=== PATIENT | male | born 1940 | race American Indian/Alaskan Native ===

== ENCOUNTER 2020-02-03 20:02 | Observation (INO) | payer MEDICARE ==
[2020-02-03 21:22] LABS: Basophils # (Auto) 0.1 K/mm3 (0.0-0.1); Basophils % (Auto) 0.8 % (0.0-1.8); Eosinophils # (Auto) 0.1 K/mm3 (0.0-0.4); Eosinophils % (Auto) 1.7 % (0.0-4.3); Hematocrit 30.4 % (35.5-45.6); Hemoglobin 10.2 gm/dl (11.8-15.2); Lymphocytes # (Auto) 1.7 K/mm3 (1.2-5.4); Lymphocytes % (Auto) 28.2 % (13.4-35.0); Mean Corpuscular HGB Conc 34 % (32-34); Mean Corpuscular Volume 88 fl (84-94); Monocytes # (Auto) 0.6 K/mm3 (0.0-0.8); Monocytes % (Auto) 10.1 % (0.0-7.3); Platelet Count 247 K/mm3 (140-440); Red Blood Count 3.45 M/mm3 (3.65-5.03); Red Cell Distribution Width 13.3 % (13.2-15.2)
[2020-02-03 21:46] LABS: Albumin 4.2 g/dL (3.9-5); Calcium 9.6 mg/dL (8.4-10.2)
--- NOTE | 2020-02-03 23:41 | Emergency Department Report ---
ED General Adult HPI - General Chief complaint: Recheck/Abnormal Lab/Rx Stated complaint: LOW IRON/KIDNEY PAIN PUI?: No Time Seen by Provider: 02/03/20 23:30 Source: patient Mode of arrival: Ambulatory Limitations: No Limitations - History of Present Illness Initial comments: This is a 79-year-old male with history of chronic kidney disease, noninsulin dependent diabetes mellitus, hypertension who presents with abnormal labs. PCP requested that patient go to the emergency department for evaluation. He was told that he had low iron and his kidneys were weak. He is followed by tailor helper Dr. Henderson. This gentleman has been in his normal state of health. He denies any pain or discomfort other than baseline pain due to arthritis. He denies chest pain, shortness of breath, fever, cough. -: Gradual, unknown Severity scale (0 -10): 0 Consistency: constant Improves with: none Worsens with: none Associated Symptoms: denies other symptoms - Related Data Home Medications Medication Instructions Recorded Confirmed Last Taken Fenofibrate [Tricor] 145 mg PO QDAY 03/11/15 03/11/15 03/11/15 Gabapentin [Gralise] 600 mg PO QDAY 03/11/15 03/11/15 03/11/15 amLODIPine [Norvasc] 5 mg PO DAILY 03/11/15 03/11/15 03/11/15 glipiZIDE XL [Glucotrol Xl] 10 mg PO QAM 03/11/15 03/11/15 03/11/15 traMADoL [Ultram] 50 mg PO Q8H PRN 03/11/15 03/11/15 Unknown Allergies Allergy/AdvReac Type Severity Reaction Status Date / Time No Known Allergies Allergy Verified 03/11/15 18:10 ED Review of Systems ROS: Stated complaint: LOW IRON/KIDNEY PAIN Other details as noted in HPI Comment: All other systems reviewed and negative Constitutional: denies: fever, malaise Respiratory: denies: cough, shortness of breath Cardiovascular: denies: chest pain Gastrointestinal: denies: abdominal pain, nausea, vomiting ED Past Medical Hx - Past Medical History Previous Medical History?: Yes Hx Diabetes: Yes Hx Renal Disease: Yes Hx Arthritis: Yes Hx Headaches / Migraines: No Hx HIV: No - Surgical History Past Surgical History?: No - Social History Smoking Status: Former Smoker - Medications Home Medications: Home Medications Medication Instructions Recorded Confirmed Last Taken Type Fenofibrate [Tricor] 145 mg PO QDAY 03/11/15 03/11/15 03/11/15 History Gabapentin [Gralise] 600 mg PO QDAY 03/11/15 03/11/15 03/11/15 History amLODIPine [Norvasc] 5 mg PO DAILY 03/11/15 03/11/15 03/11/15 History glipiZIDE XL [Glucotrol Xl] 10 mg PO QAM 03/11/15 03/11/15 03/11/15 History traMADoL [Ultram] 50 mg PO Q8H PRN 03/11/15 03/11/15 Unknown History ED Physical Exam - General Limitations: No Limitations General appearance: alert, in no apparent distress - Head Head exam: Present: atraumatic, normocephalic - Eye Eye exam: Present: normal appearance - ENT ENT exam: Present: mucous membranes moist - Neck Neck exam: Present: normal inspection, full ROM - Respiratory Respiratory exam: Present: normal lung sounds bilaterally. Absent: respiratory distress, wheezes, rales, rhonchi - Cardiovascular Cardiovascular Exam: Present: regular rate, normal rhythm, normal heart sounds. Absent: systolic murmur, diastolic murmur, rubs, gallop - GI/Abdominal GI/Abdominal exam: Present: soft, normal bowel sounds. Absent: distended, tenderness, guarding, rebound - Extremities Exam Extremities exam: Present: normal inspection - Neurological Exam Neurological exam: Present: alert, oriented X3 - Psychiatric Psychiatric exam: Present: normal affect, normal mood - Skin Skin exam: Present: warm, dry, intact, normal color. Absent: rash ED Course Vital Signs 02/03/20 20:44 Temperature 98.2 F Pulse Rate 64 Respiratory 16 Rate Blood Pressure 172/82 O2 Sat by Pulse 100 Oximetry ED Medical Decision Making - Lab Data Result diagrams: 02/03/20 20:52 02/03/20 23:41 - EKG Data EKG shows normal: sinus rhythm Rate: normal - EKG Data 02/04/20 00:50 EKG obtained 36 EKG interpreted by me Normal sinus rhythm markedly prolonged NH interval 304 ms peaked T waves no ST elevation right bundle branch block nonischemic T wave pattern left axis deviation - Medical Decision Making Mr. Potts presents with metabolic derangement, acute hyperglycemia and acute on chronic renal failure. The discovery was made by his PCP during routine labs. Due to EKG abnormalities, hospitalization is indicated. Hypokalemia addressed with insulin therapy, calcium, sodium bicarbonate. Suspect chronic hyponatremia due to hypervolemia of end-stage renal disease versus abnormal hemostasis. Nephrology consult requested. Patient is admitted to the hospital service. Critical care attestation.: If time is entered above; I have spent that time in minutes in the direct care of this critically ill patient, excluding procedure time. ED Disposition Clinical Impression: Hyperkalemia, Acute on chronic kidney failure, [id number] kidney injury, Chronic hyponatremia, Acute hyperglycemia Disposition: 09 OP ADMIT IP TO THIS HOSP Is pt being admited?: Yes Does the pt Need Aspirin: No Condition: Stable
[2020-02-04] MEDS ORDERED: INSULIN REGULAR, HUMAN 100 UNIT/ML 3ML VIAL IV ONE (00:43)
[2020-02-04] MEDS ORDERED: SODIUM BICARB 8.4% 50 MEQ/50 ML SYRINGE IV ONE ×2 (00:43→01:29)
[2020-02-04] MEDS ORDERED: CALCIUM GLUCONATE 1,000 MG in SODIUM CHLORIDE 0.9% 100 ML IV ONE (00:43)
[2020-02-04] MEDS ORDERED: MORPHINE 2 MG/1 ML INJ IV PRN (01:24)
[2020-02-04] MEDS ORDERED: DEXTROSE 50% IN WATER (25GM) 50 ML SYRINGE IV PRN (01:24)
[2020-02-04] MEDS ORDERED: ACETAMINOPHEN 325 MG TAB PO PRN (01:24)
[2020-02-04] MEDS ORDERED: MAGNESIUM HYDROXIDE (MOM) ORAL LIQD UDC PO PRN (01:24)
[2020-02-04] MEDS ORDERED: ONDANSETRON 4 MG/2 ML INJ IV PRN (01:24)
[2020-02-04] MEDS ORDERED: INSULIN REGULAR, HUMAN 100 UNIT/ML 3ML VIAL ONE (01:26)
[2020-02-04] MEDS ORDERED: INSULIN REGULAR, HUMAN 100 UNITS/1 ML ONE (01:26)
[2020-02-04] MEDS ORDERED: SODIUM BICARB 4.2% 5 MEQ/10 ML SYRINGE ONE (01:27)
--- NOTE | 2020-02-04 01:32 | History and Physical Report ---
History of Present Illness Date of examination: 02/04/20 Date of admission: 02/04/20 00:59 Chief complaint: Abnormal Labs History of present illness: 79-year-old -[place] male with known history of diabetes mellitus, chronic kidney disease and hypertension presents to the emergency room today having been encouraged to report to the ER for abnormal labs. Patient follows up with Dr. Henderson for his chronic kidney disease. He was seen by his new primary care physician earlier and labs were said to be abnormal and therefore encouraged to report to the emergency room for evaluation. Potassium was said to be 6.1, sodium was 123 and glucose was said to be 619. Upon arrival in the emergency room patient had EKG changes significant for peaked T waves. He was placed on sodium bicarb, insulin calcium gluconate. Consult has been placed to the transformation lead for evaluation. Past History Past Medical History: arthritis, diabetes, hypertension, renal failure Past Surgical History: appendectomy Social history: smoking (Former smoker) Family history: no significant family history Medications and Allergies Allergies Allergy/AdvReac Type Severity Reaction Status Date / Time No Known Allergies Allergy Verified 03/11/15 18:10 Home Medications Medication Instructions Recorded Confirmed Last Taken Type Fenofibrate [Tricor] 145 mg PO QDAY 03/11/15 03/11/15 03/11/15 History Gabapentin [Gralise] 600 mg PO QDAY 03/11/15 03/11/15 03/11/15 History amLODIPine [Norvasc] 5 mg PO DAILY 03/11/15 03/11/15 03/11/15 History glipiZIDE XL [Glucotrol Xl] 10 mg PO QAM 03/11/15 03/11/15 03/11/15 History traMADoL [Ultram] 50 mg PO Q8H PRN 03/11/15 03/11/15 Unknown History Review of Systems Constitutional: no fever, no chills Ears, nose, mouth and throat: no nasal congestion, no sore throat Cardiovascular: no chest pain, no palpitations Respiratory: no cough, no shortness of breath Gastrointestinal: no abdominal pain, no nausea, no vomiting, no diarrhea Genitourinary Male: no dysuria, no hematuria, no flank pain Musculoskeletal: no neck pain, no low back pain Integumentary: no rash, no pruritis Neurological: no headaches, no confusion Exam - Constitutional Vitals: Temp Pulse Resp BP Pulse Ox 98.2 F 60 12 173/80 99 02/03/20 20:44 02/04/20 01:00 02/04/20 01:00 02/04/20 01:00 02/04/20 01:00 General appearance: Present: no acute distress, well-nourished - EENT Eyes: Present: PERRL, EOM intact. Absent: scleral icterus ENT: hearing intact, clear oral mucosa, dentition normal - Neck Neck: Present: supple, normal ROM - Respiratory Respiratory effort: normal Respiratory: bilateral: CTA - Cardiovascular Rhythm: regular Heart Sounds: Present: S1 & S2. Absent: gallop, systolic murmur, diastolic murmur, rub - Extremities Extremities: no ischemia, pulses intact, pulses symmetrical, No edema, Full ROM Peripheral Pulses: within normal limits - Abdominal General gastrointestinal: Present: soft, non-tender, non-distended, normal bowel sounds. Absent: mass - Integumentary Integumentary: Present: clear, warm, dry - Musculoskeletal Musculoskeletal: strength equal bilaterally - Psychiatric Psychiatric: appropriate mood/affect, intact judgment & insight, memory intact, cooperative - Neurologic Neurologic: CNII-XII intact, no focal deficits, moves all extremities Results - Labs CBC & Chem 7: 02/03/20 20:52 02/03/20 23:41 Labs: Abnormal lab results 02/03/20 02/03/20 02/03/20 Range/Units 20:52 20:52 23:41 RBC 3.45 L (3.65-5.03) M/mm3 Hgb 10.2 L (11.8-15.2) gm/dl Hct 30.4 L (35.5-45.6) % Davie % (Auto) 10.1 H (0.0-7.3) % Sodium 123 L (137-145) mmol/L Potassium 6.1 H* 5.7 H (3.6-5.0) mmol/L Chloride 89.8 L (98-107) mmol/L BUN 55 H (9-20) mg/dL Creatinine 2.7 H (0.8-1.3) mg/dL Glucose 619 H* (75-100) mg/dL Assessment and Plan - Patient Problems (1) Hyperkalemia Current Visit: Yes Status: Acute Plan to address problem: Possibly secondary to the chronic kidney disease. Will monitor patient closely in telemetry. He has had sodium bicarbonate, insulin and calcium gluconate. (2) Acute hyperglycemia Current Visit: Yes Status: Acute Plan to address problem: We will monitor [facility]. Patient placed on sliding scale insulin. (3) Chronic kidney disease Current Visit: No Status: Acute Plan to address problem: Consult placed to Dr. Henderson for evaluation and recommendation. (4) DVT prophylaxis Current Visit: No Status: Acute Plan to address problem: We will place on subcutaneous heparin. (5) Full code status Current Visit: Yes Status: Acute
[2020-02-04] MEDS: HEPARIN 5,000 UNIT/1 ML VIAL SUB-Q SCH ×3 (05:39→21:44)
[2020-02-04] MEDS ORDERED: INSULIN LISPRO 100 UNIT/ML VIAL 3 mL SUB-Q SCH (07:30)
[2020-02-04] MEDS ORDERED: traMADol 50 MG TAB PO PRN (11:53)
[2020-02-04] MEDS ORDERED: amLODIPine 5 MG TAB PO SCH (12:00)
[2020-02-04] MEDS: INSULIN REGULAR, HUMAN 100 UNIT/ML 3ML VIAL SUB-Q SCH ×3 (12:38→22:00)
[2020-02-04] MEDS: amLODIPine 10 MG TAB PO SCH (12:38)
[2020-02-04] MEDS: INSULIN NPH, HUMAN 100 UNIT/1 ML SUB-Q SCH ×2 (12:38→16:42)
[2020-02-04] MEDS: SODIUM CHLORIDE 0.9% 1000 ML 1,000 ML IV SCH ×2 (13:33→21:44)
--- NOTE | 2020-02-04 14:12 | Consultation ---
History of Present Illness - Reason for Consult Consult date: 02/04/20 hyperkalemia - History of Present Illness The patient is a 79 YO AAM who is well known to our service with history significant for Uncontrolled type 2 DM, HTN, HLD, CKD stage 4 and Hyperkalemia who presented to [facility] ED 02/02 for evaluation of abnormal lab results. Patient was seen by his new primary care physician and labs were said to be abnormal and therefore encouraged to report to the emergency room for evaluation. In the ED his Potassium was 6.1, Sodium 123 and glucose was 619. EKG showed peaked T waves. He received medication to lower potassium level. Currently patient denies any N, V, D, abd pain, rash, fever, cough, dizziness, weakness, dysuria, hematuria or syncope. Nephrology was consulted for evaluation. Past History Past Medical History: arthritis, diabetes, hypertension, hyperlipidemia, renal failure Past Surgical History: appendectomy Social history: smoking (Former smoker) Family history: no significant family history Medications and Allergies Allergies Allergy/AdvReac Type Severity Reaction Status Date / Time No Known Allergies Allergy Verified 03/11/15 18:10 Home Medications Medication Instructions Recorded Confirmed Last Taken Type Fenofibrate [Tricor] 145 mg PO QDAY 03/11/15 03/11/15 03/11/15 History Gabapentin [Gralise] 600 mg PO QDAY 03/11/15 03/11/15 03/11/15 History amLODIPine [Norvasc] 5 mg PO DAILY 03/11/15 03/11/15 03/11/15 History glipiZIDE XL [Glucotrol Xl] 10 mg PO QAM 03/11/15 03/11/15 03/11/15 History traMADoL [Ultram] 50 mg PO Q8H PRN 03/11/15 03/11/15 Unknown History Active Meds: Active Medications Acetaminophen (Tylenol) 650 mg PO Q4H PRN PRN Reason: Pain MILD(1-3)/Fever >100.5/MERCER Amlodipine Besylate (Amlodipine) 10 mg PO DAILY [facility] Last Admin: 02/04/20 12:38 Dose: 10 mg Documented by: Dextrose (D50w (25gm) Syringe) 0 ml IV Q30MIN PRN; Protocol PRN Reason: Hypoglycemia Fenofibrate (Tricor) 145 mg PO QDAY [facility] Heparin Sodium (Porcine) (Heparin) 5,000 unit SUB-Q Q8HR [facility] Last Admin: 02/04/20 13:33 Dose: 5,000 unit Documented by: Sodium Chloride (Nacl 0.9% 1000 Ml) 1,000 mls @ 100 mls/hr IV DIRECT [facility] Last Admin: 02/04/20 13:33 Dose: 100 mls/hr Documented by: Insulin Human NPH (Humulin N) 10 unit SUB-Q BIDDIAB [facility] Last Admin: 02/04/20 12:38 Dose: 10 unit Documented by: Insulin Human Regular (Humulin R) 0 unit SUB-Q ACHS [facility]; Protocol Last Admin: 02/04/20 12:38 Dose: 8 unit Documented by: Magnesium Hydroxide (Milk Of Magnesia) 30 ml PO Q4H PRN PRN Reason: Constipation Morphine Sulfate (Morphine) 2 mg IV Q4H PRN PRN Reason: Pain, Moderate (4-6) Last Admin: 02/04/20 05:37 Dose: 2 mg Documented by: Ondansetron HCl (Zofran) 4 mg IV Q8H PRN PRN Reason: Nausea And Vomiting Sodium Chloride (Sodium Chloride Flush Syringe 10 Ml) 10 ml IV BID [facility] Last Admin: 02/04/20 09:50 Dose: 10 ml Documented by: Sodium Chloride (Sodium Chloride Flush Syringe 10 Ml) 10 ml IV PRN PRN PRN Reason: LINE FLUSH Tramadol HCl (Ultram) 50 mg PO Q8H PRN PRN Reason: PAIN Review of Systems Constitutional: weight loss, anorexia, poor appetite, no weight gain, no fever, no chills, no weakness Cardiovascular: high blood pressure, no chest pain, no orthopnea, no edema, no syncope, no lightheadedness, no shortness of breath, no leg edema Respiratory: no cough, no shortness of breath Gastrointestinal: no abdominal pain, no nausea, no vomiting, no diarrhea, no me richie Genitourinary Male: no dysuria, no hematuria Musculoskeletal: other (R hip pain (chronic)) Integumentary: no rash, no wounds, no jaundice Neurological: no syncope, no change in speech, no change in mentation, no confusion Exam - Vital Signs Vital signs: Vital Signs Temp Pulse Resp BP Pulse Ox 98.2 F 64 16 172/82 100 02/03/20 20:44 02/03/20 20:44 02/03/20 20:44 02/03/20 20:44 02/03/20 20:44 Results - Lab Results 02/03/20 20:52 02/04/20 14:15 Most recent lab results Calcium 9.6 mg/dL (8.4-10.2) 02/03/20 20:52 Assessment and Plan 1. Acute kidney injury: Vasomotor TEX superimposed on CKD stage 4 in the setting of hyperosmolar state. Renal function is improving. Continue IV fluids. Monitor renal function. Avoid nephrotoxic agents. Meds dosage based on GFR. 2. FEN: Hyperkalemia, improving with meds, monitor. Monitor lytes. 3. Uncontrolled DM: Admitted with glucose of 619. Improving. 4. HTN: Monitor BP. 5. Anemia: Monitor and Epogen if needed. Subjective: Patient was seen and examined at the bedside. Examination: General appearance: well-developed, well-nourished, appears stated age, no distr ess, appears emaciated HEENT: ATNC, PERRL, mucous membranes moist, hearing intact, vision intact Neck: supple Respiratory: Clear to Ascultation Cardiology: regular, S1S2, no murmur Gastrointestinal: soft, normoactive bowel sounds, not tender, not distended Skin: no obvious rash Neurologic: no focal deficit, no asterixis, alert and oriented x3 Ext: no edema
[2020-02-04 14:57] LABS: Calcium 9.9 mg/dL (8.4-10.2)
[2020-02-04] MEDS ORDERED: SODIUM POLYSTYRENE 15 GM/60 ML ORAL LIQD PO ONE (15:07)
--- NOTE | 2020-02-04 16:30 | Event Note ---
Date: 02/04/20 Patient seen and examined Repeat BMP today, give 1 dose of Kayexalate Nephrology consulted Hemoglobin A1c greater than 16 Will start on long-acting insulin along with SSI Continue to monitor clinically, repeat BMP tomorrow morning If clinically stable possible discharge tomorrow in the a.m.
[2020-02-05] MEDS: HEPARIN 5,000 UNIT/1 ML VIAL SUB-Q SCH (05:45)
[2020-02-05 06:55] LABS: Basophils % (Auto) 0.2 % (0.0-1.8); Eosinophils # (Auto) 0.1 K/mm3 (0.0-0.4); Eosinophils % (Auto) 1.7 % (0.0-4.3); Hematocrit 28.2 % (35.5-45.6); Hemoglobin 9.6 gm/dl (11.8-15.2); Lymphocytes # (Auto) 0.7 K/mm3 (1.2-5.4); Lymphocytes % (Auto) 8.8 % (13.4-35.0); Mean Corpuscular HGB Conc 34 % (32-34); Mean Corpuscular Volume 86 fl (84-94); Monocytes # (Auto) 0.6 K/mm3 (0.0-0.8); Monocytes % (Auto) 8.3 % (0.0-7.3); Platelet Count 229 K/mm3 (140-440); Red Blood Count 3.27 M/mm3 (3.65-5.03); Red Cell Distribution Width 13.8 % (13.2-15.2)
[2020-02-05 07:08] LABS: INR 1.1 (0.87-1.13)
[2020-02-05 07:09] LABS: Calcium 8.9 mg/dL (8.4-10.2)
--- NOTE | 2020-02-05 09:59 | Progress Note ---
Assessment and Plan 1. Acute kidney injury: Vasomotor TEX superimposed on CKD stage 4 in the setting of hyperosmolar state. Renal function is improving. Continue IV fluids. Monitor renal function. Avoid nephrotoxic agents. Meds dosage based on GFR. 2. FEN: Hyperkalemia, improved with meds, monitor. Monitor lytes. 3. Uncontrolled DM: Admitted with glucose of 619. Improving. 4. HTN: Monitor BP. 5. Anemia: Monitor and Epogen if needed. Compliance encouraged. Subjective: Patient was seen and examined at the bedside. Examination: General appearance: well-developed, well-nourished, appears stated age, no distress, appears emaciated HEENT: ATNC, PERRL, mucous membranes moist, hearing intact, vision intact Neck: supple Respiratory: Clear to Auscultation Cardiology: regular, S1S2, no murmur Gastrointestinal: soft, normoactive bowel sounds, not tender, not distended Skin: no obvious rash Neurologic: no focal deficit, no asterixis, alert and oriented x3 Ext: no edema Subjective Date of service: 02/05/20 Objective - Vital Signs Vital signs: Vital Signs - 12hr 02/04/20 02/05/20 02/05/20 22:39 03:23 04:00 Temperature 98.6 F 99.4 F 99.4 F Pulse Rate 74 82 82 Respiratory 16 16 16 Rate Blood Pressure 133/55 130/64 Blood Pressure 130/64 [Left] O2 Sat by Pulse 99 97 97 Oximetry - Lab 02/05/20 06:33 02/05/20 06:33 Most recent lab results Calcium 8.9 mg/dL (8.4-10.2) 02/05/20 06:33 Medications & Allergies - Medications Allergies/Adverse Reactions: Allergies No Known Allergies Allergy (Verified 03/11/15 18:10) per patient Home Medications: Home Medications Medication Instructions Recorded Confirmed Last Taken Type Fenofibrate [Tricor] 145 mg PO QDAY 03/11/15 03/11/15 03/11/15 History Gabapentin [Gralise] 600 mg PO QDAY 03/11/15 03/11/15 03/11/15 History amLODIPine [Norvasc] 5 mg PO DAILY 03/11/15 03/11/15 03/11/15 History glipiZIDE XL [Glucotrol Xl] 10 mg PO QAM 03/11/15 03/11/15 03/11/15 History traMADoL [Ultram] 50 mg PO Q8H PRN 03/11/15 03/11/15 Unknown History Active Medications: Generic Name Dose Route Start Last Admin Trade Name Freq PRN Reason Stop Dose Admin Acetaminophen 650 mg 02/04/20 01:24 Tylenol PO Q4H PRN Pain MILD(1-3)/Fever >100.5/MERCER Amlodipine Besylate 10 mg 02/04/20 13:00 02/04/20 12:38 Amlodipine PO 10 mg DAILY [facility] Administration Dextrose 0 ml 02/04/20 01:24 D50w (25gm) Syringe IV Q30MIN PRN Hypoglycemia Protocol Fenofibrate 145 mg 02/05/20 10:00 Tricor PO QDAY [facility] Heparin Sodium (Porcine) 5,000 unit 02/04/20 06:00 02/05/20 05:45 Heparin SUB-Q 5,000 unit Q8HR [facility] Administration Sodium Chloride 1,000 mls @ 100 mls/hr 02/04/20 10:30 02/04/20 21:44 Nacl 0.9% 1000 Ml IV 100 mls/hr DIRECT [facility] Administration Insulin Human NPH 14 unit 02/05/20 10:00 Humulin N SUB-Q BIDDIAB [facility] Insulin Human Regular 0 unit 02/04/20 11:30 02/04/20 22:00 Humulin R SUB-Q Not Given ACHS [facility] Protocol Magnesium Hydroxide 30 ml 02/04/20 01:24 Milk Of Magnesia PO Q4H PRN Constipation Morphine Sulfate 2 mg 02/04/20 01:24 02/04/20 05:37 Morphine IV 2 mg Q4H PRN Administration Pain, Moderate (4-6) Ondansetron HCl 4 mg 02/04/20 01:24 Zofran IV Q8H PRN Nausea And Vomiting Sodium Chloride 10 ml 02/04/20 10:00 02/04/20 21:45 Sodium Chloride Flush Syringe 10 Ml IV 10 ml BID [facility] Administration Sodium Chloride 10 ml 02/04/20 01:24 Sodium Chloride Flush Syringe 10 Ml IV PRN PRN LINE FLUSH Tramadol HCl 50 mg 02/04/20 11:53 Ultram PO Q8H PRN PAIN
[2020-02-05] MEDS ORDERED: FENOFIBRATE 145 MG TAB PO SCH (10:00)
[2020-02-05] MEDS ORDERED: INSULIN NPH, HUMAN 100 UNIT/1 ML SUB-Q SCH (10:00)
[2020-02-05] MEDS: amLODIPine 10 MG TAB PO SCH (10:14)
[2020-02-05] MEDS: INSULIN NPH, HUMAN 100 UNIT/1 ML SUB-Q SCH (10:15)
[2020-02-05] MEDS: INSULIN REGULAR, HUMAN 100 UNIT/ML 3ML VIAL SUB-Q SCH (10:16)
[2020-02-05 12:56] VITALS: BP 135/67
--- NOTE | 2020-02-05 14:13 | Discharge Summary ---
Providers - Providers Date of Admission: 02/04/20 00:59 Date of discharge: 02/05/20 Attending physician: REESE ARANGO 02/04/20 00:52 Consult to Physician [CONS] Stat Comment: Consulting Provider: AMADEO RYDER Physician Instructions: Reason For Exam: ESRD, hyperkalemia, hyponatremia 02/04/20 01:25 Consult to Dietitian/Nutrition [CONS] Routine Physician Instructions: Reason For Exam: Reason for Consult: Diet education Primary care physician: LICENSED NURSING ASSISTANT Hospitalization Condition: Stable Hospital course: Discharge diagnosis: 1. Acute kidney injury: Vasomotor TEX superimposed on CKD stage 4 in the setting of hyperosmolar state. 2. Hyperkalemia, improved with meds, 3. Uncontrolled DM: Admitted with glucose of 619. A1c ~16 4. HTN:, Monitor BP. 5. Anemia, likely from CKD Disposition: DC-01 TO HOME OR SELFCARE Time spent for discharge: 34 minutes Core Measure Documentation - Palliative Care Palliative Care/ Comfort Measures: Not Applicable - Core Measures Any of the following diagnoses?: none Exam - Constitutional Vitals: Temp Pulse Resp BP Pulse Ox 98.3 F 67 18 135/67 98 02/05/20 11:33 02/05/20 11:33 02/05/20 11:33 02/05/20 11:33 02/05/20 11:33 Plan Activity: advance as tolerated Weight Bearing Status: Weight Bear as Tolerated Diet: diabetic Follow up with: PRIMARY CARE, [Primary Care Provider] - 7 Days Prescriptions: amLODIPine 10 mg PO DAILY #30 tablet Aspirin EC [Halfprin EC] 81 mg PO QDAY #30 tablet. Insulin Regular, Human [HumuLIN R] 0 unit SUB-Q ACHS #1 vial Insulin NPH, Human [NovoLIN N] 14 unit SUB-Q BIDDIAB #1 vial
== END 2020-02-05 13:46 | disposition home or self-care (01) ==
LOC: ED 20:02 → 4A 02-04 00:59
PROVIDERS: ADMIT Internal Medicine Geriatric Medicine; ATTEND Internal Medicine
DX: E11.65 Type 2 diabetes mellitus with hyperglycemia (principal); N17.9 Acute kidney failure, unspecified; E87.5 Hyperkalemia; I12.9 Hypertensive chronic kidney disease with stage 1 through stage 4 chronic kidney disease, or unspecified chronic kidney disease; N18.4 Chronic kidney disease, stage 4 (severe); R94.31 Abnormal electrocardiogram [ECG] [EKG]; E87.1 Hypo-osmolality and hyponatremia; E78.5 Hyperlipidemia, unspecified; M19.90 Unspecified osteoarthritis, unspecified site; D64.9 Anemia, unspecified; Z90.49 Acquired absence of other specified parts of digestive tract; Z87.891 Personal history of nicotine dependence; Z79.4 Long term (current) use of insulin
CPT/HCPCS: 36415; 80048; 80053; 82962; 83036; 84132; 85025; 85610; 87641; 93005; 96361; 96365; 96372; 96375; 97161; 99284; G0378; J0610; J1644; J2270; J7030; J1815

== ENCOUNTER 2021-06-05 11:59 | Outpatient (CLI) | payer MEDICARE ==
[2021-06-05 12:53] LABS: Albumin 3.2 g/dL (3.9-5); Calcium 9.1 mg/dL (8.4-10.2)
== END 2021-06-05 12:00 | disposition home or self-care (01) ==
LOC: LAB 11:59
PROVIDERS: ATTEND Internal Medicine Nephrology
DX: N18.4 Chronic kidney disease, stage 4 (severe) (principal)
CPT/HCPCS: 36415; 80048; 82040; 84100

== ENCOUNTER 2021-07-08 09:33 | Inpatient (IN) | payer MEDICARE ==
[2021-07-08 10:31] LABS: Hematocrit 24.6 % (35.5-45.6); Lymphocytes # (Auto) 0.5 K/mm3 (1.2-5.4); Lymphocytes % (Auto) 4.9 % (13.4-35.0); Mean Corpuscular HGB Conc 32 % (32-34); Mean Corpuscular Volume 87 fl (84-94); Monocytes # (Auto) 0.8 K/mm3 (0.0-0.8); Monocytes % (Auto) 7.8 % (0.0-7.3); Platelet Count 285 K/mm3 (140-440); Red Blood Count 2.83 M/mm3 (3.65-5.03); Red Cell Distribution Width 16.9 % (13.2-15.2)
--- NOTE | 2021-07-08 10:33 | XRay Report ---
CHEST 1 VIEW 07/08/2021 9:23 AM INDICATION / CLINICAL INFORMATION: SOB. COMPARISON: One view of the chest from 01/12/2012. FINDINGS: SUPPORT DEVICES: None. HEART / MEDIASTINUM: No significant abnormality. LUNGS / PLEURA: Airspace opacities are seen along the mid/lower lungs. No significant pleural effusio n. No pneumothorax. ADDITIONAL FINDINGS: No significant additional findings. IMPRESSION: Suspected bilateral pneumonia. Signer Name: Jason Carney MD Signed: 07/08/2021 10:28 AM Workstation Name: [id number]
[2021-07-08] MEDS ORDERED: AZITHROMYCIN/NS 500 MG/250 ML 500 MG/250 ML BAG IV ONE (10:36)
[2021-07-08] MEDS ORDERED: cefTRIAXone/NS 2 GM/100 ML 2 GM/100 ML BAG IV ONE (10:36)
[2021-07-08 10:51] LABS: Albumin 3.3 g/dL (3.9-5); Calcium 8.3 mg/dL (8.4-10.2)
--- NOTE | 2021-07-08 11:30 | Emergency Department Report ---
ED Shortness of Breath HPI - General Chief Complaint: Dyspnea/Respdistress Stated Complaint: N/V/D,HYPERGLYCEMIA,CHERI Time Seen by Provider: 07/08/21 10:18 Source: EMS Mode of arrival: Stretcher Limitations: No Limitations - History of Present Illness Initial Comments: 81-year-old male with a past medical history of diabetes, chronic renal sufficiency, hypertension, and PAD currently on Xarelto presents to the hospital with complaints of shortness of breath, nausea, vomiting, and diarrhea for the past 2 days. Diarrhea has since resolved. EMS reports a blood glucose of 340 upon their arrival with respiratory distress. Patient treated with magnesium 4 g, Solu-Medrol 125 mg, Lasix 80 mg IV in route to the hospital. Patient is also on Lasix at home 20 mg daily. Patient denies chest pain, fever or current abdominal pain. He is unvaccinated for Covid. 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 Max Initial triage documents remained saturation of 97% however patient arrived with nonrebreather and patient is satting 90 to 94% on 50% Venturi at time of my evaluation - Related Data Home Medications Medication Instructions Recorded Confirmed Last Taken Fenofibrate [Tricor] 145 mg PO QDAY 03/11/15 03/11/15 03/11/15 traMADoL [Ultram 50 MG tab] 50 mg PO Q8H PRN 03/11/15 03/11/15 Unknown Previous Rx's Medication Instructions Recorded Last Taken Type Aspirin EC [Halfprin EC] 81 mg PO QDAY #30 tablet. 02/05/20 Unknown Rx Insulin NPH, Human [NovoLIN N] 14 unit SUB-Q BIDDIAB #1 vial 02/05/20 Unknown Rx Insulin Regular, Human [HumuLIN R] 0 unit SUB-Q ACHS #1 vial 02/05/20 Unknown Rx amLODIPine 10 mg PO DAILY #30 tablet 02/05/20 Unknown Rx Allergies Allergy/AdvReac Type Severity Reaction Status Date / Time No Known Allergies Allergy Verified 07/08/21 09:37 ED Review of Systems ROS: Stated complaint: N/V/D,HYPERGLYCEMIA,CHERI Other details as noted in HPI Comment: All other systems reviewed and negative ED Past Medical Hx - Past Medical History Hx Congestive Heart Failure: No Hx Diabetes: Yes Hx Renal Disease: Yes Hx Arthritis: Yes Hx Headaches / Migraines: No Hx Asthma: No Hx COPD: No Hx HIV: No Additional medical history: PAD - Social History Smoking Status: Never Smoker - Medications Home Medications: Home Medications Medication Instructions Recorded Confirmed Last Taken Type Fenofibrate [Tricor] 145 mg PO QDAY 03/11/15 03/11/15 03/11/15 History traMADoL [Ultram 50 MG tab] 50 mg PO Q8H PRN 03/11/15 03/11/15 Unknown History Aspirin EC [Halfprin EC] 81 mg PO QDAY #30 tablet. 02/05/20 Unknown Rx Insulin NPH, Human [NovoLIN N] 14 unit SUB-Q BIDDIAB #1 vial 02/05/20 Unknown Rx Insulin Regular, Human [HumuLIN R] 0 unit SUB-Q ACHS #1 vial 02/05/20 Unknown Rx amLODIPine 10 mg PO DAILY #30 tablet 02/05/20 Unknown Rx ED Physical Exam - General Limitations: No Limitations - Other Other exam information: General: No acute distress Head: Atraumatic Eyes: normal appearance ENT: Moist mucous membranes Neck: Normal appearance, no midline tenderness Chest: Bilateral crackles, no respiratory distress, mild wheeze noted right lung field CV: Regular rate and rhythm Abdomen: Soft, normal bowel sounds, nontender, nondistended, no rebound or guarding Back: Normal inspection Extremity: Bilateral ankle edema, no leg edema or calf tenderness Neuro: Alert O x 3, no facial asymmetry, speech clear, no gross motor sensory deficit Psych: Appropriate behavior Skin: No rash ED Course Vital Signs 07/08/21 07/08/21 09:34 10:58 Temperature 98.4 F Pulse Rate 98 H Respiratory 18 Rate Blood Pressure 136/88 [Left] O2 Sat by Pulse 97 Oximetry - Reevaluation(s) Reevaluation #1: 07/08/21 11:30 sat 91-94% on 50% venti after 2 hours ED stay patient still has no urine output despite receiving Lasix 80 mg IV in route - Consultations Consultation #1: 07/08/21 11:59 case d/w DR Max nephrology, will consult 13:13 Case d/w DR Emilio Kinney cardiology, requests ECHO, Dr Hall informed. ED Medical Decision Making - Lab Data Result diagrams: 07/08/21 10:11 07/08/21 10:11 Lab Results 07/08/21 07/08/21 Range/Units 10:11 10:11 WBC 10.8 (4.5-11.0) K/mm3 RBC 2.83 L (3.65-5.03) M/mm3 Hgb 8.0 L (11.8-15.2) gm/dl Hct 24.6 L (35.5-45.6) % MCV 87 (84-94) fl MCH 28 (28-32) pg MCHC 32 (32-34) % RDW 16.9 H (13.2-15.2) % Plt Count 285 (140-440) K/mm3 Lymph % (Auto) 4.9 L (13.4-35.0) % [place] % (Auto) 7.8 H (0.0-7.3) % Eos % (Auto) 0.0 (0.0-4.3) % Baso % (Auto) 0.0 (0.0-1.8) % Lymph # (Auto) 0.5 L (1.2-5.4) K/mm3 [place] # (Auto) 0.8 (0.0-0.8) K/mm3 Eos # (Auto) 0.0 (0.0-0.4) K/mm3 Baso # (Auto) 0.0 (0.0-0.1) K/mm3 Seg Neutrophils % 87.3 H (40.0-70.0) % Seg Neutrophils # 9.4 H (1.8-7.7) K/mm3 Sodium 142 (137-145) mmol/L Potassium 4.3 (3.6-5.0) mmol/L Chloride 97.1 L (98-107) mmol/L Carbon Dioxide 16 L (22-30) mmol/L Anion Gap 33 mmol/L BUN 59 H (9-20) mg/dL Creatinine 3.8 H (0.8-1.3) mg/dL Estimated GFR 19 ml/min BUN/Creatinine Ratio 16 % Glucose 290 H (75-100) mg/dL Calcium 8.3 L (8.4-10.2) mg/dL Total Bilirubin 0.90 (0.1-1.2) mg/dL AST 934 H (5-40) units/L ALT 559 H (7-56) units/L Alkaline Phosphatase 66 (35-129) units/L Troponin T 0.176 H* (0.00-0.029) ng/mL Total Protein 6.8 (6.3-8.2) g/dL Albumin 3.3 L (3.9-5) g/dL Albumin/Globulin Ratio 0.9 % Triglycerides 102 (2-149) mg/dL Cholesterol 176 (50-199) mg/dL LDL Cholesterol Direct 109 (50-130) mg/dL HDL Cholesterol 44 (40-59) mg/dL Cholesterol/HDL Ratio 4.00 % Lipase 26 (13-60) units/L - EKG Data -: EKG Interpreted by Me EKG shows normal: sinus rhythm, intervals (QTC prolonged 514), ST-T waves (Anterior T wave inversion) Rate: normal (90) - EKG Data When compared to previous EKG there are: changes noted - Radiology Data Radiology results: report reviewed CHEST 1 VIEW 07/08/2021 9:23 AM INDICATION / CLINICAL INFORMATION: SOB. COMPARISON: One view of the chest from 01/12/2012. FINDINGS: SUPPORT DEVICES: None. HEART / MEDIASTINUM: No significant abnormality. LUNGS / PLEURA: Airspace opacities are seen along the mid/lower lungs. No significant pleural effusion. No pneumothorax. ADDITIONAL FINDINGS: No significant additional findings. IMPRESSION: Suspected bilateral pneumonia. - Medical Decision Making 81-year-old male presents to the hospital with shortness of breath and hypoxia. Audible crackles on examination. Lasix provided prior to arrival without urinary output. Symptoms improved somewhat with bronchodilators, Solu-Medrol, magnesium, and supplemental oxygen in route to the hospital. Chest x-ray read as pneumonia therefore blood cultures obtained and patient treated with Rocephin and azithromycin. Covid test ordered. Differential also includes CHF. . Elevated LFTs noted with acute hepatitis panel and CT abdomen pelvis pending at disposition. Patient also had a new anterior T wave inversions with mild elevated troponin therefore case discussed with cardiology. Echocardiogram recommended. Hospitalist informed and hospitalist to admit Critical Care Time: No Critical care attestation.: If time is entered above; I have spent that time in minutes in the direct care of this critically ill patient, excluding procedure time. ED Disposition Clinical Impression: Acute respiratory failure, Chronic renal insufficiency, Pneumonia, Hypergl ycemia due to diabetes mellitus, Elevated troponin, Anemia Disposition: 09 ADMITTED INPATIENT Is pt being admited?: Yes Condition: Stable Instructions: Diabetes Mellitus Type 2 in Adults (ED), Bacterial Pneumonia (ED) Time of Disposition: 13:23
--- NOTE | 2021-07-08 12:58 | Consultation ---
History of Present Illness - Reason for Consult Consult date: 07/08/21 acute renal failure, chronic renal failure - History of Present Illness The patient is a 81 YO male well known to our service with past medical history of DM-2, Hypertension, PAD on Xarelto, Anemia and CKD 4-5 who presented to the [facility] ED 07/08 with complaints of shortness of breath for the past 2-3 days. He also reports orthopnea, difficulty in sleeping, nausea, vomiting and diarrhea. Diarrhea has since resolved. Pt denies any abd pain, fever, chills, dizziness, syncope, cp, rash, dysuria and hematuria. EMS reports a blood glucose of 340 and respiratory distress upon their arrival. Patient treated with magnesium 4 g, Solu-Medrol 125 mg, Lasix 80 mg IV enroute to the hospital. He is unvaccinated for Covid. Patient is currently on VM O2. CXX showed bilateral airspace opacities. Labs notable for Creat 3.8, BUN 59 and bicarb 16. Nephrology consulted for further evaluation of advanced CKD. Past History Past Medical History: anemia, diabetes, hypertension, renal failure Medications and Allergies Allergies Allergy/AdvReac Type Severity Reaction Status Date / Time No Known Allergies Allergy Verified 07/08/21 09:37 Home Medications Medication Instructions Recorded Confirmed Last Taken Type Fenofibrate [Tricor] 145 mg PO QDAY 03/11/15 03/11/15 03/11/15 History traMADoL [Ultram 50 MG tab] 50 mg PO Q8H PRN 03/11/15 03/11/15 Unknown History Aspirin EC [Halfprin EC] 81 mg PO QDAY #30 tablet. 02/05/20 Unknown Rx Insulin NPH, Human [NovoLIN N] 14 unit SUB-Q BIDDIAB #1 vial 02/05/20 Unknown Rx Insulin Regular, Human [HumuLIN R] 0 unit SUB-Q ACHS #1 vial 02/05/20 Unknown Rx amLODIPine 10 mg PO DAILY #30 tablet 02/05/20 Unknown Rx Review of Systems All systems: negative Exam - Vital Signs Vital signs: Vital Signs Pulse Resp BP Pulse Ox 98 H 18 136/88 97 07/08/21 09:34 07/08/21 09:34 07/08/21 09:34 07/08/21 09:34 Results - Lab Results 07/08/21 10:11 07/08/21 10:11 Most recent lab results Calcium 8.3 mg/dL (8.4-10.2) L 07/08/21 10:11 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 Admitted with volume overload and metabolic acidosis. Patient shaun need hemodialysis during this admission. Monitor. 2. FEN: Anion-gap Metabolic acidosis, 2/2 CKD, monitor. Volume control, IV Lasix. Monitor lytes and volume status. 3. Acute hypoxic resp failure, POA: 2/2 volume overload / pulmonary edema / PNA. On VM O2. Monitor. 4. PNA, POA: Abx to cover CAP. Covid-19 test pending. 5. DM-2: 6. Normocytic Anemia, POA: Chronic. May need Epogen. Monitor. 7. Hypertension: Volume control. Continue home BP meds. Monitor BP. Subjective: Patient was seen and examined at the bedside. Examination: General appearance: well-developed, appears stated age, slight resp distress, VM O2 HEENT: atraumatic, JAE Neck: trachea midline Respiratory: rales heard Heart: S1S2, regular, no murmur Abdomen: soft, bowel sounds heard, NT Integumentary: no obvious rash Neurologic: AO, able to move extremities Ext: trace LE edema
--- NOTE | 2021-07-08 12:59 | Cat Scan Report ---
CT ABDOMEN AND PELVIS WITHOUT CONTRAST HISTORY: Nausea and vomiting, elevated liver enzymes COMPARISON: None. TECHNIQUE: Axial CT images were obtained through the abdomen and pelvis without IV contrast. Sagittal and coronal reformatted images. All CT scans at this location are performed using CT dose reduction for ALARA by means of automated exposure control. FINDINGS: CT ABDOMEN: Lung Bases: Mild cardiomegaly, pulmonary venous congestion, moderate right pleural effusion and small left pleural effusion are identified suggesting mild CHF. Liver: The unenhanced CT appearance of the liver is unremarkable. No mass or significant parenchymal liver disease is appreciated. Biliary: There is dense material in the gallbladder which may represent sludge or noncalcified stones . No evidence for biliary dilatation. Spleen: No significant abnormality. Unenlarged. Pancreas: No significant abnormality. Adrenals: No significant abnormality. Kidneys: Multiple small renal cysts are seen bilaterally. Some of these demonstrate mild hemorrhagic change. No obvious renal mass, nephrolithiasis or hydronephrosis. Lymphatics: No lymphadenopathy. Vasculature: Moderate atherosclerotic disease throughout the abdominal aorta and iliac arteries. Bowel/Peritoneum: No evidence for bowel obstruction or focal inflammation. The appendix is normal. Th ere is small pelvic ascites. No fluid collection or free air. CT PELVIS: : The bladder and prostate gland are unremarkable. Osseous Structures: Moderate lumbar spondylosis. Additional Findings: None IMPRESSION: No acute inflammatory process is identified in the abdomen or pelvis. Unremarkable noncontrast CT linda earance of the liver. Sludge or noncalcified stones are suspected in the gallbladder. No evidence for biliary dilatation. Bilateral renal cysts as described. Small pelvic ascites. Mild CHF is suspected at the lung bases. Signer Name: Humberto Soto Jr, MD Signed: 07/08/2021 12:54 PM Workstation Name: [id number]
[2021-07-08 14:51] LABS: Hepatitis B Surface Antigen Non-Reactive (Negative); Hepatitis C Virus Antibody Non-Reactive (NonReactive)
[2021-07-08] MEDS ORDERED: traMADol 50 MG TAB PO PRN (16:31)
[2021-07-08] MEDS ORDERED: ONDANSETRON 4 MG/2 ML INJ IV PRN (16:33)
[2021-07-08] MEDS ORDERED: ACETAMINOPHEN 325 MG TAB PO PRN (16:33)
[2021-07-08] MEDS ORDERED: MORPHINE 2 MG/1 ML INJ IV PRN (16:40)
--- NOTE | 2021-07-08 16:52 | History and Physical Report ---
History of Present Illness Date of examination: 07/08/21 History of present illness: 81-year-old male with a past medical history of diabetes, chronic renal sufficiency, hypertension, and PAD currently on Xarelto presents to the hospital with complaints of shortness of breath, nausea, vomiting, and diarrhea for the past 2 days. Diarrhea has since resolved. EMS reports a blood glucose of 340 upon their arrival with respiratory distress. Patient treated with magnesium 4 g, Solu-Medrol 125 mg, Lasix 80 mg IV in route to the hospital. Patient is also on Lasix at home 20 mg daily. Patient denies chest pain, fever or current abdominal pain. He is unvaccinated for Covid. Purchasing Internship: Dr. Henderson Initial triage documents remained saturation of 97% however patient arrived with nonrebreather and patient is satting 90 to 94% on 50% Venturi at time of my evaluation - Related Data Home Medications Medication Instructions Recorded Confirmed Last Taken Fenofibrate [Tricor] 145 mg PO QDAY 03/11/15 03/11/15 03/11/15 traMADoL [Ultram 50 MG tab] 50 mg PO Q8H PRN 03/11/15 03/11/15 Unknown Previous Rx's Medication Instructions Recorded Last Taken Type Aspirin EC [Halfprin EC] 81 mg PO QDAY #30 tablet. 02/05/20 Unknown Rx Insulin NPH, Human [NovoLIN N] 14 unit SUB-Q BIDDIAB #1 vial 02/05/20 Unknown Rx Insulin Regular, Human [HumuLIN R] 0 unit SUB-Q ACHS #1 vial 02/05/20 Unknown Rx amLODIPine 10 mg PO DAILY #30 tablet 02/05/20 Unknown Rx Allergies Allergy/AdvReac Type Severity Reaction Status Date / Time No Known Allergies Allergy Verified 07/08/21 09:37 - Past Medical History --Diabetes: Yes --Renal Disease: Yes --Arthritis: Yes --Additional medical history: PAD - Social History Smoking Status: Never Smoker - Medications Home Medications: Home Medications Medication Instructions Recorded Confirmed Last Taken Type Fenofibrate [Tricor] 145 mg PO QDAY 03/11/15 03/11/15 03/11/15 History traMADoL [Ultram 50 MG tab] 50 mg PO Q8H PRN 03/11/15 03/11/15 Unknown History Aspirin EC [Halfprin EC] 81 mg PO QDAY #30 tablet. 02/05/20 Unknown Rx Insulin NPH, Human [NovoLIN N] 14 unit SUB-Q BIDDIAB #1 vial 02/05/20 Unknown Rx Insulin Regular, Human [HumuLIN R] 0 unit SUB-Q ACHS #1 vial 02/05/20 Unknown Rx amLODIPine 10 mg PO DAILY #30 tablet 02/05/20 Unknown Rx Review of Systems ROS: Stated complaint: N/V/D,HYPERGLYCEMIA,CHERI Other details as noted in HPI Comment: All other systems reviewed and negative Medications and Allergies Allergies Allergy/AdvReac Type Severity Reaction Status Date / Time No Known Allergies Allergy Verified 07/08/21 09:37 Home Medications Medication Instructions Recorded Confirmed Last Taken Type Fenofibrate [Tricor] 145 mg PO QDAY 03/11/15 03/11/15 03/11/15 History traMADoL [Ultram 50 MG tab] 50 mg PO Q8H PRN 03/11/15 03/11/15 Unknown History Aspirin EC [Halfprin EC] 81 mg PO QDAY #30 tablet. 02/05/20 Unknown Rx Insulin NPH, Human [NovoLIN N] 14 unit SUB-Q BIDDIAB #1 vial 02/05/20 Unknown Rx Insulin Regular, Human [HumuLIN R] 0 unit SUB-Q ACHS #1 vial 02/05/20 Unknown Rx amLODIPine 10 mg PO DAILY #30 tablet 02/05/20 Unknown Rx Exam - Constitutional Vitals: Temp Pulse Resp BP Pulse Ox 98.4 F 98 H 18 136/88 97 07/08/21 10:58 07/08/21 09:34 07/08/21 09:34 07/08/21 09:34 07/08/21 10:37 HEART Score - HEART Score Troponin: Troponin T 0.182 ng/mL (0.00-0.029) H* 07/08/21 14:14 Results - Labs CBC & Chem 7: 07/09/21 06:24 07/08/21 10:11 Labs: Laboratory Last Values WBC 10.8 K/mm3 (4.5-11.0) 07/08/21 10:11 RBC 2.83 M/mm3 (3.65-5.03) L 07/08/21 10:11 Hgb 8.0 gm/dl (11.8-15.2) L 07/08/21 10:11 Hct 24.6 % (35.5-45.6) L 07/08/21 10:11 MCV 87 fl (84-94) 07/08/21 10:11 MCH 28 pg (28-32) 07/08/21 10:11 MCHC 32 % (32-34) 07/08/21 10:11 RDW 16.9 % (13.2-15.2) H 07/08/21 10:11 Plt Count 285 K/mm3 (140-440) 07/08/21 10:11 Lymph % (Auto) 4.9 % (13.4-35.0) L 07/08/21 10:11 [place] % (Auto) 7.8 % (0.0-7.3) H 07/08/21 10:11 Eos % (Auto) 0.0 % (0.0-4.3) 07/08/21 10:11 Baso % (Auto) 0.0 % (0.0-1.8) 07/08/21 10:11 Lymph # (Auto) 0.5 K/mm3 (1.2-5.4) L 07/08/21 10:11 [place] # (Auto) 0.8 K/mm3 (0.0-0.8) 07/08/21 10:11 Eos # (Auto) 0.0 K/mm3 (0.0-0.4) 07/08/21 10:11 Baso # (Auto) 0.0 K/mm3 (0.0-0.1) 07/08/21 10:11 Seg Neutrophils % 87.3 % (40.0-70.0) H 07/08/21 10:11 Seg Neutrophils # 9.4 K/mm3 (1.8-7.7) H 07/08/21 10:11 Sodium 142 mmol/L (137-145) 07/08/21 10:11 Potassium 4.3 mmol/L (3.6-5.0) 07/08/21 10:11 Chloride 97.1 mmol/L (98-107) L 07/08/21 10:11 Carbon Dioxide 16 mmol/L (22-30) L 07/08/21 10:11 Anion Gap 33 mmol/L 07/08/21 10:11 BUN 59 mg/dL (9-20) H 07/08/21 10:11 Creatinine 3.8 mg/dL (0.8-1.3) H 07/08/21 10:11 Estimated GFR 19 ml/min 07/08/21 10:11 BUN/Creatinine Ratio 16 % 07/08/21 10:11 Glucose 290 mg/dL (75-100) H 07/08/21 10:11 Calcium 8.3 mg/dL (8.4-10.2) L 07/08/21 10:11 Total Bilirubin 0.90 mg/dL (0.1-1.2) 07/08/21 10:11 AST 934 units/L (5-40) H 07/08/21 10:11 ALT 559 units/L (7-56) H 07/08/21 10:11 Alkaline Phosphatase 66 units/L (35-129) 07/08/21 10:11 Troponin T 0.182 ng/mL (0.00-0.029) H* 07/08/21 14:14 Total Protein 6.8 g/dL (6.3-8.2) 07/08/21 10:11 Albumin 3.3 g/dL (3.9-5) L 07/08/21 10:11 Albumin/Globulin Ratio 0.9 % 07/08/21 10:11 Triglycerides 102 mg/dL (2-149) 07/08/21 10:11 Cholesterol 176 mg/dL (50-199) 07/08/21 10:11 LDL Cholesterol Direct 109 mg/dL (50-130) 07/08/21 10:11 HDL Cholesterol 44 mg/dL (40-59) 07/08/21 10:11 Cholesterol/HDL Ratio 4.00 % 07/08/21 10:11 Lipase 26 units/L (13-60) 07/08/21 10:11 Hepatitis A IgM Ab Non-reactive (NonReactive) 07/08/21 13:38 Hep Bs Antigen Non-reactive (Negative) 07/08/21 13:38 Hep B Core IgM Ab Non-reactive (NonReactive) 07/08/21 13:38 Hepatitis C Antibody Non-reactive (NonReactive) 07/08/21 13:38 Microbiology: Microbiology 07/08/21 10:57 Peripheral/Venous Blood Culture - Preliminary Culture in Progress 07/08/21 10:57 Peripheral/Venous Blood Culture - Preliminary Culture in Progress - Imaging and Cardiology Chest x-ray: report reviewed Imaging and Cardiology: Chest x-ray Suspected bilateral pneumonia Abdomen and pelvis CT No acute inflammatory process is identified in the abdomen or pelvis. Unremarkable noncontrast CT appearance of the liver. Sludge or noncalcified stones are suspected in the gallbladder. No evidence for biliary dilatation. Assessment and Plan Advance Directives: Yes (Full code) VTE prophylaxis?: Chemical Plan of care discussed with patient/family: Yes - Patient Problems (1) Acute respiratory failure with hypoxia Current Visit: Yes Status: Acute Plan to address problem: Patient was hypoxic on room air Oxygen supplementation as necessary (2) Volume overload Current Visit: Yes Status: Chronic Plan to address problem: Nephrology consulted Hemodialysis for increased ultrafiltration (3) Bilateral pneumonia Current Visit: Yes Status: Acute Plan to address problem: We will recheck procalcitonin. In the meantime continue IV Zithromax and IV Rocephin at 1 g per 24 hours. (4) End-stage renal disease needing dialysis Current Visit: Yes Status: Chronic Plan to address problem: Nephrology consulted for hemodialysis as per schedule (5) IDDM (insulin dependent diabetes mellitus) Current Visit: Yes Status: Chronic Plan to address problem: Continue home insulin and coverage Check hemoglobin A1c (6) Hypertension Current Visit: Yes Status: Chronic Qualifiers: Hypertension type: primary hypertension Qualified Code(s): I10 - Essential (primary) hypertension Plan to address problem: Continue antihypertensives and adjust medications (7) Hyperlipidemia Current Visit: Yes Status: Chronic Qualifiers: Hyperlipidemia type: unspecified Qualified Code(s): E78.5 - Hyperlipidemia, unspecified Plan to address problem: Continue statins (8) Anemia Current Visit: Yes Status: Chronic Qualifiers: Anemia type: due to chronic kidney disease Plan to address problem: Secondary to end-stage renal disease Epogen as per nephrology (9) DVT prophylaxis Current Visit: Yes Status: Acute Plan to address problem: On heparin and GI prophylaxis (10) Advance care planning Current Visit: Yes Status: Acute Plan to address problem: Disease education conducted, care plan discussed, diagnosis discussed, prognosis discussed. Patient is full code. Patient acknowledges understanding and agreement with care plan. +30 minutes.
[2021-07-08] MEDS ORDERED: AZITHROMYCIN/NS 500 MG/250 ML 500 MG/250 ML BAG IV SCH (17:00)
[2021-07-08] MEDS: FAMOTIDINE 10 MG TAB PO SCH (21:13)
[2021-07-08] MEDS: cefTRIAXone/NS 1 GM/50 ML 1 GM/50 ML BAG IV SCH (21:13)
[2021-07-08] MEDS: ASPIRIN EC 81 MG TAB PO SCH (21:14)
[2021-07-08] MEDS: FENOFIBRATE 145 MG TAB PO SCH (21:14)
[2021-07-08] MEDS: HEPARIN 5,000 UNIT/1 ML VIAL SUB-Q SCH (21:15)
[2021-07-08] MEDS ORDERED: FUROSEMIDE 40 MG/4 ML INJ IV ONE (22:15)
[2021-07-08] MEDS: INSULIN NPH, HUMAN 100 UNIT/1 ML SUB-Q SCH (22:43)
[2021-07-08] MEDS: INSULIN LISPRO 100 UNIT/ML SUB-Q SCH (22:48)
[2021-07-08] MEDS: amLODIPine 10 MG TAB PO SCH (22:56)
[2021-07-09 06:33] LABS: Basophils % (Auto) 0.1 % (0.0-1.8); Hematocrit 21.5 % (35.5-45.6); Hemoglobin 7.1 gm/dl (11.8-15.2); Lymphocytes # (Auto) 0.9 K/mm3 (1.2-5.4); Lymphocytes % (Auto) 9.8 % (13.4-35.0); Mean Corpuscular HGB Conc 33 % (32-34); Mean Corpuscular Volume 85 fl (84-94); Monocytes # (Auto) 0.7 K/mm3 (0.0-0.8); Monocytes % (Auto) 7.9 % (0.0-7.3); Platelet Count 259 K/mm3 (140-440); Red Blood Count 2.54 M/mm3 (3.65-5.03); Red Cell Distribution Width 16.7 % (13.2-15.2)
[2021-07-09 06:48] LABS: Albumin 3.3 g/dL (3.9-5); Calcium 7.7 mg/dL (8.4-10.2)
[2021-07-09] MEDS: INSULIN NPH, HUMAN 100 UNIT/1 ML SUB-Q SCH ×2 (09:15→17:21)
[2021-07-09] MEDS: INSULIN LISPRO 100 UNIT/ML SUB-Q SCH ×4 (09:15→22:33)
[2021-07-09] MEDS: amLODIPine 10 MG TAB PO SCH (09:16)
[2021-07-09] MEDS: FAMOTIDINE 10 MG TAB PO SCH ×2 (09:16→22:33)
[2021-07-09] MEDS: FENOFIBRATE 145 MG TAB PO SCH (09:16)
[2021-07-09] MEDS: HEPARIN 5,000 UNIT/1 ML VIAL SUB-Q SCH ×2 (09:16→22:32)
[2021-07-09] MEDS: ASPIRIN EC 81 MG TAB PO SCH (09:16)
--- NOTE | 2021-07-09 09:40 | Progress Note ---
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 Admitted with volume overload and metabolic acidosis. Patient shaun need hemodialysis during this admission. Monitor. 2. FEN: Anion-gap Metabolic acidosis, 2/2 CKD, monitor. Volume control, IV Lasix. Monitor lytes and volume status. 3. Acute hypoxic resp failure, POA: 2/2 volume overload / pulmonary edema / PNA. On VM O2. Monitor. 4. PNA, POA: Abx to cover CAP. Covid-19 test negative. 5. Suspected CHF: Echo pending. 6. DM-2: 7. Normocytic Anemia, POA: Chronic. May need Epogen. Monitor. 8. Hypertension: Volume control. Continue home BP meds. Monitor BP. Subjective: Patient was seen and examined at the bedside. Examination: General appearance: well-developed, appears stated age, slight resp distress, VM O2 HEENT: atraumatic, JAE Neck: trachea midline Respiratory: rales heard Heart: S1S2, regular, no murmur Abdomen: soft, bowel sounds heard, NT Integumentary: no obvious rash Neurologic: AO, able to move extremities Ext: trace LE edema Subjective Date of service: 07/09/21 Objective - Vital Signs Vital signs: Vital Signs - 12hr 07/08/21 07/09/21 07/09/21 21:56 05:34 07:29 Temperature 98.7 F Pulse Rate 83 Respiratory 17 18 Rate Blood Pressure 125/78 O2 Sat by Pulse 96 96 94 Oximetry - Lab 07/09/21 06:24 07/09/21 06:24 Most recent lab results Calcium 7.7 mg/dL (8.4-10.2) L 07/09/21 06:24 Medications & Allergies - Medications Allergies/Adverse Reactions: Allergies No Known Allergies Allergy (Verified 07/08/21 09:37) per patient Home Medications: Home Medications Medication Instructions Recorded Confirmed Last Taken Type Fenofibrate [Tricor] 145 mg PO QDAY 03/11/15 07/09/21 03/11/15 History traMADoL [Ultram 50 MG tab] 50 mg PO Q8H PRN 03/11/15 07/09/21 Unknown History Aspirin EC [Halfprin EC] 81 mg PO QDAY #30 tablet. 02/05/20 07/09/21 Unknown Rx Insulin NPH, Human [NovoLIN N] 14 unit SUB-Q BIDDIAB #1 vial 02/05/20 07/09/21 Unknown Rx Insulin Regular, Human [HumuLIN R] 0 unit SUB-Q ACHS #1 vial 02/05/20 07/09/21 Unknown Rx amLODIPine 10 mg PO DAILY #30 tablet 02/05/20 07/09/21 Unknown Rx Active Medications: Generic Name Dose Route Start Last Admin Trade Name Freq PRN Reason Stop Dose Admin Acetaminophen 650 mg 07/08/21 16:33 Acetaminophen 325 Mg Tab PO Q4H PRN Pain MILD(1-3)/Fever >100.5/MERCER Amlodipine Besylate 10 mg 07/08/21 17:00 07/09/21 09:16 Amlodipine 10 Mg Tab PO 10 mg DAILY ALEXIA Administration Aspirin 81 mg 07/08/21 17:00 07/09/21 09:16 Aspirin Ec 81 Mg Tab PO 81 mg QDAY ALEXIA Administration Azithromycin 500 mg 07/09/21 18:00 Azithromycin 250 Mg Tab PO 07/12/21 18:01 QPM ALEXIA Famotidine 10 mg 07/08/21 22:00 07/09/21 09:16 Famotidine 10 Mg Tab PO 10 mg BID ALEXIA Administration Fenofibrate 145 mg 07/08/21 17:00 07/09/21 09:16 Fenofibrate 145 Mg Tab PO 145 mg QDAY ALEXIA Administration Heparin Sodium (Porcine) 5,000 unit 07/08/21 22:00 07/09/21 09:16 Heparin 5,000 Unit/1 Ml Vial SUB-Q 5,000 unit Q12HR ALEXIA Administration Ceftriaxone Sodium 1 gm in 50 mls @ 100 mls/hr 07/08/21 18:00 07/08/21 21:13 Rocephin/Ns 1 Gm/50 Ml IV 07/12/21 18:29 100 mls/hr Q24H ALEXIA Administration Protocol Insulin Human Lispro 0 unit 07/08/21 22:00 07/09/21 09:15 Insulin Lispro 100 Unit/Ml SUB-Q Not Given ACHS [facility] Protocol Insulin Human NPH 14 unit 07/08/21 17:00 07/09/21 09:15 Insulin Nph, Human 100 Unit/1 Ml SUB-Q Not Given BIDDIAB ALEXIA Morphine Sulfate 2 mg 07/08/21 16:40 Morphine 2 Mg/1 Ml Inj IV Q4H PRN Pain, Moderate (4-6) Ondansetron HCl 4 mg 07/08/21 16:33 Ondansetron 4 Mg/2 Ml Inj IV Q3H PRN Nausea And Vomiting Oxycodone/Acetaminophen 1 tab 07/08/21 16:40 Oxycodone /Acetaminophen 5-325mg Tab PO Q6H PRN Pain, Moderate (4-6) Sodium Chloride 10 ml 07/08/21 22:00 07/09/21 09:17 Sodium Chloride 0.9% 10 Ml Flush Syringe IV 10 ml BID ALEXIA Administration Sodium Chloride 10 ml 07/08/21 16:33 Sodium Chloride 0.9% 10 Ml Flush Syringe IV PRN PRN LINE FLUSH Tramadol HCl 50 mg 07/08/21 16:31 Tramadol 50 Mg Tab PO Q8H PRN PAIN
[2021-07-09] MEDS: FUROSEMIDE 40 MG TAB PO SCH ×2 (10:35→17:12)
--- NOTE | 2021-07-09 10:42 | Progress Note ---
Subjective Date of service: 07/09/21 Interval history: CONSULT DICTATED Objective Vital Signs Temp Pulse Resp BP BP Pulse Ox 07/09/21 10:09 95 07/09/21 07:29 94 07/09/21 05:34 98.7 F 83 18 125/78 96 07/08/21 21:56 17 96 07/08/21 20:13 98.0 F 125 H 18 118/80 86 07/08/21 17:41 90 155/85 96 07/08/21 17:00 98 H 137/87 96 07/08/21 16:00 88 134/87 95 07/08/21 15:00 89 140/84 96 07/08/21 14:00 90 154/88 97 07/08/21 13:00 92 H 146/83 96 07/08/21 12:00 95 H 22 134/92 96 07/08/21 10:58 98.4 F - Labs and Meds Cardiac Enzymes 07/08/21 07/09/21 Range/Units 10:11 06:24 AST 934 H 1028 H (5-40) units/L Lipids 07/08/21 Range/Units 10:11 Triglycerides 102 (2-149) mg/dL Cholesterol 176 (50-199) mg/dL HDL Cholesterol 44 (40-59) mg/dL Cholesterol/HDL Ratio 4.00 % CBC 07/09/21 Range/Units 06:24 WBC 9.0 (4.5-11.0) K/mm3 RBC 2.54 L (3.65-5.03) M/mm3 Hgb 7.1 L (11.8-15.2) gm/dl Hct 21.5 L (35.5-45.6) % Plt Count 259 (140-440) K/mm3 Lymph # (Auto) 0.9 L (1.2-5.4) K/mm3 [place] # (Auto) 0.7 (0.0-0.8) K/mm3 Eos # (Auto) 0.0 (0.0-0.4) K/mm3 Baso # (Auto) 0.0 (0.0-0.1) K/mm3 Comprehensive Metabolic Panel 07/08/21 07/09/21 Range/Units 10:11 06:24 Sodium 142 141 (137-145) mmol/L Potassium 4.3 4.0 (3.6-5.0) mmol/L Chloride 97.1 L 98.2 (98-107) mmol/L Carbon Dioxide 16 L 26 D (22-30) mmol/L BUN 59 H 71 H (9-20) mg/dL Creatinine 3.8 H 4.1 H (0.8-1.3) mg/dL Glucose 290 H 98 (75-100) mg/dL Calcium 8.3 L 7.7 L (8.4-10.2) mg/dL AST 934 H 1028 H (5-40) units/L ALT 559 H 782 H (7-56) units/L Alkaline Phosphatase 66 63 (35-129) units/L Total Protein 6.8 6.8 (6.3-8.2) g/dL Albumin 3.3 L 3.3 L (3.9-5) g/dL
--- NOTE | 2021-07-09 13:19 | Consultation ---
DATE OF CONSULTATION: 07/09/2021 HISTORY OF PRESENT ILLNESS: The patient is a 81-year-old male with a history of diabetes, chronic kidney disease, hypertension, and peripheral vascular disease, who presented with shortness of breath, nausea, vomiting, and diarrhea for 2 days' duration. He did not describe any fever or sputum production. There has been minimal lower extremity edema. Blood sugar was 340. He has a notable respiratory distress on presentation. It is unclear how compliant he has been compliant with his medications. He is known to Nephrology. He is scheduled for hemodialysis. PAST MEDICAL HISTORY ALLERGIES: None. MEDICATIONS: See the nurse's list. SMOKING: He is a prior smoker. ALCOHOL: No heavy use described. OPERATIONS: None listed so far. REVIEW OF SYSTEMS: There is no description of coronary artery disease or chest pain. There is no description of arrhythmias or congestive heart failure. The patient is on a regular basis. FAMILY HISTORY: None listed so far. PHYSICAL EXAMINATION: GENERAL: Slender, normally developed, no acute distress. Alert, oriented, cooperative, mental status normal. EYES, NOSE AND THROAT: Unremarkable. NECK: Reveals mild JVD. There are no bruits or masses. LUNGS: Diminished breath sounds. No labored respirations. HEART: Regular rhythm. Soft S4. Grade 1 systolic murmur. ABDOMEN: Soft, nontender, no masses. EXTREMITIES: No cyanosis, clubbing, edema. Peripheral pulses are markedly diminished. NEUROLOGIC: Deferred. SKIN: Discoloration. IMPRESSION AND PLAN: 1. Symptoms and x-ray findings suggestive of congestive heart failure with small effusions. BNP is positive. Pneumonia is a differential diagnosis. The patient will be treated for congestive heart failure and echocardiography will be performed. 2. Chronic kidney disease with anemia. 3. Minimal elevation of troponin: Commonly occurs with renal failure and congestive heart failure. There is a prior history of smoking and he has multiple risk factors. Given the development of congestive heart failure, I would recommend coronary angiography once the congestive heart failure has cleared. 4. Diabetes. 5. Hypertension. 6. Peripheral arterial disease. Plan echocardiography. Congestive heart failure therapy. Discussed risk factor modification, recommend coronary angiography in a few days. TID: [id number] RECEIPT: [id number] [facility]
--- NOTE | 2021-07-09 13:45 | Progress Note ---
Assessment and Plan Assessment and plan: History of present illness: 81-year-old male with a past medical history of diabetes, chronic renal sufficiency, hypertension, and PAD currently on Xarelto presents to the hospital with complaints of shortness of breath, nausea, vomiting, and diarrhea for the past 2 days. Diarrhea has since resolved. EMS reports a blood glucose of 340 upon their arrival with respiratory distress. Patient treated with magnesium 4 g, Solu-Medrol 125 mg, Lasix 80 mg IV in route to the hospital. Patient is also on Lasix at home 20 mg daily. Patient denies chest pain, fever or current ab dominal pain. He is unvaccinated for Covid. [employer]: Dr. Henderson Initial triage documents remained saturation of 97% however patient arrived with nonrebreather and patient is satting 90 to 94% on 50% Venturi at time of my evaluation Hospital Course: 07/09: Would benefit from volume removal. D/w nephrology who states that patient has declined hemodialysis for some time. Initiated on lasix IV therapy. Will potentially need to revisit hemodialysis with patient tomorrow. Cardiology consulted. awaiting recommendations. Patient is unvaccinated for coronavirus, pcr test ordered. Continue abx/steroids at this time. Assessment and Plan: (1) Acute respiratory failure with hypoxia Current Visit: Yes Status: Acute Plan to address problem: Patient was hypoxic on room air Oxygen supplementation as necessary coronavirus pcr pending. (2) Volume overload Current Visit: Yes Status: Chronic Plan to address problem: Nephrology consulted Hemodialysis for increased ultrafiltration (3) Bilateral pneumonia Current Visit: Yes Status: Acute Plan to address problem: We will recheck procalcitonin. In the meantime continue IV Zithromax and IV Rocephin at 1 g per 24 hours. (4) End-stage renal disease needing dialysis Current Visit: Yes Status: Chronic Plan to address problem: Nephrology consulted for hemodialysis as per schedule (5) IDDM (insulin dependent diabetes mellitus) Current Visit: Yes Status: Chronic Plan to address problem: Continue home insulin and coverage Check hemoglobin A1c (6) Hypertension Current Visit: Yes Status: Chronic Qualifiers: Hypertension type: primary hypertension Qualified Code(s): I10 - Essential (primary) hypertension Plan to address problem: Continue antihypertensives and adjust medications (7) Hyperlipidemia Current Visit: Yes Status: Chronic Qualifiers: Hyperlipidemia type: unspecified Qualified Code(s): E78.5 - Hyperlipidemia, unspecified Plan to address problem: Continue statins (8) Anemia Current Visit: Yes Status: Chronic Qualifiers: Anemia type: due to chronic kidney disease Plan to address problem: Secondary to end-stage renal disease Epogen as per nephrology (9) DVT prophylaxis Current Visit: Yes Status: Acute Plan to address problem: On heparin and GI prophylaxis (10) Advance care planning Current Visit: Yes Status: Acute Plan to address problem: Disease education conducted, care plan discussed, diagnosis discussed, prognosis discussed. Patient is full code. Patient acknowledges understanding and agreement with care plan. +30 minutes. History Interval history: Patient in no distress this morning. he states that he continues to have shortness of breath. His symptoms have improved since yesterday. He denies any fevers or chills. He denied receiving the coronavirus vaccine. Hospitalist Physical - Physical exam Narrative exam: Physical Exam: VITAL SIGNS: Reviewed. GENERAL: The patient appears normally developed, Vital signs as documented. Thin elderly male. Venturi mask in place. HEAD: No signs of head trauma. EYES: Pupils are equal. Extraocular motions intact. EARS: Hearing grossly intact. MOUTH: Oropharynx is normal. NECK: No adenopathy, no JVD. CHEST: Rales in bilateral lung milligan. CARDIAC: Regular rate and rhythm. S1 and S2, without murmurs, gallops, or rubs. VASCULAR: No Edema. Peripheral pulses normal and equal in all extremities. ABDOMEN: Soft, non tender and non distended. No rebound or guarding, and no masses palpated. Bowel Sounds normal. MUSCULOSKELETAL: Good range of motion of all major joints. Extremities without clubbing, cyanosis or edema. NEUROLOGIC EXAM: Alert and oriented x 4. no focal sensory or strength deficits. PSYCHIATRIC: Mood normal. SKIN: detail exam as documented in skin assessment - Constitutional Vitals: Temp Pulse Resp BP Pulse Ox 98.2 F 85 22 127/81 99 07/09/21 11:51 07/09/21 11:51 07/09/21 11:51 07/09/21 11:51 07/09/21 11:51 HEART Score - HEART Score Troponin: Troponin T 0.182 ng/mL (0.00-0.029) H* 07/08/21 14:14 Results - Labs CBC & Chem 7: 07/09/21 06:24 07/09/21 06:24 Labs: Laboratory Last Values WBC 9.0 K/mm3 (4.5-11.0) 07/09/21 06:24 RBC 2.54 M/mm3 (3.65-5.03) L 07/09/21 06:24 Hgb 7.1 gm/dl (11.8-15.2) L 07/09/21 06:24 Hct 21.5 % (35.5-45.6) L 07/09/21 06:24 MCV 85 fl (84-94) 07/09/21 06:24 MCH 28 pg (28-32) 07/09/21 06:24 MCHC 33 % (32-34) 07/09/21 06:24 RDW 16.7 % (13.2-15.2) H 07/09/21 06:24 Plt Count 259 K/mm3 (140-440) 07/09/21 06:24 Lymph % (Auto) 9.8 % (13.4-35.0) L 07/09/21 06:24 [place] % (Auto) 7.9 % (0.0-7.3) H 07/09/21 06:24 Eos % (Auto) 0.0 % (0.0-4.3) 07/09/21 06:24 Baso % (Auto) 0.1 % (0.0-1.8) 07/09/21 06:24 Lymph # (Auto) 0.9 K/mm3 (1.2-5.4) L 07/09/21 06:24 [place] # (Auto) 0.7 K/mm3 (0.0-0.8) 07/09/21 06:24 Eos # (Auto) 0.0 K/mm3 (0.0-0.4) 07/09/21 06:24 Baso # (Auto) 0.0 K/mm3 (0.0-0.1) 07/09/21 06:24 Seg Neutrophils % 82.2 % (40.0-70.0) H 07/09/21 06:24 Seg Neutrophils # 7.4 K/mm3 (1.8-7.7) 07/09/21 06:24 Sodium 141 mmol/L (137-145) 07/09/21 06:24 Potassium 4.0 mmol/L (3.6-5.0) 07/09/21 06:24 Chloride 98.2 mmol/L (98-107) 07/09/21 06:24 Carbon Dioxide 26 mmol/L (22-30) D 07/09/21 06:24 Anion Gap 21 mmol/L 07/09/21 06:24 BUN 71 mg/dL (9-20) H 07/09/21 06:24 Creatinine 4.1 mg/dL (0.8-1.3) H 07/09/21 06:24 Estimated GFR 17 ml/min 07/09/21 06:24 BUN/Creatinine Ratio 17 % 07/09/21 06:24 Glucose 98 mg/dL (75-100) 07/09/21 06:24 POC Glucose 167 mg/dL (70-105) H 07/09/21 11:50 Hemoglobin A1c 6.5 % (4-6) H 07/09/21 06:24 Calcium 7.7 mg/dL (8.4-10.2) L 07/09/21 06:24 Total Bilirubin 0.40 mg/dL (0.1-1.2) 07/09/21 06:24 AST 1028 units/L (5-40) H 07/09/21 06:24 ALT 782 units/L (7-56) H 07/09/21 06:24 Alkaline Phosphatase 63 units/L (35-129) 07/09/21 06:24 Troponin T 0.182 ng/mL (0.00-0.029) H* 07/08/21 14:14 NT-Pro-B Natriuret Pep 88255 pg/mL (0-900) H 07/08/21 10:11 Total Protein 6.8 g/dL (6.3-8.2) 07/09/21 06:24 Albumin 3.3 g/dL (3.9-5) L 07/09/21 06:24 Albumin/Globulin Ratio 0.9 % 07/09/21 06:24 Triglycerides 102 mg/dL (2-149) 07/08/21 10:11 Cholesterol 176 mg/dL (50-199) 07/08/21 10:11 LDL Cholesterol Direct 109 mg/dL (50-130) 07/08/21 10:11 HDL Cholesterol 44 mg/dL (40-59) 07/08/21 10:11 Cholesterol/HDL Ratio 4.00 % 07/08/21 10:11 Lipase 26 units/L (13-60) 07/08/21 10:11 Coronavirus (PCR) Negative (Negative) 07/09/21 08:10 Hepatitis A IgM Ab Non-reactive (NonReactive) 07/08/21 13:38 Hep Bs Antigen Non-reactive (Negative) 07/08/21 13:38 Hep B Core IgM Ab Non-reactive (NonReactive) 07/08/21 13:38 Hepatitis C Antibody Non-reactive (NonReactive) 07/08/21 13:38 Microbiology: Microbiology 07/08/21 10:57 Peripheral/Venous Blood Culture - Preliminary NO GROWTH AFTER 24 HOURS 07/08/21 10:57 Peripheral/Venous Blood Culture - Preliminary NO GROWTH AFTER 24 HOURS Suazo/IV: Voiding Method Urinal Active Medications - Current Medications Current Medications: Generic Name Dose Route Start Last Admin Trade Name Freq PRN Reason Stop Dose Admin Acetaminophen 650 mg 07/08/21 16:33 Acetaminophen 325 Mg Tab PO Q4H PRN Pain MILD(1-3)/Fever >100.5/MERCER Amlodipine Besylate 10 mg 07/08/21 17:00 07/09/21 09:16 Amlodipine 10 Mg Tab PO 10 mg DAILY ALEXIA Administration Aspirin 81 mg 07/08/21 17:00 07/09/21 09:16 Aspirin Ec 81 Mg Tab PO 81 mg QDAY ALEXIA Administration Azithromycin 500 mg 07/09/21 18:00 Azithromycin 250 Mg Tab PO 07/12/21 18:01 QPM ALEXIA Famotidine 10 mg 07/08/21 22:00 07/09/21 09:16 Famotidine 10 Mg Tab PO 10 mg BID ALEXIA Administration Fenofibrate 145 mg 07/08/21 17:00 07/09/21 09:16 Fenofibrate 145 Mg Tab PO 145 mg QDAY ALEXIA Administration Furosemide 80 mg 07/09/21 10:10 07/09/21 10:35 Furosemide 40 Mg Tab PO 80 mg 0600,1800 ALEXIA Administration Heparin Sodium (Porcine) 5,000 unit 07/08/21 22:00 07/09/21 09:16 Heparin 5,000 Unit/1 Ml Vial SUB-Q 5,000 unit Q12HR ALEXIA Administration Ceftriaxone Sodium 1 gm in 50 mls @ 100 mls/hr 07/08/21 18:00 07/08/21 21:13 Rocephin/Ns 1 Gm/50 Ml IV 07/12/21 18:29 100 mls/hr Q24H ALEXIA Administration Protocol Insulin Human Lispro 0 unit 07/08/21 22:00 07/09/21 12:30 Insulin Lispro 100 Unit/Ml SUB-Q 3 unit ACHS ALEXIA Administration Protocol Insulin Human NPH 14 unit 07/08/21 17:00 07/09/21 09:15 Insulin Nph, Human 100 Unit/1 Ml SUB-Q Not Given BIDDIAB ALEXIA Isosorbide Mononitrate 30 mg 07/09/21 12:00 07/09/21 12:30 Isosorbide Mononitrate Er 30 Mg Tab PO 30 mg QDAY ALEXIA Administration Morphine Sulfate 2 mg 07/08/21 16:40 Morphine 2 Mg/1 Ml Inj IV Q4H PRN Pain, Moderate (4-6) Ondansetron HCl 4 mg 07/08/21 16:33 Ondansetron 4 Mg/2 Ml Inj IV Q3H PRN Nausea And Vomiting Oxycodone/Acetaminophen 1 tab 07/08/21 16:40 Oxycodone /Acetaminophen 5-325mg Tab PO Q6H PRN Pain, Moderate (4-6) Sodium Chloride 10 ml 07/08/21 22:00 07/09/21 09:17 Sodium Chloride 0.9% 10 Ml Flush Syringe IV 10 ml BID ALEXIA Administration Sodium Chloride 10 ml 07/08/21 16:33 Sodium Chloride 0.9% 10 Ml Flush Syringe IV PRN PRN LINE FLUSH Tramadol HCl 50 mg 07/08/21 16:31 Tramadol 50 Mg Tab PO Q8H PRN PAIN
[2021-07-09] MEDS: AZITHROMYCIN 250 MG TAB PO SCH (17:13)
[2021-07-09] MEDS: cefTRIAXone/NS 1 GM/50 ML 1 GM/50 ML BAG IV SCH (17:13)
[2021-07-09] MEDS ORDERED: AZITHROMYCIN/NS 500 MG/250 ML 500 MG/250 ML BAG IV SCH (18:00)
[2021-07-09 23:56] LABS: Bilirubin,Urine NEG (Negative); Blood,Urine SM (Negative); Color,Urine Straw (Yellow); Mucus,Urine FEW /HPF; RBC,Urine < 1.0 /HPF (0.0-6.0); Urobilinogen,Urine < 2.0 mg/dL (<2.0); WBC,Urine < 1.0 /HPF (0.0-6.0)
[2021-07-10] MEDS: FUROSEMIDE 40 MG TAB PO SCH (05:00)
--- NOTE | 2021-07-10 08:03 | Progress Note ---
Assessment and Plan Assessment and plan: History of present illness: 81-year-old male with a past medical history of diabetes, chronic renal sufficiency, hypertension, and PAD currently on Xarelto presents to the hospital with complaints of shortness of breath, nausea, vomiting, and diarrhea for the past 2 days. Diarrhea has since resolved. EMS reports a blood glucose of 340 upon their arrival with respiratory distress. Patient treated with magnesium 4 g, Solu-Medrol 125 mg, Lasix 80 mg IV in route to the hospital. Patient is also on Lasix at home 20 mg daily. Patient denies chest pain, fever or current ab dominal pain. He is unvaccinated for Covid. 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 D/w nephrology who states that patient has declined hemodialysis for some time. Initiated on lasix IV therapy. Will potentially need to revisit hemodialysis with patient tomorrow. Cardiology consulted. awaiting recommendations. Patient is unvaccinated for coronavirus, pcr test ordered. Continue abx/steroids at this time. Assessment and Plan: (1) Acute respiratory failure with hypoxia Current Visit: Yes Status: Acute Plan to address problem: Patient was hypoxic on room air Oxygen supplementation as necessary coronavirus pcr pending. (2) Volume overload Current Visit: Yes Status: Chronic Plan to address problem: Nephrology consulted Hemodialysis for increased ultrafiltration (3) Bilateral pneumonia Current Visit: Yes Status: Acute Plan to address problem: We will recheck procalcitonin. In the meantime continue IV Zithromax and IV Rocephin at 1 g per 24 hours. (4) End-stage renal disease needing dialysis Current Visit: Yes Status: Chronic Plan to address problem: Nephrology consulted for hemodialysis as per schedule (5) IDDM (insulin dependent diabetes mellitus) Current Visit: Yes Status: Chronic Plan to address problem: Continue home insulin and coverage Check hemoglobin A1c (6) Hypertension Current Visit: Yes Status: Chronic Qualifiers: Hypertension type: primary hypertension Qualified Code(s): I10 - Essential (primary) hypertension Plan to address problem: Continue antihypertensives and adjust medications (7) Hyperlipidemia Current Visit: Yes Status: Chronic Qualifiers: Hyperlipidemia type: unspecified Qualified Code(s): E78.5 - Hyperlipidemia, unspecified Plan to address problem: Continue statins (8) Anemia Current Visit: Yes Status: Chronic Qualifiers: Anemia type: due to chronic kidney disease Plan to address problem: Secondary to end-stage renal disease Epogen as per nephrology (9) DVT prophylaxis Current Visit: Yes Status: Acute Plan to address problem: On heparin and GI prophylaxis (10) Advance care planning Current Visit: Yes Status: Acute Plan to address problem: Disease education conducted, care plan discussed, diagnosis discussed, prognosis discussed. Patient is full code. Patient acknowledges understanding and agreement with care plan. +30 minutes. Hospitalist Physical - Physical exam Narrative exam: Physical Exam: VITAL SIGNS: Reviewed. GENERAL: The patient appears normally developed, Vital signs as documented. Thin elderly male. Venturi mask in place. HEAD: No signs of head trauma. EYES: Pupils are equal. Extraocular motions intact. EARS: Hearing grossly intact. MOUTH: Oropharynx is normal. NECK: No adenopathy, no JVD. CHEST: Rales in bilateral lung milligan. CARDIAC: Regular rate and rhythm. S1 and S2, without murmurs, gallops, or rubs. VASCULAR: No Edema. Peripheral pulses normal and equal in all extremities. ABDOMEN: Soft, non tender and non distended. No rebound or guarding, and no masses palpated. Bowel Sounds normal. MUSCULOSKELETAL: Good range of motion of all major joints. Extremities without clubbing, cyanosis or edema. NEUROLOGIC EXAM: Alert and oriented x 4. no focal sensory or strength deficits. PSYCHIATRIC: Mood normal. SKIN: detail exam as documented in skin assessment - Constitutional Vitals: Temp Pulse Resp BP Pulse Ox 99.0 F 92 H 18 140/82 94 07/10/21 04:42 07/10/21 04:42 07/10/21 04:42 07/10/21 04:42 07/10/21 07:34 HEART Score - HEART Score Troponin: Troponin T 0.182 ng/mL (0.00-0.029) H* 07/08/21 14:14 Results - Labs CBC & Chem 7: 07/09/21 06:24 07/10/21 06:50 Labs: Laboratory Last Values WBC 9.0 K/mm3 (4.5-11.0) 07/09/21 06:24 RBC 2.54 M/mm3 (3.65-5.03) L 07/09/21 06:24 Hgb 7.1 gm/dl (11.8-15.2) L 07/09/21 06:24 Hct 21.5 % (35.5-45.6) L 07/09/21 06:24 MCV 85 fl (84-94) 07/09/21 06:24 MCH 28 pg (28-32) 07/09/21 06:24 MCHC 33 % (32-34) 07/09/21 06:24 RDW 16.7 % (13.2-15.2) H 07/09/21 06:24 Plt Count 259 K/mm3 (140-440) 07/09/21 06:24 Lymph % (Auto) 9.8 % (13.4-35.0) L 07/09/21 06:24 [place] % (Auto) 7.9 % (0.0-7.3) H 07/09/21 06:24 Eos % (Auto) 0.0 % (0.0-4.3) 07/09/21 06:24 Baso % (Auto) 0.1 % (0.0-1.8) 07/09/21 06:24 Lymph # (Auto) 0.9 K/mm3 (1.2-5.4) L 07/09/21 06:24 [place] # (Auto) 0.7 K/mm3 (0.0-0.8) 07/09/21 06:24 Eos # (Auto) 0.0 K/mm3 (0.0-0.4) 07/09/21 06:24 Baso # (Auto) 0.0 K/mm3 (0.0-0.1) 07/09/21 06:24 Seg Neutrophils % 82.2 % (40.0-70.0) H 07/09/21 06:24 Seg Neutrophils # 7.4 K/mm3 (1.8-7.7) 07/09/21 06:24 Sodium 142 mmol/L (137-145) 07/10/21 06:50 Potassium 3.7 mmol/L (3.6-5.0) 07/10/21 06:50 Chloride 101.4 mmol/L (98-107) 07/10/21 06:50 Carbon Dioxide 26 mmol/L (22-30) 07/10/21 06:50 Anion Gap 18 mmol/L 07/10/21 06:50 BUN 79 mg/dL (9-20) H 07/10/21 06:50 Creatinine 4.0 mg/dL (0.8-1.3) H 07/10/21 06:50 Estimated GFR 18 ml/min 07/10/21 06:50 BUN/Creatinine Ratio 20 % 07/10/21 06:50 Glucose 187 mg/dL (75-100) H 07/10/21 06:50 POC Glucose 192 mg/dL (70-105) H 07/09/21 21:26 Hemoglobin A1c 6.5 % (4-6) H 07/09/21 06:24 Calcium 8.0 mg/dL (8.4-10.2) L 07/10/21 06:50 Total Bilirubin 0.40 mg/dL (0.1-1.2) 07/09/21 06:24 AST 1028 units/L (5-40) H 07/09/21 06:24 ALT 782 units/L (7-56) H 07/09/21 06:24 Alkaline Phosphatase 63 units/L (35-129) 07/09/21 06:24 Troponin T 0.182 ng/mL (0.00-0.029) H* 07/08/21 14:14 NT-Pro-B Natriuret Pep 81761 pg/mL (0-900) H 07/08/21 10:11 Total Protein 6.8 g/dL (6.3-8.2) 07/09/21 06:24 Albumin 3.3 g/dL (3.9-5) L 07/09/21 06:24 Albumin/Globulin Ratio 0.9 % 07/09/21 06:24 Triglycerides 102 mg/dL (2-149) 07/08/21 10:11 Cholesterol 176 mg/dL (50-199) 07/08/21 10:11 LDL Cholesterol Direct 109 mg/dL (50-130) 07/08/21 10:11 HDL Cholesterol 44 mg/dL (40-59) 07/08/21 10:11 Cholesterol/HDL Ratio 4.00 % 07/08/21 10:11 Lipase 26 units/L (13-60) 07/08/21 10:11 Procalcitonin 27.64 ng/mL (<0.15) 07/09/21 07:35 Urine Color Straw (Yellow) 07/08/21 23:22 Urine Turbidity Clear (Clear) 07/08/21 23: Urine pH 7.0 (5.0-7.0) 07/08/21 23:22 Ur Specific [place] 1.009 (1.003-1.030) 07/08/21 23:22 Urine Protein 100 mg/dl mg/dL (Negative) 07/08/21 23:22 Urine Glucose (UA) Neg mg/dL (Negative) 07/08/21 23: Urine Ketones Neg mg/dL (Negative) 07/08/21 23: Urine Blood Sm (Negative) 07/08/21 23: Urine Nitrite Neg (Negative) 07/08/21 23: Urine Bilirubin Neg (Negative) 07/08/21 23: Urine Urobilinogen < 2.0 mg/dL (<2.0) 07/08/21 23:22 Ur Leukocyte Esterase Neg (Negative) 07/08/21 23:22 Urine WBC (Auto) < 1.0 /HPF (0.0-6.0) 07/08/21 23:22 Urine RBC (Auto) < 1.0 /HPF (0.0-6.0) 07/08/21 23:22 Urine Mucus Few /HPF 07/08/21 23:22 Coronavirus (PCR) Negative (Negative) 07/09/21 08:10 Hepatitis A IgM Ab Non-reactive (NonReactive) 07/08/21 13:38 Hep Bs Antigen Non-reactive (Negative) 07/08/21 13:38 Hep B Core IgM Ab Non-reactive (NonReactive) 07/08/21 13:38 Hepatitis C Antibody Non-reactive (NonReactive) 07/08/21 13:38 Microbiology: Microbiology 07/08/21 10:57 Peripheral/Venous Blood Culture - Preliminary NO GROWTH AFTER 24 HOURS 07/08/21 10:57 Peripheral/Venous Blood Culture - Preliminary NO GROWTH AFTER 24 HOURS Suazo/IV: Voiding Method Urinal Active Medications - Current Medications Current Medications: Generic Name Dose Route Start Last Admin Trade Name Freq PRN Reason Stop Dose Admin Acetaminophen 650 mg 07/08/21 16:33 07/10/21 05:00 Acetaminophen 325 Mg Tab PO 650 mg Q4H PRN Administration Pain MILD(1-3)/Fever >100.5/MERCER Amlodipine Besylate 10 mg 07/08/21 17:00 07/09/21 09:16 Amlodipine 10 Mg Tab PO 10 mg DAILY ALEXIA Administration Aspirin 81 mg 07/08/21 17:00 07/09/21 09:16 Aspirin Ec 81 Mg Tab PO 81 mg QDAY ALEXIA Administration Azithromycin 500 mg 07/09/21 18:00 07/09/21 17:13 Azithromycin 250 Mg Tab PO 07/12/21 18:01 500 mg QPM ALEXIA Administration Famotidine 10 mg 07/08/21 22:00 07/09/21 22:33 Famotidine 10 Mg Tab PO 10 mg BID ALEXIA Administration Fenofibrate 145 mg 07/08/21 17:00 07/09/21 09:16 Fenofibrate 145 Mg Tab PO 145 mg QDAY ALEXIA Administration Furosemide 80 mg 07/09/21 10:10 07/10/21 05:00 Furosemide 40 Mg Tab PO 80 mg 0600,1800 ALEXIA Administration Heparin Sodium (Porcine) 5,000 unit 07/08/21 22:00 07/09/21 22:32 Heparin 5,000 Unit/1 Ml Vial SUB-Q 5,000 unit Q12HR ALEXIA Administration Ceftriaxone Sodium 1 gm in 50 mls @ 100 mls/hr 07/08/21 18:00 07/09/21 17:13 Rocephin/Ns 1 Gm/50 Ml IV 07/12/21 18:29 100 mls/hr Q24H ALEXIA Administration Protocol Insulin Human Lispro 0 unit 07/08/21 22:00 07/09/21 22:33 Insulin Lispro 100 Unit/Ml SUB-Q 3 unit ACHS ALEXIA Administration Protocol Insulin Human NPH 14 unit 07/08/21 17:00 07/09/21 17:21 Insulin Nph, Human 100 Unit/1 Ml SUB-Q Not Given BIDDIAB ALEXIA Isosorbide Mononitrate 30 mg 07/09/21 12:00 07/09/21 12:30 Isosorbide Mononitrate Er 30 Mg Tab PO 30 mg QDAY ALEXIA Administration Morphine Sulfate 2 mg 07/08/21 16:40 Morphine 2 Mg/1 Ml Inj IV Q4H PRN Pain, Moderate (4-6) Ondansetron HCl 4 mg 07/08/21 16:33 Ondansetron 4 Mg/2 Ml Inj IV Q3H PRN Nausea And Vomiting Oxycodone/Acetaminophen 1 tab 07/08/21 16:40 Oxycodone /Acetaminophen 5-325mg Tab PO Q6H PRN Pain, Moderate (4-6) Sodium Chloride 10 ml 07/08/21 22:00 07/09/21 22:33 Sodium Chloride 0.9% 10 Ml Flush Syringe IV 10 ml BID ALEXIA Administration Sodium Chloride 10 ml 07/08/21 16:33 Sodium Chloride 0.9% 10 Ml Flush Syringe IV PRN PRN LINE FLUSH Tramadol HCl 50 mg 07/08/21 16:31 Tramadol 50 Mg Tab PO Q8H PRN PAIN
[2021-07-10] MEDS: INSULIN LISPRO 100 UNIT/ML SUB-Q SCH ×4 (08:35→22:24)
--- NOTE | 2021-07-10 09:11 | Electrocardiograph Report ---
[facility] Test Date: 2021-07-08 Test Time: 12:35:22 Pat Name: SIXTO CHILDS Department: Room: A354 2 Gender: M Intake Manager: NURSE : 1940 Requested By: SAYRA LAWRENCE Order Number: [id number] Reading MD: Delroy Duarte Measurements Intervals [place] Rate: 90 P: 51 [place]: 225 QRS: -39 QRSD: 100 T: 98 QT: 421 QTc: 514 Interpretive Statements Sinus rhythm Atrial premature complexes lafb Left axis deviation Nonspecific T abnrm, anterolateral leads No previous ECG available for comparison Electronically Signed On 07-10-2021 9:11:08 EST by Delroy Duarte
--- NOTE | 2021-07-10 09:16 | Electrocardiograph Report ---
[facility] Test Date: 2021-07-09 Test Time: 07:53:34 Pat Name: SIXTO CHILDS Department: Room: A354 2 Gender: M Wind Energy Engineer: KAREEM : 1940 Requested By: SAYRA LAWRENCE Order Number: [id number] Reading MD: Delroy Duarte Measurements Intervals [place] Rate: 80 P: 55 [place]: 203 QRS: -21 QRSD: 96 T: 72 QT: 464 QTc: 535 Interpretive Statements Sinus rhythm Abnormal T, consider ischemia, anterior leads Compared to ECG 07/08/2021 12:35:22 T-wave abnormality now present Possible ischemia now present Atrial premature complex(es) no longer present First degree AV block no longer present Left-axis deviation no longer present Electronically Signed On 07-10-2021 9:16:36 EST by Delroy Duarte
--- NOTE | 2021-07-10 10:02 | XRay Report ---
CHEST 1 VIEW INDICATION: interstitial edema. COMPARISON: 07/08/2021 FINDINGS: Support devices: None. Heart: Stable mild cardiomegaly Lungs/Pleura: Bilateral interstitial infiltrates or edema appear slightly improved since the previous exam, particularly in the right mid to lower lung. No significant pleural effusion or pneumothorax i s detected. Additional findings: None. IMPRESSION: Mild improvement as described. No new acute process. Signer Name: Humberto Soto Jr, MD Signed: 07/10/2021 9:58 AM Workstation Name: [id number]
[2021-07-10] MEDS: FAMOTIDINE 10 MG TAB PO SCH ×2 (10:05→22:23)
--- NOTE | 2021-07-10 10:14 | Progress Note ---
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 Admitted with volume overload and metabolic acidosis. Patient need hemodialysis for volume control but he has been refusing so far. Monitor. 2. FEN: Anion-gap Metabolic acidosis, 2/2 CKD, monitor. Volume control, IV Lasix. Monitor lytes and volume status. 3. Acute hypoxic resp failure, POA: 2/2 volume overload / pulmonary edema / PNA. On VM O2. Monitor. 4. PNA, POA: Abx to cover CAP. Covid-19 test negative. 5. Suspected CHF: Echo 25-30%. 6. DM-2: 7. Normocytic Anemia, POA: Chronic. Epogen. Monitor. 8. Hypertension: Volume control. Continue home BP meds. Monitor BP. Subjective: Patient was seen and examined at the bedside. Examination: General appearance: well-developed, appears stated age, slight resp distress, VM O2 HEENT: atraumatic, JAE Neck: trachea midline Respiratory: rales heard Heart: S1S2, regular, no murmur Abdomen: soft, bowel sounds heard, NT Integumentary: no obvious rash Neurologic: AO, able to move extremities Ext: no edema Subjective Date of service: 07/10/21 Objective - Vital Signs Vital signs: Vital Signs - 12hr 07/10/21 07/10/21 07/10/21 02:40 04:42 07:34 Temperature 99.0 F Pulse Rate 92 H Respiratory 18 Rate Blood Pressure 140/82 O2 Sat by Pulse 95 93 94 Oximetry - Lab 07/10/21 10:27 07/10/21 06:50 Most recent lab results Calcium 8.0 mg/dL (8.4-10.2) L 07/10/21 06:50 Medications & Allergies - Medications Allergies/Adverse Reactions: Allergies No Known Allergies Allergy (Verified 07/08/21 09:37) per patient Home Medications: Home Medications Medication Instructions Recorded Confirmed Last Taken Type Fenofibrate [Tricor] 145 mg PO QDAY 03/11/15 07/09/21 03/11/15 History traMADoL [Ultram 50 MG tab] 50 mg PO Q8H PRN 03/11/15 07/09/21 Unknown History Aspirin EC [Halfprin EC] 81 mg PO QDAY #30 tablet. 02/05/20 07/09/21 Unknown Rx Insulin NPH, Human [NovoLIN N] 14 unit SUB-Q BIDDIAB #1 vial 02/05/20 07/09/21 Unknown Rx Insulin Regular, Human [HumuLIN R] 0 unit SUB-Q ACHS #1 vial 02/05/20 07/09/21 Unknown Rx amLODIPine 10 mg PO DAILY #30 tablet 02/05/20 07/09/21 Unknown Rx Active Medications: Generic Name Dose Route Start Last Admin Trade Name Freq PRN Reason Stop Dose Admin Acetaminophen 650 mg 07/08/21 16:33 07/10/21 05:00 Acetaminophen 325 Mg Tab PO 650 mg Q4H PRN Administration Pain MILD(1-3)/Fever >100.5/MERCER Amlodipine Besylate 10 mg 07/08/21 17:00 07/09/21 09:16 Amlodipine 10 Mg Tab PO 10 mg DAILY ALEXIA Administration Aspirin 81 mg 07/08/21 17:00 07/09/21 09:16 Aspirin Ec 81 Mg Tab PO 81 mg QDAY ALEXIA Administration Azithromycin 500 mg 07/09/21 18:00 07/09/21 17:13 Azithromycin 250 Mg Tab PO 07/12/21 18:01 500 mg QPM ALEXIA Administration Famotidine 10 mg 07/08/21 22:00 07/09/21 22:33 Famotidine 10 Mg Tab PO 10 mg BID ALEXIA Administration Fenofibrate 145 mg 07/08/21 17:00 07/09/21 09:16 Fenofibrate 145 Mg Tab PO 145 mg QDAY ALEXIA Administration Furosemide 80 mg 07/09/21 10:10 07/10/21 05:00 Furosemide 40 Mg Tab PO 80 mg 0600,1800 ALEXIA Administration Heparin Sodium (Porcine) 5,000 unit 07/08/21 22:00 07/09/21 22:32 Heparin 5,000 Unit/1 Ml Vial SUB-Q 5,000 unit Q12HR ALEXIA Administration Ceftriaxone Sodium 1 gm in 50 mls @ 100 mls/hr 07/08/21 18:00 07/09/21 17:13 Rocephin/Ns 1 Gm/50 Ml IV 07/12/21 18:29 100 mls/hr Q24H ALEXIA Administration Protocol Insulin Human Lispro 0 unit 07/08/21 22:00 07/09/21 22:33 Insulin Lispro 100 Unit/Ml SUB-Q 3 unit ACHS ALEXIA Administration Protocol Insulin Human NPH 14 unit 07/08/21 17:00 07/09/21 17:21 Insulin Nph, Human 100 Unit/1 Ml SUB-Q Not Given BIDDIAB [facility] Isosorbide Mononitrate 30 mg 07/09/21 12:00 07/09/21 12:30 Isosorbide Mononitrate Er 30 Mg Tab PO 30 mg QDAY [facility] Administration Morphine Sulfate 2 mg 07/08/21 16:40 Morphine 2 Mg/1 Ml Inj IV Q4H PRN Pain, Moderate (4-6) Ondansetron HCl 4 mg 07/08/21 16:33 Ondansetron 4 Mg/2 Ml Inj IV Q3H PRN Nausea And Vomiting Oxycodone/Acetaminophen 1 tab 07/08/21 16:40 Oxycodone /Acetaminophen 5-325mg Tab PO Q6H PRN Pain, Moderate (4-6) Sodium Chloride 10 ml 07/08/21 22:00 07/09/21 22:33 Sodium Chloride 0.9% 10 Ml Flush Syringe IV 10 ml BID ALEXIA Administration Sodium Chloride 10 ml 07/08/21 16:33 Sodium Chloride 0.9% 10 Ml Flush Syringe IV PRN PRN LINE FLUSH Tramadol HCl 50 mg 07/08/21 16:31 Tramadol 50 Mg Tab PO Q8H PRN PAIN
[2021-07-10] MEDS: INSULIN NPH, HUMAN 100 UNIT/1 ML SUB-Q SCH ×2 (10:58→18:12)
[2021-07-10] MEDS: FENOFIBRATE 145 MG TAB PO SCH (11:05)
[2021-07-10] MEDS: amLODIPine 10 MG TAB PO SCH (11:06)
[2021-07-10] MEDS: ASPIRIN EC 81 MG TAB PO SCH (11:06)
[2021-07-10] MEDS: HEPARIN 5,000 UNIT/1 ML VIAL SUB-Q SCH ×2 (11:25→22:23)
[2021-07-10 11:29] LABS: Basophils # (Auto) 0.1 K/mm3 (0.0-0.1); Basophils % (Auto) 0.6 % (0.0-1.8); Eosinophils % (Auto) 0.1 % (0.0-4.3); Hematocrit 22.1 % (35.5-45.6); Hemoglobin 7.1 gm/dl (11.8-15.2); Lymphocytes # (Auto) 0.7 K/mm3 (1.2-5.4); Lymphocytes % (Auto) 7.6 % (13.4-35.0); Mean Corpuscular HGB Conc 32 % (32-34); Mean Corpuscular Volume 87 fl (84-94); Monocytes # (Auto) 0.4 K/mm3 (0.0-0.8); Platelet Count 202 K/mm3 (140-440); Red Blood Count 2.54 M/mm3 (3.65-5.03); Red Cell Distribution Width 16.2 % (13.2-15.2)
--- NOTE | 2021-07-10 12:09 | Progress Note ---
Assessment and Plan Assessment and plan: History of present illness: 81-year-old male with a past medical history of diabetes, chronic renal sufficiency, hypertension, and PAD currently on Xarelto presents to the hospital with complaints of shortness of breath, nausea, vomiting, and diarrhea for the past 2 days. Diarrhea has since resolved. EMS reports a blood glucose of 340 upon their arrival with respiratory distress. Patient treated with magnesium 4 g, Solu-Medrol 125 mg, Lasix 80 mg IV in route to the hospital. Patient is also on Lasix at home 20 mg daily. Patient denies chest pain, fever or current ab dominal pain. He is unvaccinated for Covid. Log Driver: Dr. Henderson Initial triage documents remained saturation of 97% however patient arrived with nonrebreather and patient is satting 90 to 94% on 50% Venturi at time of my evaluation Hospital Course: 07/09: Would benefit from volume removal. D/w nephrology who states that patient has declined hemodialysis for some time. Initiated on lasix IV therapy. Will potentially need to revisit hemodialysis with patient tomorrow. Cardiology consulted. awaiting recommendations. Patient is unvaccinated for coronavirus, pcr test ordered. Continue abx/steroids at this time. 07/10: Placed on hfnc 35/95 ovn. Still significant pulm edema on cxr. Will order bumex 4 mg iv x 2. Patient still hesitant but more open today about HD .... will revisit over weekend. Assessment and Plan: (1) Acute respiratory failure with hypoxia Current Visit: Yes Status: Acute Plan to address problem: Patient was hypoxic on room air Oxygen supplementation as necessary coronavirus pcr negative CXR: interstitial edema d/c steroids, abx. Bumex 4 mg IV bid (2) Volume overload Current Visit: Yes Status: Chronic Plan to address problem: Nephrology consulted Hemodialysis for increased ultrafiltration #HFrEF - elevated bnp on admission 69K - ECHO demonstrates reduced EF of 25. - diuresis as above with bumex (3) Bilateral pneumonia Current Visit: Yes Status: Acute Plan to address problem: We will recheck procalcitonin. In the meantime continue IV Zithromax and IV Rocephin at 1 g per 24 hours. (4) End-stage renal disease needing dialysis Current Visit: Yes Status: Chronic Plan to address problem: Nephrology consulted for hemodialysis as per schedule (5) IDDM (insulin dependent diabetes mellitus) Current Visit: Yes Status: Chronic Plan to address problem: Continue home insulin and coverage Check hemoglobin A1c (6) Hypertension Current Visit: Yes Status: Chronic Qualifiers: Hypertension type: primary hypertension Qualified Code(s): I10 - Essential (primary) hypertension Plan to address problem: Continue antihypertensives and adjust medications (7) Hyperlipidemia Current Visit: Yes Status: Chronic Qualifiers: Hyperlipidemia type: unspecified Qualified Code(s): E78.5 - Hyperlipidemia, unspecified Plan to address problem: Continue statins (8) Anemia Current Visit: Yes Status: Chronic Qualifiers: Anemia type: due to chronic kidney disease Plan to address problem: Secondary to end-stage renal disease Hgb 7.1 Epogen as per nephrology (9) DVT prophylaxis Current Visit: Yes Status: Acute Plan to address problem: On heparin and GI prophylaxis (10) Advance care planning Current Visit: Yes Status: Acute Plan to address problem: Disease education conducted, care plan discussed, diagnosis discussed, prognosis discussed. Patient is full code. Patient acknowledges understanding and agreement with care plan. +30 minutes. The high probability of a clinically significant, sudden or life threatening deterioration of the [multi] system(s) required my full and direct attention, intervention and personal management. The aggregate critical care time was [60] minutes. This time is in addition to time spent performing reported procedures but includes the following: [x] Data Review and interpretation [x] Patient assessment and monitoring of vital signs [x] Documentation [x] Medication orders and management History Interval history: Overnight patient became more hypoxic requiring escalation to HFNC 35/95. not in distress this AM and he state he is more comfortable on encounter. I recommended to the patient that he would definitely benefit from HD. He stated h e still wasn't sure but as more open. Hospitalist Physical - Physical exam Narrative exam: Physical Exam: VITAL SIGNS: Reviewed. GENERAL: The patient appears normally developed, Vital signs as documented. Thin elderly male. HFNC 35/95 HEAD: No signs of head trauma. EYES: Pupils are equal. Extraocular motions intact. EARS: Hearing grossly intact. MOUTH: Oropharynx is normal. NECK: No adenopathy, no JVD. CHEST: Rales in bilateral lung milligan. CARDIAC: Regular rate and rhythm. S1 and S2, without murmurs, gallops, or rubs. VASCULAR: No Edema. Peripheral pulses normal and equal in all extremities. ABDOMEN: Soft, non tender and non distended. No rebound or guarding, and no masses palpated. Bowel Sounds normal. MUSCULOSKELETAL: Good range of motion of all major joints. Extremities without clubbing, cyanosis or edema. NEUROLOGIC EXAM: Alert and oriented x 4. no focal sensory or strength deficits. PSYCHIATRIC: Mood normal. SKIN: detail exam as documented in skin assessment - Constitutional Vitals: Temp Pulse Resp BP Pulse Ox 99.0 F 92 H 18 140/82 94 07/10/21 04:42 07/10/21 04:42 07/10/21 04:42 07/10/21 04:42 07/10/21 07:34 HEART Score - HEART Score Troponin: Troponin T 0.182 ng/mL (0.00-0.029) H* 07/08/21 14:14 Results - Labs CBC & Chem 7: 07/10/21 10:27 07/10/21 06:50 Labs: Laboratory Last Values WBC 8.6 K/mm3 (4.5-11.0) 07/10/21 10:27 RBC 2.54 M/mm3 (3.65-5.03) L 07/10/21 10:27 Hgb 7.1 gm/dl (11.8-15.2) L 07/10/21 10:27 Hct 22.1 % (35.5-45.6) L 07/10/21 10:27 MCV 87 fl (84-94) 07/10/21 10:27 MCH 28 pg (28-32) 07/10/21 10:27 MCHC 32 % (32-34) 07/10/21 10:27 RDW 16.2 % (13.2-15.2) H 07/10/21 10:27 Plt Count 202 K/mm3 (140-440) 07/10/21 10:27 Lymph % (Auto) 7.6 % (13.4-35.0) L 07/10/21 10:27 Story % (Auto) 5.0 % (0.0-7.3) 07/10/21 10:27 Eos % (Auto) 0.1 % (0.0-4.3) 07/10/21 10:27 Baso % (Auto) 0.6 % (0.0-1.8) 07/10/21 10:27 Lymph # (Auto) 0.7 K/mm3 (1.2-5.4) L 07/10/21 10:27 Story # (Auto) 0.4 K/mm3 (0.0-0.8) 07/10/21 10:27 Eos # (Auto) 0.0 K/mm3 (0.0-0.4) 07/10/21 10:27 Baso # (Auto) 0.1 K/mm3 (0.0-0.1) 07/10/21 10:27 Seg Neutrophils % 86.7 % (40.0-70.0) H 07/10/21 10:27 Seg Neutrophils # 7.5 K/mm3 (1.8-7.7) 07/10/21 10:27 Sodium 142 mmol/L (137-145) 07/10/21 06:50 Potassium 3.7 mmol/L (3.6-5.0) 07/10/21 06:50 Chloride 101.4 mmol/L (98-107) 07/10/21 06:50 Carbon Dioxide 26 mmol/L (22-30) 07/10/21 06:50 Anion Gap 18 mmol/L 07/10/21 06:50 BUN 79 mg/dL (9-20) H 07/10/21 06:50 Creatinine 4.0 mg/dL (0.8-1.3) H 07/10/21 06:50 Estimated GFR 18 ml/min 07/10/21 06:50 BUN/Creatinine Ratio 20 % 07/10/21 06:50 Glucose 187 mg/dL (75-100) H 07/10/21 06:50 POC Glucose 260 mg/dL (70-105) H 07/10/21 11:18 Hemoglobin A1c 6.5 % (4-6) H 07/09/21 06:24 Calcium 8.0 mg/dL (8.4-10.2) L 07/10/21 06:50 Total Bilirubin 0.40 mg/dL (0.1-1.2) 07/09/21 06:24 AST 1028 units/L (5-40) H 07/09/21 06:24 ALT 782 units/L (7-56) H 07/09/21 06:24 Alkaline Phosphatase 63 units/L (35-129) 07/09/21 06:24 Troponin T 0.182 ng/mL (0.00-0.029) H* 07/08/21 14:14 NT-Pro-B Natriuret Pep 66959 pg/mL (0-900) H 07/08/21 10:11 Total Protein 6.8 g/dL (6.3-8.2) 07/09/21 06:24 Albumin 3.3 g/dL (3.9-5) L 07/09/21 06:24 Albumin/Globulin Ratio 0.9 % 07/09/21 06:24 Triglycerides 102 mg/dL (2-149) 07/08/21 10:11 Cholesterol 176 mg/dL (50-199) 07/08/21 10:11 LDL Cholesterol Direct 109 mg/dL (50-130) 07/08/21 10:11 HDL Cholesterol 44 mg/dL (40-59) 07/08/21 10:11 Cholesterol/HDL Ratio 4.00 % 07/08/21 10:11 Lipase 26 units/L (13-60) 07/08/21 10:11 Procalcitonin 27.64 ng/mL (<0.15) 07/09/21 07:35 Urine Color Straw (Yellow) 07/08/21 23:22 Urine Turbidity Clear (Clear) 07/08/21 23:22 Urine pH 7.0 (5.0-7.0) 07/08/21 23:22 Ur Specific Bieber 1.009 (1.003-1.030) 07/08/21 23:22 Urine Protein 100 mg/dl mg/dL (Negative) 07/08/21 23:22 Urine Glucose (UA) Neg mg/dL (Negative) 07/08/21 23:22 Urine Ketones Neg mg/dL (Negative) 07/08/21 23:22 Urine Blood Sm (Negative) 07/08/21 23:22 Urine Nitrite Neg (Negative) 07/08/21 23:22 Urine Bilirubin Neg (Negative) 07/08/21 23:22 Urine Urobilinogen < 2.0 mg/dL (<2.0) 07/08/21 23:22 Ur Leukocyte Esterase Neg (Negative) 07/08/21 23:22 Urine WBC (Auto) < 1.0 /HPF (0.0-6.0) 07/08/21 23:22 Urine RBC (Auto) < 1.0 /HPF (0.0-6.0) 07/08/21 23:22 Urine Mucus Few /HPF 07/08/21 23:22 Coronavirus (PCR) Negative (Negative) 07/09/21 08:10 Hepatitis A IgM Ab Non-reactive (NonReactive) 07/08/21 13:38 Hep Bs Antigen Non-reactive (Negative) 07/08/21 13:38 Hep B Core IgM Ab Non-reactive (NonReactive) 07/08/21 13:38 Hepatitis C Antibody Non-reactive (NonReactive) 07/08/21 13:38 Microbiology: Microbiology 07/08/21 10:57 Peripheral/Venous Blood Culture - Preliminary NO GROWTH AFTER 48 HOURS 07/08/21 10:57 Peripheral/Venous Blood Culture - Preliminary NO GROWTH AFTER 48 HOURS Suazo/IV: Voiding Method Urinal Active Medications - Current Medications Current Medications: Generic Name Dose Route Start Last Admin Trade Name Freq PRN Reason Stop Dose Admin Acetaminophen 650 mg 07/08/21 16:33 07/10/21 05:00 Acetaminophen 325 Mg Tab PO 650 mg Q4H PRN Administration Pain MILD(1-3)/Fever >100.5/MERCER Amlodipine Besylate 10 mg 07/08/21 17:00 07/09/21 09:16 Amlodipine 10 Mg Tab PO 10 mg DAILY ALEXIA Administration Aspirin 81 mg 07/08/21 17:00 07/09/21 09:16 Aspirin Ec 81 Mg Tab PO 81 mg QDAY ALEXIA Administration Azithromycin 500 mg 07/09/21 18:00 07/09/21 17:13 Azithromycin 250 Mg Tab PO 07/12/21 18:01 500 mg QPM ALEXIA Administration Famotidine 10 mg 07/08/21 22:00 07/09/21 22:33 Famotidine 10 Mg Tab PO 10 mg BID ALEXIA Administration Fenofibrate 145 mg 07/08/21 17:00 07/09/21 09:16 Fenofibrate 145 Mg Tab PO 145 mg QDAY ALEXIA Administration Furosemide 80 mg 07/09/21 10:10 07/10/21 05:00 Furosemide 40 Mg Tab PO 80 mg 0600,1800 ALEXIA Administration Heparin Sodium (Porcine) 5,000 unit 07/08/21 22:00 07/09/21 22:32 Heparin 5,000 Unit/1 Ml Vial SUB-Q 5,000 unit Q12HR ALEXIA Administration Ceftriaxone Sodium 1 gm in 50 mls @ 100 mls/hr 07/08/21 18:00 07/09/21 17:13 Rocephin/Ns 1 Gm/50 Ml IV 07/12/21 18:29 100 mls/hr Q24H ALEXIA Administration Protocol Insulin Human Lispro 0 unit 07/08/21 22:00 07/09/21 22:33 Insulin Lispro 100 Unit/Ml SUB-Q 3 unit ACHS ALEXIA Administration Protocol Insulin Human NPH 14 unit 07/08/21 17:00 07/09/21 17:21 Insulin Nph, Human 100 Unit/1 Ml SUB-Q Not Given BIDDIAB ALEXIA Isosorbide Mononitrate 30 mg 07/09/21 12:00 07/09/21 12:30 Isosorbide Mononitrate Er 30 Mg Tab PO 30 mg QDAY ALEXIA Administration Morphine Sulfate 2 mg 07/08/21 16:40 Morphine 2 Mg/1 Ml Inj IV Q4H PRN Pain, Moderate (4-6) Ondansetron HCl 4 mg 07/08/21 16:33 Ondansetron 4 Mg/2 Ml Inj IV Q3H PRN Nausea And Vomiting Oxycodone/Acetaminophen 1 tab 07/08/21 16:40 Oxycodone /Acetaminophen 5-325mg Tab PO Q6H PRN Pain, Moderate (4-6) Sodium Chloride 10 ml 07/08/21 22:00 07/09/21 22:33 Sodium Chloride 0.9% 10 Ml Flush Syringe IV 10 ml BID ALEXIA Administration Sodium Chloride 10 ml 07/08/21 16:33 Sodium Chloride 0.9% 10 Ml Flush Syringe IV PRN PRN LINE FLUSH Tramadol HCl 50 mg 07/08/21 16:31 Tramadol 50 Mg Tab PO Q8H PRN PAIN
[2021-07-10] MEDS ORDERED: BUMETANIDE 1 MG/4 ML INJ IV SCH ×2 (12:18→12:26)
--- NOTE | 2021-07-10 12:23 | Consultation ---
History of Present Illness Consult date: 07/10/21 Requesting physician: BARBIE HAMILTON Reason for consult: hypoxemia History of present illness: 81 y/o male with acute respiratory failure, CHF and Renal Failure Past History Past Medical History: anemia, diabetes, heart failure, hypertension, renal failure Medications and Allergies Allergies Allergy/AdvReac Type Severity Reaction Status Date / Time No Known Allergies Allergy Verified 07/08/21 09:37 Home Medications Medication Instructions Recorded Confirmed Last Taken Type Fenofibrate [Tricor] 145 mg PO QDAY 03/11/15 07/09/21 03/11/15 History traMADoL [Ultram 50 MG tab] 50 mg PO Q8H PRN 03/11/15 07/09/21 Unknown History Aspirin EC [Halfprin EC] 81 mg PO QDAY #30 tablet. 02/05/20 07/09/21 Unknown Rx Insulin NPH, Human [NovoLIN N] 14 unit SUB-Q BIDDIAB #1 vial 02/05/20 07/09/21 Unknown Rx Insulin Regular, Human [HumuLIN R] 0 unit SUB-Q ACHS #1 vial 02/05/20 07/09/21 Unknown Rx amLODIPine 10 mg PO DAILY #30 tablet 02/05/20 07/09/21 Unknown Rx Active Meds: Active Medications Acetaminophen (Acetaminophen 325 Mg Tab) 650 mg PO Q4H PRN PRN Reason: Pain MILD(1-3)/Fever >100.5/MERCER Last Admin: 07/10/21 05:00 Dose: 650 mg Amlodipine Besylate (Amlodipine 10 Mg Tab) 10 mg PO DAILY [facility] Last Admin: 07/09/21 09:16 Dose: 10 mg Aspirin (Aspirin Ec 81 Mg Tab) 81 mg PO QDAY [facility] Last Admin: 07/09/21 09:16 Dose: 81 mg Azithromycin (Azithromycin 250 Mg Tab) 500 mg PO QPM [facility] Stop: 07/12/21 18:01 Last Admin: 07/09/21 17:13 Dose: 500 mg Famotidine (Famotidine 10 Mg Tab) 10 mg PO BID [facility] Last Admin: 07/09/21 22:33 Dose: 10 mg Fenofibrate (Fenofibrate 145 Mg Tab) 145 mg PO QDAY [facility] Last Admin: 07/09/21 09:16 Dose: 145 mg Furosemide (Furosemide 40 Mg Tab) 80 mg PO 0600,1800 [facility] Last Admin: 07/10/21 05:00 Dose: 80 mg Heparin Sodium (Porcine) (Heparin 5,000 Unit/1 Ml Vial) 5,000 unit SUB-Q Q12HR [facility] Last Admin: 07/09/21 22:32 Dose: 5,000 unit Ceftriaxone Sodium (Rocephin/Ns 1 Gm/50 Ml) 1 gm in 50 mls @ 100 mls/hr IV Q24H [facility]; Protocol Stop: 07/12/21 18:29 Last Admin: 07/09/21 17:13 Dose: 100 mls/hr Insulin Human Lispro (Insulin Lispro 100 Unit/Ml) 0 unit SUB-Q ACHS [facility]; Protocol Last Admin: 07/09/21 22:33 Dose: 3 unit Insulin Human NPH (Insulin Nph, Human 100 Unit/1 Ml) 14 unit SUB-Q BIDDIAB [facility] Last Admin: 07/09/21 17:21 Dose: Not Given Isosorbide Mononitrate (Isosorbide Mononitrate Er 30 Mg Tab) 30 mg PO QDAY [facility] Last Admin: 07/09/21 12:30 Dose: 30 mg Morphine Sulfate (Morphine 2 Mg/1 Ml Inj) 2 mg IV Q4H PRN PRN Reason: Pain, Moderate (4-6) Ondansetron HCl (Ondansetron 4 Mg/2 Ml Inj) 4 mg IV Q3H PRN PRN Reason: Nausea And Vomiting Oxycodone/Acetaminophen (Oxycodone /Acetaminophen 5-325mg Tab) 1 tab PO Q6H PRN PRN Reason: Pain, Moderate (4-6) Sodium Chloride (Sodium Chloride 0.9% 10 Ml Flush Syringe) 10 ml IV BID [facility] Last Admin: 07/09/21 22:33 Dose: 10 ml Sodium Chloride (Sodium Chloride 0.9% 10 Ml Flush Syringe) 10 ml IV PRN PRN PRN Reason: LINE FLUSH Tramadol HCl (Tramadol 50 Mg Tab) 50 mg PO Q8H PRN PRN Reason: PAIN Review of Systems All systems: negative Physical Examination Vital signs: Vital Signs Pulse Resp BP Pulse Ox 98 H 18 136/88 97 07/08/21 09:34 07/08/21 09:34 07/08/21 09:34 07/08/21 09:34 General appearance: appears uncomfortable Eyes: non-icteric ENT: oropharynx moist Results - Laboratory Findings CBC and BMP: 07/10/21 10:27 07/10/21 06:50 Abnormal lab findings: Abnormal Labs 07/08/21 07/08/21 07/08/21 10:11 10:11 10:11 RBC 2.83 L Hgb 8.0 L Hct 24.6 L RDW 16.9 H Lymph % (Auto) 4.9 L [place] % (Auto) 7.8 H Lymph # (Auto) 0.5 L Seg Neutrophils % 87.3 H Seg Neutrophils # 9.4 H Chloride 97.1 L Carbon Dioxide 16 L BUN 59 H Creatinine 3.8 H Glucose 290 H POC Glucose Hemoglobin A1c Calcium 8.3 L AST 934 H ALT 559 H Troponin T 0.176 H* NT-Pro-B Natriuret Pep 30566 H Albumin 3.3 L 07/08/21 07/08/21 07/08/21 13:38 14:14 22:21 RBC Hgb Hct RDW Lymph % (Auto) [place] % (Auto) Lymph # (Auto) Seg Neutrophils % Seg Neutrophils # Chloride Carbon Dioxide BUN Creatinine Glucose POC Glucose 309 H Hemoglobin A1c Calcium AST ALT Troponin T 0.211 H* 0.182 H* NT-Pro-B Natriuret Pep Albumin 07/09/21 07/09/21 07/09/21 06:24 06:24 06:24 RBC 2.54 L Hgb 7.1 L Hct 21.5 L RDW 16.7 H Lymph % (Auto) 9.8 L [place] % (Auto) 7.9 H Lymph # (Auto) 0.9 L Seg Neutrophils % 82.2 H Seg Neutrophils # Chloride Carbon Dioxide BUN 71 H Creatinine 4.1 H Glucose POC Glucose Hemoglobin A1c 6.5 H Calcium 7.7 L AST 1028 H ALT 782 H Troponin T NT-Pro-B Natriuret Pep Albumin 3.3 L 07/09/21 07/09/21 07/09/21 11:50 17:20 21:26 RBC Hgb Hct RDW Lymph % (Auto) [place] % (Auto) Lymph # (Auto) Seg Neutrophils % Seg Neutrophils # Chloride Carbon Dioxide BUN Creatinine Glucose POC Glucose 167 H 122 H 192 H Hemoglobin A1c Calcium AST ALT Troponin T NT-Pro-B Natriuret Pep Albumin 07/10/21 07/10/21 07/10/21 06:50 08:08 10:27 RBC 2.54 L Hgb 7.1 L Hct 22.1 L RDW 16.2 H Lymph % (Auto) 7.6 L [place] % (Auto) Lymph # (Auto) 0.7 L Seg Neutrophils % 86.7 H Seg Neutrophils # Chloride Carbon Dioxide BUN 79 H Creatinine 4.0 H Glucose 187 H POC Glucose 168 H Hemoglobin A1c Calcium 8.0 L AST ALT Troponin T NT-Pro-B Natriuret Pep Albumin 07/10/21 11:18 RBC Hgb Hct RDW Lymph % (Auto) [place] % (Auto) Lymph # (Auto) Seg Neutrophils % Seg Neutrophils # Chloride Carbon Dioxide BUN Creatinine Glucose POC Glucose 260 H Hemoglobin A1c Calcium AST ALT Troponin T NT-Pro-B Natriuret Pep Albumin - Diagnostic Findings Chest x-ray: image reviewed (Cardiomegaly, Pulmonary edema) Assessment and Plan 81 male with acute respiratory failure, most likely secondary to volume overload. 1. Renal following but would ask if IV diuresis would be better especially given CHF 2. continue supplemental oxygen. Would recommend bipap at night given CHF, may have central apnea 3. Follow up renal recs 4. Fluid restriction WIll continue to follow.
[2021-07-10] MEDS: oxyCODONE /ACETAMINOPHEN 5-325MG TAB PO PRN (13:07)
[2021-07-10] MEDS: BUMETANIDE 1 MG/4 ML INJ IV SCH ×2 (17:15→19:12)
--- NOTE | 2021-07-10 18:12 | Progress Note ---
Assessment and Plan - Patient Problems (1) Cardiomyopathy Current Visit: Yes Status: Acute (2) CHF (congestive heart failure) Current Visit: Yes Status: Acute Subjective Date of service: 07/10/21 Interval history: CHILLS,,BREATHING BETTER Objective Vital Signs Temp Pulse Resp BP Pulse Ox 07/10/21 17:20 99.1 F 94 H 24 149/77 89 07/10/21 14:22 94 07/10/21 11:19 98.5 F 83 24 135/72 92 07/10/21 07:34 94 07/10/21 07:00 18 97 07/10/21 04:42 99.0 F 92 H 18 140/82 93 07/10/21 02:40 95 07/09/21 21:26 98.2 F 83 18 137/82 99 07/09/21 21:01 96 07/09/21 19:00 18 98 - Physical Examination Neck: Positive: JVD/HJR Cardiac: Positive: Regular Rhythm Lungs: Positive: Rales Abdomen: Positive: Unremarkable Extremities: Present: edema (TRACE) - Labs and Meds CBC 07/10/21 Range/Units 10:27 WBC 8.6 (4.5-11.0) K/mm3 RBC 2.54 L (3.65-5.03) M/mm3 Hgb 7.1 L (11.8-15.2) gm/dl Hct 22.1 L (35.5-45.6) % Plt Count 202 (140-440) K/mm3 Lymph # (Auto) 0.7 L (1.2-5.4) K/mm3 [place] # (Auto) 0.4 (0.0-0.8) K/mm3 Eos # (Auto) 0.0 (0.0-0.4) K/mm3 Baso # (Auto) 0.1 (0.0-0.1) K/mm3 Comprehensive Metabolic Panel 07/10/21 Range/Units 06:50 Sodium 142 (137-145) mmol/L Potassium 3.7 (3.6-5.0) mmol/L Chloride 101.4 (98-107) mmol/L Carbon Dioxide 26 (22-30) mmol/L BUN 79 H (9-20) mg/dL Creatinine 4.0 H (0.8-1.3) mg/dL Glucose 187 H (75-100) mg/dL Calcium 8.0 L (8.4-10.2) mg/dL
[2021-07-10] MEDS: AZITHROMYCIN 250 MG TAB PO SCH (19:12)
[2021-07-10] MEDS: cefTRIAXone/NS 1 GM/50 ML 1 GM/50 ML BAG IV SCH (19:13)
[2021-07-11] MEDS: oxyCODONE /ACETAMINOPHEN 5-325MG TAB PO PRN ×2 (03:41→18:27)
--- NOTE | 2021-07-11 07:44 | Progress Note ---
Assessment and Plan Assessment and plan: History of present illness: 81-year-old male with a past medical history of diabetes, chronic renal sufficiency, hypertension, and PAD currently on Xarelto presents to the hospital with complaints of shortness of breath, nausea, vomiting, and diarrhea for the past 2 days. Diarrhea has since resolved. EMS reports a blood glucose of 340 upon their arrival with respiratory distress. Patient treated with magnesium 4 g, Solu-Medrol 125 mg, Lasix 80 mg IV in route to the hospital. Patient is also on Lasix at home 20 mg daily. Patient denies chest pain, fever or current ab dominal pain. He is unvaccinated for Covid. Register Of Deeds: Dr. Henderson Initial triage documents remained saturation of 97% however patient arrived with nonrebreather and patient is satting 90 to 94% on 50% Venturi at time of my evaluation Hospital Course: 07/09: Would benefit from volume removal. D/w nephrology who states that patient has declined hemodialysis for some time. Initiated on lasix IV therapy. Will potentially need to revisit hemodialysis with patient tomorrow. Cardiology consulted. awaiting recommendations. Patient is unvaccinated for coronavirus, pcr test ordered. Continue abx/steroids at this time. 07/10: Placed on hfnc 35/95 ovn. Still significant pulm edema on cxr. Will order bumex 4 mg iv x 2. Patient still hesitant but more open today about HD .... will revisit over weekend. 07/11: Refused bipap overnight. ct chest ordered today. Bumex 4 mg IV for this AM given as patient did not get PM dose. Will order additional dose in PM. Re- assess pulmonary status tomorrow. Will follow pulmonary and nephro recommendations. Assessment and Plan: #Acute respiratory failure with hypoxia Current Visit: Yes Status: Acute Plan to address problem: Patient was hypoxic on room air Oxygen supplementation as necessary coronavirus pcr negative CXR: interstitial edema d/c steroids, abx. Bumex 4 mg IV bid #Volume overload Current Visit: Yes Status: Chronic Plan to address problem: Nephrology consulted Hemodialysis for increased ultrafiltration #HFrEF - elevated bnp on admission 69K - ECHO demonstrates reduced EF of 25. - diuresis as above with bumex # Bilateral pneumonia Current Visit: Yes Status: Acute Plan to address problem: We will recheck procalcitonin. In the meantime continue IV Zithromax and IV Rocephin at 1 g per 24 hours. #End-stage renal disease needing dialysis Current Visit: Yes Status: Chronic Plan to address problem: Nephrology consulted for hemodialysis as per schedule # IDDM (insulin dependent diabetes mellitus) Current Visit: Yes Status: Chronic Plan to address problem: Continue home insulin and coverage Check hemoglobin A1c #Hypertension Current Visit: Yes Status: Chronic Qualifiers: Hypertension type: primary hypertension Qualified Code(s): I10 - Essential (primary) hypertension Plan to address problem: Continue antihypertensives and adjust medications #Hyperlipidemia Current Visit: Yes Status: Chronic Qualifiers: Hyperlipidemia type: unspecified Qualified Code(s): E78.5 - Hyperlipidemia, unspecified Plan to address problem: Continue statins #Anemia Current Visit: Yes Status: Chronic Qualifiers: Anemia type: due to chronic kidney disease Plan to address problem: Secondary to end-stage renal disease Hgb 7.1 Epogen as per nephrology #DVT prophylaxis Current Visit: Yes Status: Acute Plan to address problem: On heparin and GI prophylaxis #Advance care planning Current Visit: Yes Status: Acute Plan to address problem: Disease education conducted, care plan discussed, diagnosis discussed, prognosis discussed. Patient is full code. Patient acknowledges understanding and agreement with care plan. +30 minutes. The high probability of a clinically significant, sudden or life threatening deterioration of the [multi] system(s) required my full and direct attention, intervention and personal management. The aggregate critical care time was [60] minutes. This time is in addition to time spent performing reported procedures but includes the following: [x] Data Review and interpretation [x] Patient assessment and monitoring of vital signs [x] Documentation [x] Medication orders and management History Interval history: Refused bipap overnight. only receieved one dose of bumex. no complaints otherwise. states that he does not feel better or worse this morning. Additional counseling admin re: bipap, dialysis, overall disease pr ocess. Hospitalist Physical - Physical exam Narrative exam: Physical Exam: VITAL SIGNS: Reviewed. GENERAL: The patient appears normally developed, Vital signs as documented. Thin elderly male. HFNC 35/100 HEAD: No signs of head trauma. EYES: Pupils are equal. Extraocular motions intact. EARS: Hearing grossly intact. MOUTH: Oropharynx is normal. NECK: No adenopathy, no JVD. CHEST: Rales in bilateral lung milligan. CARDIAC: Regular rate and rhythm. S1 and S2, without murmurs, gallops, or rubs. VASCULAR: No Edema. Peripheral pulses normal and equal in all extremities. ABDOMEN: Soft, non tender and non distended. No rebound or guarding, and no masses palpated. Bowel Sounds normal. MUSCULOSKELETAL: Good range of motion of all major joints. Extremities without clubbing, cyanosis or edema. NEUROLOGIC EXAM: Alert and oriented x 4. no focal sensory or strength deficits. PSYCHIATRIC: Mood normal. SKIN: detail exam as documented in skin assessment - Constitutional Vitals: Temp Pulse Resp BP Pulse Ox 97.8 F 74 18 104/50 94 07/11/21 04:29 07/11/21 04:29 07/11/21 04:29 07/11/21 04:29 07/11/21 04:33 HEART Score - HEART Score Troponin: Troponin T 0.182 ng/mL (0.00-0.029) H* 07/08/21 14:14 Results - Labs CBC & Chem 7: 07/10/21 10:27 07/10/21 06:50 Labs: Laboratory Last Values WBC 8.6 K/mm3 (4.5-11.0) 07/10/21 10:27 RBC 2.54 M/mm3 (3.65-5.03) L 07/10/21 10:27 Hgb 7.1 gm/dl (11.8-15.2) L 07/10/21 10:27 Hct 22.1 % (35.5-45.6) L 07/10/21 10:27 MCV 87 fl (84-94) 07/10/21 10:27 MCH 28 pg (28-32) 07/10/21 10:27 MCHC 32 % (32-34) 07/10/21 10:27 RDW 16.2 % (13.2-15.2) H 07/10/21 10:27 Plt Count 202 K/mm3 (140-440) 07/10/21 10:27 Lymph % (Auto) 7.6 % (13.4-35.0) L 07/10/21 10:27 [place] % (Auto) 5.0 % (0.0-7.3) 07/10/21 10:27 Eos % (Auto) 0.1 % (0.0-4.3) 07/10/21 10:27 Baso % (Auto) 0.6 % (0.0-1.8) 07/10/21 10:27 Lymph # (Auto) 0.7 K/mm3 (1.2-5.4) L 07/10/21 10:27 [place] # (Auto) 0.4 K/mm3 (0.0-0.8) 07/10/21 10:27 Eos # (Auto) 0.0 K/mm3 (0.0-0.4) 07/10/21 10:27 Baso # (Auto) 0.1 K/mm3 (0.0-0.1) 07/10/21 10: Seg Neutrophils % 86.7 % (40.0-70.0) H 07/10/21 10:27 Seg Neutrophils # 7.5 K/mm3 (1.8-7.7) 07/10/21 10:27 Sodium 142 mmol/L (137-145) 07/10/21 06:50 Potassium 3.7 mmol/L (3.6-5.0) 07/10/21 06:50 Chloride 101.4 mmol/L (98-107) 07/10/21 06:50 Carbon Dioxide 26 mmol/L (22-30) 07/10/21 06:50 Anion Gap 18 mmol/L 07/10/21 06:50 BUN 79 mg/dL (9-20) H 07/10/21 06:50 Creatinine 4.0 mg/dL (0.8-1.3) H 07/10/21 06:50 Estimated GFR 18 ml/min 07/10/21 06:50 BUN/Creatinine Ratio 20 % 07/10/21 06:50 Glucose 187 mg/dL (75-100) H 07/10/21 06:50 POC Glucose 51 mg/dL (70-105) L 07/11/21 07:35 Hemoglobin A1c 6.5 % (4-6) H 07/09/21 06:24 Calcium 8.0 mg/dL (8.4-10.2) L 07/10/21 06:50 Total Bilirubin 0.40 mg/dL (0.1-1.2) 07/09/21 06:24 AST 1028 units/L (5-40) H 07/09/21 06:24 ALT 782 units/L (7-56) H 07/09/21 06:24 Alkaline Phosphatase 63 units/L (35-129) 07/09/21 06:24 Troponin T 0.182 ng/mL (0.00-0.029) H* 07/08/21 14:14 NT-Pro-B Natriuret Pep 46403 pg/mL (0-900) H 07/08/21 10:11 Total Protein 6.8 g/dL (6.3-8.2) 07/09/21 06:24 Albumin 3.3 g/dL (3.9-5) L 07/09/21 06:24 Albumin/Globulin Ratio 0.9 % 07/09/21 06:24 Triglycerides 102 mg/dL (2-149) 07/08/21 10:11 Cholesterol 176 mg/dL (50-199) 07/08/21 10:11 LDL Cholesterol Direct 109 mg/dL (50-130) 07/08/21 10:11 HDL Cholesterol 44 mg/dL (40-59) 07/08/21 10:11 Cholesterol/HDL Ratio 4.00 % 07/08/21 10:11 Lipase 26 units/L (13-60) 07/08/21 10:11 Procalcitonin 27.64 ng/mL (<0.15) 07/09/21 07:35 Urine Color Straw (Yellow) 07/08/21 23:22 Urine Turbidity Clear (Clear) 07/08/21 23:22 Urine pH 7.0 (5.0-7.0) 07/08/21 23:22 Ur Specific [place] 1.009 (1.003-1.030) 07/08/21 23:22 Urine Protein 100 mg/dl mg/dL (Negative) 07/08/21 23:22 Urine Glucose (UA) Neg mg/dL (Negative) 07/08/21 23:22 Urine Ketones Neg mg/dL (Negative) 07/08/21 23:22 Urine Blood Sm (Negative) 07/08/21 23:22 Urine Nitrite Neg (Negative) 07/08/21 23:22 Urine Bilirubin Neg (Negative) 07/08/21 23:22 Urine Urobilinogen < 2.0 mg/dL (<2.0) 07/08/21 23:22 Ur Leukocyte Esterase Neg (Negative) 07/08/21 23:22 Urine WBC (Auto) < 1.0 /HPF (0.0-6.0) 07/08/21 23:22 Urine RBC (Auto) < 1.0 /HPF (0.0-6.0) 07/08/21 23:22 Urine Mucus Few /HPF 07/08/21 23:22 Coronavirus (PCR) Negative (Negative) 07/09/21 08:10 Hepatitis A IgM Ab Non-reactive (NonReactive) 07/08/21 13:38 Hep Bs Antigen Non-reactive (Negative) 07/08/21 13:38 Hep B Core IgM Ab Non-reactive (NonReactive) 07/08/21 13:38 Hepatitis C Antibody Non-reactive (NonReactive) 07/08/21 13:38 Microbiology: Microbiology 07/08/21 10:57 Peripheral/Venous Blood Culture - Preliminary NO GROWTH AFTER 48 HOURS 07/08/21 10:57 Peripheral/Venous Blood Culture - Preliminary NO GROWTH AFTER 48 HOURS Suazo/IV: Voiding Method Urinal Active Medications - Current Medications Current Medications: Generic Name Dose Route Start Last Admin Trade Name Freq PRN Reason Stop Dose Admin Acetaminophen 650 mg 07/08/21 16:33 07/10/21 05:00 Acetaminophen 325 Mg Tab PO 650 mg Q4H PRN Administration Pain MILD(1-3)/Fever >100.5/MERCER Amlodipine Besylate 10 mg 07/08/21 17:00 07/10/21 11:06 Amlodipine 10 Mg Tab PO 10 mg DAILY ALEXIA Administration Aspirin 81 mg 07/08/21 17:00 07/10/21 11:06 Aspirin Ec 81 Mg Tab PO 81 mg QDAY ALEXIA Administration Azithromycin 500 mg 07/09/21 18:00 07/10/21 19:12 Azithromycin 250 Mg Tab PO 07/12/21 18:01 500 mg QPM ALEXIA Administration Epoetin Mika-epbx 20,000 unit 07/11/21 10:00 Epoetin Mika-Epbx 20,000 Unit/1 Ml Vial SUB-Q 07/11/21 10:01 ONCE ONE Famotidine 10 mg 07/08/21 22:00 07/10/21 22:23 Famotidine 10 Mg Tab PO 10 mg BID ALEXIA Administration Fenofibrate 145 mg 07/08/21 17:00 07/10/21 11:05 Fenofibrate 145 Mg Tab PO 145 mg QDAY ALEXIA Administration Heparin Sodium (Porcine) 5,000 unit 07/08/21 22:00 07/10/21 22:23 Heparin 5,000 Unit/1 Ml Vial SUB-Q 5,000 unit Q12HR ALEXIA Administration Ceftriaxone Sodium 1 gm in 50 mls @ 100 mls/hr 07/08/21 18:00 07/10/21 19:13 Rocephin/Ns 1 Gm/50 Ml IV 07/12/21 18:29 100 mls/hr Q24H ALEXIA Administration Protocol Insulin Human Lispro 0 unit 07/08/21 22:00 07/10/21 22:24 Insulin Lispro 100 Unit/Ml SUB-Q 3 unit ACHS ALEXIA Administration Protocol Insulin Human NPH 14 unit 07/08/21 17:00 07/10/21 18:12 Insulin Nph, Human 100 Unit/1 Ml SUB-Q 14 unit BIDDIAB ALEXIA Administration Isosorbide Mononitrate 30 mg 07/09/21 12:00 07/10/21 11:06 Isosorbide Mononitrate Er 30 Mg Tab PO 30 mg QDAY ALEXIA Administration Morphine Sulfate 2 mg 07/08/21 16:40 Morphine 2 Mg/1 Ml Inj IV Q4H PRN Pain, Moderate (4-6) Ondansetron HCl 4 mg 07/08/21 16:33 Ondansetron 4 Mg/2 Ml Inj IV Q3H PRN Nausea And Vomiting Oxycodone/Acetaminophen 1 tab 07/08/21 16:40 07/11/21 03:41 Oxycodone /Acetaminophen 5-325mg Tab PO 1 tab Q6H PRN Administration Pain, Moderate (4-6) Sodium Chloride 10 ml 07/08/21 22:00 07/10/21 22:23 Sodium Chloride 0.9% 10 Ml Flush Syringe IV 10 ml BID ALEXIA Administration Sodium Chloride 10 ml 07/08/21 16:33 Sodium Chloride 0.9% 10 Ml Flush Syringe IV PRN PRN LINE FLUSH Tramadol HCl 50 mg 07/08/21 16:31 Tramadol 50 Mg Tab PO Q8H PRN PAIN
[2021-07-11] MEDS: INSULIN LISPRO 100 UNIT/ML SUB-Q SCH ×4 (08:58→22:04)
[2021-07-11] MEDS: INSULIN NPH, HUMAN 100 UNIT/1 ML SUB-Q SCH ×2 (08:58→17:14)
[2021-07-11] MEDS ORDERED: BUMETANIDE 1 MG/4 ML INJ IV ONE ×2 (09:15→15:26)
[2021-07-11] MEDS ORDERED: EPOETIN ALFA-EPBX 20,000 UNIT/1 ML VIAL SUB-Q ONE (10:00)
[2021-07-11 10:58] LABS: Calcium 8.2 mg/dL (8.4-10.2)
[2021-07-11] MEDS: HEPARIN 5,000 UNIT/1 ML VIAL SUB-Q SCH ×2 (11:28→21:57)
[2021-07-11] MEDS: FAMOTIDINE 10 MG TAB PO SCH ×2 (11:28→21:55)
[2021-07-11] MEDS: ASPIRIN EC 81 MG TAB PO SCH (11:28)
[2021-07-11] MEDS: FENOFIBRATE 145 MG TAB PO SCH (11:28)
[2021-07-11] MEDS: amLODIPine 10 MG TAB PO SCH (11:29)
--- NOTE | 2021-07-11 13:07 | Progress Note ---
Assessment and Plan 81 male with acute respiratory failure, most likely secondary to volume overload. 07/11/21: Continue IV diuresis. Need to obtain net negative state daily. Wean fio2 for sats > 90% 1. Renal following but would ask if IV diuresis would be better especially given CHF 2. continue supplemental oxygen. Would recommend bipap at night given CHF, may have central apnea 3. Follow up renal recs 4. Fluid restriction WIll continue to follow. Subjective Date of service: 07/11/21 Interval history: No acute events. Still on HFNC. Sat is 90 Objective Vital Signs - 12hr 07/11/21 07/11/21 07/11/21 04:29 04:33 08:12 Temperature 97.8 F Pulse Rate 74 Respiratory 18 Rate Blood Pressure 104/50 O2 Sat by Pulse 89 94 98 Oximetry 07/11/21 07/11/21 09:25 11:06 Temperature 99.7 F H Pulse Rate 82 Respiratory 20 Rate Blood Pressure 145/77 O2 Sat by Pulse 90 93 Oximetry Constitutional: appears uncomfortable Eyes: non-icteric ENT: oropharynx moist CBC and BMP: 07/10/21 10:27 07/11/21 09:51 Abnormal lab findings: Abnormal Labs 07/08/21 07/08/21 07/08/21 10:11 10:11 10:11 RBC 2.83 L Hgb 8.0 L Hct 24.6 L RDW 16.9 H Lymph % (Auto) 4.9 L [place] % (Auto) 7.8 H Lymph # (Auto) 0.5 L Seg Neutrophils % 87.3 H Seg Neutrophils # 9.4 H Potassium Chloride 97.1 L Carbon Dioxide 16 L BUN 59 H Creatinine 3.8 H Glucose 290 H POC Glucose Hemoglobin A1c Calcium 8.3 L AST 934 H ALT 559 H Troponin T 0.176 H* NT-Pro-B Natriuret Pep 69856 H Albumin 3.3 L 07/08/21 07/08/21 07/08/21 13:38 14:14 22:21 RBC Hgb Hct RDW Lymph % (Auto) [place] % (Auto) Lymph # (Auto) Seg Neutrophils % Seg Neutrophils # Potassium Chloride Carbon Dioxide BUN Creatinine Glucose POC Glucose 309 H Hemoglobin A1c Calcium AST ALT Troponin T 0.211 H* 0.182 H* NT-Pro-B Natriuret Pep Albumin 07/09/21 07/09/21 07/09/21 06:24 06:24 06:24 RBC 2.54 L Hgb 7.1 L Hct 21.5 L RDW 16.7 H Lymph % (Auto) 9.8 L [place] % (Auto) 7.9 H Lymph # (Auto) 0.9 L Seg Neutrophils % 82.2 H Seg Neutrophils # Potassium Chloride Carbon Dioxide BUN 71 H Creatinine 4.1 H Glucose POC Glucose Hemoglobin A1c 6.5 H Calcium 7.7 L AST 1028 H ALT 782 H Troponin T NT-Pro-B Natriuret Pep Albumin 3.3 L 07/09/21 07/09/21 07/09/21 11:50 17:20 21:26 RBC Hgb Hct RDW Lymph % (Auto) [place] % (Auto) Lymph # (Auto) Seg Neutrophils % Seg Neutrophils # Potassium Chloride Carbon Dioxide BUN Creatinine Glucose POC Glucose 167 H 122 H 192 H Hemoglobin A1c Calcium AST ALT Troponin T NT-Pro-B Natriuret Pep Albumin 07/10/21 07/10/21 07/10/21 06:50 08:08 10:27 RBC 2.54 L Hgb 7.1 L Hct 22.1 L RDW 16.2 H Lymph % (Auto) 7.6 L [place] % (Auto) Lymph # (Auto) 0.7 L Seg Neutrophils % 86.7 H Seg Neutrophils # Potassium Chloride Carbon Dioxide BUN 79 H Creatinine 4.0 H Glucose 187 H POC Glucose 168 H Hemoglobin A1c Calcium 8.0 L AST ALT Troponin T NT-Pro-B Natriuret Pep Albumin 07/10/21 07/10/21 07/10/21 11:18 17:17 22:04 RBC Hgb Hct RDW Lymph % (Auto) [place] % (Auto) Lymph # (Auto) Seg Neutrophils % Seg Neutrophils # Potassium Chloride Carbon Dioxide BUN Creatinine Glucose POC Glucose 260 H 141 H 192 H Hemoglobin A1c Calcium AST ALT Troponin T NT-Pro-B Natriuret Pep Albumin 07/11/21 07/11/21 07/11/21 07:35 09:51 11:05 RBC Hgb Hct RDW Lymph % (Auto) [place] % (Auto) Lymph # (Auto) Seg Neutrophils % Seg Neutrophils # Potassium 3.1 L Chloride 96.8 L Carbon Dioxide BUN 73 H Creatinine 4.1 H Glucose 154 H POC Glucose 51 L 160 H Hemoglobin A1c Calcium 8.2 L AST ALT Troponin T NT-Pro-B Natriuret Pep Albumin
--- NOTE | 2021-07-11 13:20 | Cat Scan Report ---
CT chest without contrast INDICATION : respiratory failure. TECHNIQUE: Axial imaging performed through the chest without the use of intravenous contrast. All C T scans at this location are performed using CT dose reduction for ALARA by means of automated exposu re control. COMPARISON: Chest x-ray from yesterday and CT abdomen/pelvis from 07/08/2021 FINDINGS: There is advanced emphysema with moderate patchy multifocal airspace disease and interstit ial thickening throughout the lungs. There are also moderate-sized right and small left pleural effus ions. Heart is slightly enlarged. There are several enlarged mediastinal lymph nodes and also bilateral hil ar lymph nodes. Limited imaging of the upper abdomen shows nothing acute. There are degenerative changes throughout the spine with nothing acute. IMPRESSION: Advanced emphysema with moderate patchy multifocal airspace disease worrisome for an infe ctious/inflammatory process. Superimposed edema could also have this appearance. Bilateral pleural ef fusions noted as well as several enlarged likely reactive mediastinal/hilar lymph nodes. Signer Name: Brad Alves MD Signed: 07/11/2021 1:16 PM Workstation Name: [id number]
--- NOTE | 2021-07-11 14:59 | Progress Note ---
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 Admitted with volume overload and metabolic acidosis. Patient need hemodialysis for volume control but he has been refusing so far. Monitor. 2. FEN: Anion-gap Metabolic acidosis, 2/2 CKD, monitor. Volume control, IV Bumex. Monitor lytes and volume status. 3. Acute hypoxic resp failure, POA: 2/2 volume overload / pulmonary edema / PNA. On VM O2. Monitor. 4. PNA, POA: Abx to cover CAP. Covid-19 test negative. 5. Suspected CHF: Echo 25-30%. 6. DM-2: 7. Normocytic Anemia, POA: Chronic. Epogen. Monitor. 8. Hypertension: Volume control. Continue home BP meds. Monitor BP. Subjective: Patient was seen and examined at the bedside. Examination: General appearance: well-developed, appears stated age, no distress, VM O2 HEENT: atraumatic, JAE Neck: trachea midline Respiratory: rales heard Heart: S1S2, regular, no murmur Abdomen: soft, bowel sounds heard, NT Integumentary: no obvious rash Neurologic: AO, able to move extremities Ext: no edema Subjective Date of service: 07/11/21 Objective - Vital Signs Vital signs: Vital Signs - 12hr 07/11/21 07/11/21 07/11/21 04:29 04:33 08:12 Temperature 97.8 F Pulse Rate 74 Respiratory 18 Rate Blood Pressure 104/50 O2 Sat by Pulse 89 94 98 Oximetry 07/11/21 07/11/21 09:25 11:06 Temperature 99.7 F H Pulse Rate 82 Respiratory 20 Rate Blood Pressure 145/77 O2 Sat by Pulse 90 93 Oximetry - Lab 07/10/21 10:27 07/11/21 09:51 Most recent lab results Calcium 8.2 mg/dL (8.4-10.2) L 07/11/21 09:51 Medications & Allergies - Medications Allergies/Adverse Reactions: Allergies No Known Allergies Allergy (Verified 07/08/21 09:37) per patient Home Medications: Home Medications Medication Instructions Recorded Confirmed Last Taken Type Fenofibrate [Tricor] 145 mg PO QDAY 03/11/15 07/09/21 03/11/15 History traMADoL [Ultram 50 MG tab] 50 mg PO Q8H PRN 03/11/15 07/09/21 Unknown History Aspirin EC [Halfprin EC] 81 mg PO QDAY #30 tablet. 02/05/20 07/09/21 Unknown Rx Insulin NPH, Human [NovoLIN N] 14 unit SUB-Q BIDDIAB #1 vial 02/05/20 07/09/21 Unknown Rx Insulin Regular, Human [HumuLIN R] 0 unit SUB-Q ACHS #1 vial 02/05/20 07/09/21 Unknown Rx amLODIPine 10 mg PO DAILY #30 tablet 02/05/20 07/09/21 Unknown Rx Active Medications: Generic Name Dose Route Start Last Admin Trade Name Freq PRN Reason Stop Dose Admin Acetaminophen 650 mg 07/08/21 16:33 07/10/21 05:00 Acetaminophen 325 Mg Tab PO 650 mg Q4H PRN Administration Pain MILD(1-3)/Fever >100.5/MERCER Amlodipine Besylate 10 mg 07/08/21 17:00 07/11/21 11:29 Amlodipine 10 Mg Tab PO 10 mg DAILY ALEXIA Administration Aspirin 81 mg 07/08/21 17:00 07/11/21 11:28 Aspirin Ec 81 Mg Tab PO 81 mg QDAY ALEXIA Administration Azithromycin 500 mg 07/09/21 18:00 07/10/21 19:12 Azithromycin 250 Mg Tab PO 07/12/21 18:01 500 mg QPM ALEXIA Administration Bumetanide 4 mg 07/11/21 15:26 Bumetanide 1 Mg/4 Ml Inj IV 07/11/21 15:27 ONCE ONE Famotidine 10 mg 07/08/21 22:00 07/11/21 11:28 Famotidine 10 Mg Tab PO 10 mg BID ALEXIA Administration Fenofibrate 145 mg 07/08/21 17:00 07/11/21 11:28 Fenofibrate 145 Mg Tab PO 145 mg QDAY ALEXIA Administration Heparin Sodium (Porcine) 5,000 unit 07/08/21 22:00 07/11/21 11:28 Heparin 5,000 Unit/1 Ml Vial SUB-Q 5,000 unit Q12HR ALEXIA Administration Ceftriaxone Sodium 1 gm in 50 mls @ 100 mls/hr 07/08/21 18:00 07/10/21 19:13 Rocephin/Ns 1 Gm/50 Ml IV 07/12/21 18:29 100 mls/hr Q24H ALEXIA Administration Protocol Insulin Human Lispro 0 unit 07/08/21 22:00 07/11/21 11:29 Insulin Lispro 100 Unit/Ml SUB-Q Not Given ACHS [facility] Protocol Insulin Human NPH 14 unit 07/08/21 17:00 07/11/21 08:58 Insulin Nph, Human 100 Unit/1 Ml SUB-Q Not Given BIDDIAB [facility] Isosorbide Mononitrate 30 mg 07/09/21 12:00 07/11/21 11:28 Isosorbide Mononitrate Er 30 Mg Tab PO 30 mg QDAY [facility] Administration Morphine Sulfate 2 mg 07/08/21 16:40 Morphine 2 Mg/1 Ml Inj IV Q4H PRN Pain, Moderate (4-6) Ondansetron HCl 4 mg 07/08/21 16:33 Ondansetron 4 Mg/2 Ml Inj IV Q3H PRN Nausea And Vomiting Oxycodone/Acetaminophen 1 tab 07/08/21 16:40 07/11/21 03:41 Oxycodone /Acetaminophen 5-325mg Tab PO 1 tab Q6H PRN Administration Pain, Moderate (4-6) Sodium Chloride 10 ml 07/08/21 22:00 07/11/21 11:30 Sodium Chloride 0.9% 10 Ml Flush Syringe IV 10 ml BID ALEXIA Administration Sodium Chloride 10 ml 07/08/21 16:33 Sodium Chloride 0.9% 10 Ml Flush Syringe IV PRN PRN LINE FLUSH Tramadol HCl 50 mg 07/08/21 16:31 Tramadol 50 Mg Tab PO Q8H PRN PAIN
[2021-07-11] MEDS: POTASSIUM CHLORIDE ER 20 MEQ TAB PO SCH ×2 (15:49→20:55)
[2021-07-11] MEDS: AZITHROMYCIN 250 MG TAB PO SCH (17:15)
[2021-07-11] MEDS: cefTRIAXone/NS 1 GM/50 ML 1 GM/50 ML BAG IV SCH (17:15)
--- NOTE | 2021-07-11 19:30 | Progress Note ---
Assessment and Plan - Patient Problems (1) Cardiomyopathy Current Visit: Yes Status: Acute (2) CHF (congestive heart failure) Current Visit: Yes Status: Acute Subjective Date of service: 07/11/21 Interval history: BREATHING BETTER Objective Vital Signs Temp Pulse Resp BP Pulse Ox 07/11/21 16:05 99.2 F 91 H 20 155/81 89 07/11/21 14:30 92 07/11/21 11:06 99.7 F H 82 20 145/77 93 07/11/21 09:25 90 07/11/21 08:12 98 07/11/21 04:33 94 07/11/21 04:29 97.8 F 74 18 104/50 89 07/10/21 23:26 80 23 95 07/10/21 22:03 98.5 F 87 18 126/69 89 07/10/21 20:20 96 - Physical Examination General: No Apparent Distress Neck: Positive: JVD/HJR Lungs: Positive: Decreased Breath Sounds, Rales Abdomen: Positive: Unremarkable Extremities: Present: edema (TRACE), Other (dim. pulses) - Labs and Meds Comprehensive Metabolic Panel 07/11/21 Range/Units 09:51 Sodium 139 (137-145) mmol/L Potassium 3.1 L (3.6-5.0) mmol/L Chloride 96.8 L (98-107) mmol/L Carbon Dioxide 25 (22-30) mmol/L BUN 73 H (9-20) mg/dL Creatinine 4.1 H (0.8-1.3) mg/dL Glucose 154 H (75-100) mg/dL Calcium 8.2 L (8.4-10.2) mg/dL
[2021-07-11] MEDS: carvediloL 3.125 MG TAB PO SCH (21:54)
[2021-07-11] MEDS ORDERED: hydrALAZINE 25 MG TAB PO SCH (22:00)
[2021-07-12] MEDS: hydrALAZINE 10 MG TAB PO SCH ×3 (05:13→21:42)
[2021-07-12] MEDS: INSULIN LISPRO 100 UNIT/ML SUB-Q SCH ×4 (07:30→21:45)
[2021-07-12] MEDS: INSULIN NPH, HUMAN 100 UNIT/1 ML SUB-Q SCH (08:00)
[2021-07-12] MEDS: FENOFIBRATE 145 MG TAB PO SCH (09:25)
[2021-07-12] MEDS: FAMOTIDINE 10 MG TAB PO SCH ×2 (09:25→21:42)
[2021-07-12] MEDS: ASPIRIN EC 81 MG TAB PO SCH (09:25)
[2021-07-12] MEDS: carvediloL 3.125 MG TAB PO SCH ×2 (09:26→21:51)
[2021-07-12] MEDS: HEPARIN 5,000 UNIT/1 ML VIAL SUB-Q SCH ×2 (09:27→21:47)
--- NOTE | 2021-07-12 09:28 | Progress Note ---
Assessment and Plan Assessment and plan: History of present illness: 81-year-old male with a past medical history of diabetes, chronic renal sufficiency, hypertension, and PAD currently on Xarelto presents to the hospital with complaints of shortness of breath, nausea, vomiting, and diarrhea for the past 2 days. Diarrhea has since resolved. EMS reports a blood glucose of 340 upon their arrival with respiratory distress. Patient treated with magnesium 4 g, Solu-Medrol 125 mg, Lasix 80 mg IV in route to the hospital. Patient is also on Lasix at home 20 mg daily. Patient denies chest pain, fever or current ab dominal pain. He is unvaccinated for Covid. [employer]: Dr. Henderson Initial triage documents remained saturation of 97% however patient arrived with nonrebreather and patient is satting 90 to 94% on 50% Venturi at time of my evaluation Hospital Course: 07/09: Would benefit from volume removal. D/w nephrology who states that patient has declined hemodialysis for some time. Initiated on lasix IV therapy. Will potentially need to revisit hemodialysis with patient tomorrow. Cardiology consulted. awaiting recommendations. Patient is unvaccinated for coronavirus, pcr test ordered. Continue abx/steroids at this time. 07/10: Placed on hfnc 35/95 ovn. Still significant pulm edema on cxr. Will order bumex 4 mg iv x 2. Patient still hesitant but more open today about HD .... will revisit over weekend. 07/11: Refused bipap overnight. ct chest ordered today. Bumex 4 mg IV for this AM given as patient did not get PM dose. Will order additional dose in PM. Re- assess pulmonary status tomorrow. Will follow pulmonary and nephro recommendations. 07/12: Ordered additional two doses of bumex 4 mg IV. D/w pulmonary this AM, CT consistent with emphysema and chronic lung disease with likely superimposed edema. Not stable for biopsy. Pulmonary doubts infectious etiology...has initiated solumedrol 60mg IV q6h and will consider pulse dose steroids next week. Assessment and Plan: #Acute respiratory failure with hypoxia Current Visit: Yes Status: Acute Plan to address problem: -Patient was hypoxic on room air - multifactorial, CHF in the setting of oliguria/CKD 5 and advanced COPD/emphysema -HFNC at this time -coronavirus pcr negative -CXR: interstitial edema - CT findings as below. -d/c abx - solumedrol 60 mg IV q6hr. -Bumex 4 mg IV bid - pulmonology following. #Advanced COPD/Emphysema - CT consistent with emphysema and chronic lung disease with likely superimposed edema - significnat smoking history - Differential includes DIP, RBILD or NSIP. - per pulmonary not stable for biopsy - will be initiated on steroids as outline above with consideration of pulse dose steroids. - pulmonology following #Volume overload Current Visit: Yes Status: Chronic Plan to address problem: - Nephrology consulted - Bumex 4 mg IV x 2 doses, reassess daily - BL pleural effusions noted, rt > left - may consider thoracentesis during the week. #HFrEF - elevated bnp on admission 69K - ECHO demonstrates reduced EF of 25. - diuresis as above with bumex - possible cardiac cath by cardiology during the week. will follow along with plan # Bilateral pneumonia Current Visit: Yes Status: Acute Plan to address problem: - We will recheck procalcitonin. - In the meantime continue IV Zithromax and IV Rocephin at 1 g per 24 hours. - discontinue abx. #CKD5/ESRD Current Visit: Yes Status: Chronic Plan to address problem: - Nephrology consulted for hemodialysis as per schedule # Type 2 diabetes with hyperglycemia Current Visit: Yes Status: Chronic Plan to address problem: - Check hemoglobin A1c - basal bolus insulin regimen - correctional insulin - accuchecks ac/hs. #Hypertension Current Visit: Yes Status: Chronic Qualifiers: Hypertension type: primary hypertension Qualified Code(s): I10 - Essential (primary) hypertension Plan to address problem: - Continue antihypertensives and adjust medications #Hypokalemia - kcl 40 mEQ daily while patient is being diuresed - monitor on daily renal profile. #Hyperlipidemia -Continue statins #Anemia Current Visit: Yes Status: Chronic Qualifiers: Anemia type: due to chronic kidney disease Plan to address problem: - Secondary to end-stage renal disease - Hgb 7.1 - Epogen as per nephrology #DVT prophylaxis Current Visit: Yes Status: Acute Plan to address problem: - On heparin and GI prophylaxis #Advance care planning Current Visit: Yes Status: Acute Plan to address problem: - Disease education conducted, care plan discussed, diagnosis discussed, prognosis discussed. Patient is full code. Patient acknowledges understanding and agreement with care plan. +30 minutes. The high probability of a clinically significant, sudden or life threatening deterioration of the [multi] system(s) required my full and direct attention, intervention and personal management. The aggregate critical care time was [60] minutes. This time is in addition to time spent performing reported procedures but includes the following: [x] Data Review and interpretation [x] Patient assessment and monitoring of vital signs [x] Documentation [x] Medication orders and management History Interval history: Resting comfortbly on bedside. HFNC 35/95 on my encounter. States that shortness of breath hasn't improved. Hospitalist Physical - Physical exam Narrative exam: Physical Exam: VITAL SIGNS: Reviewed. GENERAL: The patient appears normally developed, Vital signs as documented. Thin elderly male. HFNC 35/95 HEAD: No signs of head trauma. EYES: Pupils are equal. Extraocular motions intact. EARS: Hearing grossly intact. MOUTH: Oropharynx is normal. NECK: No adenopathy, no JVD. CHEST: Rales in bilateral lung milligan. CARDIAC: Regular rate and rhythm. S1 and S2, without murmurs, gallops, or rubs. VASCULAR: No Edema. Peripheral pulses normal and equal in all extremities. ABDOMEN: Soft, non tender and non distended. No rebound or guarding, and no masses palpated. Bowel Sounds normal. MUSCULOSKELETAL: Good range of motion of all major joints. Extremities without clubbing, cyanosis or edema. NEUROLOGIC EXAM: Alert and oriented x 4. no focal sensory or strength deficits. PSYCHIATRIC: Mood normal. SKIN: detail exam as documented in skin assessment - Constitutional Vitals: Temp Pulse Resp BP Pulse Ox 98.7 F 76 16 132/71 91 07/12/21 04:22 07/12/21 05:13 07/12/21 04:22 07/12/21 05:13 07/12/21 04:22 HEART Score - HEART Score Troponin: Troponin T 0.182 ng/mL (0.00-0.029) H* 07/08/21 14:14 Results - Labs CBC & Chem 7: 07/10/21 10:27 07/11/21 09:51 Labs: Laboratory Last Values WBC 8.6 K/mm3 (4.5-11.0) 07/10/21 10:27 RBC 2.54 M/mm3 (3.65-5.03) L 07/10/21 10:27 Hgb 7.1 gm/dl (11.8-15.2) L 07/10/21 10:27 Hct 22.1 % (35.5-45.6) L 07/10/21 10:27 MCV 87 fl (84-94) 07/10/21 10: MCH 28 pg (28-32) 07/10/21 10: MCHC 32 % (32-34) 07/10/21 10:27 RDW 16.2 % (13.2-15.2) H 07/10/21 10:27 Plt Count 202 K/mm3 (140-440) 07/10/21 10:27 Lymph % (Auto) 7.6 % (13.4-35.0) L 07/10/21 10: [place] % (Auto) 5.0 % (0.0-7.3) 07/10/21 10: Eos % (Auto) 0.1 % (0.0-4.3) 07/10/21 10: Baso % (Auto) 0.6 % (0.0-1.8) 07/10/21 10: Lymph # (Auto) 0.7 K/mm3 (1.2-5.4) L 07/10/21 10:27 [place] # (Auto) 0.4 K/mm3 (0.0-0.8) 07/10/21 10: Eos # (Auto) 0.0 K/mm3 (0.0-0.4) 07/10/21 10: Baso # (Auto) 0.1 K/mm3 (0.0-0.1) 07/10/21 10:27 Seg Neutrophils % 86.7 % (40.0-70.0) H 07/10/21 10:27 Seg Neutrophils # 7.5 K/mm3 (1.8-7.7) 07/10/21 10:27 Sodium 139 mmol/L (137-145) 07/11/21 09:51 Potassium 3.1 mmol/L (3.6-5.0) L 07/11/21 09:51 Chloride 96.8 mmol/L (98-107) L 07/11/21 09:51 Carbon Dioxide 25 mmol/L (22-30) 07/11/21 09:51 Anion Gap 20 mmol/L 07/11/21 09:51 BUN 73 mg/dL (9-20) H 07/11/21 09:51 Creatinine 4.1 mg/dL (0.8-1.3) H 07/11/21 09:51 Estimated GFR 17 ml/min 07/11/21 09:51 BUN/Creatinine Ratio 18 % 07/11/21 09:51 Glucose 154 mg/dL (75-100) H 07/11/21 09:51 POC Glucose 82 mg/dL (70-105) 07/12/21 07:27 Hemoglobin A1c 6.5 % (4-6) H 07/09/21 06:24 Calcium 8.2 mg/dL (8.4-10.2) L 07/11/21 09:51 Total Bilirubin 0.40 mg/dL (0.1-1.2) 07/09/21 06:24 AST 1028 units/L (5-40) H 07/09/21 06:24 ALT 782 units/L (7-56) H 07/09/21 06:24 Alkaline Phosphatase 63 units/L (35-129) 07/09/21 06:24 Troponin T 0.182 ng/mL (0.00-0.029) H* 07/08/21 14:14 NT-Pro-B Natriuret Pep 23327 pg/mL (0-900) H 07/08/21 10:11 Total Protein 6.8 g/dL (6.3-8.2) 07/09/21 06:24 Albumin 3.3 g/dL (3.9-5) L 07/09/21 06:24 Albumin/Globulin Ratio 0.9 % 07/09/21 06:24 Triglycerides 102 mg/dL (2-149) 07/08/21 10:11 Cholesterol 176 mg/dL (50-199) 07/08/21 10:11 LDL Cholesterol Direct 109 mg/dL (50-130) 07/08/21 10:11 HDL Cholesterol 44 mg/dL (40-59) 07/08/21 10:11 Cholesterol/HDL Ratio 4.00 % 07/08/21 10:11 Lipase 26 units/L (13-60) 07/08/21 10:11 Procalcitonin 27.64 ng/mL (<0.15) 07/09/21 07:35 Urine Color Straw (Yellow) 07/08/21 23:22 Urine Turbidity Clear (Clear) 07/08/21 23:22 Urine pH 7.0 (5.0-7.0) 07/08/21 23:22 Ur Specific [place] 1.009 (1.003-1.030) 07/08/21 23:22 Urine Protein 100 mg/dl mg/dL (Negative) 07/08/21 23:22 Urine Glucose (UA) Neg mg/dL (Negative) 07/08/21 23:22 Urine Ketones Neg mg/dL (Negative) 07/08/21 23:22 Urine Blood Sm (Negative) 07/08/21 23:22 Urine Nitrite Neg (Negative) 07/08/21 23: Urine Bilirubin Neg (Negative) 07/08/21 23: Urine Urobilinogen < 2.0 mg/dL (<2.0) 07/08/21 23:22 Ur Leukocyte Esterase Neg (Negative) 07/08/21 23:22 Urine WBC (Auto) < 1.0 /HPF (0.0-6.0) 07/08/21 23:22 Urine RBC (Auto) < 1.0 /HPF (0.0-6.0) 07/08/21 23:22 Urine Mucus Few /HPF 07/08/21 23:22 Coronavirus (PCR) Negative (Negative) 07/09/21 08:10 Hepatitis A IgM Ab Non-reactive (NonReactive) 07/08/21 13:38 Hep Bs Antigen Non-reactive (Negative) 07/08/21 13:38 Hep B Core IgM Ab Non-reactive (NonReactive) 07/08/21 13:38 Hepatitis C Antibody Non-reactive (NonReactive) 07/08/21 13:38 Microbiology: Microbiology 07/08/21 10:57 Peripheral/Venous Blood Culture - Preliminary NO GROWTH AFTER 72 HOURS 07/08/21 10:57 Peripheral/Venous Blood Culture - Preliminary NO GROWTH AFTER 72 HOURS Suazo/IV: Voiding Method Urinal Active Medications - Current Medications Current Medications: Generic Name Dose Route Start Last Admin Trade Name Freq PRN Reason Stop Dose Admin Acetaminophen 650 mg 07/08/21 16:33 07/10/21 05:00 Acetaminophen 325 Mg Tab PO 650 mg Q4H PRN Administration Pain MILD(1-3)/Fever >100.5/MERCER Aspirin 81 mg 07/08/21 17:00 07/12/21 09:25 Aspirin Ec 81 Mg Tab PO 81 mg QDAY ALEXIA Administration Azithromycin 500 mg 07/09/21 18:00 07/11/21 17:15 Azithromycin 250 Mg Tab PO 07/12/21 18:01 500 mg QPM ALEXIA Administration Carvedilol 3.125 mg 07/11/21 22:00 07/12/21 09:26 Carvedilol 3.125 Mg Tab PO 3.125 mg BID ALEXIA Administration Famotidine 10 mg 07/08/21 22:00 07/12/21 09:25 Famotidine 10 Mg Tab PO 10 mg BID ALXEIA Administration Fenofibrate 145 mg 07/08/21 17:00 07/12/21 09:25 Fenofibrate 145 Mg Tab PO 145 mg QDAY ALEXIA Administration Heparin Sodium (Porcine) 5,000 unit 07/08/21 22:00 07/11/21 21:57 Heparin 5,000 Unit/1 Ml Vial SUB-Q 5,000 unit Q12HR ALEXIA Administration Hydralazine HCl 10 mg 07/12/21 06:00 07/12/21 05:13 Hydralazine 10 Mg Tab PO 10 mg Q8HR ALEXIA Administration Ceftriaxone Sodium 1 gm in 50 mls @ 100 mls/hr 07/08/21 18:00 07/11/21 17:15 Rocephin/Ns 1 Gm/50 Ml IV 07/12/21 18:29 100 mls/hr Q24H ALEXIA Administration Protocol Insulin Human Lispro 0 unit 07/08/21 22:00 07/11/21 22:04 Insulin Lispro 100 Unit/Ml SUB-Q 3 unit ACHS ALEXIA Administration Protocol Insulin Human NPH 14 unit 07/08/21 17:00 07/11/21 17:14 Insulin Nph, Human 100 Unit/1 Ml SUB-Q 14 unit BIDDIAB ALEXIA Administration Isosorbide Mononitrate 30 mg 07/09/21 12:00 07/12/21 09:25 Isosorbide Mononitrate Er 30 Mg Tab PO 30 mg QDAY ALEXIA Administration Morphine Sulfate 2 mg 07/08/21 16:40 Morphine 2 Mg/1 Ml Inj IV Q4H PRN Pain, Moderate (4-6) Ondansetron HCl 4 mg 07/08/21 16:33 Ondansetron 4 Mg/2 Ml Inj IV Q3H PRN Nausea And Vomiting Oxycodone/Acetaminophen 1 tab 07/08/21 16:40 07/11/21 18:27 Oxycodone /Acetaminophen 5-325mg Tab PO 1 tab Q6H PRN Administration Pain, Moderate (4-6) Potassium Chloride 40 meq 07/12/21 10:00 Potassium Chloride Er 20 Meq Tab PO QDAY ALEXIA Sodium Chloride 10 ml 07/08/21 22:00 07/12/21 09:26 Sodium Chloride 0.9% 10 Ml Flush Syringe IV 10 ml BID ALEXIA Administration Sodium Chloride 10 ml 07/08/21 16:33 Sodium Chloride 0.9% 10 Ml Flush Syringe IV PRN PRN LINE FLUSH Tramadol HCl 50 mg 07/08/21 16:31 Tramadol 50 Mg Tab PO Q8H PRN PAIN
[2021-07-12] MEDS: POTASSIUM CHLORIDE ER 20 MEQ TAB PO SCH (09:37)
--- NOTE | 2021-07-12 10:58 | Progress Note ---
Assessment and Plan 81 male with acute respiratory failure, most likely secondary to volume overload. 07/12/21: Continue IV diuresis. CT consistent with emphysema and chronic lung disease with likely superimposed edema. Doubt this is new or active infection. Could be DIP, RBILD or NSIP. Not stable enough for biopsy at this time. Will start solumedrol 60q6 and attempt to get patient to dry weight if able. May consider pulse dose steroids if not able to tolerate diuresis after a certain point. Guarded Prognosis. 07/11/21: Continue IV diuresis. Need to obtain net negative state daily. Wean fio2 for sats > 90% 1. Renal following but would ask if IV diuresis would be better especially given CHF 2. continue supplemental oxygen. Would recommend bipap at night given CHF, may have central apnea 3. Follow up renal recs 4. Fluid restriction WIll continue to follow. Subjective Date of service: 07/12/21 Interval history: Still on HFNC. Reviewed CT with IMS. Objective Vital Signs - 12hr 07/12/21 07/12/21 07/12/21 04:22 05:13 08:50 Temperature 98.7 F Pulse Rate 76 76 Respiratory 16 Rate Blood Pressure 132/71 132/71 O2 Sat by Pulse 91 97 Oximetry Constitutional: appears uncomfortable Eyes: non-icteric ENT: oropharynx moist CBC and BMP: 07/10/21 10:27 07/11/21 09:51 Abnormal lab findings: Abnormal Labs 07/08/21 07/08/21 07/08/21 10:11 10:11 10:11 RBC 2.83 L Hgb 8.0 L Hct 24.6 L RDW 16.9 H Lymph % (Auto) 4.9 L [place] % (Auto) 7.8 H Lymph # (Auto) 0.5 L Seg Neutrophils % 87.3 H Seg Neutrophils # 9.4 H Potassium Chloride 97.1 L Carbon Dioxide 16 L BUN 59 H Creatinine 3.8 H Glucose 290 H POC Glucose Hemoglobin A1c Calcium 8.3 L AST 934 H ALT 559 H Troponin T 0.176 H* NT-Pro-B Natriuret Pep 44778 H Albumin 3.3 L 07/08/21 07/08/21 07/08/21 13:38 14:14 22:21 RBC Hgb Hct RDW Lymph % (Auto) [place] % (Auto) Lymph # (Auto) Seg Neutrophils % Seg Neutrophils # Potassium Chloride Carbon Dioxide BUN Creatinine Glucose POC Glucose 309 H Hemoglobin A1c Calcium AST ALT Troponin T 0.211 H* 0.182 H* NT-Pro-B Natriuret Pep Albumin 07/09/21 07/09/21 07/09/21 06:24 06:24 06:24 RBC 2.54 L Hgb 7.1 L Hct 21.5 L RDW 16.7 H Lymph % (Auto) 9.8 L [place] % (Auto) 7.9 H Lymph # (Auto) 0.9 L Seg Neutrophils % 82.2 H Seg Neutrophils # Potassium Chloride Carbon Dioxide BUN 71 H Creatinine 4.1 H Glucose POC Glucose Hemoglobin A1c 6.5 H Calcium 7.7 L AST 1028 H ALT 782 H Troponin T NT-Pro-B Natriuret Pep Albumin 3.3 L 07/09/21 07/09/21 07/09/21 11:50 17:20 21:26 RBC Hgb Hct RDW Lymph % (Auto) [place] % (Auto) Lymph # (Auto) Seg Neutrophils % Seg Neutrophils # Potassium Chloride Carbon Dioxide BUN Creatinine Glucose POC Glucose 167 H 122 H 192 H Hemoglobin A1c Calcium AST ALT Troponin T NT-Pro-B Natriuret Pep Albumin 07/10/21 07/10/21 07/10/21 06:50 08:08 10:27 RBC 2.54 L Hgb 7.1 L Hct 22.1 L RDW 16.2 H Lymph % (Auto) 7.6 L [place] % (Auto) Lymph # (Auto) 0.7 L Seg Neutrophils % 86.7 H Seg Neutrophils # Potassium Chloride Carbon Dioxide BUN 79 H Creatinine 4.0 H Glucose 187 H POC Glucose 168 H Hemoglobin A1c Calcium 8.0 L AST ALT Troponin T NT-Pro-B Natriuret Pep Albumin 07/10/21 07/10/21 07/10/21 11:18 17:17 22:04 RBC Hgb Hct RDW Lymph % (Auto) [place] % (Auto) Lymph # (Auto) Seg Neutrophils % Seg Neutrophils # Potassium Chloride Carbon Dioxide BUN Creatinine Glucose POC Glucose 260 H 141 H 192 H Hemoglobin A1c Calcium AST ALT Troponin T NT-Pro-B Natriuret Pep Albumin 07/11/21 07/11/21 07/11/21 07:35 09:51 11:05 RBC Hgb Hct RDW Lymph % (Auto) [place] % (Auto) Lymph # (Auto) Seg Neutrophils % Seg Neutrophils # Potassium 3.1 L Chloride 96.8 L Carbon Dioxide BUN 73 H Creatinine 4.1 H Glucose 154 H POC Glucose 51 L 160 H Hemoglobin A1c Calcium 8.2 L AST ALT Troponin T NT-Pro-B Natriuret Pep Albumin 07/11/21 07/11/21 16:03 21:21 RBC Hgb Hct RDW Lymph % (Auto) [place] % (Auto) Lymph # (Auto) Seg Neutrophils % Seg Neutrophils # Potassium Chloride Carbon Dioxide BUN Creatinine Glucose POC Glucose 286 H 186 H Hemoglobin A1c Calcium AST ALT Troponin T NT-Pro-B Natriuret Pep Albumin
[2021-07-12] MEDS: BUMETANIDE 1 MG/4 ML INJ IV SCH ×2 (12:00→18:26)
[2021-07-12] MEDS: methylPREDNISolone Sod Succinate 125 MG/2 ML INJ IV SCH ×2 (12:17→17:09)
--- NOTE | 2021-07-12 14:06 | Progress Note ---
Assessment and Plan - Patient Problems (1) Cardiomyopathy Current Visit: Yes Status: Acute (2) CHF (congestive heart failure) Current Visit: Yes Status: Acute Subjective Date of service: 07/12/21 Interval history: BREATHING BETTER,,,,diffuse aches Objective Vital Signs Temp Pulse Resp BP BP Pulse Ox 07/12/21 13:36 98.6 F 77 22 127/76 99 07/12/21 10:00 97 07/12/21 08:50 97 07/12/21 05:13 76 132/71 07/12/21 04:22 98.7 F 76 16 132/71 91 07/11/21 21:53 90 144/73 07/11/21 20:48 98.8 F 90 18 144/73 92 07/11/21 20:00 94 07/11/21 16:05 99.2 F 91 H 20 155/81 89 07/11/21 14:30 92 - Physical Examination General: No Apparent Distress Neck: Positive: JVD/HJR Cardiac: Positive: Regular Rate Lungs: Positive: Decreased Breath Sounds Neuro: Positive: Grossly Intact Abdomen: Positive: Unremarkable Extremities: Present: edema (TRACE), Other (dim. pulses)
--- NOTE | 2021-07-12 15:46 | Progress Note ---
Assessment and Plan 1. CKD 5: Known h/o advanced CKD now stage 5. Admitted with volume overload and metabolic acidosis. Patient need hemodialysis for volume control but he has been refusing so far. Monitor. 2. FEN: Anion-gap Metabolic acidosis, 2/2 CKD, monitor. Volume control, IV Bumex. Monitor lytes and volume status. 3. Acute hypoxic resp failure, POA: 2/2 volume overload / pulmonary edema / PNA. On HFNC O2. Monitor. 4. PNA, POA: Abx to cover CAP. Covid-19 test negative. 5. Suspected CHF: Echo 25-30%. 6. DM-2: 7. Normocytic Anemia, POA: Chronic. Epogen. Monitor. 8. Hypertension: Volume control. Continue home BP meds. Monitor BP. Subjective: Patient was seen and examined at the bedside. Examination: General appearance: well-developed, appears stated age, no distress, on HFNC O2 HEENT: atraumatic, JAE Neck: trachea midline Respiratory: rales heard Heart: S1S2, regular, no murmur Abdomen: soft, bowel sounds heard, NT Integumentary: no obvious rash Neurologic: AO, able to move extremities Ext: trace LE edema Subjective Date of service: 07/12/21 Objective - Vital Signs Vital signs: Vital Signs - 12hr 07/12/21 07/12/21 07/12/21 04:22 05:13 08:50 Temperature 98.7 F Pulse Rate 76 76 Respiratory 16 Rate Blood Pressure 132/71 132/71 Blood Pressure [Left] O2 Sat by Pulse 91 97 Oximetry 07/12/21 07/12/21 10:00 13:36 Temperature 98.6 F Pulse Rate 77 Respiratory 22 Rate Blood Pressure Blood Pressure 127/76 [Left] O2 Sat by Pulse 97 99 Oximetry - Lab 07/10/21 10:27 07/11/21 09:51 Most recent lab results Calcium 8.2 mg/dL (8.4-10.2) L 07/11/21 09:51 Medications & Allergies - Medications Allergies/Adverse Reactions: Allergies No Known Allergies Allergy (Verified 07/08/21 09:37) per patient Home Medications: Home Medications Medication Instructions Recorded Confirmed Last Taken Type Fenofibrate [Tricor] 145 mg PO QDAY 03/11/15 07/09/21 03/11/15 History traMADoL [Ultram 50 MG tab] 50 mg PO Q8H PRN 03/11/15 07/09/21 Unknown History Aspirin EC [Halfprin EC] 81 mg PO QDAY #30 tablet. 02/05/20 07/09/21 Unknown Rx Insulin NPH, Human [NovoLIN N] 14 unit SUB-Q BIDDIAB #1 vial 02/05/20 07/09/21 Unknown Rx Insulin Regular, Human [HumuLIN R] 0 unit SUB-Q ACHS #1 vial 02/05/20 07/09/21 Unknown Rx amLODIPine 10 mg PO DAILY #30 tablet 02/05/20 07/09/21 Unknown Rx Active Medications: Generic Name Dose Route Start Last Admin Trade Name Freq PRN Reason Stop Dose Admin Acetaminophen 650 mg 07/08/21 16:33 07/10/21 05:00 Acetaminophen 325 Mg Tab PO 650 mg Q4H PRN Administration Pain MILD(1-3)/Fever >100.5/MERCER Aspirin 81 mg 07/08/21 17:00 07/12/21 09:25 Aspirin Ec 81 Mg Tab PO 81 mg QDAY ALEXIA Administration Azithromycin 500 mg 07/09/21 18:00 07/11/21 17:15 Azithromycin 250 Mg Tab PO 07/12/21 18:01 500 mg QPM ALEXIA Administration Bumetanide 4 mg 07/12/21 11:49 07/12/21 12:00 Bumetanide 1 Mg/4 Ml Inj IV 07/12/21 18:01 4 mg BID@0600,1800 ALEXIA Administration Carvedilol 3.125 mg 07/11/21 22:00 07/12/21 09:26 Carvedilol 3.125 Mg Tab PO 3.125 mg BID ALEXIA Administration Famotidine 10 mg 07/08/21 22:00 07/12/21 09:25 Famotidine 10 Mg Tab PO 10 mg BID ALEXIA Administration Fenofibrate 145 mg 07/08/21 17:00 07/12/21 09:25 Fenofibrate 145 Mg Tab PO 145 mg QDAY ALEXIA Administration Heparin Sodium (Porcine) 5,000 unit 07/08/21 22:00 07/12/21 09:27 Heparin 5,000 Unit/1 Ml Vial SUB-Q 5,000 unit Q12HR ALEXIA Administration Hydralazine HCl 10 mg 07/12/21 06:00 07/12/21 13:40 Hydralazine 10 Mg Tab PO 10 mg Q8HR [facility] Administration Ceftriaxone Sodium 1 gm in 50 mls @ 100 mls/hr 07/08/21 18:00 07/11/21 17:15 Rocephin/Ns 1 Gm/50 Ml IV 07/12/21 18:29 100 mls/hr Q24H [facility] Administration Protocol Insulin Glargine 20 units 07/12/21 22:00 Insulin Glargine 100 Units/Ml SUB-Q QHS [facility] Insulin Human Lispro 0 unit 07/08/21 22:00 07/12/21 12:18 Insulin Lispro 100 Unit/Ml SUB-Q [address] [facility] Administration Protocol Insulin Human Regular 5 units 07/12/21 16:30 Insulin Regular, Human 100 Units/1 Ml SUB-Q [facility] Isosorbide Mononitrate 30 mg 07/09/21 12:00 07/12/21 09:25 Isosorbide Mononitrate Er 30 Mg Tab PO 30 mg QDAY [facility] Administration Methylprednisolone Sodium Succinate 60 mg 07/12/21 12:00 07/12/21 12:17 Methylprednisolone Sod Succinate 125 Mg/2 Ml Inj IV 60 mg Q6HR [facility] Administration Morphine Sulfate 2 mg 07/08/21 16:40 Morphine 2 Mg/1 Ml Inj IV Q4H PRN Pain, Moderate (4-6) Ondansetron HCl 4 mg 07/08/21 16:33 Ondansetron 4 Mg/2 Ml Inj IV Q3H PRN Nausea And Vomiting Oxycodone/Acetaminophen 1 tab 07/08/21 16:40 07/11/21 18:27 Oxycodone /Acetaminophen 5-325mg Tab PO 1 tab Q6H PRN Administration Pain, Moderate (4-6) Potassium Chloride 40 meq 07/12/21 10:00 07/12/21 09:37 Potassium Chloride Er 20 Meq Tab PO 40 meq QDAY [facility] Administration Sodium Chloride 10 ml 07/08/21 22:00 07/12/21 09:26 Sodium Chloride 0.9% 10 Ml Flush Syringe IV 10 ml BID ALEXIA Administration Sodium Chloride 10 ml 07/08/21 16:33 Sodium Chloride 0.9% 10 Ml Flush Syringe IV PRN PRN LINE FLUSH Tramadol HCl 50 mg 07/08/21 16:31 Tramadol 50 Mg Tab PO Q8H PRN PAIN
[2021-07-12] MEDS: INSULIN REGULAR, HUMAN 100 UNITS/1 ML SUB-Q SCH ×2 (16:30→21:44)
[2021-07-12] MEDS: cefTRIAXone/NS 1 GM/50 ML 1 GM/50 ML BAG IV SCH (17:08)
[2021-07-12] MEDS: AZITHROMYCIN 250 MG TAB PO SCH (17:09)
[2021-07-12] MEDS ORDERED: INSULIN GLARGINE 100 UNITS/ML SUB-Q SCH (22:00)
[2021-07-13] MEDS: methylPREDNISolone Sod Succinate 125 MG/2 ML INJ IV SCH ×4 (00:43→17:17)
[2021-07-13] MEDS: metOLazone 2.5 MG TAB PO SCH (02:20)
[2021-07-13] MEDS: hydrALAZINE 25 MG TAB PO SCH ×3 (02:30→21:59)
[2021-07-13] MEDS: hydrALAZINE 10 MG TAB PO SCH ×3 (05:18→21:57)
[2021-07-13 07:06] LABS: Hemoglobin 7.3 gm/dl (11.8-15.2)
[2021-07-13 07:24] LABS: Calcium 9.1 mg/dL (8.4-10.2)
--- NOTE | 2021-07-13 09:00 | Progress Note ---
Assessment and Plan Assessment and plan: History of present illness: 81-year-old male with a past medical history of diabetes, chronic renal sufficiency, hypertension, and PAD currently on Xarelto presents to the hospital with complaints of shortness of breath, nausea, vomiting, and diarrhea for the past 2 days. Diarrhea has since resolved. EMS reports a blood glucose of 340 upon their arrival with respiratory distress. Patient treated with magnesium 4 g, Solu-Medrol 125 mg, Lasix 80 mg IV in route to the hospital. Patient is also on Lasix at home 20 mg daily. Patient denies chest pain, fever or current ab dominal pain. He is unvaccinated for Covid. 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 D/w nephrology who states that patient has declined hemodialysis for some time. Initiated on lasix IV therapy. Will potentially need to revisit hemodialysis with patient tomorrow. Cardiology consulted. awaiting recommendations. Patient is unvaccinated for coronavirus, pcr test ordered. Continue abx/steroids at this time. 07/10: Placed on hfnc 35/95 ovn. Still significant pulm edema on cxr. Will order bumex 4 mg iv x 2. Patient still hesitant but more open today about HD .... will revisit over weekend. 07/11: Refused bipap overnight. ct chest ordered today. Bumex 4 mg IV for this AM given as patient did not get PM dose. Will order additional dose in PM. Re- assess pulmonary status tomorrow. Will follow pulmonary and nephro recommendations. 07/12: Ordered additional two doses of bumex 4 mg IV. D/w pulmonary this AM, CT consistent with emphysema and chronic lung disease with likely superimposed edema. Not stable for biopsy. Pulmonary doubts infectious etiology...has initiated solumedrol 60mg IV q6h and will consider pulse dose steroids next week. 07/13: Slight improvement in respiratory status. HFNC 25/70. Continue diuresis with Bumex scheduled for 4 mg IV daily. NET -400 cc yesterday. Continue steroids. CXR ordered for AM. Will follow subspecialist recs. Lantus increased for better glycemic control in the setting of steroid tx. Assessment and Plan: #Acute respiratory failure with hypoxia Current Visit: Yes Status: Acute Plan to address problem: -Patient was hypoxic on room air - multifactorial, CHF in the setting of oliguria/CKD 5 and advanced COPD/emphysema -HFNC at this time -coronavirus pcr negative -CXR: interstitial edema - CT findings as below. -d/c abx - solumedrol 60 mg IV q6hr. -Bumex 4 mg IV bid - pulmonology following. #Advanced COPD/Emphysema - CT consistent with emphysema and chronic lung disease with likely superimposed edema - significnat smoking history - Differential includes DIP, RBILD or NSIP. - per pulmonary not stable for biopsy - will be initiated on steroids as outline above with consideration of pulse dose steroids. - pulmonology following #Volume overload Current Visit: Yes Status: Chronic Plan to address problem: - Nephrology consulted - Bumex 4 mg IV x 2 doses, reassess daily - BL pleural effusions noted, rt > left - may consider thoracentesis during the week. #HFrEF - elevated bnp on admission 69K - ECHO demonstrates reduced EF of 25. - diuresis as above with bumex - possible cardiac cath by cardiology during the week. will follow along with plan # Bilateral pneumonia Current Visit: Yes Status: Acute Plan to address problem: - We will recheck procalcitonin. - In the meantime continue IV Zithromax and IV Rocephin at 1 g per 24 hours. - discontinue abx. #CKD5/ESRD Current Visit: Yes Status: Chronic Plan to address problem: - Nephrology consulted for hemodialysis as per schedule # Type 2 diabetes with hyperglycemia Current Visit: Yes Status: Chronic Plan to address problem: - Check hemoglobin A1c - basal bolus insulin regimen - correctional insulin - accuchecks ac/hs. #Hypertension Current Visit: Yes Status: Chronic Qualifiers: Hypertension type: primary hypertension Qualified Code(s): I10 - Essential (primary) hypertension Plan to address problem: - Continue antihypertensives and adjust medications #Type 2 diabetes with hyperglycemia Basal bolus regimen with correctional scale insulin Accu-Cheks AC at bedtime Increase Lantus given current steroid treatment for COPD #Hypokalemia - kcl 40 mEQ daily while patient is being diuresed - monitor on daily renal profile. #Hyperlipidemia -Continue statins #Anemia Current Visit: Yes Status: Chronic Qualifiers: Anemia type: due to chronic kidney disease Plan to address problem: - Secondary to end-stage renal disease - Hgb 7.1 - Epogen as per nephrology #DVT prophylaxis Current Visit: Yes Status: Acute Plan to address problem: - On heparin and GI prophylaxis #Advance care planning Current Visit: Yes Status: Acute Plan to address problem: - Disease education conducted, care plan discussed, diagnosis discussed, prognosis discussed. Patient is full code. Patient acknowledges understanding and agreement with care plan. +30 minutes. The high probability of a clinically significant, sudden or life threatening deterioration of the [multi] system(s) required my full and direct attention, intervention and personal management. The aggregate critical care time was [60] minutes. This time is in addition to time spent performing reported procedures but includes the following: [x] Data Review and interpretation [x] Patient assessment and monitoring of vital signs [x] Documentation [x] Medication orders and management History Interval history: Remains on high flow. Currently . Resting comfortably on encounter. Hospitalist Physical - Physical exam Narrative exam: Physical Exam: VITAL SIGNS: Reviewed. GENERAL: The patient appears normally developed, Vital signs as documented. Thin elderly male. NC 25 HEAD: No signs of head trauma. EYES: Pupils are equal. Extraocular motions intact. EARS: Hearing grossly intact. MOUTH: Oropharynx is normal. NECK: No adenopathy, no JVD. CHEST: Rales in bilateral lung milligan. CARDIAC: Regular rate and rhythm. S1 and S2, without murmurs, gallops, or rubs. VASCULAR: No Edema. Peripheral pulses normal and equal in all extremities. ABDOMEN: Soft, non tender and non distended. No rebound or guarding, and no masses palpated. Bowel Sounds normal. MUSCULOSKELETAL: Good range of motion of all major joints. Extremities without clubbing, cyanosis or edema. NEUROLOGIC EXAM: Alert and oriented x 4. no focal sensory or strength deficits. PSYCHIATRIC: Mood normal. SKIN: detail exam as documented in skin assessment - Constitutional Vitals: Temp Pulse Resp BP Pulse Ox 98.8 F 69 16 146/72 93 07/13/21 04:22 07/13/21 05:18 07/13/21 04:22 07/13/21 05:18 07/13/21 04:22 HEART Score - HEART Score Troponin: Troponin T 0.182 ng/mL (0.00-0.029) H* 07/08/21 14:14 Results - Labs CBC & Chem 7: 07/13/21 06:11 07/13/21 06:11 Labs: Laboratory Last Values WBC 8.6 K/mm3 (4.5-11.0) 07/10/21 10:27 RBC 2.54 M/mm3 (3.65-5.03) L 07/10/21 10:27 Hgb 7.3 gm/dl (11.8-15.2) L 07/13/21 06:11 Hct 22.0 % (35.5-45.6) L 07/13/21 06:11 MCV 87 fl (84-94) 07/10/21 10: MCH 28 pg (28-32) 07/10/21 10: MCHC 32 % (32-34) 07/10/21 10:27 RDW 16.2 % (13.2-15.2) H 07/10/21 10:27 Plt Count 202 K/mm3 (140-440) 07/10/21 10:27 Lymph % (Auto) 7.6 % (13.4-35.0) L 07/10/21 10:27 Donley % (Auto) 5.0 % (0.0-7.3) 07/10/21 10: Eos % (Auto) 0.1 % (0.0-4.3) 07/10/21 10: Baso % (Auto) 0.6 % (0.0-1.8) 07/10/21 10:27 Lymph # (Auto) 0.7 K/mm3 (1.2-5.4) L 07/10/21 10:27 Donley # (Auto) 0.4 K/mm3 (0.0-0.8) 07/10/21 10: Eos # (Auto) 0.0 K/mm3 (0.0-0.4) 07/10/21 10: Baso # (Auto) 0.1 K/mm3 (0.0-0.1) 07/10/21 10:27 Seg Neutrophils % 86.7 % (40.0-70.0) H 07/10/21 10:27 Seg Neutrophils # 7.5 K/mm3 (1.8-7.7) 07/10/21 10:27 Sodium 133 mmol/L (137-145) L 07/13/21 06:11 Potassium 4.7 mmol/L (3.6-5.0) D 07/13/21 06:11 Chloride 93.8 mmol/L (98-107) L 07/13/21 06:11 Carbon Dioxide 24 mmol/L (22-30) 07/13/21 06:11 Anion Gap 20 mmol/L 07/13/21 06:11 BUN 76 mg/dL (9-20) H 07/13/21 06:11 Creatinine 3.9 mg/dL (0.8-1.3) H 07/13/21 06:11 Estimated GFR 18 ml/min 07/13/21 06:11 BUN/Creatinine Ratio 19 % 07/13/21 06:11 Glucose 282 mg/dL (75-100) H 07/13/21 06:11 POC Glucose 246 mg/dL (70-105) H 07/13/21 07:31 Hemoglobin A1c 6.5 % (4-6) H 07/09/21 06:24 Calcium 9.1 mg/dL (8.4-10.2) 07/13/21 06:11 Total Bilirubin 0.40 mg/dL (0.1-1.2) 07/09/21 06:24 AST 1028 units/L (5-40) H 07/09/21 06:24 ALT 782 units/L (7-56) H 07/09/21 06:24 Alkaline Phosphatase 63 units/L (35-129) 07/09/21 06:24 Troponin T 0.182 ng/mL (0.00-0.029) H* 07/08/21 14:14 NT-Pro-B Natriuret Pep 76536 pg/mL (0-900) H 07/08/21 10:11 Total Protein 6.8 g/dL (6.3-8.2) 07/09/21 06:24 Albumin 3.3 g/dL (3.9-5) L 07/09/21 06:24 Albumin/Globulin Ratio 0.9 % 07/09/21 06:24 Triglycerides 102 mg/dL (2-149) 07/08/21 10:11 Cholesterol 176 mg/dL (50-199) 07/08/21 10:11 LDL Cholesterol Direct 109 mg/dL (50-130) 07/08/21 10:11 HDL Cholesterol 44 mg/dL (40-59) 07/08/21 10:11 Cholesterol/HDL Ratio 4.00 % 07/08/21 10:11 Lipase 26 units/L (13-60) 07/08/21 10:11 Procalcitonin 27.64 ng/mL (<0.15) 07/09/21 07:35 Urine Color Straw (Yellow) 07/08/21 23:22 Urine Turbidity Clear (Clear) 07/08/21 23:22 Urine pH 7.0 (5.0-7.0) 07/08/21 23:22 Ur Specific Lasara 1.009 (1.003-1.030) 07/08/21 23:22 Urine Protein 100 mg/dl mg/dL (Negative) 07/08/21 23:22 Urine Glucose (UA) Neg mg/dL (Negative) 07/08/21 23:22 Urine Ketones Neg mg/dL (Negative) 07/08/21 23:22 Urine Blood Sm (Negative) 07/08/21 23:22 Urine Nitrite Neg (Negative) 07/08/21 23:22 Urine Bilirubin Neg (Negative) 07/08/21 23:22 Urine Urobilinogen < 2.0 mg/dL (<2.0) 07/08/21 23:22 Ur Leukocyte Esterase Neg (Negative) 07/08/21 23:22 Urine WBC (Auto) < 1.0 /HPF (0.0-6.0) 07/08/21 23:22 Urine RBC (Auto) < 1.0 /HPF (0.0-6.0) 07/08/21 23:22 Urine Mucus Few /HPF 07/08/21 23:22 Coronavirus (PCR) Negative (Negative) 07/09/21 08:10 Hepatitis A IgM Ab Non-reactive (NonReactive) 07/08/21 13:38 Hep Bs Antigen Non-reactive (Negative) 07/08/21 13:38 Hep B Core IgM Ab Non-reactive (NonReactive) 07/08/21 13:38 Hepatitis C Antibody Non-reactive (NonReactive) 07/08/21 13:38 Microbiology: Microbiology 07/08/21 10:57 Peripheral/Venous Blood Culture - Preliminary NO GROWTH AFTER 4 DAYS 07/08/21 10:57 Peripheral/Venous Blood Culture - Preliminary NO GROWTH AFTER 4 DAYS Suazo/IV: Voiding Method Urinal Active Medications - Current Medications Current Medications: Generic Name Dose Route Start Last Admin Trade Name Freq PRN Reason Stop Dose Admin Acetaminophen 650 mg 07/08/21 16:33 07/10/21 05:00 Acetaminophen 325 Mg Tab PO 650 mg Q4H PRN Administration Pain MILD(1-3)/Fever >100.5/MERCER Aspirin 81 mg 07/08/21 17:00 07/12/21 09:25 Aspirin Ec 81 Mg Tab PO 81 mg QDAY [facility] Administration Bumetanide 4 mg 07/13/21 10:00 Bumetanide 1 Mg/4 Ml Inj IV DAILY [facility] Carvedilol 3.125 mg 07/11/21 22:00 07/12/21 21:51 Carvedilol 3.125 Mg Tab PO 3.125 mg BID [facility]LEX[facility] Administration Famotidine 10 mg 07/08/21 22:00 07/12/21 21:42 Famotidine 10 Mg Tab PO 10 mg BID ALEXIA Administration Fenofibrate 145 mg 07/08/21 17:00 07/12/21 09:25 Fenofibrate 145 Mg Tab PO 145 mg QDAY [facility] Administration Heparin Sodium (Porcine) 5,000 unit 07/08/21 22:00 07/12/21 21:47 Heparin 5,000 Unit/1 Ml Vial SUB-Q 5,000 unit Q12HR [facility]LEX[facility] Administration Hydralazine HCl 10 mg 07/12/21 06:00 07/13/21 05:18 Hydralazine 10 Mg Tab PO 10 mg Q8HR [facility] Administration Insulin Glargine 20 units 07/12/21 22:00 07/12/21 22:08 Insulin Glargine 100 Units/Ml SUB-Q 20 units QHS [facility] Administration Insulin Human Lispro 0 unit 07/08/21 22:00 07/12/21 21:45 Insulin Lispro 100 Unit/Ml SUB-Q Not Given [facility] Protocol Insulin Human Regular 10 units 07/13/21 07:57 Insulin Regular, Human 100 Units/1 Ml SUB-Q [facility] Isosorbide Mononitrate 30 mg 07/09/21 12:00 07/12/21 09:25 Isosorbide Mononitrate Er 30 Mg Tab PO 30 mg QDAY [facility] Administration Methylprednisolone Sodium Succinate 60 mg 07/12/21 12:00 07/13/21 05:20 Methylprednisolone Sod Succinate 125 Mg/2 Ml Inj IV 60 mg Q6HR [facility] Administration Morphine Sulfate 2 mg 07/08/21 16:40 Morphine 2 Mg/1 Ml Inj IV Q4H PRN Pain, Moderate (4-6) Ondansetron HCl 4 mg 07/08/21 16:33 Ondansetron 4 Mg/2 Ml Inj IV Q3H PRN Nausea And Vomiting Oxycodone/Acetaminophen 1 tab 07/08/21 16:40 07/11/21 18:27 Oxycodone /Acetaminophen 5-325mg Tab PO 1 tab Q6H PRN Administration Pain, Moderate (4-6) Potassium Chloride 40 meq 07/12/21 10:00 07/12/21 09:37 Potassium Chloride Er 20 Meq Tab PO 40 meq QDAY [facility] Administration Sodium Chloride 10 ml 07/08/21 22:00 07/12/21 21:47 Sodium Chloride 0.9% 10 Ml Flush Syringe IV 10 ml BID [facility]LEXIA Administration Sodium Chloride 10 ml 07/08/21 16:33 Sodium Chloride 0.9% 10 Ml Flush Syringe IV PRN PRN LINE FLUSH Tramadol HCl 50 mg 07/08/21 16:31 Tramadol 50 Mg Tab PO Q8H PRN PAIN
[2021-07-13] MEDS: BUMETANIDE 1 MG/4 ML INJ IV SCH (09:27)
[2021-07-13] MEDS: POTASSIUM CHLORIDE ER 20 MEQ TAB PO SCH (09:28)
[2021-07-13] MEDS: carvediloL 3.125 MG TAB PO SCH ×2 (09:28→21:58)
[2021-07-13] MEDS: HEPARIN 5,000 UNIT/1 ML VIAL SUB-Q SCH ×2 (09:28→21:58)
[2021-07-13] MEDS: FENOFIBRATE 145 MG TAB PO SCH (09:29)
[2021-07-13] MEDS: ASPIRIN EC 81 MG TAB PO SCH (09:29)
[2021-07-13] MEDS: INSULIN LISPRO 100 UNIT/ML SUB-Q SCH ×4 (09:30→21:57)
[2021-07-13] MEDS: FAMOTIDINE 10 MG TAB PO SCH ×2 (09:37→21:58)
--- NOTE | 2021-07-13 10:08 | Progress Note ---
Assessment and Plan 1. CKD 5: Known h/o advanced CKD now stage 5. Admitted with volume overload and metabolic acidosis. Patient need hemodialysis for volume control but he has been refusing so far. Monitor. 2. FEN: Anion-gap Metabolic acidosis, 2/2 CKD, monitor. Volume control, IV Bumex and Metolazone. Monitor lytes and volume status. 3. Acute hypoxic resp failure, POA: 2/2 volume overload / pulmonary edema / PNA. On HFNC O2. Monitor. 4. PNA, POA: S/p Abx. Covid-19 test negative. 5. Suspected CHF: Echo 25-30%. 6. DM-2: 7. Normocytic Anemia, POA: Chronic. Epogen. Monitor. 8. Hypertension: Volume control. Continue home BP meds. Monitor BP. Subjective: Patient was seen and examined at the bedside. Examination: General appearance: well-developed, appears stated age, no distress, on HFNC O2 HEENT: atraumatic, JAE Neck: trachea midline Respiratory: rales heard Heart: S1S2, regular, no murmur Abdomen: soft, bowel sounds heard, NT Integumentary: no obvious rash Neurologic: AO, able to move extremities Ext: no edema Subjective Date of service: 07/13/21 Objective - Vital Signs Vital signs: Vital Signs - 12hr 07/13/21 07/13/21 07/13/21 02:30 04:22 05:18 Temperature 98.8 F Pulse Rate 69 69 Respiratory 16 Rate Blood Pressure 146/72 146/72 O2 Sat by Pulse 98 93 Oximetry 07/13/21 09:28 Temperature Pulse Rate 70 Respiratory Rate Blood Pressure O2 Sat by Pulse Oximetry - Lab 07/13/21 06:11 07/13/21 06:11 Most recent lab results Calcium 9.1 mg/dL (8.4-10.2) 07/13/21 06:11 Medications & Allergies - Medications Allergies/Adverse Reactions: Allergies No Known Allergies Allergy (Verified 07/08/21 09:37) per patient Home Medications: Home Medications Medication Instructions Recorded Confirmed Last Taken Type Fenofibrate [Tricor] 145 mg PO QDAY 03/11/15 07/09/21 03/11/15 History traMADoL [Ultram 50 MG tab] 50 mg PO Q8H PRN 03/11/15 07/09/21 Unknown History Aspirin EC [Halfprin EC] 81 mg PO QDAY #30 tablet. 02/05/20 07/09/21 Unknown Rx Insulin NPH, Human [NovoLIN N] 14 unit SUB-Q BIDDIAB #1 vial 02/05/20 07/09/21 Unknown Rx Insulin Regular, Human [HumuLIN R] 0 unit SUB-Q ACHS #1 vial 02/05/20 07/09/21 Unknown Rx amLODIPine 10 mg PO DAILY #30 tablet 02/05/20 07/09/21 Unknown Rx Active Medications: Generic Name Dose Route Start Last Admin Trade Name Freq PRN Reason Stop Dose Admin Acetaminophen 650 mg 07/08/21 16:33 07/10/21 05:00 Acetaminophen 325 Mg Tab PO 650 mg Q4H PRN Administration Pain MILD(1-3)/Fever >100.5/MERCER Aspirin 81 mg 07/08/21 17:00 07/13/21 09:29 Aspirin Ec 81 Mg Tab PO 81 mg QDAY [facility] Administration Bumetanide 4 mg 07/13/21 10:00 07/13/21 09:27 Bumetanide 1 Mg/4 Ml Inj IV 4 mg DAILY [facility] Administration Carvedilol 3.125 mg 07/11/21 22:00 07/13/21 09:28 Carvedilol 3.125 Mg Tab PO 3.125 mg BID [facility]LEX[facility] Administration Famotidine 10 mg 07/08/21 22:00 07/13/21 09:37 Famotidine 10 Mg Tab PO 10 mg BID [facility] Administration Fenofibrate 145 mg 07/08/21 17:00 07/13/21 09:29 Fenofibrate 145 Mg Tab PO 145 mg QDAY [facility] Administration Heparin Sodium (Porcine) 5,000 unit 07/08/21 22:00 07/13/21 09:28 Heparin 5,000 Unit/1 Ml Vial SUB-Q 5,000 unit Q12HR [facility] Administration Hydralazine HCl 10 mg 07/12/21 06:00 07/13/21 05:18 Hydralazine 10 Mg Tab PO 10 mg Q8HR [facility] Administration Insulin Glargine 35 units 07/13/21 18:00 Insulin Glargine 100 Units/Ml SUB-Q QPM [facility] Insulin Human Lispro 0 unit 07/08/21 22:00 07/13/21 09:30 Insulin Lispro 100 Unit/Ml SUB-Q 4 unit [facility] Administration Protocol Insulin Human Regular 10 units 07/13/21 07:57 Insulin Regular, Human 100 Units/1 Ml SUB-Q [facility] Isosorbide Mononitrate 30 mg 07/09/21 12:00 07/13/21 09:29 Isosorbide Mononitrate Er 30 Mg Tab PO 30 mg QDAY [facility] Administration Methylprednisolone Sodium Succinate 60 mg 07/12/21 12:00 07/13/21 05:20 Methylprednisolone Sod Succinate 125 Mg/2 Ml Inj IV 60 mg Q6HR [facility] Administration Morphine Sulfate 2 mg 07/08/21 16:40 Morphine 2 Mg/1 Ml Inj IV Q4H PRN Pain, Moderate (4-6) Ondansetron HCl 4 mg 07/08/21 16:33 Ondansetron 4 Mg/2 Ml Inj IV Q3H PRN Nausea And Vomiting Oxycodone/Acetaminophen 1 tab 07/08/21 16:40 07/11/21 18:27 Oxycodone /Acetaminophen 5-325mg Tab PO 1 tab Q6H PRN Administration Pain, Moderate (4-6) Potassium Chloride 40 meq 07/12/21 10:00 07/13/21 09:28 Potassium Chloride Er 20 Meq Tab PO 40 meq QDAY [facility] Administration Sodium Chloride 10 ml 07/08/21 22:00 07/13/21 09:29 Sodium Chloride 0.9% 10 Ml Flush Syringe IV 10 ml BID [facility] Administration Sodium Chloride 10 ml 07/08/21 16:33 Sodium Chloride 0.9% 10 Ml Flush Syringe IV PRN PRN LINE FLUSH Tramadol HCl 50 mg 07/08/21 16:31 Tramadol 50 Mg Tab PO Q8H PRN PAIN
--- NOTE | 2021-07-13 12:44 | Progress Note ---
Assessment and Plan - Patient Problems (1) Cardiomyopathy Current Visit: Yes Status: Acute (2) CHF (congestive heart failure) Current Visit: Yes Status: Acute Subjective Date of service: 07/13/21 Interval history: BREATHING BETTER,,,,diffuse aches Objective Vital Signs Temp Pulse Resp BP BP Pulse Ox 07/13/21 10:49 100 07/13/21 09:28 70 07/13/21 05:18 69 146/72 07/13/21 04:22 98.8 F 69 16 146/72 93 07/13/21 02:30 98 07/12/21 22:00 98 07/12/21 21:51 80 130/57 07/12/21 21:42 80 130/57 07/12/21 21:26 98.3 F 80 16 130/57 98 07/12/21 20:38 100 07/12/21 16:15 8 L 07/12/21 13:36 98.6 F 77 22 127/76 99 - Physical Examination General: No Apparent Distress Neck: Positive: JVD/HJR Cardiac: Positive: Regular Rhythm Lungs: Positive: Decreased Breath Sounds Neuro: Positive: Grossly Intact Abdomen: Positive: Unremarkable Extremities: Present: edema (TRACE), Other (dim. pulses) - Labs and Meds CBC 07/13/21 Range/Units 06:11 Hgb 7.3 L (11.8-15.2) gm/dl Hct 22.0 L (35.5-45.6) % Comprehensive Metabolic Panel 07/13/21 Range/Units 06:11 Sodium 133 L (137-145) mmol/L Potassium 4.7 D (3.6-5.0) mmol/L Chloride 93.8 L (98-107) mmol/L Carbon Dioxide 24 (22-30) mmol/L BUN 76 H (9-20) mg/dL Creatinine 3.9 H (0.8-1.3) mg/dL Glucose 282 H (75-100) mg/dL Calcium 9.1 (8.4-10.2) mg/dL
[2021-07-13] MEDS: INSULIN REGULAR, HUMAN 100 UNITS/1 ML SUB-Q SCH ×3 (12:50→21:56)
--- NOTE | 2021-07-13 14:19 | Progress Note ---
Assessment and Plan 81 male with acute respiratory failure, most likely secondary to volume overload. 07/13/21: Big improvement over the last 24 hours. Diuresis and steroids appear to be helping. Will continue IV steroids for at least another 24 hours and then consider switching to orals. Based on CT suspect patient will need oxygen at discharge. 07/12/21: Continue IV diuresis. CT consistent with emphysema and chronic lung disease with likely superimposed edema. Doubt this is new or active infection. Could be DIP, RBILD or NSIP. Not stable enough for biopsy at this time. Will start solumedrol 60q6 and attempt to get patient to dry weight if able. May consider pulse dose steroids if not able to tolerate diuresis after a certain point. Guarded Prognosis. 07/11/21: Continue IV diuresis. Need to obtain net negative state daily. Wean fio2 for sats > 90% 1. Renal following but would ask if IV diuresis would be better especially given CHF 2. continue supplemental oxygen. Would recommend bipap at night given CHF, may have central apnea 3. Follow up renal recs 4. Fluid restriction WIll continue to follow. Subjective Date of service: 07/13/21 Interval history: Down to 7 liter salter now with good sats. Tolerating steroids. Objective Vital Signs - 12hr 07/13/21 07/13/21 07/13/21 02:30 04:22 05:18 Temperature 98.8 F Pulse Rate 69 69 Respiratory 16 Rate Blood Pressure 146/72 146/72 O2 Sat by Pulse 98 93 Oximetry 07/13/21 07/13/21 07/13/21 09:28 10:49 13:50 Temperature Pulse Rate 70 Respiratory Rate Blood Pressure O2 Sat by Pulse 100 94 Oximetry Constitutional: appears uncomfortable Eyes: non-icteric ENT: oropharynx moist CBC and BMP: 07/13/21 06:11 07/13/21 06:11 Abnormal lab findings: Abnormal Labs 07/08/21 07/08/21 07/08/21 10:11 10:11 10:11 RBC 2.83 L Hgb 8.0 L Hct 24.6 L RDW 16.9 H Lymph % (Auto) 4.9 L [place] % (Auto) 7.8 H Lymph # (Auto) 0.5 L Seg Neutrophils % 87.3 H Seg Neutrophils # 9.4 H Sodium Potassium Chloride 97.1 L Carbon Dioxide 16 L BUN 59 H Creatinine 3.8 H Glucose 290 H POC Glucose Hemoglobin A1c Calcium 8.3 L AST 934 H ALT 559 H Troponin T 0.176 H* NT-Pro-B Natriuret Pep 10574 H Albumin 3.3 L 07/08/21 07/08/21 07/08/21 13:38 14:14 22:21 RBC Hgb Hct RDW Lymph % (Auto) [place] % (Auto) Lymph # (Auto) Seg Neutrophils % Seg Neutrophils # Sodium Potassium Chloride Carbon Dioxide BUN Creatinine Glucose POC Glucose 309 H Hemoglobin A1c Calcium AST ALT Troponin T 0.211 H* 0.182 H* NT-Pro-B Natriuret Pep Albumin 07/09/21 07/09/21 07/09/21 06:24 06:24 06:24 RBC 2.54 L Hgb 7.1 L Hct 21.5 L RDW 16.7 H Lymph % (Auto) 9.8 L [place] % (Auto) 7.9 H Lymph # (Auto) 0.9 L Seg Neutrophils % 82.2 H Seg Neutrophils # Sodium Potassium Chloride Carbon Dioxide BUN 71 H Creatinine 4.1 H Glucose POC Glucose Hemoglobin A1c 6.5 H Calcium 7.7 L AST 1028 H ALT 782 H Troponin T NT-Pro-B Natriuret Pep Albumin 3.3 L 07/09/21 07/09/21 07/09/21 11:50 17:20 21:26 RBC Hgb Hct RDW Lymph % (Auto) [place] % (Auto) Lymph # (Auto) Seg Neutrophils % Seg Neutrophils # Sodium Potassium Chloride Carbon Dioxide BUN Creatinine Glucose POC Glucose 167 H 122 H 192 H Hemoglobin A1c Calcium AST ALT Troponin T NT-Pro-B Natriuret Pep Albumin 07/10/21 07/10/21 07/10/21 06:50 08:08 10:27 RBC 2.54 L Hgb 7.1 L Hct 22.1 L RDW 16.2 H Lymph % (Auto) 7.6 L [place] % (Auto) Lymph # (Auto) 0.7 L Seg Neutrophils % 86.7 H Seg Neutrophils # Sodium Potassium Chloride Carbon Dioxide BUN 79 H Creatinine 4.0 H Glucose 187 H POC Glucose 168 H Hemoglobin A1c Calcium 8.0 L AST ALT Troponin T NT-Pro-B Natriuret Pep Albumin 07/10/21 07/10/21 07/10/21 11:18 17:17 22:04 RBC Hgb Hct RDW Lymph % (Auto) [place] % (Auto) Lymph # (Auto) Seg Neutrophils % Seg Neutrophils # Sodium Potassium Chloride Carbon Dioxide BUN Creatinine Glucose POC Glucose 260 H 141 H 192 H Hemoglobin A1c Calcium AST ALT Troponin T NT-Pro-B Natriuret Pep Albumin 07/11/21 07/11/21 07/11/21 07:35 09:51 11:05 RBC Hgb Hct RDW Lymph % (Auto) [place] % (Auto) Lymph # (Auto) Seg Neutrophils % Seg Neutrophils # Sodium Potassium 3.1 L Chloride 96.8 L Carbon Dioxide BUN 73 H Creatinine 4.1 H Glucose 154 H POC Glucose 51 L 160 H Hemoglobin A1c Calcium 8.2 L AST ALT Troponin T NT-Pro-B Natriuret Pep Albumin 07/11/21 07/11/21 07/12/21 16:03 21:21 11:27 RBC Hgb Hct RDW Lymph % (Auto) [place] % (Auto) Lymph # (Auto) Seg Neutrophils % Seg Neutrophils # Sodium Potassium Chloride Carbon Dioxide BUN Creatinine Glucose POC Glucose 286 H 186 H 268 H Hemoglobin A1c Calcium AST ALT Troponin T NT-Pro-B Natriuret Pep Albumin 07/12/21 07/12/21 07/13/21 16:09 21:25 06:11 RBC Hgb Hct RDW Lymph % (Auto) [place] % (Auto) Lymph # (Auto) Seg Neutrophils % Seg Neutrophils # Sodium 133 L Potassium Chloride 93.8 L Carbon Dioxide BUN 76 H Creatinine 3.9 H Glucose 282 H POC Glucose 205 H 285 H Hemoglobin A1c Calcium AST ALT Troponin T NT-Pro-B Natriuret Pep Albumin 07/13/21 07/13/21 07/13/21 06:11 07:31 12:27 RBC Hgb 7.3 L Hct 22.0 L RDW Lymph % (Auto) [place] % (Auto) Lymph # (Auto) Seg Neutrophils % Seg Neutrophils # Sodium Potassium Chloride Carbon Dioxide BUN Creatinine Glucose POC Glucose 246 H 381 H Hemoglobin A1c Calcium AST ALT Troponin T NT-Pro-B Natriuret Pep Albumin
[2021-07-13] MEDS ORDERED: INSULIN GLARGINE 100 UNITS/ML SUB-Q SCH (18:00)
[2021-07-14] MEDS: methylPREDNISolone Sod Succinate 125 MG/2 ML INJ IV SCH ×5 (00:16→23:01)
[2021-07-14] MEDS: hydrALAZINE 25 MG TAB PO SCH ×3 (06:33→21:53)
[2021-07-14] MEDS: hydrALAZINE 10 MG TAB PO SCH (06:33)
[2021-07-14 06:34] LABS: Calcium 8.7 mg/dL (8.4-10.2)
--- NOTE | 2021-07-14 07:38 | Progress Note ---
Assessment and Plan Assessment and plan: Hospital Course: 07/09: Would benefit from volume removal. D/w nephrology who states that patient has declined hemodialysis for some time. Initiated on lasix IV therapy. Will potentially need to revisit hemodialysis with patient tomorrow. Cardiology consulted. awaiting recommendations. Patient is unvaccinated for coronavirus, pcr test ordered. Continue abx/steroids at this time. 07/10: Placed on hfnc 35/95 ovn. Still significant pulm edema on cxr. Will order bumex 4 mg iv x 2. Patient still hesitant but more open today about HD .... will revisit over weekend. 07/11: Refused bipap overnight. ct chest ordered today. Bumex 4 mg IV for this AM given as patient did not get PM dose. Will order additional dose in PM. Re- assess pulmonary status tomorrow. Will follow pulmonary and nephro recommendations. 07/12: Ordered additional two doses of bumex 4 mg IV. D/w pulmonary this AM, CT consistent with emphysema and chronic lung disease with likely superimposed edema. Not stable for biopsy. Pulmonary doubts infectious etiology...has initiated solumedrol 60mg IV q6h and will consider pulse dose steroids next week. 07/13: Slight improvement in respiratory status. HFNC 25/70. Continue diuresis with Bumex scheduled for 4 mg IV daily. NET -400 cc yesterday. Continue steroi ds. CXR ordered for AM. Will follow subspecialist recs. Lantus increased for better glycemic control in the setting of steroid tx. 07/14: Oxygen weaned down to 3 L/min. We will continue with current care. Patient still does not want to initiate hemodialysis at this time. Assessment and Plan: #Acute respiratory failure with hypoxia -multifactorial, CHF in the setting of oliguria/CKD 5 and advanced COPD/emphysema -Wean to 3 L nasal cannula, will continue wean as tolerated -coronavirus pcr negative -CXR: interstitial edema -CT findings as below. -Continue solumedrol 60 mg IV q6hr. -Bumex 4 mg IV bid -Pulmonology following, assistance appreciated. #Advanced COPD/Emphysema -CT consistent with emphysema and chronic lung disease with likely superimposed edema -significnat smoking history -Differential includes DIP, RBILD or NSIP. -per pulmonary not stable for biopsy -Continue steroids as above #Volume overload - Nephrology consulted - Bumex 4 mg IV x 2 doses, reassess daily - BL pleural effusions noted, rt > left - may consider thoracentesis if respiratory status worsens #Heart failure with reduced ejection fraction -elevated bnp on admission 69K -TTE demonstrates reduced EF of 25. -diuresis as above with bumex -strict ins and outs; fluid restrict to less than 1.5L daily -Patient will need cardiac cath at future date when more stable -Cardiology following, assistance appreciated #Bilateral pneumonia -ruled out, abx discontinued -opacities likely secondary to pulmonary edema/volume overload #history of chronic kidney disease stage V #ESRD -patient declining dialysis at this time -will renally dose medications and avoid nephrotoxic agents -Nephrology following, assistance appreciated #Type 2 diabetes with hyperglycemia -Hyperglycemia likely secondary to steroid administration -Check hemoglobin A1c -basal bolus insulin regimen -correctional insulin -accuchecks ac/hs. #Hypertension -continue antihypertensives and adjust medications #Hypokalemia -We will continue to monitor #Hyperlipidemia -Continue statin #Anemia - Secondary to end-stage renal disease - Hgb 7.1 - Epogen as per nephrology #Advance care planning -Disease education conducted, care plan discussed, diagnosis discussed, prognosis discussed. Patient is full code. Patient acknowledges understanding and agreement with care plan. +30 minutes. History Interval history: No acute events overnight. Patient has no complaints at this time. Discussed current treatment plan. Still wishes to not initiate hemodialysis. Hospitalist Physical - Physical exam Narrative exam: GENERAL: Thin elderly male. In no acute distress. HEENT: Nasal cannula in place @3lpm CHEST/LUNGS: Coarse breath sound bilaterally HEART/CARDIOVASCULAR: RRR. No murmur, rubs or gallops appreciated. ABDOMEN: +BS. NT/ND. SKIN: No rashes noted. NEURO: No focal motor deficit. Follows all commands. MUSCULOSKELETAL: No joint effusion EXTREMITIES: No cyanosis, clubbing or edema. PSYCH: Cooperative. - Constitutional Vitals: Temp Pulse Resp BP Pulse Ox 98.0 F 68 18 140/63 97 07/14/21 06:44 07/14/21 06:44 07/14/21 06:44 07/14/21 06:44 07/14/21 06:44 HEART Score - HEART Score Troponin: Troponin T 0.182 ng/mL (0.00-0.029) H* 07/08/21 14:14 Results - Labs CBC & Chem 7: 07/13/21 06:11 07/14/21 04:59 Labs: Laboratory Last Values WBC 8.6 K/mm3 (4.5-11.0) 07/10/21 10:27 RBC 2.54 M/mm3 (3.65-5.03) L 07/10/21 10:27 Hgb 7.3 gm/dl (11.8-15.2) L 07/13/21 06:11 Hct 22.0 % (35.5-45.6) L 07/13/21 06:11 MCV 87 fl (84-94) 07/10/21 10:27 MCH 28 pg (28-32) 07/10/21 10: MCHC 32 % (32-34) 07/10/21 10:27 RDW 16.2 % (13.2-15.2) H 07/10/21 10:27 Plt Count 202 K/mm3 (140-440) 07/10/21 10:27 Lymph % (Auto) 7.6 % (13.4-35.0) L 07/10/21 10:27 [place] % (Auto) 5.0 % (0.0-7.3) 07/10/21 10:27 Eos % (Auto) 0.1 % (0.0-4.3) 07/10/21 10: Baso % (Auto) 0.6 % (0.0-1.8) 07/10/21 10:27 Lymph # (Auto) 0.7 K/mm3 (1.2-5.4) L 07/10/21 10:27 [place] # (Auto) 0.4 K/mm3 (0.0-0.8) 07/10/21 10:27 Eos # (Auto) 0.0 K/mm3 (0.0-0.4) 07/10/21 10: Baso # (Auto) 0.1 K/mm3 (0.0-0.1) 07/10/21 10:27 Seg Neutrophils % 86.7 % (40.0-70.0) H 07/10/21 10:27 Seg Neutrophils # 7.5 K/mm3 (1.8-7.7) 07/10/21 10:27 Sodium 132 mmol/L (137-145) L 07/14/21 04:59 Potassium 5.0 mmol/L (3.6-5.0) 07/14/21 04:59 Chloride 94.8 mmol/L (98-107) L 07/14/21 04:59 Carbon Dioxide 22 mmol/L (22-30) 07/14/21 04:59 Anion Gap 20 mmol/L 07/14/21 04:59 BUN 87 mg/dL (9-20) H 07/14/21 04:59 Creatinine 3.8 mg/dL (0.8-1.3) H 07/14/21 04:59 Estimated GFR 19 ml/min 07/14/21 04:59 BUN/Creatinine Ratio 23 % 07/14/21 04:59 Glucose 153 mg/dL (75-100) H 07/14/21 04:59 POC Glucose 200 mg/dL (70-105) H 07/14/21 07:17 Hemoglobin A1c 6.5 % (4-6) H 07/09/21 06:24 Calcium 8.7 mg/dL (8.4-10.2) 07/14/21 04:59 Total Bilirubin 0.40 mg/dL (0.1-1.2) 07/09/21 06:24 AST 1028 units/L (5-40) H 07/09/21 06:24 ALT 782 units/L (7-56) H 07/09/21 06:24 Alkaline Phosphatase 63 units/L (35-129) 07/09/21 06:24 Troponin T 0.182 ng/mL (0.00-0.029) H* 07/08/21 14:14 NT-Pro-B Natriuret Pep 60774 pg/mL (0-900) H 07/08/21 10:11 Total Protein 6.8 g/dL (6.3-8.2) 07/09/21 06:24 Albumin 3.3 g/dL (3.9-5) L 07/09/21 06:24 Albumin/Globulin Ratio 0.9 % 07/09/21 06:24 Triglycerides 102 mg/dL (2-149) 07/08/21 10:11 Cholesterol 176 mg/dL (50-199) 07/08/21 10:11 LDL Cholesterol Direct 109 mg/dL (50-130) 07/08/21 10:11 HDL Cholesterol 44 mg/dL (40-59) 07/08/21 10:11 Cholesterol/HDL Ratio 4.00 % 07/08/21 10:11 Lipase 26 units/L (13-60) 07/08/21 10:11 Procalcitonin 27.64 ng/mL (<0.15) 07/09/21 07:35 Urine Color Straw (Yellow) 07/08/21 23:22 Urine Turbidity Clear (Clear) 07/08/21 23:22 Urine pH 7.0 (5.0-7.0) 07/08/21 23:22 Ur Specific [place] 1.009 (1.003-1.030) 07/08/21 23:22 Urine Protein 100 mg/dl mg/dL (Negative) 07/08/21 23:22 Urine Glucose (UA) Neg mg/dL (Negative) 07/08/21 23:22 Urine Ketones Neg mg/dL (Negative) 07/08/21 23:22 Urine Blood Sm (Negative) 07/08/21 23:22 Urine Nitrite Neg (Negative) 07/08/21 23:22 Urine Bilirubin Neg (Negative) 07/08/21 23:22 Urine Urobilinogen < 2.0 mg/dL (<2.0) 07/08/21 23:22 Ur Leukocyte Esterase Neg (Negative) 07/08/21 23:22 Urine WBC (Auto) < 1.0 /HPF (0.0-6.0) 07/08/21 23:22 Urine RBC (Auto) < 1.0 /HPF (0.0-6.0) 07/08/21 23:22 Urine Mucus Few /HPF 07/08/21 23:22 Coronavirus (PCR) Negative (Negative) 07/09/21 08:10 Hepatitis A IgM Ab Non-reactive (NonReactive) 07/08/21 13:38 Hep Bs Antigen Non-reactive (Negative) 07/08/21 13:38 Hep B Core IgM Ab Non-reactive (NonReactive) 07/08/21 13:38 Hepatitis C Antibody Non-reactive (NonReactive) 07/08/21 13:38 Microbiology: Microbiology 07/08/21 10:57 Peripheral/Venous Blood Culture - Final NO GROWTH AFTER 5 DAYS 07/08/21 10:57 Peripheral/Venous Blood Culture - Final NO GROWTH AFTER 5 DAYS Suazo/IV: Voiding Method Incontinent Active Medications - Current Medications Current Medications: Generic Name Dose Route Start Last Admin Trade Name Tony PRN Reason Stop Dose Admin Acetaminophen 650 mg 07/08/21 16:33 07/10/21 05:00 Acetaminophen 325 Mg Tab PO 650 mg Q4H PRN Administration Pain MILD(1-3)/Fever >100.5/MERCER Aspirin 81 mg 07/08/21 17:00 07/13/21 09:29 Aspirin Ec 81 Mg Tab PO 81 mg QDAY ALEXIA Administration Bumetanide 4 mg 07/13/21 10:00 07/13/21 09:27 Bumetanide 1 Mg/4 Ml Inj IV 4 mg DAILY ALEXIA Administration Carvedilol 3.125 mg 07/11/21 22:00 07/13/21 21:58 Carvedilol 3.125 Mg Tab PO 3.125 mg BID ALEXIA Administration Famotidine 10 mg 07/08/21 22:00 07/13/21 21:58 Famotidine 10 Mg Tab PO 10 mg BID ALEXIA Administration Fenofibrate 145 mg 07/08/21 17:00 07/13/21 09:29 Fenofibrate 145 Mg Tab PO 145 mg QDAY ALEXIA Administration Heparin Sodium (Porcine) 5,000 unit 07/08/21 22:00 07/13/21 21:58 Heparin 5,000 Unit/1 Ml Vial SUB-Q 5,000 unit Q12HR ALEXIA Administration Hydralazine HCl 10 mg 07/12/21 06:00 07/14/21 06:33 Hydralazine 10 Mg Tab PO 10 mg Q8HR ALEXIA Administration Hydralazine HCl 25 mg 07/13/21 14:00 07/14/21 06:33 Hydralazine 25 Mg Tab PO 25 mg Q8HR ALEXIA Administration Insulin Glargine 35 units 07/13/21 18:00 07/13/21 17:25 Insulin Glargine 100 Units/Ml SUB-Q 35 units QPM ALEXIA Administration Insulin Human Lispro 0 unit 07/08/21 22:00 07/13/21 21:57 Insulin Lispro 100 Unit/Ml SUB-Q Not Given [facility] Protocol Insulin Human Regular 10 units 07/13/21 07:57 07/13/21 21:56 Insulin Regular, Human 100 Units/1 Ml SUB-Q 10 units ACHS ALEXIA Administration Isosorbide Mononitrate 30 mg 07/09/21 12:00 07/13/21 09:29 Isosorbide Mononitrate Er 30 Mg Tab PO 30 mg QDAY ALEXIA Administration Methylprednisolone Sodium Succinate 60 mg 07/12/21 12:00 07/14/21 06:34 Methylprednisolone Sod Succinate 125 Mg/2 Ml Inj IV 60 mg Q6HR ALEXIA Administration Metolazone 2.5 mg 07/13/21 11:00 07/13/21 02:20 Metolazone 2.5 Mg Tab PO 2.5 mg QDAY ALEXIA Administration Morphine Sulfate 2 mg 07/08/21 16:40 Morphine 2 Mg/1 Ml Inj IV Q4H PRN Pain, Moderate (4-6) Ondansetron HCl 4 mg 07/08/21 16:33 Ondansetron 4 Mg/2 Ml Inj IV Q3H PRN Nausea And Vomiting Oxycodone/Acetaminophen 1 tab 07/08/21 16:40 07/11/21 18:27 Oxycodone /Acetaminophen 5-325mg Tab PO 1 tab Q6H PRN Administration Pain, Moderate (4-6) Potassium Chloride 40 meq 07/12/21 10:00 07/13/21 09:28 Potassium Chloride Er 20 Meq Tab PO 40 meq QDAY ALEXIA Administration Sodium Chloride 10 ml 07/08/21 22:00 07/13/21 21:59 Sodium Chloride 0.9% 10 Ml Flush Syringe IV 10 ml BID ALEXIA Administration Sodium Chloride 10 ml 07/08/21 16:33 Sodium Chloride 0.9% 10 Ml Flush Syringe IV PRN PRN LINE FLUSH Tramadol HCl 50 mg 07/08/21 16:31 Tramadol 50 Mg Tab PO Q8H PRN PAIN
--- NOTE | 2021-07-14 08:40 | Progress Note ---
Assessment and Plan 1. CKD 5: Known h/o advanced CKD now stage 5. Admitted with volume overload and metabolic acidosis. Patient need hemodialysis for volume control but he has been refusing so far. Monitor. 2. FEN: Anion-gap Metabolic acidosis, 2/2 CKD, monitor. Volume control, IV Bumex and Metolazone. Monitor lytes and volume status. 3. Acute hypoxic resp failure, POA: 2/2 volume overload / pulmonary edema / PNA. On [place] O2. Monitor. 4. PNA, POA: S/p Abx. Covid-19 test negative. 5. Suspected CHF: Echo 25-30%. 6. DM-2: 7. Normocytic Anemia, POA: Chronic. Epogen. Monitor. 8. Hypertension: Volume control. Continue home BP meds. Monitor BP. Subjective: Patient was seen and examined at the bedside. Examination: General appearance: well-developed, appears stated age, no distress, on [place] O2 HEENT: atraumatic, JAE Neck: trachea midline Respiratory: rales heard Heart: S1S2, regular, no murmur Abdomen: soft, bowel sounds heard, NT Integumentary: no obvious rash Neurologic: AO, able to move extremities Ext: no edema Subjective Date of service: 07/14/21 Objective - Vital Signs Vital signs: Vital Signs - 12hr 07/13/21 07/13/21 07/13/21 20:44 21:41 21:57 Temperature 98.2 F Pulse Rate 72 72 Respiratory 18 Rate Blood Pressure 142/65 142/65 Blood Pressure [Left] O2 Sat by Pulse 96 96 Oximetry 07/13/21 07/13/21 07/14/21 21:58 22:00 03:03 Temperature Pulse Rate 72 Respiratory Rate Blood Pressure 142/65 Blood Pressure [Left] O2 Sat by Pulse 96 100 Oximetry 07/14/21 07/14/21 06:33 06:44 Temperature 98.0 F Pulse Rate 68 68 Respiratory 18 Rate Blood Pressure 140/68 Blood Pressure 140/63 [Left] O2 Sat by Pulse 97 Oximetry - Lab 07/13/21 06:11 07/15/21 06:35 Most recent lab results Calcium 8.7 mg/dL (8.4-10.2) 07/14/21 04:59 Medications & Allergies - Medications Allergies/Adverse Reactions: Allergies No Known Allergies Allergy (Verified 07/08/21 09:37) per patient Home Medications: Home Medications Medication Instructions Recorded Confirmed Last Taken Type Fenofibrate [Tricor] 145 mg PO QDAY 03/11/15 07/09/21 03/11/15 History traMADoL [Ultram 50 MG tab] 50 mg PO Q8H PRN 03/11/15 07/09/21 Unknown History Aspirin EC [Halfprin EC] 81 mg PO QDAY #30 tablet. 02/05/20 07/09/21 Unknown Rx Insulin NPH, Human [NovoLIN N] 14 unit SUB-Q BIDDIAB #1 vial 02/05/20 07/09/21 Unknown Rx Insulin Regular, Human [HumuLIN R] 0 unit SUB-Q ACHS #1 vial 02/05/20 07/09/21 Unknown Rx amLODIPine 10 mg PO DAILY #30 tablet 02/05/20 07/09/21 Unknown Rx Active Medications: Generic Name Dose Route Start Last Admin Trade Name Freq PRN Reason Stop Dose Admin Acetaminophen 650 mg 07/08/21 16:33 07/10/21 05:00 Acetaminophen 325 Mg Tab PO 650 mg Q4H PRN Administration Pain MILD(1-3)/Fever >100.5/MERCER Aspirin 81 mg 07/08/21 17:00 07/13/21 09:29 Aspirin Ec 81 Mg Tab PO 81 mg QDAY ALEXIA Administration Bumetanide 4 mg 07/13/21 10:00 07/13/21 09:27 Bumetanide 1 Mg/4 Ml Inj IV 4 mg DAILY ALEXIA Administration Carvedilol 3.125 mg 07/11/21 22:00 07/13/21 21:58 Carvedilol 3.125 Mg Tab PO 3.125 mg BID ALEXIA Administration Famotidine 10 mg 07/08/21 22:00 07/13/21 21:58 Famotidine 10 Mg Tab PO 10 mg BID ALEXIA Administration Fenofibrate 145 mg 07/08/21 17:00 07/13/21 09:29 Fenofibrate 145 Mg Tab PO 145 mg QDAY ALEXIA Administration Heparin Sodium (Porcine) 5,000 unit 07/08/21 22:00 07/13/21 21:58 Heparin 5,000 Unit/1 Ml Vial SUB-Q 5,000 unit Q12HR ALEXIA Administration Hydralazine HCl 10 mg 07/12/21 06:00 07/14/21 06:33 Hydralazine 10 Mg Tab PO 10 mg Q8HR ALEXIA Administration Hydralazine HCl 25 mg 07/13/21 14:00 07/14/21 06:33 Hydralazine 25 Mg Tab PO 25 mg Q8HR ALEXIA Administration Insulin Glargine 35 units 07/13/21 18:00 07/13/21 17:25 Insulin Glargine 100 Units/Ml SUB-Q 35 units QPM ALEXIA Administration Insulin Human Lispro 0 unit 07/08/21 22:00 07/13/21 21:57 Insulin Lispro 100 Unit/Ml SUB-Q Not Given [facility] Protocol Insulin Human Regular 10 units 07/13/21 07:57 07/13/21 21:56 Insulin Regular, Human 100 Units/1 Ml SUB-Q 10 units [facility] Administration Isosorbide Mononitrate 30 mg 07/09/21 12:00 07/13/21 09:29 Isosorbide Mononitrate Er 30 Mg Tab PO 30 mg QDAY [facility] Administration Methylprednisolone Sodium Succinate 60 mg 07/12/21 12:00 07/14/21 06:34 Methylprednisolone Sod Succinate 125 Mg/2 Ml Inj IV 60 mg Q6HR [facility] Administration Metolazone 2.5 mg 07/13/21 11:00 07/13/21 02:20 Metolazone 2.5 Mg Tab PO 2.5 mg QDAY [facility] Administration Morphine Sulfate 2 mg 07/08/21 16:40 Morphine 2 Mg/1 Ml Inj IV Q4H PRN Pain, Moderate (4-6) Ondansetron HCl 4 mg 07/08/21 16:33 Ondansetron 4 Mg/2 Ml Inj IV Q3H PRN Nausea And Vomiting Oxycodone/Acetaminophen 1 tab 07/08/21 16:40 07/11/21 18:27 Oxycodone /Acetaminophen 5-325mg Tab PO 1 tab Q6H PRN Administration Pain, Moderate (4-6) Potassium Chloride 40 meq 07/12/21 10:00 07/13/21 09:28 Potassium Chloride Er 20 Meq Tab PO 40 meq QDAY ALEXIA Administration Sodium Chloride 10 ml 07/08/21 22:00 07/13/21 21:59 Sodium Chloride 0.9% 10 Ml Flush Syringe IV 10 ml BID ALEXIA Administration Sodium Chloride 10 ml 07/08/21 16:33 Sodium Chloride 0.9% 10 Ml Flush Syringe IV PRN PRN LINE FLUSH Tramadol HCl 50 mg 07/08/21 16:31 Tramadol 50 Mg Tab PO Q8H PRN PAIN
[2021-07-14] MEDS: INSULIN LISPRO 100 UNIT/ML SUB-Q SCH ×4 (08:54→21:48)
[2021-07-14] MEDS: INSULIN REGULAR, HUMAN 100 UNITS/1 ML SUB-Q SCH ×4 (08:55→21:52)
--- NOTE | 2021-07-14 09:29 | Progress Note ---
Assessment and Plan 81 male with acute respiratory failure, most likely secondary to volume overload. 07/14/21: Continue to wean FiO2 for sats >88%. Ok with switching to PO steroids today. Suggest Prednisone 60 daily for 5 days, then 40 daily for 5 then 20 daily for 5 then stop. Patient can follow up in our office in 10-14 days post discharge. Continue net negative daily state. Will continue to follow. 07/13/21: Big improvement over the last 24 hours. Diuresis and steroids appear to be helping. Will continue IV steroids for at least another 24 hours and then consider switching to orals. Based on CT suspect patient will need oxygen at discharge. 07/12/21: Continue IV diuresis. CT consistent with emphysema and chronic lung disease with likely superimposed edema. Doubt this is new or active infection. Could be DIP, RBILD or NSIP. Not stable enough for biopsy at this time. Will start solumedrol 60q6 and attempt to get patient to dry weight if able. May consider pulse dose steroids if not able to tolerate diuresis after a certain po int. Guarded Prognosis. 07/11/21: Continue IV diuresis. Need to obtain net negative state daily. Wean fio2 for sats > 90% 1. Renal following but would ask if IV diuresis would be better especially given CHF 2. continue supplemental oxygen. Would recommend bipap at night given CHF, may have central apnea 3. Follow up renal recs 4. Fluid restriction WIll continue to follow. Subjective Date of service: 07/14/21 Interval history: On 7 liters last sat documented at 100 so plenty of room to wean. Objective Vital Signs - 12hr 07/13/21 07/13/21 07/13/21 21:41 21:57 21:58 Temperature 98.2 F Pulse Rate 72 72 72 Respiratory 18 Rate Blood Pressure 142/65 142/65 142/65 Blood Pressure [Left] O2 Sat by Pulse 96 Oximetry 07/13/21 07/14/21 07/14/21 22:00 03:03 06:33 Temperature Pulse Rate 68 Respiratory Rate Blood Pressure 140/68 Blood Pressure [Left] O2 Sat by Pulse 96 100 Oximetry 07/14/21 06:44 Temperature 98.0 F Pulse Rate 68 Respiratory 18 Rate Blood Pressure Blood Pressure 140/63 [Left] O2 Sat by Pulse 97 Oximetry Constitutional: appears uncomfortable Eyes: non-icteric ENT: oropharynx moist CBC and BMP: 07/13/21 06:11 07/14/21 04:59 Abnormal lab findings: Abnormal Labs 07/08/21 07/08/21 07/08/21 10:11 10:11 10:11 RBC 2.83 L Hgb 8.0 L Hct 24.6 L RDW 16.9 H Lymph % (Auto) 4.[address] [facility] % (Auto) 7.8 H Lymph # (Auto) 0.5 L Seg Neutrophils % 87.3 H Seg Neutrophils # 9.4 H Sodium Potassium Chloride 97.1 L Carbon Dioxide 16 L BUN 59 H Creatinine 3.8 H Glucose 290 H POC Glucose Hemoglobin A1c Calcium 8.3 L AST 934 H ALT 559 H Troponin T 0.176 H* NT-Pro-B Natriuret Pep 67146 H Albumin 3.3 L 07/08/21 07/08/21 07/08/21 13:38 14:14 22:21 RBC Hgb Hct RDW Lymph % (Auto) [facility] % (Auto) Lymph # (Auto) Seg Neutrophils % Seg Neutrophils # Sodium Potassium Chloride Carbon Dioxide BUN Creatinine Glucose POC Glucose 309 H Hemoglobin A1c Calcium AST ALT Troponin T 0.211 H* 0.182 H* NT-Pro-B Natriuret Pep Albumin 07/09/21 07/09/21 07/09/21 06:24 06:24 06:24 RBC 2.54 L Hgb 7.1 L Hct 21.5 L RDW 16.7 H Lymph % (Auto) 9.[address] [facility] % (Auto) 7.9 H Lymph # (Auto) 0.9 L Seg Neutrophils % 82.2 H Seg Neutrophils # Sodium Potassium Chloride Carbon Dioxide BUN 71 H Creatinine 4.1 H Glucose POC Glucose Hemoglobin A1c 6.5 H Calcium 7.7 L AST 1028 H ALT 782 H Troponin T NT-Pro-B Natriuret Pep Albumin 3.3 L 07/09/21 07/09/21 07/09/21 11:50 17:20 21:26 RBC Hgb Hct RDW Lymph % (Auto) [facility] % (Auto) Lymph # (Auto) Seg Neutrophils % Seg Neutrophils # Sodium Potassium Chloride Carbon Dioxide BUN Creatinine Glucose POC Glucose 167 H 122 H 192 H Hemoglobin A1c Calcium AST ALT Troponin T NT-Pro-B Natriuret Pep Albumin 07/10/21 07/10/2107/10/22 06:50 08:08 10:27 RBC 2.54 L Hgb 7.1 L Hct 22.1 L RDW 16.2 H Lymph % (Auto) 7.[address] [facility] % (Auto) Lymph # (Auto) 0.7 L Seg Neutrophils % 86.7 H Seg Neutrophils # Sodium Potassium Chloride Carbon Dioxide BUN 79 H Creatinine 4.0 H Glucose 187 H POC Glucose 168 H Hemoglobin A1c Calcium 8.0 L AST ALT Troponin T NT-Pro-B Natriuret Pep Albumin 07/10/21 07/10/21 07/10/21 11:18 17:17 22:04 RBC Hgb Hct RDW Lymph % (Auto) [facility] % (Auto) Lymph # (Auto) Seg Neutrophils % Seg Neutrophils # Sodium Potassium Chloride Carbon Dioxide BUN Creatinine Glucose POC Glucose 260 H 141 H 192 H Hemoglobin A1c Calcium AST ALT Troponin T NT-Pro-B Natriuret Pep Albumin 07/11/21 07/11/21 07/11/21 07:35 09:51 11:05 RBC Hgb Hct RDW Lymph % (Auto) [facility] % (Auto) Lymph # (Auto) Seg Neutrophils % Seg Neutrophils # Sodium Potassium 3.1 L Chloride 96.8 L Carbon Dioxide BUN 73 H Creatinine 4.1 H Glucose 154 H POC Glucose 51 L 160 H Hemoglobin A1c Calcium 8.2 L AST ALT Troponin T NT-Pro-B Natriuret Pep Albumin 07/11/21 07/11/21 07/12/21 16:03 21:21 11:27 RBC Hgb Hct RDW Lymph % (Auto) [facility] % (Auto) Lymph # (Auto) Seg Neutrophils % Seg Neutrophils # Sodium Potassium Chloride Carbon Dioxide BUN Creatinine Glucose POC Glucose 286 H 186 H 268 H Hemoglobin A1c Calcium AST ALT Troponin T NT-Pro-B Natriuret Pep Albumin 07/12/21 07/12/21 07/13/21 16:09 21:25 06:11 RBC Hgb Hct RDW Lymph % (Auto) [facility] % (Auto) Lymph # (Auto) Seg Neutrophils % Seg Neutrophils # Sodium 133 L Potassium Chloride 93.8 L Carbon Dioxide BUN 76 H Creatinine 3.9 H Glucose 282 H POC Glucose 205 H 285 H Hemoglobin A1c Calcium AST ALT Troponin T NT-Pro-B Natriuret Pep Albumin 07/13/21 07/13/21 07/13/21 06:11 07:31 12:27 RBC Hgb 7.3 L Hct 22.0 L RDW Lymph % (Auto) [facility] % (Auto) Lymph # (Auto) Seg Neutrophils % Seg Neutrophils # Sodium Potassium Chloride Carbon Dioxide BUN Creatinine Glucose POC Glucose 246 H 381 H Hemoglobin A1c Calcium AST ALT Troponin T NT-Pro-B Natriuret Pep Albumin 07/13/21 07/13/21 07/14/21 16:36 21:49 04:59 RBC Hgb Hct RDW Lymph % (Auto) [facility] % (Auto) Lymph # (Auto) Seg Neutrophils % Seg Neutrophils # Sodium 132 L Potassium Chloride 94.8 L Carbon Dioxide BUN 87 H Creatinine 3.8 H Glucose 153 H POC Glucose 226 H 183 H Hemoglobin A1c Calcium AST ALT Troponin T NT-Pro-B Natriuret Pep Albumin 07/14/21 07:17 RBC Hgb Hct RDW Lymph % (Auto) [facility] % (Auto) Lymph # (Auto) Seg Neutrophils % Seg Neutrophils # Sodium Potassium Chloride Carbon Dioxide BUN Creatinine Glucose POC Glucose 200 H Hemoglobin A1c Calcium AST ALT Troponin T NT-Pro-B Natriuret Pep Albumin
[2021-07-14] MEDS: BUMETANIDE 1 MG/4 ML INJ IV SCH (10:44)
[2021-07-14] MEDS: carvediloL 3.125 MG TAB PO SCH ×2 (10:44→21:54)
[2021-07-14] MEDS: ASPIRIN EC 81 MG TAB PO SCH (10:45)
[2021-07-14] MEDS: HEPARIN 5,000 UNIT/1 ML VIAL SUB-Q SCH ×2 (10:45→21:54)
[2021-07-14] MEDS: POTASSIUM CHLORIDE ER 20 MEQ TAB PO SCH (10:46)
[2021-07-14] MEDS: FAMOTIDINE 10 MG TAB PO SCH ×2 (10:46→21:54)
[2021-07-14] MEDS: FENOFIBRATE 145 MG TAB PO SCH (10:48)
[2021-07-14] MEDS: metOLazone 2.5 MG TAB PO SCH (10:48)
--- NOTE | 2021-07-14 12:50 | Progress Note ---
Assessment and Plan - Patient Problems (1) Cardiomyopathy Current Visit: Yes Status: Acute (2) CHF (congestive heart failure) Current Visit: Yes Status: Acute Subjective Date of service: 07/14/21 Interval history: BREATHING BETTER,,,,diffuse aches Objective Vital Signs Temp Pulse Resp BP BP Pulse Ox 07/14/21 10:46 69 07/14/21 10:44 69 07/14/21 06:44 98.0 F 68 18 140/63 97 07/14/21 06:33 68 140/68 07/14/21 03:03 100 07/13/21 22:00 96 07/13/21 21:58 72 142/65 07/13/21 21:57 72 142/65 07/13/21 21:41 98.2 F 72 18 142/65 96 07/13/21 20:44 96 07/13/21 16:40 97.5 F L 72 16 141/66 100 07/13/21 13:50 94 - Physical Examination General: No Apparent Distress Neck: Positive: JVD/HJR Cardiac: Positive: Regular Rhythm Lungs: Positive: Decreased Breath Sounds Neuro: Positive: Grossly Intact Abdomen: Positive: Unremarkable Extremities: Present: edema (TRACE), Other (dim. pulses) - Labs and Meds Comprehensive Metabolic Panel 07/14/21 Range/Units 04:59 Sodium 132 L (137-145) mmol/L Potassium 5.0 (3.6-5.0) mmol/L Chloride 94.8 L (98-107) mmol/L Carbon Dioxide 22 (22-30) mmol/L BUN 87 H (9-20) mg/dL Creatinine 3.8 H (0.8-1.3) mg/dL Glucose 153 H (75-100) mg/dL Calcium 8.7 (8.4-10.2) mg/dL
[2021-07-14] MEDS: INSULIN GLARGINE 100 UNITS/ML SUB-Q SCH (21:47)
[2021-07-15] MEDS: hydrALAZINE 25 MG TAB PO SCH ×3 (06:14→21:48)
[2021-07-15] MEDS: methylPREDNISolone Sod Succinate 125 MG/2 ML INJ IV SCH ×3 (06:15→18:40)
--- NOTE | 2021-07-15 07:36 | Progress Note ---
Assessment and Plan Assessment and plan: Hospital Course: 07/09: Would benefit from volume removal. D/w nephrology who states that patient has declined hemodialysis for some time. Initiated on lasix IV therapy. Will potentially need to revisit hemodialysis with patient tomorrow. Cardiology consulted. awaiting recommendations. Patient is unvaccinated for coronavirus, pcr test ordered. Continue abx/steroids at this time. 07/10: Placed on hfnc 35/95 ovn. Still significant pulm edema on cxr. Will order bumex 4 mg iv x 2. Patient still hesitant but more open today about HD .... will revisit over weekend. 07/11: Refused bipap overnight. ct chest ordered today. Bumex 4 mg IV for this AM given as patient did not get PM dose. Will order additional dose in PM. Re- assess pulmonary status tomorrow. Will follow pulmonary and nephro recommendations. 07/12: Ordered additional two doses of bumex 4 mg IV. D/w pulmonary this AM, CT consistent with emphysema and chronic lung disease with likely superimposed edema. Not stable for biopsy. Pulmonary doubts infectious etiology...has initiated solumedrol 60mg IV q6h and will consider pulse dose steroids next week. 07/13: Slight improvement in respiratory status. HFNC 25/70. Continue diuresis with Bumex scheduled for 4 mg IV daily. NET -400 cc yesterday. Continue steroi ds. CXR ordered for AM. Will follow subspecialist recs. Lantus increased for better glycemic control in the setting of steroid tx. 07/14: Oxygen weaned down to 3 L/min. We will continue with current care. Patient still does not want to initiate hemodialysis at this time. 07/15: Patient stable. Discussed option of hemodialysis. Patient is more receptive and will make a decision once Nephrology rounds. Assessment and Plan: #Acute respiratory failure with hypoxia -multifactorial, CHF in the setting of oliguria/CKD 5 and advanced COPD/emphysema -current O2 requirement: 3 L nasal cannula, will continue wean as tolerated -coronavirus pcr negative -CXR: interstitial edema -CT findings as below. -Continue solumedrol 60 mg IV q6hr. -Bumex 4 mg IV bid -Pulmonology following, assistance appreciated. #Advanced COPD/Emphysema -CT consistent with emphysema and chronic lung disease with likely superimposed edema -significant smoking history -Differential includes DIP, RBILD or NSIP. -per pulmonary not stable for biopsy -Continue steroids as above #Volume overload - Nephrology consulted - reassess daily - BL pleural effusions noted, rt > left - may consider thoracentesis if respiratory status worsens #Heart failure with reduced ejection fraction -elevated bnp on admission 69K -TTE demonstrates reduced EF of 25. -diuresis as above with bumex -strict ins and outs; fluid restrict to less than 1.5L daily -Patient will need cardiac cath at future date when more stable -Cardiology following, assistance appreciated #Bilateral pneumonia -ruled out, abx discontinued -opacities likely secondary to pulmonary edema/volume overload #history of chronic kidney disease stage V #ESRD -patient contemplating starting hemodialysis -will renally dose medications and avoid nephrotoxic agents -Nephrology following, assistance appreciated #Type 2 diabetes with hyperglycemia -Hyperglycemia likely secondary to steroid administration -continue basal bolus insulin regimen -correctional insulin -accuchecks ac/hs. #Hypertension -continue antihypertensives and adjust medications #Hypokalemia -We will continue to monitor #Hyperlipidemia -Continue statin #Anemia - Secondary to end-stage renal disease - Hgb 7.1 - Epogen as per nephrology #Advance care planning -Disease education conducted, care plan discussed, diagnosis discussed, prognosis discussed. Patient is full code. Patient acknowledges understanding and agreement with care plan. Discussed options if patient refuses dialysis. +30 minutes. History Interval history: No acute events overnight. Patient has no complaints at this time. Discussed current treatment plan. Patient seems to be more receptive to initiating dialysis Hospitalist Physical - Physical exam Narrative exam: GENERAL: Thin elderly male. In no acute distress. HEENT: Nasal cannula in place @3lpm CHEST/LUNGS: Coarse breath sound bilaterally HEART/CARDIOVASCULAR: RRR. No murmur, rubs or gallops appreciated. ABDOMEN: +BS. NT/ND. SKIN: No rashes noted. NEURO: No focal motor deficit. Follows all commands. MUSCULOSKELETAL: No joint effusion EXTREMITIES: No cyanosis, clubbing or edema. PSYCH: Cooperative. - Constitutional Vitals: Temp Pulse Resp BP Pulse Ox 97.6 F 66 18 138/65 95 07/15/21 03:54 07/15/21 06:14 07/15/21 03:54 07/15/21 06:14 07/15/21 03:54 HEART Score - HEART Score Troponin: Troponin T 0.182 ng/mL (0.00-0.029) H* 07/08/21 14:14 Results - Labs CBC & Chem 7: 07/13/21 06:11 07/15/21 06:35 Labs: Laboratory Last Values WBC 8.6 K/mm3 (4.5-11.0) 07/10/21 10:27 RBC 2.54 M/mm3 (3.65-5.03) L 07/10/21 10:27 Hgb 7.3 gm/dl (11.8-15.2) L 07/13/21 06:11 Hct 22.0 % (35.5-45.6) L 07/13/21 06:11 MCV 87 fl (84-94) 07/10/21 10:27 MCH 28 pg (28-32) 07/10/21 10:27 MCHC 32 % (32-34) 07/10/21 10:27 RDW 16.2 % (13.2-15.2) H 07/10/21 10:27 Plt Count 202 K/mm3 (140-440) 07/10/21 10:27 Lymph % (Auto) 7.6 % (13.4-35.0) L 07/10/21 10:27 [facility] % (Auto) 5.0 % (0.0-7.3) 07/10/21 10:27 Eos % (Auto) 0.1 % (0.0-4.3) 07/10/21 10:27 Baso % (Auto) 0.6 % (0.0-1.8) 07/10/21 10:27 Lymph # (Auto) 0.7 K/mm3 (1.2-5.4) L 07/10/21 10:27 [place] # (Auto) 0.4 K/mm3 (0.0-0.8) 07/10/21 10:27 Eos # (Auto) 0.0 K/mm3 (0.0-0.4) 07/10/21 10:27 Baso # (Auto) 0.1 K/mm3 (0.0-0.1) 07/10/21 10:27 Seg Neutrophils % 86.7 % (40.0-70.0) H 07/10/21 10:27 Seg Neutrophils # 7.5 K/mm3 (1.8-7.7) 07/10/21 10:27 Sodium 132 mmol/L (137-145) L 07/14/21 04:59 Potassium 5.0 mmol/L (3.6-5.0) 07/14/21 04:59 Chloride 94.8 mmol/L (98-107) L 07/14/21 04:59 Carbon Dioxide 22 mmol/L (22-30) 07/14/21 04:59 Anion Gap 20 mmol/L 07/14/21 04:59 BUN 87 mg/dL (9-20) H 07/14/21 04:59 Creatinine 3.8 mg/dL (0.8-1.3) H 07/14/21 04:59 Estimated GFR 19 ml/min 07/14/21 04:59 BUN/Creatinine Ratio 23 % 07/14/21 04:59 Glucose 153 mg/dL (75-100) H 07/14/21 04:59 POC Glucose 336 mg/dL (70-105) H 07/14/21 21:06 Hemoglobin A1c 6.5 % (4-6) H 07/09/21 06:24 Calcium 8.7 mg/dL (8.4-10.2) 07/14/21 04:59 Total Bilirubin 0.40 mg/dL (0.1-1.2) 07/09/21 06:24 AST 1028 units/L (5-40) H 07/09/21 06:24 ALT 782 units/L (7-56) H 07/09/21 06:24 Alkaline Phosphatase 63 units/L (35-129) 07/09/21 06:24 Troponin T 0.182 ng/mL (0.00-0.029) H* 07/08/21 14:14 NT-Pro-B Natriuret Pep 31564 pg/mL (0-900) H 07/08/21 10:11 Total Protein 6.8 g/dL (6.3-8.2) 07/09/21 06:24 Albumin 3.3 g/dL (3.9-5) L 07/09/21 06:24 Albumin/Globulin Ratio 0.9 % 07/09/21 06:24 Triglycerides 102 mg/dL (2-149) 07/08/21 10:11 Cholesterol 176 mg/dL (50-199) 07/08/21 10:11 LDL Cholesterol Direct 109 mg/dL (50-130) 07/08/21 10:11 HDL Cholesterol 44 mg/dL (40-59) 07/08/21 10:11 Cholesterol/HDL Ratio 4.00 % 07/08/21 10:11 Lipase 26 units/L (13-60) 07/08/21 10:11 Procalcitonin 27.64 ng/mL (<0.15) 07/09/21 07:35 Urine Color Straw (Yellow) 07/08/21 23:22 Urine Turbidity Clear (Clear) 07/08/21 23:22 Urine pH 7.0 (5.0-7.0) 07/08/21 23:22 Ur Specific [place] 1.009 (1.003-1.030) 07/08/21 23:22 Urine Protein 100 mg/dl mg/dL (Negative) 07/08/21 23:22 Urine Glucose (UA) Neg mg/dL (Negative) 07/08/21 23:22 Urine Ketones Neg mg/dL (Negative) 07/08/21 23:22 Urine Blood Sm (Negative) 07/08/21 23:22 Urine Nitrite Neg (Negative) 07/08/21 23:22 Urine Bilirubin Neg (Negative) 07/08/21 23:22 Urine Urobilinogen < 2.0 mg/dL (<2.0) 07/08/21 23:22 Ur Leukocyte Esterase Neg (Negative) 07/08/21 23:22 Urine WBC (Auto) < 1.0 /HPF (0.0-6.0) 07/08/21 23:22 Urine RBC (Auto) < 1.0 /HPF (0.0-6.0) 07/08/21 23:22 Urine Mucus Few /HPF 07/08/21 23:22 Coronavirus (PCR) Negative (Negative) 07/09/21 08:10 Hepatitis A IgM Ab Non-reactive (NonReactive) 07/08/21 13:38 Hep Bs Antigen Non-reactive (Negative) 07/08/21 13:38 Hep B Core IgM Ab Non-reactive (NonReactive) 07/08/21 13:38 Hepatitis C Antibody Non-reactive (NonReactive) 07/08/21 13:38 Suazo/IV: Voiding Method Toilet Active Medications - Current Medications Current Medications: Generic Name Dose Route Start Last Admin Trade Name Freq PRN Reason Stop Dose Admin Acetaminophen 650 mg 07/08/21 16:33 07/10/21 05:00 Acetaminophen 325 Mg Tab PO 650 mg Q4H PRN Administration Pain MILD(1-3)/Fever >100.5/MERCER Aspirin 81 mg 07/08/21 17:00 07/14/21 10:45 Aspirin Ec 81 Mg Tab PO 81 mg [facility] Administration Bumetanide 4 mg 07/13/21 10:00 07/14/21 10:44 Bumetanide 1 Mg/4 Ml Inj IV 4 mg DAILY ALEX[facility] Administration Carvedilol 3.125 mg 07/11/21 22:00 07/14/21 21:54 Carvedilol 3.125 Mg Tab PO 3.125 mg BID ALEXIA Administration Famotidine 10 mg 07/08/21 22:00 07/14/21 21:54 Famotidine 10 Mg Tab PO 10 mg BID ALEXIA Administration Fenofibrate 145 mg 07/08/21 17:00 07/14/21 10:48 Fenofibrate 145 Mg Tab PO 145 mg [facility] Administration Heparin Sodium (Porcine) 5,000 unit 07/08/21 22:00 07/14/21 21:54 Heparin 5,000 Unit/1 Ml Vial SUB-Q 5,000 unit Q12HR ALEX[facility] Administration Hydralazine HCl 25 mg 07/13/21 14:00 07/15/21 06:14 Hydralazine 25 Mg Tab PO 25 mg Q8HR [facility] Administration Insulin Glargine 40 units 07/14/21 22:00 07/14/21 21:47 Insulin Glargine 100 Units/Ml SUB-Q 40 units QHS [facility] Administration Insulin Human Lispro 0 unit 07/08/21 22:00 07/14/21 21:48 Insulin Lispro 100 Unit/Ml SUB-Q 8 unit [facility] Administration Protocol Insulin Human Regular 12 units 07/14/21 16:30 07/14/21 21:52 Insulin Regular, Human 100 Units/1 Ml SUB-Q 12 units [facility] Administration Isosorbide Mononitrate 30 mg 07/09/21 12:00 07/14/21 10:46 Isosorbide Mononitrate Er 30 Mg Tab PO 30 mg [facility] Administration Methylprednisolone Sodium Succinate 60 mg 07/12/21 12:00 07/15/21 06:15 Methylprednisolone Sod Succinate 125 Mg/2 Ml Inj IV 60 mg Q6HR [facility] Administration Metolazone 2.5 mg 07/13/21 11:00 07/14/21 10:48 Metolazone 2.5 Mg Tab PO 2.5 mg QDAY [facility] Administration Morphine Sulfate 2 mg 07/08/21 16:40 Morphine 2 Mg/1 Ml Inj IV Q4H PRN Pain, Moderate (4-6) Ondansetron HCl 4 mg 07/08/21 16:33 Ondansetron 4 Mg/2 Ml Inj IV Q3H PRN Nausea And Vomiting Oxycodone/Acetaminophen 1 tab 07/08/21 16:40 07/11/21 18:27 Oxycodone /Acetaminophen 5-325mg Tab PO 1 tab Q6H PRN Administration Pain, Moderate (4-6) Potassium Chloride 40 meq 07/12/21 10:00 07/14/21 10:46 Potassium Chloride Er 20 Meq Tab PO 40 meq QDAY [facility] Administration Sodium Chloride 10 ml 07/08/21 22:00 07/14/21 21:55 Sodium Chloride 0.9% 10 Ml Flush Syringe IV 10 ml BID [facility]LEX[facility] Administration Sodium Chloride 10 ml 07/08/21 16:33 Sodium Chloride 0.9% 10 Ml Flush Syringe IV PRN PRN LINE FLUSH Tramadol HCl 50 mg 07/08/21 16:31 Tramadol 50 Mg Tab PO Q8H PRN PAIN
[2021-07-15 07:41] LABS: Calcium 8.3 mg/dL (8.4-10.2)
[2021-07-15] MEDS: INSULIN LISPRO 100 UNIT/ML SUB-Q SCH ×3 (09:57→18:39)
[2021-07-15] MEDS: carvediloL 3.125 MG TAB PO SCH ×2 (09:59→21:47)
[2021-07-15] MEDS: INSULIN REGULAR, HUMAN 100 UNITS/1 ML SUB-Q SCH ×4 (09:59→22:06)
[2021-07-15] MEDS: FAMOTIDINE 10 MG TAB PO SCH ×2 (09:59→21:46)
[2021-07-15] MEDS: HEPARIN 5,000 UNIT/1 ML VIAL SUB-Q SCH ×2 (09:59→21:48)
[2021-07-15] MEDS: FENOFIBRATE 145 MG TAB PO SCH (09:59)
[2021-07-15] MEDS: ASPIRIN EC 81 MG TAB PO SCH (09:59)
[2021-07-15] MEDS: POTASSIUM CHLORIDE ER 20 MEQ TAB PO SCH (09:59)
[2021-07-15] MEDS: metOLazone 2.5 MG TAB PO SCH (10:03)
--- NOTE | 2021-07-15 11:20 | Progress Note ---
Assessment and Plan 1. ESRD / CKD 5: Known h/o advanced CKD now stage 5. Admitted with volume overload and metabolic acidosis. Patient agreed to proceed with hemodialysis Vascular consulted for hemodialysis catheter placement. Hemodialysis today. 2. FEN: Anion-gap Metabolic acidosis, 2/2 CKD, monitor. Volume overload, UF with HD, IV Bumex and Metolazone. Monitor lytes and volume status. 3. Acute hypoxic resp failure, POA: 2/2 volume overload / pulmonary edema / PNA. On NC O2. Monitor. 4. PNA, POA: S/p Abx. Covid-19 test negative. 5. Suspected CHF: Echo 25-30%. 6. DM-2: 7. Normocytic Anemia, POA: Chronic. Epogen with HD. Monitor. 8. Hypertension: Volume control. Continue home BP meds. Monitor BP. Subjective: Patient was seen and examined at the bedside. Examination: General appearance: well-developed, appears stated age, no distress, on NC O2 HEENT: atraumatic, JAE Neck: trachea midline Respiratory: rales heard Heart: S1S2, regular, no murmur Abdomen: soft, bowel sounds heard, NT Integumentary: no obvious rash Neurologic: AO, able to move extremities Ext: no edema Subjective Date of service: 07/15/21 Objective - Vital Signs Vital signs: Vital Signs - 12hr 07/15/21 07/15/21 07/15/21 02:30 03:54 06:14 Temperature 97.6 F Pulse Rate 66 66 Respiratory 18 Rate Blood Pressure 138/65 138/65 O2 Sat by Pulse 95 95 Oximetry 07/15/21 08:00 Temperature Pulse Rate Respiratory Rate Blood Pressure O2 Sat by Pulse 100 Oximetry - Lab 07/13/21 06:11 07/15/21 06:35 Most recent lab results Calcium 8.3 mg/dL (8.4-10.2) L 07/15/21 06:35 Medications & Allergies - Medications Allergies/Adverse Reactions: Allergies No Known Allergies Allergy (Verified 07/08/21 09:37) per patient Home Medications: Home Medications Medication Instructions Recorded Confirmed Last Taken Type Fenofibrate [Tricor] 145 mg PO QDAY 03/11/15 07/09/21 03/11/15 History traMADoL [Ultram 50 MG tab] 50 mg PO Q8H PRN 03/11/15 07/09/21 Unknown History Aspirin EC [Halfprin EC] 81 mg PO QDAY #30 tablet. 02/05/20 07/09/21 Unknown Rx Insulin NPH, Human [NovoLIN N] 14 unit SUB-Q BIDDIAB #1 vial 02/05/20 07/09/21 Unknown Rx Insulin Regular, Human [HumuLIN R] 0 unit SUB-Q ACHS #1 vial 02/05/20 07/09/21 Unknown Rx amLODIPine 10 mg PO DAILY #30 tablet 02/05/20 07/09/21 Unknown Rx Active Medications: Generic Name Dose Route Start Last Admin Trade Name Freq PRN Reason Stop Dose Admin Acetaminophen 650 mg 07/08/21 16:33 07/10/21 05:00 Acetaminophen 325 Mg Tab PO 650 mg Q4H PRN Administration Pain MILD(1-3)/Fever >100.5/MERCER Aspirin 81 mg 07/08/21 17:00 07/15/21 09:59 Aspirin Ec 81 Mg Tab PO 81 mg QDAY [facility] Administration Bumetanide 4 mg 07/15/21 10:15 Bumetanide 2.5 Mg/10 Ml Vial IV DAILY ALEXIA Carvedilol 3.125 mg 07/11/21 22:00 07/15/21 09:59 Carvedilol 3.125 Mg Tab PO 3.125 mg BID [facility]LEX[facility] Administration Famotidine 10 mg 07/08/21 22:00 07/15/21 09:59 Famotidine 10 Mg Tab PO 10 mg BID ALEX[facility] Administration Fenofibrate 145 mg 07/08/21 17:00 07/15/21 09:59 Fenofibrate 145 Mg Tab PO 145 mg QDAY [facility] Administration Heparin Sodium (Porcine) 5,000 unit 07/08/21 22:00 07/15/21 09:59 Heparin 5,000 Unit/1 Ml Vial SUB-Q 5,000 unit Q12HR [facility] Administration Hydralazine HCl 25 mg 07/13/21 14:00 07/15/21 06:14 Hydralazine 25 Mg Tab PO 25 mg Q8HR [facility] Administration Insulin Glargine 40 units 07/14/21 22:00 07/14/21 21:47 Insulin Glargine 100 Units/Ml SUB-Q 40 units QHS [facility] Administration Insulin Human Lispro 0 unit 07/08/21 22:00 07/15/21 09:57 Insulin Lispro 100 Unit/Ml SUB-Q Not Given [facility] Protocol Insulin Human Regular 12 units 07/14/21 16:30 07/15/21 09:59 Insulin Regular, Human 100 Units/1 Ml SUB-Q 12 units ACHS [facility] Administration Isosorbide Mononitrate 30 mg 07/09/21 12:00 07/15/21 09:59 Isosorbide Mononitrate Er 30 Mg Tab PO 30 mg QDAY [facility] Administration Methylprednisolone Sodium Succinate 60 mg 07/12/21 12:00 07/15/21 06:15 Methylprednisolone Sod Succinate 125 Mg/2 Ml Inj IV 60 mg Q6HR [facility] Administration Metolazone 2.5 mg 07/13/21 11:00 07/15/21 10:03 Metolazone 2.5 Mg Tab PO 2.5 mg QDAY [facility] Administration Morphine Sulfate 2 mg 07/08/21 16:40 Morphine 2 Mg/1 Ml Inj IV Q4H PRN Pain, Moderate (4-6) Ondansetron HCl 4 mg 07/08/21 16:33 Ondansetron 4 Mg/2 Ml Inj IV Q3H PRN Nausea And Vomiting Oxycodone/Acetaminophen 1 tab 07/08/21 16:40 07/11/21 18:27 Oxycodone /Acetaminophen 5-325mg Tab PO 1 tab Q6H PRN Administration Pain, Moderate (4-6) Potassium Chloride 40 meq 07/12/21 10:00 07/15/21 09:59 Potassium Chloride Er 20 Meq Tab PO 40 meq QDAY [facility] Administration Sodium Chloride 10 ml 07/08/21 22:00 07/15/21 10:00 Sodium Chloride 0.9% 10 Ml Flush Syringe IV 10 ml BID ALEXIA Administration Sodium Chloride 10 ml 07/08/21 16:33 Sodium Chloride 0.9% 10 Ml Flush Syringe IV PRN PRN LINE FLUSH Tramadol HCl 50 mg 07/08/21 16:31 Tramadol 50 Mg Tab PO Q8H PRN PAIN
[2021-07-15] MEDS: BUMETANIDE 2.5 MG/10 ML VIAL IV SCH (11:46)
[2021-07-15] MEDS: BUMETANIDE 1 MG/4 ML INJ IV SCH (11:47)
--- NOTE | 2021-07-15 12:02 | Progress Note ---
Assessment and Plan 81 male with acute respiratory failure, most likely secondary to volume overload. 07/15/21: No new recs for today, please see below. 07/14/21: Continue to wean FiO2 for sats >88%. Ok with switching to PO steroids today. Suggest Prednisone 60 daily for 5 days, then 40 daily for 5 then 20 daily for 5 then stop. Patient can follow up in our office in 10-14 days post discharge. Continue net negative daily state. Will continue to follow. 07/13/21: Big improvement over the last 24 hours. Diuresis and steroids appear to be helping. Will continue IV steroids for at least another 24 hours and then consider switching to orals. Based on CT suspect patient will need oxygen at discharge. 07/12/21: Continue IV diuresis. CT consistent with emphysema and chronic lung disease with likely superimposed edema. Doubt this is new or active infection. Could be DIP, RBILD or NSIP. Not stable enough for biopsy at this time. Will start solumedrol 60q6 and attempt to get patient to dry weight if able. May consider pulse dose steroids if not able to tolerate diuresis after a certain point. Guarded Prognosis. 07/11/21: Continue IV diuresis. Need to obtain net negative state daily. Wean fio2 for sats > 90% 1. Renal following but would ask if IV diuresis would be better especially given CHF 2. continue supplemental oxygen. Would recommend bipap at night given CHF, may have central apnea 3. Follow up renal recs 4. Fluid restriction WIll continue to follow. Subjective Date of service: 07/15/21 Interval history: patient now weaned down to 2 liters. Objective Vital Signs - 12hr 07/15/21 07/15/21 07/15/21 02:30 03:54 06:14 Temperature 97.6 F Pulse Rate 66 66 Respiratory 18 Rate Blood Pressure 138/65 138/65 O2 Sat by Pulse 95 95 Oximetry 07/15/21 08:00 Temperature Pulse Rate Respiratory Rate Blood Pressure O2 Sat by Pulse 100 Oximetry Constitutional: appears uncomfortable Eyes: non-icteric ENT: oropharynx moist CBC and BMP: 07/13/21 06:11 07/15/21 06:35 Abnormal lab findings: Abnormal Labs 07/08/21 07/08/21 07/08/21 10:11 10:11 10:11 RBC 2.83 L Hgb 8.0 L Hct 24.6 L RDW 16.9 H Lymph % (Auto) 4.9 L [place] % (Auto) 7.8 H Lymph # (Auto) 0.5 L Seg Neutrophils % 87.3 H Seg Neutrophils # 9.4 H Sodium Potassium Chloride 97.1 L Carbon Dioxide 16 L BUN 59 H Creatinine 3.8 H Glucose 290 H POC Glucose Hemoglobin A1c Calcium 8.3 L AST 934 H ALT 559 H Troponin T 0.176 H* NT-Pro-B Natriuret Pep 14729 H Albumin 3.3 L 07/08/21 07/08/21 07/08/21 13:38 14:14 22:21 RBC Hgb Hct RDW Lymph % (Auto) [place] % (Auto) Lymph # (Auto) Seg Neutrophils % Seg Neutrophils # Sodium Potassium Chloride Carbon Dioxide BUN Creatinine Glucose POC Glucose 309 H Hemoglobin A1c Calcium AST ALT Troponin T 0.211 H* 0.182 H* NT-Pro-B Natriuret Pep Albumin 07/09/21 07/09/21 07/09/21 06:24 06:24 06:24 RBC 2.54 L Hgb 7.1 L Hct 21.5 L RDW 16.7 H Lymph % (Auto) 9.8 L [place] % (Auto) 7.9 H Lymph # (Auto) 0.9 L Seg Neutrophils % 82.2 H Seg Neutrophils # Sodium Potassium Chloride Carbon Dioxide BUN 71 H Creatinine 4.1 H Glucose POC Glucose Hemoglobin A1c 6.5 H Calcium 7.7 L AST 1028 H ALT 782 H Troponin T NT-Pro-B Natriuret Pep Albumin 3.3 L 07/09/21 07/09/21 07/09/21 11:50 17:20 21:26 RBC Hgb Hct RDW Lymph % (Auto) [place] % (Auto) Lymph # (Auto) Seg Neutrophils % Seg Neutrophils # Sodium Potassium Chloride Carbon Dioxide BUN Creatinine Glucose POC Glucose 167 H 122 H 192 H Hemoglobin A1c Calcium AST ALT Troponin T NT-Pro-B Natriuret Pep Albumin 07/10/21 07/10/21 07/10/21 06:50 08:08 10:27 RBC 2.54 L Hgb 7.1 L Hct 22.1 L RDW 16.2 H Lymph % (Auto) 7.6 L [place] % (Auto) Lymph # (Auto) 0.7 L Seg Neutrophils % 86.7 H Seg Neutrophils # Sodium Potassium Chloride Carbon Dioxide BUN 79 H Creatinine 4.0 H Glucose 187 H POC Glucose 168 H Hemoglobin A1c Calcium 8.0 L AST ALT Troponin T NT-Pro-B Natriuret Pep Albumin 07/10/21 07/10/21 07/10/21 11:18 17:17 22:04 RBC Hgb Hct RDW Lymph % (Auto) [place] % (Auto) Lymph # (Auto) Seg Neutrophils % Seg Neutrophils # Sodium Potassium Chloride Carbon Dioxide BUN Creatinine Glucose POC Glucose 260 H 141 H 192 H Hemoglobin A1c Calcium AST ALT Troponin T NT-Pro-B Natriuret Pep Albumin 07/11/21 07/11/21 07/11/21 07:35 09:51 11:05 RBC Hgb Hct RDW Lymph % (Auto) [place] % (Auto) Lymph # (Auto) Seg Neutrophils % Seg Neutrophils # Sodium Potassium 3.1 L Chloride 96.8 L Carbon Dioxide BUN 73 H Creatinine 4.1 H Glucose 154 H POC Glucose 51 L 160 H Hemoglobin A1c Calcium 8.2 L AST ALT Troponin T NT-Pro-B Natriuret Pep Albumin 07/11/21 07/11/21 07/12/21 16:03 21:21 11:27 RBC Hgb Hct RDW Lymph % (Auto) [place] % (Auto) Lymph # (Auto) Seg Neutrophils % Seg Neutrophils # Sodium Potassium Chloride Carbon Dioxide BUN Creatinine Glucose POC Glucose 286 H 186 H 268 H Hemoglobin A1c Calcium AST ALT Troponin T NT-Pro-B Natriuret Pep Albumin 07/12/21 07/12/21 07/13/21 16:09 21:25 06:11 RBC Hgb Hct RDW Lymph % (Auto) [place] % (Auto) Lymph # (Auto) Seg Neutrophils % Seg Neutrophils # Sodium 133 L Potassium Chloride 93.8 L Carbon Dioxide BUN 76 H Creatinine 3.9 H Glucose 282 H POC Glucose 205 H 285 H Hemoglobin A1c Calcium AST ALT Troponin T NT-Pro-B Natriuret Pep Albumin 07/13/21 07/13/21 07/13/21 06:11 07:31 12:27 RBC Hgb 7.3 L Hct 22.0 L RDW Lymph % (Auto) [place] % (Auto) Lymph # (Auto) Seg Neutrophils % Seg Neutrophils # Sodium Potassium Chloride Carbon Dioxide BUN Creatinine Glucose POC Glucose 246 H 381 H Hemoglobin A1c Calcium AST ALT Troponin T NT-Pro-B Natriuret Pep Albumin 07/13/21 07/13/21 07/14/21 16:36 21:49 04:59 RBC Hgb Hct RDW Lymph % (Auto) [place] % (Auto) Lymph # (Auto) Seg Neutrophils % Seg Neutrophils # Sodium 132 L Potassium Chloride 94.8 L Carbon Dioxide BUN 87 H Creatinine 3.8 H Glucose 153 H POC Glucose 226 H 183 H Hemoglobin A1c Calcium AST ALT Troponin T NT-Pro-B Natriuret Pep Albumin 07/14/21 07/14/21 07/14/21 07:17 11:47 16:03 RBC Hgb Hct RDW Lymph % (Auto) [place] % (Auto) Lymph # (Auto) Seg Neutrophils % Seg Neutrophils # Sodium Potassium Chloride Carbon Dioxide BUN Creatinine Glucose POC Glucose 200 H 343 H 292 H Hemoglobin A1c Calcium AST ALT Troponin T NT-Pro-B Natriuret Pep Albumin 07/14/21 07/14/21 07/15/21 16:45 21:06 06:35 RBC Hgb Hct RDW Lymph % (Auto) [place] % (Auto) Lymph # (Auto) Seg Neutrophils % Seg Neutrophils # Sodium 136 L Potassium Chloride Carbon Dioxide BUN 97 H Creatinine 3.7 H Glucose 126 H POC Glucose 213 H 336 H Hemoglobin A1c Calcium 8.3 L AST ALT Troponin T NT-Pro-B Natriuret Pep Albumin 07/15/21 07/15/21 07:15 11:31 RBC Hgb Hct RDW Lymph % (Auto) [place] % (Auto) Lymph # (Auto) Seg Neutrophils % Seg Neutrophils # Sodium Potassium Chloride Carbon Dioxide BUN Creatinine Glucose POC Glucose 123 H 283 H Hemoglobin A1c Calcium AST ALT Troponin T NT-Pro-B Natriuret Pep Albumin
[2021-07-15] MEDS ORDERED: EPOETIN ALFA-EPBX 10,000 UNIT/1 ML VIAL SUB-Q PRN (12:11)
[2021-07-15] MEDS ORDERED: HEPARIN 10,000 UNITS/10 ML VIAL IV PRN (12:11)
[2021-07-15] MEDS ORDERED: SODIUM CHLORIDE 0.9% 100 ML IV PRN (12:11)
--- NOTE | 2021-07-15 12:11 | Event Note ---
Date: 07/15/21 Hemodialysis consent obtained from patient.
[2021-07-15] MEDS ORDERED: HEPARIN/NS 5000 UNIT/500ML 500 ML IR ONE (14:13)
[2021-07-15] MEDS ORDERED: LIDOCAINE (2%) 20 MG/1 ML VIAL 20 ML MDV INFILTRATI ONE (14:14)
[2021-07-15] MEDS ORDERED: ceFAZolin/Water 2 GM/20 ML 2 GM/20 ML SYRINGE IV ONE (14:15)
[2021-07-15] MEDS ORDERED: SODIUM CHLORIDE 0.9% 250ML 250 ML ONE (14:16)
--- NOTE | 2021-07-15 14:39 | Consultation ---
History of Present Illness - Reason for Consult Consult date: 07/15/21 Permacath Insertion Requesting physician: AMADEO RYDER - History of Present Illness The patient is a 81-year-old male with history of diabetes mellitus, congestive heart failure, and stage V chronic renal sufficiency who presented with nausea, vomiting, and diarrhea. He has complaints of difficulty sleeping secondary to orthopnea today recently started and has worsened over the last several days. Since his admission to the hospital there has been an attempt to manage him with medical management however this has failed and it is felt that he requires dialysis. He was initially refusing hemodialysis however he is finally consented to dialysis. He has no additional complaints at this time. Past History Past Medical History: anemia, diabetes, heart failure, hypertension, renal failure Medications and Allergies Allergies Allergy/AdvReac Type Severity Reaction Status Date / Time No Known Allergies Allergy Verified 07/08/21 09:37 Home Medications Medication Instructions Recorded Confirmed Last Taken Type Fenofibrate [Tricor] 145 mg PO QDAY 03/11/15 07/09/21 03/11/15 History traMADoL [Ultram 50 MG tab] 50 mg PO Q8H PRN 03/11/15 07/09/21 Unknown History Aspirin EC [Halfprin EC] 81 mg PO QDAY #30 tablet. 02/05/20 07/09/21 Unknown Rx Insulin NPH, Human [NovoLIN N] 14 unit SUB-Q BIDDIAB #1 vial 02/05/20 07/09/21 Unknown Rx Insulin Regular, Human [HumuLIN R] 0 unit SUB-Q ACHS #1 vial 02/05/20 07/09/21 Unknown Rx amLODIPine 10 mg PO DAILY #30 tablet 02/05/20 07/09/21 Unknown Rx Active Meds: Active Medications Acetaminophen (Acetaminophen 325 Mg Tab) 650 mg PO Q4H PRN PRN Reason: Pain MILD(1-3)/Fever >100.5/MERCER Last Admin: 07/10/21 05:00 Dose: 650 mg Aspirin (Aspirin Ec 81 Mg Tab) 81 mg PO QDAY [facility] Last Admin: 07/15/21 09:59 Dose: 81 mg Bumetanide (Bumetanide 2.5 Mg/10 Ml Vial) 4 mg IV DAILY [facility] Last Admin: 07/15/21 11:46 Dose: 4 mg Carvedilol (Carvedilol 3.125 Mg Tab) 3.125 mg PO BID [facility] Last Admin: 07/15/21 09:59 Dose: 3.125 mg Epoetin Mika-epbx (Epoetin Mika-Epbx 10,000 Unit/1 Ml Vial) 10,000 unit SUB-Q AMILCAR PRN PRN Reason: hemodialysis Famotidine (Famotidine 10 Mg Tab) 10 mg PO BID [facility] Last Admin: 07/15/21 09:59 Dose: 10 mg Fenofibrate (Fenofibrate 145 Mg Tab) 145 mg PO QDAY [facility] Last Admin: 07/15/21 09:59 Dose: 145 mg Heparin Sodium (Porcine) (Heparin 5,000 Unit/1 Ml Vial) 5,000 unit SUB-Q Q12HR [facility] Last Admin: 07/15/21 09:59 Dose: 5,000 unit Heparin Sodium (Porcine) (Heparin 10,000 Units/10 Ml Vial) 3,000 unit IV AMILCAR PRN PRN Reason: hemodialysis Hydralazine HCl (Hydralazine 25 Mg Tab) 25 mg PO Q8HR [facility] Last Admin: 07/15/21 06:14 Dose: 25 mg Sodium Chloride (Nacl 0.9%) 100 mls @ 999 mls/hr IV AMILCAR PRN PRN Reason: Hypotension Insulin Glargine (Insulin Glargine 100 Units/Ml) [facility] Admin: 07/14/21 21:47 Dose: 40 units Insulin Human Lispro (Insulin Lispro 100 Unit/Ml) 0 unit SUB-Q [facility]; Protocol Last Admin: 07/15/21 12:21 Dose: 6 unit Insulin Human Regular (Insulin Regular, Human 100 Units/1 Ml) 12 units SUB-Q [facility] Last Admin: 07/15/21 12:20 Dose: Not Given Isosorbide Mononitrate (Isosorbide Mononitrate Er 30 Mg Tab) 30 mg PO QDAY [facility] Last Admin: 07/15/21 09:59 Dose: 30 mg Methylprednisolone Sodium Succinate (Methylprednisolone Sod Succinate 125 Mg/2 Ml Inj) 60 mg IV Q6HR [facility] Last Admin: 07/15/21 12:45 Dose: 60 mg Metolazone (Metolazone 2.5 Mg Tab) 2.5 mg PO QDAY [facility] Last Admin: 07/15/21 10:03 Dose: 2.5 mg Morphine Sulfate (Morphine 2 Mg/1 Ml Inj) 2 mg IV Q4H PRN PRN Reason: Pain, Moderate (4-6) Ondansetron HCl (Ondansetron 4 Mg/2 Ml Inj) 4 mg IV Q3H PRN PRN Reason: Nausea And Vomiting Oxycodone/Acetaminophen (Oxycodone /Acetaminophen 5-325mg Tab) 1 tab PO Q6H PRN PRN Reason: Pain, Moderate (4-6) Last Admin: 07/11/21 18:27 Dose: 1 tab Potassium Chloride (Potassium Chloride Er 20 Meq Tab) 40 meq PO QDAY [facility] Last Admin: 07/15/21 09:59 Dose: 40 meq Sodium Chloride (Sodium Chloride 0.9% 10 Ml Flush Syringe) 10 ml IV BID [facility] Last Admin: 07/15/21 10:00 Dose: 10 ml Sodium Chloride (Sodium Chloride 0.9% 10 Ml Flush Syringe) 10 ml IV PRN PRN PRN Reason: LINE FLUSH Tramadol HCl (Tramadol 50 Mg Tab) 50 mg PO Q8H PRN PRN Reason: PAIN Review of Systems All systems: negative Exam - Constitutional Vitals: Temp Pulse Resp BP Pulse Ox 97.6 F 66 18 138/65 100 07/15/21 03:54 07/15/21 06:14 07/15/21 03:54 07/15/21 06:14 07/15/21 08:00 General appearance: Present: no acute distress - Respiratory Respiratory effort: other (Slightly labored) - Cardiovascular Rhythm: regular - Extremities Extremities: no ischemia, normal temperature Extremity abnormal: edema Peripheral Pulses: within normal limits - Abdominal General gastrointestinal: Present: soft, non-tender - Rectal Rectal Exam: deferred Results - Labs CBC & Chem 7: 07/13/21 06:11 07/15/21 06:35 Labs: Abnormal lab results 07/14/21 07/14/21 07/14/21 Range/Units 16:03 16:45 21:06 Sodium (137-145) mmol/L BUN (9-20) mg/dL Creatinine (0.8-1.3) mg/dL Glucose (75-100) mg/dL POC Glucose 292 H 213 H 336 H (70-105) mg/dL Calcium (8.4-10.2) mg/dL 07/15/21 07/15/2122 Range/Units 06:35 07:15 11:31 Sodium 136 L (137-145) mmol/L BUN 97 H (9-20) mg/dL Creatinine 3.7 H (0.8-1.3) mg/dL Glucose 126 H (75-100) mg/dL POC Glucose 123 H 283 H (70-105) mg/dL Calcium 8.3 L (8.4-10.2) mg/dL Assessment and Plan The patient is a 81-year-old male with a history of chronic renal sufficiency who has not progressed to the need for hemodialysis. He will require a permacath for hemodialysis. He has been given the risk, benefits, and alternative procedures and consented to the procedure.
[2021-07-15] MEDS: MIDAZOLAM 2 MG/2 ML INJ ONE ×2 (14:51→14:57)
[2021-07-15] MEDS: fentaNYL 100 MCG/2 ML INJ ONE ×2 (14:51→14:57)
[2021-07-15] MEDS: HEPARIN 10,000 UNITS/10 ML VIAL ONE ×2 (14:52→14:59)
--- NOTE | 2021-07-15 15:08 | Operative Report ---
Operative Report Operative Report: Date of procedure: 07/15/2021 Pre-operative diagnosis: Acute on Chronic Renal Failure Post-operative diagnosis: Same Procedure(s): 1. Ultrasound-Guided Access Right Internal Vein 2. Placement of 23 cm GlidePath Permacath 3. Radiologic Supervision with Interpretation 4. Monitored Moderate Sedation (Total Anesthesia Time: 15 Minutes) Surgeon: Gerard Ag MD Cover Cutter Machine: None Anesthesia: Local/Monitored Moderate Sedation Total Anesthesia Time: 15 Minutes EBL: Minimal Counts: Correct Complications: None Condition: Stable Findings: Successful placement of right IJ permacath with the distal tip in the right atrium and no evidence of pneumothorax at the completion of the case. Specimen: None Indication: The patient is a 81-year-old male with a history of chronic renal insufficiency who presented with orthopnea and exacerbation of his CHF. Medical management was attempted to manage his worsening renal failure and CHF however this was unsuccessful and he is now in need of a permacath for dialysis. He has been given the risk, benefits, and alternative procedures and consented to the procedure. Description of Procedure: The patient was brought to the laboratory geneticist and laid in supine position and the right neck and chest were prepped and draped in normal sterile fashion. Ultrasound was used to identify the right internal jugular vein and the overlying skin and soft tissue was anesthetized with lidocaine. An 11 blade was used to make a small stab incision and a 21-gauge micropuncture needle was used with ultrasound guidance to enter the right internal jugular vein. A 0.018 micropuncture wire was advanced into the inferior vena cava under fluoroscopy and after removing the needle the micropuncture sheath was advanced into the internal jugular vein by Seldinger technique. The wire and inner cannula were removed and a 0.035 J-wire was advanced into the inferior vena cava under direct fluoroscopic visualization. The tract was serially dilated up to a 16 [place] peel-away safety sheath. An exit site on the chest was then chosen and the presumed tunnel was anesthetized with lidocaine. A small stab incision was made on the chest and then the permacath was connected to the tunneler and pulled antegrade through the tunnel. The J-wire and inner cannula were remove from the SafeSheath and the catheter was inserted into the safe sheath. The safe sheath was then peeled away while advancing the catheter. The catheter was positioned under fluoroscopy with the distal tip in the right atrium. Once in adequate position, both ports were aspirated, flushed, and primed with the appropriate amount of heparin. The neck incision was then closed with 4-0 Monocryl in interrupted subcuticular fashion and dressed with Dermabond. The permacath was secured in place with a 2-0 Ethilon in interrupted fashion and dressed with a sterile dressing. Final fluoroscopy demonstrated the catheter was in adequate position with the distal tip in the right atrium and no evidence of pneumothorax. The patient tolerated the procedure well. All sponge, needle, and instrument counts were correct. The patient was taken to recovery in stable condition.
--- NOTE | 2021-07-15 20:24 | Progress Note ---
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 # Elevation of Troponin - in setting of PNA, ADHF, ERSD - will need ischemia work-up via [facility] prior to discharge. Above plans was communicated with primary team by phone this am. Subjective Date of service: 07/15/21 Principal diagnosis: ACUTE DECOMPENSATED HEART FAILURE Interval history: No acute cardiac events; Patient is agreeable for HD. Objective Vital Signs Temp Pulse Resp BP Pulse Ox Pulse Ox 07/15/21 19:17 94 07/15/21 18:15 98.0 F 75 18 156/93 99 07/15/21 18:00 66 150/80 07/15/21 17:45 65 156/82 07/15/21 17:30 65 156/82 07/15/21 17:15 66 142/85 07/15/21 17:00 65 140/78 07/15/21 16:45 65 141/79 07/15/21 16:30 59 L 136/73 07/15/21 16:15 60 119/74 07/15/21 16:00 64 134/74 07/15/21 15:45 64 116/73 07/15/21 15:30 98.2 F 66 18 146/77 98 07/15/21 10:00 96 07/15/21 08:00 100 07/15/21 06:14 66 138/65 07/15/21 03:54 97.6 F 66 18 138/65 95 07/15/21 02:30 95 07/14/21 22:00 100 07/14/21 21:53 73 145/65 07/14/21 20:54 97.9 F 73 18 145/65 100 - Physical Examination General: No Apparent Distress Neck: Positive: JVD/HJR Neuro: Positive: Grossly Intact Abdomen: Positive: Unremarkable Extremities: Present: edema (TRACE), Other (dim. pulses) - Labs and Meds Comprehensive Metabolic Panel 07/15/21 Range/Units 06:35 Sodium 136 L (137-145) mmol/L Potassium 4.3 (3.6-5.0) mmol/L Chloride 98.1 (98-107) mmol/L Carbon Dioxide 23 (22-30) mmol/L BUN 97 H (9-20) mg/dL Creatinine 3.7 H (0.8-1.3) mg/dL Glucose 126 H (75-100) mg/dL Calcium 8.3 L (8.4-10.2) mg/dL - Imaging and Cardiology EKG: report reviewed Echo: report reviewed
[2021-07-15] MEDS: INSULIN GLARGINE 100 UNITS/ML SUB-Q SCH (22:07)
[2021-07-16] MEDS: methylPREDNISolone Sod Succinate 125 MG/2 ML INJ IV SCH ×4 (00:50→17:16)
[2021-07-16] MEDS: INSULIN LISPRO 100 UNIT/ML SUB-Q SCH ×5 (01:19→22:25)
[2021-07-16] MEDS: hydrALAZINE 25 MG TAB PO SCH ×3 (05:53→22:25)
[2021-07-16 06:15] LABS: Hematocrit 23.9 % (35.5-45.6); Hemoglobin 7.9 gm/dl (11.8-15.2)
[2021-07-16 07:03] LABS: Calcium 7.7 mg/dL (8.4-10.2)
--- NOTE | 2021-07-16 07:38 | Progress Note ---
Assessment and Plan - Patient Problems (1) Acute respiratory failure with hypoxia Current Visit: Yes Status: Acute (2) CHF (congestive heart failure) Current Visit: Yes Status: Acute (3) Cardiomyopathy Current Visit: Yes Status: Acute (4) Chronic renal insufficiency Current Visit: Yes Status: Acute (5) IDDM (insulin dependent diabetes mellitus) Current Visit: Yes Status: Chronic Subjective Principal diagnosis: ACUTE DECOMPENSATED HEART FAILURE Interval history: feels tired today wants to go home. overall feels better Objective Vital Signs - 12hr 07/15/21 07/15/21 07/15/21 21:09 21:47 21:48 Temperature 98.7 F Pulse Rate 65 65 65 Respiratory 18 Rate Blood Pressure 127/58 127/60 O2 Sat by Pulse 99 Oximetry 07/15/21 07/16/21 07/16/21 22:00 04:36 05:53 Temperature 97.6 F Pulse Rate 65 65 Respiratory 18 Rate Blood Pressure 146/68 146/68 O2 Sat by Pulse 97 96 Oximetry Constitutional: no acute distress, other (sitting up on side of bed in NAD on o2) Eyes: non-icteric ENT: oropharynx moist Neck: supple Ascultation: Bilateral: diminished breath sounds Cardiovascular: regular rate and rhythm Gastrointestinal: normoactive bowel sounds, soft, non-tender, non-distended Extremities: edema (le) CBC and BMP: 07/16/21 05:15 07/16/21 05:15 Abnormal lab findings: Abnormal Labs 07/08/21 07/08/21 07/08/21 10:11 10:11 10:11 RBC 2.83 L Hgb 8.0 L Hct 24.6 L RDW 16.9 H Lymph % (Auto) 4.9 L [place] % (Auto) 7.8 H Lymph # (Auto) 0.5 L Seg Neutrophils % 87.3 H Seg Neutrophils # 9.4 H Sodium Potassium Chloride 97.1 L Carbon Dioxide 16 L BUN 59 H Creatinine 3.8 H Glucose 290 H POC Glucose Hemoglobin A1c Calcium 8.3 L AST 934 H ALT 559 H Troponin T 0.176 H* NT-Pro-B Natriuret Pep 06451 H Albumin 3.3 L 07/08/21 07/08/21 07/08/21 13:38 14:14 22:21 RBC Hgb Hct RDW Lymph % (Auto) [place] % (Auto) Lymph # (Auto) Seg Neutrophils % Seg Neutrophils # Sodium Potassium Chloride Carbon Dioxide BUN Creatinine Glucose POC Glucose 309 H Hemoglobin A1c Calcium AST ALT Troponin T 0.211 H* 0.182 H* NT-Pro-B Natriuret Pep Albumin 07/09/21 07/09/21 07/09/21 06:24 06:24 06:24 RBC 2.54 L Hgb 7.1 L Hct 21.5 L RDW 16.7 H Lymph % (Auto) 9.8 L [place] % (Auto) 7.9 H Lymph # (Auto) 0.9 L Seg Neutrophils % 82.2 H Seg Neutrophils # Sodium Potassium Chloride Carbon Dioxide BUN 71 H Creatinine 4.1 H Glucose POC Glucose Hemoglobin A1c 6.5 H Calcium 7.7 L AST 1028 H ALT 782 H Troponin T NT-Pro-B Natriuret Pep Albumin 3.3 L 07/09/21 07/09/21 07/09/21 11:50 17:20 21:26 RBC Hgb Hct RDW Lymph % (Auto) [place] % (Auto) Lymph # (Auto) Seg Neutrophils % Seg Neutrophils # Sodium Potassium Chloride Carbon Dioxide BUN Creatinine Glucose POC Glucose 167 H 122 H 192 H Hemoglobin A1c Calcium AST ALT Troponin T NT-Pro-B Natriuret Pep Albumin 07/10/21 07/10/21 07/10/21 06:50 08:08 10:27 RBC 2.54 L Hgb 7.1 L Hct 22.1 L RDW 16.2 H Lymph % (Auto) 7.6 L [place] % (Auto) Lymph # (Auto) 0.7 L Seg Neutrophils % 86.7 H Seg Neutrophils # Sodium Potassium Chloride Carbon Dioxide BUN 79 H Creatinine 4.0 H Glucose 187 H POC Glucose 168 H Hemoglobin A1c Calcium 8.0 L AST ALT Troponin T NT-Pro-B Natriuret Pep Albumin 07/10/21 07/10/21 07/10/21 11:18 17:17 22:04 RBC Hgb Hct RDW Lymph % (Auto) [place] % (Auto) Lymph # (Auto) Seg Neutrophils % Seg Neutrophils # Sodium Potassium Chloride Carbon Dioxide BUN Creatinine Glucose POC Glucose 260 H 141 H 192 H Hemoglobin A1c Calcium AST ALT Troponin T NT-Pro-B Natriuret Pep Albumin 07/11/21 07/11/21 07/11/21 07:35 09:51 11:05 RBC Hgb Hct RDW Lymph % (Auto) [place] % (Auto) Lymph # (Auto) Seg Neutrophils % Seg Neutrophils # Sodium Potassium 3.1 L Chloride 96.8 L Carbon Dioxide BUN 73 H Creatinine 4.1 H Glucose 154 H POC Glucose 51 L 160 H Hemoglobin A1c Calcium 8.2 L AST ALT Troponin T NT-Pro-B Natriuret Pep Albumin 07/11/21 07/11/21 07/12/21 16:03 21:21 11:27 RBC Hgb Hct RDW Lymph % (Auto) [place] % (Auto) Lymph # (Auto) Seg Neutrophils % Seg Neutrophils # Sodium Potassium Chloride Carbon Dioxide BUN Creatinine Glucose POC Glucose 286 H 186 H 268 H Hemoglobin A1c Calcium AST ALT Troponin T NT-Pro-B Natriuret Pep Albumin 07/12/21 07/12/21 07/13/21 16:09 21:25 06:11 RBC Hgb Hct RDW Lymph % (Auto) [place] % (Auto) Lymph # (Auto) Seg Neutrophils % Seg Neutrophils # Sodium 133 L Potassium Chloride 93.8 L Carbon Dioxide BUN 76 H Creatinine 3.9 H Glucose 282 H POC Glucose 205 H 285 H Hemoglobin A1c Calcium AST ALT Troponin T NT-Pro-B Natriuret Pep Albumin 07/13/21 07/13/21 07/13/21 06:11 07:31 12:27 RBC Hgb 7.3 L Hct 22.0 L RDW Lymph % (Auto) [place] % (Auto) Lymph # (Auto) Seg Neutrophils % Seg Neutrophils # Sodium Potassium Chloride Carbon Dioxide BUN Creatinine Glucose POC Glucose 246 H 381 H Hemoglobin A1c Calcium AST ALT Troponin T NT-Pro-B Natriuret Pep Albumin 07/13/21 07/13/21 07/14/21 16:36 21:49 04:59 RBC Hgb Hct RDW Lymph % (Auto) [place] % (Auto) Lymph # (Auto) Seg Neutrophils % Seg Neutrophils # Sodium 132 L Potassium Chloride 94.8 L Carbon Dioxide BUN 87 H Creatinine 3.8 H Glucose 153 H POC Glucose 226 H 183 H Hemoglobin A1c Calcium AST ALT Troponin T NT-Pro-B Natriuret Pep Albumin 07/14/21 07/14/21 07/14/21 07:17 11:47 16:03 RBC Hgb Hct RDW Lymph % (Auto) [place] % (Auto) Lymph # (Auto) Seg Neutrophils % Seg Neutrophils # Sodium Potassium Chloride Carbon Dioxide BUN Creatinine Glucose POC Glucose 200 H 343 H 292 H Hemoglobin A1c Calcium AST ALT Troponin T NT-Pro-B Natriuret Pep Albumin 07/14/21 07/14/21 07/15/21 16:45 21:06 06:35 RBC Hgb Hct RDW Lymph % (Auto) [place] % (Auto) Lymph # (Auto) Seg Neutrophils % Seg Neutrophils # Sodium 136 L Potassium Chloride Carbon Dioxide BUN 97 H Creatinine 3.7 H Glucose 126 H POC Glucose 213 H 336 H Hemoglobin A1c Calcium 8.3 L AST ALT Troponin T NT-Pro-B Natriuret Pep Albumin 07/15/21 07/15/21 07/15/21 07:15 11:31 18:17 RBC Hgb Hct RDW Lymph % (Auto) [place] % (Auto) Lymph # (Auto) Seg Neutrophils % Seg Neutrophils # Sodium Potassium Chloride Carbon Dioxide BUN Creatinine Glucose POC Glucose 123 H 283 H 136 H Hemoglobin A1c Calcium AST ALT Troponin T NT-Pro-B Natriuret Pep Albumin 07/15/21 07/16/21 07/16/21 21:12 05:15 05:15 RBC Hgb 7.9 L Hct 23.9 L RDW Lymph % (Auto) [place] % (Auto) Lymph # (Auto) Seg Neutrophils % Seg Neutrophils # Sodium Potassium Chloride 97.8 L Carbon Dioxide BUN 63 H Creatinine 2.7 H Glucose 196 H POC Glucose 224 H Hemoglobin A1c Calcium 7.7 L AST ALT Troponin T NT-Pro-B Natriuret Pep Albumin
--- NOTE | 2021-07-16 07:50 | Progress Note ---
Assessment and Plan Assessment and plan: Hospital Course: 07/09: Would benefit from volume removal. D/w nephrology who states that patient has declined hemodialysis for some time. Initiated on lasix IV therapy. Will potentially need to revisit hemodialysis with patient tomorrow. Cardiology consulted. awaiting recommendations. Patient is unvaccinated for coronavirus, pcr test ordered. Continue abx/steroids at this time. 07/10: Placed on hfnc 35/95 ovn. Still significant pulm edema on cxr. Will order bumex 4 mg iv x 2. Patient still hesitant but more open today about HD .... will revisit over weekend. 07/11: Refused bipap overnight. ct chest ordered today. Bumex 4 mg IV for this AM given as patient did not get PM dose. Will order additional dose in PM. Re- assess pulmonary status tomorrow. Will follow pulmonary and nephro recommendations. 07/12: Ordered additional two doses of bumex 4 mg IV. D/w pulmonary this AM, CT consistent with emphysema and chronic lung disease with likely superimposed edema. Not stable for biopsy. Pulmonary doubts infectious etiology...has initiated solumedrol 60mg IV q6h and will consider pulse dose steroids next week. 07/13: Slight improvement in respiratory status. HFNC 25/70. Continue diuresis with Bumex scheduled for 4 mg IV daily. NET -400 cc yesterday. Continue steroi ds. CXR ordered for AM. Will follow subspecialist recs. Lantus increased for better glycemic control in the setting of steroid tx. 07/14: Oxygen weaned down to 3 L/min. We will continue with current care. Patient still does not want to initiate hemodialysis at this time. 07/15: Patient stable. Discussed option of hemodialysis. Patient is more receptive and will make a decision once Nephrology rounds. 07/16: Patient s/p HD yesterday. We will continue per nephrology recommendations. Assessment and Plan: #Acute respiratory failure with hypoxia -multifactorial, CHF in the setting of oliguria/CKD 5 and advanced COPD/emphysema -current O2 requirement: 2 L nasal cannula, will continue wean as tolerated -coronavirus pcr negative -CXR: interstitial edema -CT findings as below. -Continue solumedrol 60 mg IV q6hr. -Bumex 4 mg IV bid -Pulmonology following, assistance appreciated. #Advanced COPD/Emphysema -CT consistent with emphysema and chronic lung disease with likely superimposed edema -significant smoking history -Differential includes DIP, RBILD or NSIP. -per pulmonary not stable for biopsy -Continue steroids as above #Volume overload - Nephrology consulted - reassess daily - BL pleural effusions noted, rt > left - may consider thoracentesis if respiratory status worsens #Acute decompensated heart failure with reduced ejection fraction -elevated bnp on admission 69K -TTE demonstrates reduced EF of 25. -diuresis as above with bumex -strict ins and outs; fluid restrict to less than 1.5L daily -Patient will need cardiac cath at future date when more stable -Cardiology following, assistance appreciated #Bilateral pneumonia -ruled out, abx discontinued -opacities likely secondary to pulmonary edema/volume overload #history of chronic kidney disease stage V #ESRD -Right IJ TDC placed 07/15/21 -HD initiated with 1 L removed yesterday; will continue pending nephrology recommendations -will renally dose medications and avoid nephrotoxic agents -Case management made aware for outpatient HD chair -Nephrology following, assistance appreciated #Type 2 diabetes with hyperglycemia -Hyperglycemia likely secondary to steroid administration -continue basal bolus insulin regimen -correctional insulin -accuchecks ac/hs. #Hypertension -continue antihypertensives and adjust medications #Hypokalemia -We will continue to monitor #Hyperlipidemia -Continue statin #Anemia - Secondary to end-stage renal disease - Hgb 7.9 - Epogen as per nephrology History Interval history: No acute events overnight. Tolerated hemodialysis yesterday. Endorses fatigue. No other complaints at this time. Hospitalist Physical - Physical exam Narrative exam: GENERAL: Thin elderly male. In no acute distress. HEENT: Nasal cannula in place @2lpm CHEST/LUNGS: Coarse breath sound bilaterally HEART/CARDIOVASCULAR: RRR. No murmur, rubs or gallops appreciated. ABDOMEN: +BS. NT/ND. SKIN: No rashes noted. NEURO: No focal motor deficit. Follows all commands. MUSCULOSKELETAL: No joint effusion EXTREMITIES: No cyanosis, clubbing or edema. PSYCH: Cooperative. - Constitutional Vitals: Temp Pulse Resp BP Pulse Ox 97.6 F 65 18 146/68 96 07/16/21 04:36 07/16/21 05:53 07/16/21 04:36 07/16/21 05:53 07/16/21 04:36 General appearance: Present: no acute distress HEART Score - HEART Score Troponin: Troponin T 0.182 ng/mL (0.00-0.029) H* 07/08/21 14:14 Results - Labs CBC & Chem 7: 07/16/21 05:15 07/16/21 05:15 Labs: Laboratory Last Values WBC 8.6 K/mm3 (4.5-11.0) 07/10/21 10:27 RBC 2.54 M/mm3 (3.65-5.03) L 07/10/21 10:27 Hgb 7.9 gm/dl (11.8-15.2) L 07/16/21 05:15 Hct 23.9 % (35.5-45.6) L 07/16/21 05:15 MCV 87 fl (84-94) 07/10/21 10:27 MCH 28 pg (28-32) 07/10/21 10:27 MCHC 32 % (32-34) 07/10/21 10:27 RDW 16.2 % (13.2-15.2) H 07/10/21 10:27 Plt Count 202 K/mm3 (140-440) 07/10/21 10:27 Lymph % (Auto) 7.6 % (13.4-35.0) L 07/10/21 10:27 [place] % (Auto) 5.0 % (0.0-7.3) 07/10/21 10:27 Eos % (Auto) 0.1 % (0.0-4.3) 07/10/21 10:27 Baso % (Auto) 0.6 % (0.0-1.8) 07/10/21 10:27 Lymph # (Auto) 0.7 K/mm3 (1.2-5.4) L 07/10/21 10:27 [place] # (Auto) 0.4 K/mm3 (0.0-0.8) 07/10/21 10:27 Eos # (Auto) 0.0 K/mm3 (0.0-0.4) 07/10/21 10:27 Baso # (Auto) 0.1 K/mm3 (0.0-0.1) 07/10/21 10:27 Seg Neutrophils % 86.7 % (40.0-70.0) H 07/10/21 10:27 Seg Neutrophils # 7.5 K/mm3 (1.8-7.7) 07/10/21 10:27 Sodium 137 mmol/L (137-145) 07/16/21 05:15 Potassium 4.2 mmol/L (3.6-5.0) 07/16/21 05:15 Chloride 97.8 mmol/L (98-107) L 07/16/21 05:15 Carbon Dioxide 26 mmol/L (22-30) 07/16/21 05:15 Anion Gap 17 mmol/L 07/16/21 05:15 BUN 63 mg/dL (9-20) H 07/16/21 05:15 Creatinine 2.7 mg/dL (0.8-1.3) H 07/16/21 05:15 Estimated GFR 28 ml/min 07/16/21 05:15 BUN/Creatinine Ratio 23 % 07/16/21 05:15 Glucose 196 mg/dL (75-100) H 07/16/21 05:15 POC Glucose 198 mg/dL (70-105) H 07/16/21 07:40 Hemoglobin A1c 6.5 % (4-6) H 07/09/21 06:24 Calcium 7.7 mg/dL (8.4-10.2) L 07/16/21 05:15 Total Bilirubin 0.40 mg/dL (0.1-1.2) 07/09/21 06:24 AST 1028 units/L (5-40) H 07/09/21 06:24 ALT 782 units/L (7-56) H 07/09/21 06:24 Alkaline Phosphatase 63 units/L (35-129) 07/09/21 06:24 Troponin T 0.182 ng/mL (0.00-0.029) H* 07/08/21 14:14 NT-Pro-B Natriuret Pep 58089 pg/mL (0-900) H 07/08/21 10:11 Total Protein 6.8 g/dL (6.3-8.2) 07/09/21 06:24 Albumin 3.3 g/dL (3.9-5) L 07/09/21 06:24 Albumin/Globulin Ratio 0.9 % 07/09/21 06:24 Triglycerides 102 mg/dL (2-149) 07/08/21 10:11 Cholesterol 176 mg/dL (50-199) 07/08/21 10:11 LDL Cholesterol Direct 109 mg/dL (50-130) 07/08/21 10:11 HDL Cholesterol 44 mg/dL (40-59) 07/08/21 10:11 Cholesterol/HDL Ratio 4.00 % 07/08/21 10:11 Lipase 26 units/L (13-60) 07/08/21 10:11 Procalcitonin 27.64 ng/mL (<0.15) 07/09/21 07:35 Urine Color Straw (Yellow) 07/08/21 23:22 Urine Turbidity Clear (Clear) 07/08/21 23:22 Urine pH 7.0 (5.0-7.0) 07/08/21 23:22 Ur Specific [place] 1.009 (1.003-1.030) 07/08/21 23:22 Urine Protein 100 mg/dl mg/dL (Negative) 07/08/21 23:22 Urine Glucose (UA) Neg mg/dL (Negative) 07/08/21 23:22 Urine Ketones Neg mg/dL (Negative) 07/08/21 23:22 Urine Blood Sm (Negative) 07/08/21 23:22 Urine Nitrite Neg (Negative) 07/08/21 23:22 Urine Bilirubin Neg (Negative) 07/08/21 23:22 Urine Urobilinogen < 2.0 mg/dL (<2.0) 07/08/21 23:22 Ur Leukocyte Esterase Neg (Negative) 07/08/21 23:22 Urine WBC (Auto) < 1.0 /HPF (0.0-6.0) 07/08/21 23:22 Urine RBC (Auto) < 1.0 /HPF (0.0-6.0) 07/08/21 23:22 Urine Mucus Few /HPF 07/08/21 23:22 Coronavirus (PCR) Negative (Negative) 07/09/21 08:10 Hepatitis A IgM Ab Non-reactive (NonReactive) 07/08/21 13:38 Hep Bs Antigen Non-reactive (Negative) 07/08/21 13:38 Hep B Core IgM Ab Non-reactive (NonReactive) 07/08/21 13:38 Hepatitis C Antibody Non-reactive (NonReactive) 07/08/21 13:38 Suazo/IV: Voiding Method Urinal Active Medications - Current Medications Current Medications: Generic Name Dose Route Start Last Admin Trade Name Freq PRN Reason Stop Dose Admin Acetaminophen 650 mg 07/08/21 16:33 07/10/21 05:00 Acetaminophen 325 Mg Tab PO 650 mg Q4H PRN Administration Pain MILD(1-3)/Fever >100.5/MERCER Aspirin 81 mg 07/08/21 17:00 07/15/21 09:59 Aspirin Ec 81 Mg Tab PO 81 mg QDAY ALEXIA Administration Bumetanide 4 mg 07/15/21 10:15 07/15/21 11:46 Bumetanide 2.5 Mg/10 Ml Vial IV 4 mg DAILY ALEXIA Administration Carvedilol 3.125 mg 07/11/21 22:00 07/15/21 21:47 Carvedilol 3.125 Mg Tab PO 3.125 mg BID ALEXIA Administration Epoetin Mika-epbx 10,000 unit 07/15/21 12:11 Epoetin Mika-Epbx 10,000 Unit/1 Ml Vial SUB-Q AMILCAR PRN hemodialysis Famotidine 10 mg 07/08/21 22:00 07/15/21 21:46 Famotidine 10 Mg Tab PO 10 mg BID ALEXIA Administration Fenofibrate 145 mg 07/08/21 17:00 07/15/21 09:59 Fenofibrate 145 Mg Tab PO 145 mg QDAY ALEXIA Administration Heparin Sodium (Porcine) 5,000 unit 07/08/21 22:00 07/15/21 21:48 Heparin 5,000 Unit/1 Ml Vial SUB-Q 5,000 unit Q12HR ALEXIA Administration Heparin Sodium (Porcine) 3,000 unit 07/15/21 12:11 Heparin 10,000 Units/10 Ml Vial IV AMILCAR PRN hemodialysis Hydralazine HCl 25 mg 07/13/21 14:00 07/16/21 05:53 Hydralazine 25 Mg Tab PO 25 mg Q8HR ALEXIA Administration Sodium Chloride 100 mls @ 999 mls/hr 07/15/21 12:11 Nacl 0.9% IV AMILCAR PRN Hypotension Insulin Glargine 40 units 07/14/21 22:00 07/15/21 22:07 Insulin Glargine 100 Units/Ml SUB-Q 40 units QHS ALEXIA Administration Insulin Human Lispro 0 unit 07/08/21 22:00 07/16/21 01:19 Insulin Lispro 100 Unit/Ml SUB-Q Not Given [facility] Protocol Insulin Human Regular 12 units 07/14/21 16:30 07/15/21 22:06 Insulin Regular, Human 100 Units/1 Ml SUB-Q 12 units [facility]S [facility] Administration Isosorbide Mononitrate 30 mg 07/09/21 12:00 07/15/21 09:59 Isosorbide Mononitrate Er 30 Mg Tab PO 30 mg QDAY [facility] Administration Methylprednisolone Sodium Succinate 60 mg 07/12/21 12:00 07/16/21 05:52 Methylprednisolone Sod Succinate 125 Mg/2 Ml Inj IV 60 mg Q6HR [facility] Administration Metolazone 2.5 mg 07/13/21 11:00 07/15/21 10:03 Metolazone 2.5 Mg Tab PO 2.5 mg QDAY [facility] Administration Morphine Sulfate 2 mg 07/08/21 16:40 Morphine 2 Mg/1 Ml Inj IV Q4H PRN Pain, Moderate (4-6) Ondansetron HCl 4 mg 07/08/21 16:33 Ondansetron 4 Mg/2 Ml Inj IV Q3H PRN Nausea And Vomiting Oxycodone/Acetaminophen 1 tab 07/08/21 16:40 07/11/21 18:27 Oxycodone /Acetaminophen 5-325mg Tab PO 1 tab Q6H PRN Administration Pain, Moderate (4-6) Potassium Chloride 40 meq 07/12/21 10:00 07/15/21 09:59 Potassium Chloride Er 20 Meq Tab PO 40 meq QDAY [facility] Administration Sodium Chloride 10 ml 07/08/21 22:00 07/15/21 21:53 Sodium Chloride 0.9% 10 Ml Flush Syringe IV 10 ml BID ALEXIA Administration Sodium Chloride 10 ml 07/08/21 16:33 Sodium Chloride 0.9% 10 Ml Flush Syringe IV PRN PRN LINE FLUSH Tramadol HCl 50 mg 07/08/21 16:31 Tramadol 50 Mg Tab PO Q8H PRN PAIN Nutrition/Malnutrition Assess - Dietary Evaluation Nutrition/Malnutrition Findings: Nutrition Notes Start: 07/15/21 17:08 Freq: Status: Active Protocol: Document 07/15/21 17:08 TEJ (Rec: 07/15/21 17:30 TEJ [id number]) Nutrition Notes Need for Assessment generated from: LOS Initial or Follow up Assessment Current Diagnosis CKD (stage V CKD),COPD, Hypertension,Heart Failure, Respiratory Failure, Hyperlipidemia Other Pertinent Diagnosis ESRD/No HD, HFrEF, Enphiosema, Pneumonia, Anemia. Current Diet Renal Diet (since D 07/15). Labs/Tests 07/15: Na 136, BUN 97, Crea 3. 7, Glu 126, Ca 8.3. Pertinent Medications 07/15: Insulin, KCl 40 mEq, others nutritionally unremarkable. Height 5 ft 11 in Weight 71.3 kg [place] Body Weight (kg) 78.18 BMI 21.9 Intake Prior to Admission Good Weight change and time frame Pt denies having loss body weight ROUND UP RING HAND. Weight Status Appropriate Subjective/Other Information RD consult for LOS assessment. Pt's PO intake of meals has been Good (100%), according to ADL notes. Procedure 07/15: US-guided access R-internal vein, placement of 23 cm GlidePath Permacath. Well tolerated, according to Operative Report. Pt was reluctant to agree with the need for HD until today, according to Consultation notes. Percent of energy/protein needs met: Prescribed Renal Diet provides for energy/protein needs (2, 072 Kcal/77 g) during LOS. Burn Absent Trauma Absent GI Symptoms None Food Allergy No Skin Integrity/Comment Assessment WNL. Current % PO Good (75-100%) Minimum of two criteria No #1 Nutrition Diagnosis No nutrition diagnosis at this time Is patient on ventilator? No Is Patient Ambulatory and/or Out of Bed Yes REE-([facility]-ambulatory/OOB) [ [id number]] Calculation Used for Recommendations [facility] Additional Notes Protein: >1.2 g/Kg ABW; 85 g/ day. Fluids: 1 ml/Kcal, or as per MD. Nutrition Intervention Follow-Up By: 07/22/21 Additional Comments Continue monitoring food tolerance, %PO intake of meals , and BM.
[2021-07-16] MEDS: INSULIN REGULAR, HUMAN 100 UNITS/1 ML SUB-Q SCH ×5 (08:16→22:31)
[2021-07-16] MEDS: carvediloL 3.125 MG TAB PO SCH ×2 (09:35→22:24)
[2021-07-16] MEDS: POTASSIUM CHLORIDE ER 20 MEQ TAB PO SCH (09:35)
[2021-07-16] MEDS: BUMETANIDE 2.5 MG/10 ML VIAL IV SCH (09:35)
[2021-07-16] MEDS: FENOFIBRATE 145 MG TAB PO SCH (09:35)
[2021-07-16] MEDS: metOLazone 2.5 MG TAB PO SCH (09:35)
[2021-07-16] MEDS: FAMOTIDINE 10 MG TAB PO SCH ×2 (09:35→22:25)
[2021-07-16] MEDS: HEPARIN 5,000 UNIT/1 ML VIAL SUB-Q SCH ×2 (09:36→22:25)
[2021-07-16] MEDS: ASPIRIN EC 81 MG TAB PO SCH (09:39)
--- NOTE | 2021-07-16 10:02 | Progress Note ---
Assessment and Plan 1. ESRD / CKD 5: Known h/o advanced CKD now stage 5. Admitted with volume overload and metabolic acidosis. Patient agreed to proceed with hemodialysis Vascular consulted for hemodialysis catheter placement. Hemodialysis: 07/15. HD today. 2. FEN: Anion-gap Metabolic acidosis, 2/2 CKD, monitor. Volume overload, UF with HD, IV Bumex and Metolazone. Monitor lytes and volume status. 3. Acute hypoxic resp failure, POA: 2/2 volume overload / pulmonary edema / PNA. On NC O2. Monitor. 4. PNA, POA: S/p Abx. Covid-19 test negative. 5. Suspected CHF: Echo 25-30%. 6. DM-2: 7. Normocytic Anemia, POA: Chronic. Epogen with HD. Monitor. 8. Hypertension: Volume control. Continue home BP meds. Monitor BP. Subjective: Patient was seen and examined at the bedside. Examination: General appearance: well-developed, appears stated age, no distress, on NC O2 HEENT: atraumatic, JAE Neck: trachea midline Respiratory: ctab Heart: S1S2, regular, no murmur Abdomen: soft, bowel sounds heard, NT Integumentary: no obvious rash Neurologic: AO, able to move extremities Ext: no edema Subjective Date of service: 07/16/21 Principal diagnosis: ACUTE DECOMPENSATED HEART FAILURE Objective - Vital Signs Vital signs: Vital Signs - 12hr 07/16/21 07/16/21 04:36 05:53 Temperature 97.6 F Pulse Rate 65 65 Respiratory 18 Rate Blood Pressure 146/68 146/68 O2 Sat by Pulse 96 Oximetry - Lab 07/16/21 05:15 07/16/21 05:15 Most recent lab results Calcium 7.7 mg/dL (8.4-10.2) L 07/16/21 05:15 Medications & Allergies - Medications Allergies/Adverse Reactions: Allergies No Known Allergies Allergy (Verified 07/08/21 09:37) per patient Home Medications: Home Medications Medication Instructions Recorded Confirmed Last Taken Type Fenofibrate [Tricor] 145 mg PO QDAY 03/11/15 07/09/21 03/11/15 History traMADoL [Ultram 50 MG tab] 50 mg PO Q8H PRN 03/11/15 07/09/21 Unknown History Aspirin EC [Halfprin EC] 81 mg PO QDAY #30 tablet. 02/05/20 07/09/21 Unknown Rx Insulin NPH, Human [NovoLIN N] 14 unit SUB-Q BIDDIAB #1 vial 02/05/20 07/09/21 Unknown Rx Insulin Regular, Human [HumuLIN R] 0 unit SUB-Q ACHS #1 vial 02/05/20 07/09/21 Unknown Rx amLODIPine 10 mg PO DAILY #30 tablet 02/05/20 07/09/21 Unknown Rx Active Medications: Generic Name Dose Route Start Last Admin Trade Name Freq PRN Reason Stop Dose Admin Acetaminophen 650 mg 07/08/21 16:33 07/10/21 05:00 Acetaminophen 325 Mg Tab PO 650 mg Q4H PRN Administration Pain MILD(1-3)/Fever >100.5/MERCER Aspirin 81 mg 07/08/21 17:00 07/16/21 09:39 Aspirin Ec 81 Mg Tab PO 81 mg QDAY ALEXIA Administration Bumetanide 4 mg 07/15/21 10:15 07/16/21 09:35 Bumetanide 2.5 Mg/10 Ml Vial IV 4 mg DAILY ALEXIA Administration Carvedilol 3.125 mg 07/11/21 22:00 07/16/21 09:35 Carvedilol 3.125 Mg Tab PO 3.125 mg BID ALEXIA Administration Epoetin Mika-epbx 10,000 unit 07/15/21 12:11 Epoetin Mika-Epbx 10,000 Unit/1 Ml Vial SUB-Q AMILCAR PRN hemodialysis Famotidine 10 mg 07/08/21 22:00 07/16/21 09:35 Famotidine 10 Mg Tab PO 10 mg BID ALEXIA Administration Fenofibrate 145 mg 07/08/21 17:00 07/16/21 09:35 Fenofibrate 145 Mg Tab PO 145 mg QDAY ALEXIA Administration Heparin Sodium (Porcine) 5,000 unit 07/08/21 22:00 07/16/21 09:36 Heparin 5,000 Unit/1 Ml Vial SUB-Q 5,000 unit Q12HR ALEXIA Administration Heparin Sodium (Porcine) 3,000 unit 07/15/21 12:11 Heparin 10,000 Units/10 Ml Vial IV AMILCAR PRN hemodialysis Hydralazine HCl 25 mg 07/13/21 14:00 07/16/21 05:53 Hydralazine 25 Mg Tab PO 25 mg Q8HR ALEXIA Administration Sodium Chloride 100 mls @ 999 mls/hr 07/15/21 12:11 Nacl 0.9% IV AMILCAR PRN Hypotension Insulin Glargine 40 units 07/14/21 22:00 07/15/21 22:07 Insulin Glargine 100 Units/Ml SUB-Q 40 units QHS ALEXIA Administration Insulin Human Lispro 0 unit 07/08/21 22:00 07/16/21 08:15 Insulin Lispro 100 Unit/Ml SUB-Q 3 unit [facility] Administration Protocol Insulin Human Regular 12 units 07/14/21 16:30 07/16/21 08:16 Insulin Regular, Human 100 Units/1 Ml SUB-Q 12 units [facility] Administration Isosorbide Mononitrate 30 mg 07/09/21 12:00 07/16/21 09:35 Isosorbide Mononitrate Er 30 Mg Tab PO 30 mg QDAY [facility] Administration Methylprednisolone Sodium Succinate 60 mg 07/12/21 12:00 07/16/21 05:52 Methylprednisolone Sod Succinate 125 Mg/2 Ml Inj IV 60 mg Q6HR ALEXIA Administration Metolazone 2.5 mg 07/13/21 11:00 07/16/21 09:35 Metolazone 2.5 Mg Tab PO 2.5 mg QDAY [facility] Administration Morphine Sulfate 2 mg 07/08/21 16:40 Morphine 2 Mg/1 Ml Inj IV Q4H PRN Pain, Moderate (4-6) Ondansetron HCl 4 mg 07/08/21 16:33 Ondansetron 4 Mg/2 Ml Inj IV Q3H PRN Nausea And Vomiting Oxycodone/Acetaminophen 1 tab 07/08/21 16:40 07/11/21 18:27 Oxycodone /Acetaminophen 5-325mg Tab PO 1 tab Q6H PRN Administration Pain, Moderate (4-6) Potassium Chloride 40 meq 07/12/21 10:00 07/16/21 09:35 Potassium Chloride Er 20 Meq Tab PO 40 meq QDAY ALEXIA Administration Sodium Chloride 10 ml 07/08/21 22:00 07/16/21 09:36 Sodium Chloride 0.9% 10 Ml Flush Syringe IV 10 ml BID ALEXIA Administration Sodium Chloride 10 ml 07/08/21 16:33 Sodium Chloride 0.9% 10 Ml Flush Syringe IV PRN PRN LINE FLUSH Tramadol HCl 50 mg 07/08/21 16:31 Tramadol 50 Mg Tab PO Q8H PRN PAIN
--- NOTE | 2021-07-16 19:00 | Progress Note ---
Assessment and Plan - Patient Problems (1) Cardiomyopathy Current Visit: Yes Status: Acute (2) CHF (congestive heart failure) Current Visit: Yes Status: Acute Subjective Date of service: 07/16/21 Principal diagnosis: ACUTE DECOMPENSATED HEART FAILURE Interval history: BREATHING BETTER,,,,diffuse aches Objective Vital Signs Temp Pulse Resp BP Pulse Ox Pulse Ox 07/16/21 16:20 98.0 F 79 16 135/67 97 07/16/21 14:18 100 07/16/21 14:00 98.9 F 68 18 136/70 99 07/16/21 13:55 66 104/61 07/16/21 13:45 70 108/56 07/16/21 13:30 68 101/61 07/16/21 13:15 62 121/56 07/16/21 13:00 65 101/61 07/16/21 12:45 58 L 112/64 07/16/21 12:30 69 108/58 07/16/21 12:15 63 123/63 07/16/21 12:00 69 139/69 07/16/21 11:45 64 130/70 07/16/21 11:30 72 140/70 07/16/21 11:15 66 118/72 07/16/21 11:00 72 147/76 07/16/21 10:55 74 151/79 07/16/21 10:46 99.4 F 74 17 151/79 99 07/16/21 10:32 99 07/16/21 10:03 98.1 F 74 20 142/66 99 07/16/21 05:53 65 146/68 07/16/21 04:36 97.6 F 65 18 146/68 96 07/15/21 22:00 97 07/15/21 21:48 65 07/15/21 21:47 65 127/60 07/15/21 21:09 98.7 F 65 18 127/58 99 07/15/21 19:17 94 - Physical Examination General: No Apparent Distress Neck: Positive: JVD/HJR Cardiac: Positive: Reg Rate and Rhythm Lungs: Positive: Decreased Breath Sounds Neuro: Positive: Grossly Intact Abdomen: Positive: Unremarkable Extremities: Present: edema (no), Other (dim. pulses) - Labs and Meds CBC 07/16/21 Range/Units 05:15 Hgb 7.9 L (11.8-15.2) gm/dl Hct 23.9 L (35.5-45.6) % Comprehensive Metabolic Panel 07/16/21 Range/Units 05:15 Sodium 137 (137-145) mmol/L Potassium 4.2 (3.6-5.0) mmol/L Chloride 97.8 L (98-107) mmol/L Carbon Dioxide 26 (22-30) mmol/L BUN 63 H (9-20) mg/dL Creatinine 2.7 H (0.8-1.3) mg/dL Glucose 196 H (75-100) mg/dL Calcium 7.7 L (8.4-10.2) mg/dL - Imaging and Cardiology EKG: report reviewed Echo: report reviewed
[2021-07-16] MEDS: INSULIN GLARGINE 100 UNITS/ML SUB-Q SCH (22:24)
[2021-07-17] MEDS: methylPREDNISolone Sod Succinate 125 MG/2 ML INJ IV SCH ×4 (00:31→17:13)
[2021-07-17] MEDS: hydrALAZINE 25 MG TAB PO SCH ×3 (05:37→22:27)
[2021-07-17 06:32] LABS: Calcium 8.5 mg/dL (8.4-10.2)
--- NOTE | 2021-07-17 07:36 | Progress Note ---
Assessment and Plan - Patient Problems (1) Acute respiratory failure with hypoxia Current Visit: Yes Status: Acute (2) CHF (congestive heart failure) Current Visit: Yes Status: Acute (3) Cardiomyopathy Current Visit: Yes Status: Acute (4) Chronic renal insufficiency Current Visit: Yes Status: Acute (5) IDDM (insulin dependent diabetes mellitus) Current Visit: Yes Status: Chronic Subjective Principal diagnosis: ACUTE DECOMPENSATED HEART FAILURE Interval history: awake. no complaints on o2 3lpm Objective Vital Signs - 12hr 07/16/21 07/16/21 07/16/21 21:03 22:00 22:24 Temperature 98.4 F Pulse Rate 72 72 Respiratory 20 19 Rate Blood Pressure 140/63 140/63 O2 Sat by Pulse 99 100 Oximetry 07/16/21 07/17/21 07/17/21 22:25 00:23 04:37 Temperature 98.1 F Pulse Rate 72 69 70 Respiratory 26 H 16 Rate Blood Pressure 140/63 173/79 O2 Sat by Pulse 100 99 Oximetry 07/17/21 07/17/21 05:20 05:37 Temperature Pulse Rate 70 Respiratory Rate Blood Pressure 173/79 O2 Sat by Pulse 98 Oximetry Constitutional: no acute distress, other (in bed in NAD on o2) Eyes: non-icteric ENT: oropharynx moist Neck: supple Ascultation: Bilateral: diminished breath sounds Cardiovascular: regular rate and rhythm Gastrointestinal: normoactive bowel sounds, soft, non-tender, non-distended Extremities: edema (le) CBC and BMP: 07/16/21 05:15 07/17/21 05:20 Abnormal lab findings: Abnormal Labs 07/08/21 07/08/21 07/08/21 10:11 10:11 10:11 RBC 2.83 L Hgb 8.0 L Hct 24.6 L RDW 16.9 H Lymph % (Auto) 4.9 L Emmet % (Auto) 7.8 H Lymph # (Auto) 0.5 L Seg Neutrophils % 87.3 H Seg Neutrophils # 9.4 H Sodium Potassium Chloride 97.1 L Carbon Dioxide 16 L BUN 59 H Creatinine 3.8 H Glucose 290 H POC Glucose Hemoglobin A1c Calcium 8.3 L AST 934 H ALT 559 H Troponin T 0.176 H* NT-Pro-B Natriuret Pep 17295 H Albumin 3.3 L 07/08/21 07/08/21 07/08/21 13:38 14:14 22:21 RBC Hgb Hct RDW Lymph % (Auto) Emmet % (Auto) Lymph # (Auto) Seg Neutrophils % Seg Neutrophils # Sodium Potassium Chloride Carbon Dioxide BUN Creatinine Glucose POC Glucose 309 H Hemoglobin A1c Calcium AST ALT Troponin T 0.211 H* 0.182 H* NT-Pro-B Natriuret Pep Albumin 07/09/21 07/09/21 07/09/21 06:24 06:24 06:24 RBC 2.54 L Hgb 7.1 L Hct 21.5 L RDW 16.7 H Lymph % (Auto) 9.8 L Emmet % (Auto) 7.9 H Lymph # (Auto) 0.9 L Seg Neutrophils % 82.2 H Seg Neutrophils # Sodium Potassium Chloride Carbon Dioxide BUN 71 H Creatinine 4.1 H Glucose POC Glucose Hemoglobin A1c 6.5 H Calcium 7.7 L AST 1028 H ALT 782 H Troponin T NT-Pro-B Natriuret Pep Albumin 3.3 L 07/09/21 07/09/21 07/09/21 11:50 17:20 21:26 RBC Hgb Hct RDW Lymph % (Auto) Emmet % (Auto) Lymph # (Auto) Seg Neutrophils % Seg Neutrophils # Sodium Potassium Chloride Carbon Dioxide BUN Creatinine Glucose POC Glucose 167 H 122 H 192 H Hemoglobin A1c Calcium AST ALT Troponin T NT-Pro-B Natriuret Pep Albumin 07/10/21 07/10/21 07/10/21 06:50 08:08 10:27 RBC 2.54 L Hgb 7.1 L Hct 22.1 L RDW 16.2 H Lymph % (Auto) 7.6 L Emmet % (Auto) Lymph # (Auto) 0.7 L Seg Neutrophils % 86.7 H Seg Neutrophils # Sodium Potassium Chloride Carbon Dioxide BUN 79 H Creatinine 4.0 H Glucose 187 H POC Glucose 168 H Hemoglobin A1c Calcium 8.0 L AST ALT Troponin T NT-Pro-B Natriuret Pep Albumin 07/10/21 07/10/21 07/10/21 11:18 17:17 22:04 RBC Hgb Hct RDW Lymph % (Auto) Emmet % (Auto) Lymph # (Auto) Seg Neutrophils % Seg Neutrophils # Sodium Potassium Chloride Carbon Dioxide BUN Creatinine Glucose POC Glucose 260 H 141 H 192 H Hemoglobin A1c Calcium AST ALT Troponin T NT-Pro-B Natriuret Pep Albumin 07/11/21 07/11/21 07/11/21 07:35 09:51 11:05 RBC Hgb Hct RDW Lymph % (Auto) Emmet % (Auto) Lymph # (Auto) Seg Neutrophils % Seg Neutrophils # Sodium Potassium 3.1 L Chloride 96.8 L Carbon Dioxide BUN 73 H Creatinine 4.1 H Glucose 154 H POC Glucose 51 L 160 H Hemoglobin A1c Calcium 8.2 L AST ALT Troponin T NT-Pro-B Natriuret Pep Albumin 07/11/21 07/11/21 07/12/21 16:03 21:21 11:27 RBC Hgb Hct RDW Lymph % (Auto) Emmet % (Auto) Lymph # (Auto) Seg Neutrophils % Seg Neutrophils # Sodium Potassium Chloride Carbon Dioxide BUN Creatinine Glucose POC Glucose 286 H 186 H 268 H Hemoglobin A1c Calcium AST ALT Troponin T NT-Pro-B Natriuret Pep Albumin 07/12/21 07/12/21 07/13/21 16:09 21:25 06:11 RBC Hgb Hct RDW Lymph % (Auto) Emmet % (Auto) Lymph # (Auto) Seg Neutrophils % Seg Neutrophils # Sodium 133 L Potassium Chloride 93.8 L Carbon Dioxide BUN 76 H Creatinine 3.9 H Glucose 282 H POC Glucose 205 H 285 H Hemoglobin A1c Calcium AST ALT Troponin T NT-Pro-B Natriuret Pep Albumin 07/13/21 07/13/21 07/13/21 06:11 07:31 12:27 RBC Hgb 7.3 L Hct 22.0 L RDW Lymph % (Auto) Emmet % (Auto) Lymph # (Auto) Seg Neutrophils % Seg Neutrophils # Sodium Potassium Chloride Carbon Dioxide BUN Creatinine Glucose POC Glucose 246 H 381 H Hemoglobin A1c Calcium AST ALT Troponin T NT-Pro-B Natriuret Pep Albumin 07/13/21 07/13/21 07/14/21 16:36 21:49 04:59 RBC Hgb Hct RDW Lymph % (Auto) Emmet % (Auto) Lymph # (Auto) Seg Neutrophils % Seg Neutrophils # Sodium 132 L Potassium Chloride 94.8 L Carbon Dioxide BUN 87 H Creatinine 3.8 H Glucose 153 H POC Glucose 226 H 183 H Hemoglobin A1c Calcium AST ALT Troponin T NT-Pro-B Natriuret Pep Albumin 07/14/21 07/14/21 07/14/21 07:17 11:47 16:03 RBC Hgb Hct RDW Lymph % (Auto) Emmet % (Auto) Lymph # (Auto) Seg Neutrophils % Seg Neutrophils # Sodium Potassium Chloride Carbon Dioxide BUN Creatinine Glucose POC Glucose 200 H 343 H 292 H Hemoglobin A1c Calcium AST ALT Troponin T NT-Pro-B Natriuret Pep Albumin 07/14/21 07/14/21 07/15/21 16:45 21:06 06:35 RBC Hgb Hct RDW Lymph % (Auto) Emmet % (Auto) Lymph # (Auto) Seg Neutrophils % Seg Neutrophils # Sodium 136 L Potassium Chloride Carbon Dioxide BUN 97 H Creatinine 3.7 H Glucose 126 H POC Glucose 213 H 336 H Hemoglobin A1c Calcium 8.3 L AST ALT Troponin T NT-Pro-B Natriuret Pep Albumin 07/15/21 07/15/21 07/15/21 07:15 11:31 18:17 RBC Hgb Hct RDW Lymph % (Auto) Emmet % (Auto) Lymph # (Auto) Seg Neutrophils % Seg Neutrophils # Sodium Potassium Chloride Carbon Dioxide BUN Creatinine Glucose POC Glucose 123 H 283 H 136 H Hemoglobin A1c Calcium AST ALT Troponin T NT-Pro-B Natriuret Pep Albumin 07/15/21 07/16/21 07/16/21 21:12 05:15 05:15 RBC Hgb 7.9 L Hct 23.9 L RDW Lymph % (Auto) Emmet % (Auto) Lymph # (Auto) Seg Neutrophils % Seg Neutrophils # Sodium Potassium Chloride 97.8 L Carbon Dioxide BUN 63 H Creatinine 2.7 H Glucose 196 H POC Glucose 224 H Hemoglobin A1c Calcium 7.7 L AST ALT Troponin T NT-Pro-B Natriuret Pep Albumin 07/16/21 07/16/21 07/16/21 07:40 16:27 21:30 RBC Hgb Hct RDW Lymph % (Auto) Emmet % (Auto) Lymph # (Auto) Seg Neutrophils % Seg Neutrophils # Sodium Potassium Chloride Carbon Dioxide BUN Creatinine Glucose POC Glucose 198 H 227 H 258 H Hemoglobin A1c Calcium AST ALT Troponin T NT-Pro-B Natriuret Pep Albumin 07/17/21 07/17/21 05:20 07:28 RBC Hgb Hct RDW Lymph % (Auto) Emmet % (Auto) Lymph # (Auto) Seg Neutrophils % Seg Neutrophils # Sodium 136 L Potassium Chloride Carbon Dioxide BUN 50 H Creatinine 2.8 H Glucose 182 H POC Glucose 176 H Hemoglobin A1c Calcium AST ALT Troponin T NT-Pro-B Natriuret Pep Albumin
--- NOTE | 2021-07-17 08:09 | Progress Note ---
Assessment and Plan Assessment and plan: Hospital Course: 07/09: Would benefit from volume removal. D/w nephrology who states that patient has declined hemodialysis for some time. Initiated on lasix IV therapy. Will potentially need to revisit hemodialysis with patient tomorrow. Cardiology consulted. awaiting recommendations. Patient is unvaccinated for coronavirus, pcr test ordered. Continue abx/steroids at this time. 07/10: Placed on hfnc 35/95 ovn. Still significant pulm edema on cxr. Will order bumex 4 mg iv x 2. Patient still hesitant but more open today about HD .... will revisit over weekend. 07/11: Refused bipap overnight. ct chest ordered today. Bumex 4 mg IV for this AM given as patient did not get PM dose. Will order additional dose in PM. Re- assess pulmonary status tomorrow. Will follow pulmonary and nephro recommendations. 07/12: Ordered additional two doses of bumex 4 mg IV. D/w pulmonary this AM, CT consistent with emphysema and chronic lung disease with likely superimposed edema. Not stable for biopsy. Pulmonary doubts infectious etiology...has initiated solumedrol 60mg IV q6h and will consider pulse dose steroids next week. 07/13: Slight improvement in respiratory status. HFNC 25/70. Continue diuresis with Bumex scheduled for 4 mg IV daily. NET -400 cc yesterday. Continue steroi ds. CXR ordered for AM. Will follow subspecialist recs. Lantus increased for better glycemic control in the setting of steroid tx. 07/14: Oxygen weaned down to 3 L/min. We will continue with current care. Patient still does not want to initiate hemodialysis at this time. 07/15: Patient stable. Discussed option of hemodialysis. Patient is more receptive and will make a decision once Nephrology rounds. 07/16: Patient s/p HD yesterday. We will continue per nephrology recommendations. 07/17: Tolerated HD yesterday. Will wean O2 as able. Patient currently stable. Assessment and Plan: #Acute respiratory failure with hypoxia -multifactorial, CHF in the setting of oliguria/CKD 5 and advanced COPD/emphysema -current O2 requirement: 2 L nasal cannula, will continue wean as tolerated; anticipate that he will be fine on RA given fluid removal during HD -coronavirus pcr negative -CXR: interstitial edema -CT findings as below. -Continue solumedrol 60 mg IV q6hr. -Bumex 4 mg IV bid -Pulmonology following, assistance appreciated. #Advanced COPD/Emphysema -CT consistent with emphysema and chronic lung disease with likely superimposed edema -significant smoking history -Differential includes DIP, RBILD or NSIP. -per pulmonary not stable for biopsy -Continue steroids as above #Volume overload-improving - Nephrology following for HD - reassess daily - BL pleural effusions noted, rt > left #Acute decompensated heart failure with reduced ejection fraction -elevated bnp on admission 69K -TTE demonstrates reduced EF of 25%. -diuresis as above with bumex -strict ins and outs; fluid restrict to less than 1.5L daily -Patient will need cardiac cath at future date when more stable -Cardiology following, assistance appreciated #Bilateral pneumonia -ruled out, abx discontinued -opacities likely secondary to pulmonary edema/volume overload #history of chronic kidney disease stage V #ESRD -Right IJ TDC placed 07/15/21 -HD initiated with last session 07/16; will continue pending nephrology recommendations -will renally dose medications and avoid nephrotoxic agents -Case management made aware for outpatient HD chair; pending at [facility] -Nephrology following, assistance appreciated #Type 2 diabetes with hyperglycemia -Hyperglycemia likely secondary to steroid administration -continue basal bolus insulin regimen -correctional insulin -accuchecks ac/hs. #Hypertension -continue antihypertensives and adjust medications #Hypokalemia -We will continue to monitor #Hyperlipidemia -Continue statin #Anemia - Secondary to end-stage renal disease - Hgb 7.9 - Epogen as per nephrology History Interval history: No acute events overnight. Tolerated hemodialysis yesterday. Reports feeling well overall. Has some soreness at catheter site. No other complaints at this time. Hospitalist Physical - Physical exam Narrative exam: GENERAL: Thin elderly male. In no acute distress. HEENT: Nasal cannula in place @2lpm CHEST/LUNGS: R sided catheter. Coarse breath sound bilaterally HEART/CARDIOVASCULAR: RRR. No murmur, rubs or gallops appreciated. ABDOMEN: +BS. NT/ND. SKIN: No rashes noted. NEURO: No focal motor deficit. Follows all commands. MUSCULOSKELETAL: No joint effusion EXTREMITIES: No cyanosis, clubbing or edema. PSYCH: Cooperative. - Constitutional Vitals: Temp Pulse Resp BP Pulse Ox 98.1 F 70 16 173/79 98 07/17/21 04:37 07/17/21 05:37 07/17/21 04:37 07/17/21 05:37 07/17/21 05:20 General appearance: Present: no acute distress HEART Score - HEART Score Troponin: Troponin T 0.182 ng/mL (0.00-0.029) H* 07/08/21 14:14 Results - Labs CBC & Chem 7: 07/16/21 05:15 07/17/21 05:20 Labs: Laboratory Last Values WBC 8.6 K/mm3 (4.5-11.0) 07/10/21 10:27 RBC 2.54 M/mm3 (3.65-5.03) L 07/10/21 10:27 Hgb 7.9 gm/dl (11.8-15.2) L 07/16/21 05:15 Hct 23.9 % (35.5-45.6) L 07/16/21 05:15 MCV 87 fl (84-94) 07/10/21 10:27 MCH 28 pg (28-32) 07/10/21 10:27 MCHC 32 % (32-34) 07/10/21 10:27 RDW 16.2 % (13.2-15.2) H 07/10/21 10:27 Plt Count 202 K/mm3 (140-440) 07/10/21 10:27 Lymph % (Auto) 7.6 % (13.4-35.0) L 07/10/21 10:27 [place] % (Auto) 5.0 % (0.0-7.3) 07/10/21 10:27 Eos % (Auto) 0.1 % (0.0-4.3) 07/10/21 10:27 Baso % (Auto) 0.6 % (0.0-1.8) 07/10/21 10:27 Lymph # (Auto) 0.7 K/mm3 (1.2-5.4) L 07/10/21 10:27 [place] # (Auto) 0.4 K/mm3 (0.0-0.8) 07/10/21 10:27 Eos # (Auto) 0.0 K/mm3 (0.0-0.4) 07/10/21 10:27 Baso # (Auto) 0.1 K/mm3 (0.0-0.1) 07/10/21 10:27 Seg Neutrophils % 86.7 % (40.0-70.0) H 07/10/21 10:27 Seg Neutrophils # 7.5 K/mm3 (1.8-7.7) 07/10/21 10:27 Sodium 136 mmol/L (137-145) L 07/17/21 05:20 Potassium 4.7 mmol/L (3.6-5.0) 07/17/21 05:20 Chloride 99.3 mmol/L (98-107) 07/17/21 05:20 Carbon Dioxide 26 mmol/L (22-30) 07/17/21 05:20 Anion Gap 15 mmol/L 07/17/21 05:20 BUN 50 mg/dL (9-20) H 07/17/21 05:20 Creatinine 2.8 mg/dL (0.8-1.3) H 07/17/21 05:20 Estimated GFR 27 ml/min 07/17/21 05:20 BUN/Creatinine Ratio 18 % 07/17/21 05:20 Glucose 182 mg/dL (75-100) H 07/17/21 05:20 POC Glucose 176 mg/dL (70-105) H 07/17/21 07:28 Hemoglobin A1c 6.5 % (4-6) H 07/09/21 06:24 Calcium 8.5 mg/dL (8.4-10.2) 07/17/21 05:20 Total Bilirubin 0.40 mg/dL (0.1-1.2) 07/09/21 06:24 AST 1028 units/L (5-40) H 07/09/21 06:24 ALT 782 units/L (7-56) H 07/09/21 06:24 Alkaline Phosphatase 63 units/L (35-129) 07/09/21 06:24 Troponin T 0.182 ng/mL (0.00-0.029) H* 07/08/21 14:14 NT-Pro-B Natriuret Pep 98958 pg/mL (0-900) H 07/08/21 10:11 Total Protein 6.8 g/dL (6.3-8.2) 07/09/21 06:24 Albumin 3.3 g/dL (3.9-5) L 07/09/21 06:24 Albumin/Globulin Ratio 0.9 % 07/09/21 06:24 Triglycerides 102 mg/dL (2-149) 07/08/21 10:11 Cholesterol 176 mg/dL (50-199) 07/08/21 10:11 LDL Cholesterol Direct 109 mg/dL (50-130) 07/08/21 10:11 HDL Cholesterol 44 mg/dL (40-59) 07/08/21 10:11 Cholesterol/HDL Ratio 4.00 % 07/08/21 10:11 Lipase 26 units/L (13-60) 07/08/21 10:11 Procalcitonin 27.64 ng/mL (<0.15) 07/09/21 07:35 Urine Color Straw (Yellow) 07/08/21 23:22 Urine Turbidity Clear (Clear) 07/08/21 23:22 Urine pH 7.0 (5.0-7.0) 07/08/21 23:22 Ur Specific [place] 1.009 (1.003-1.030) 07/08/21 23:22 Urine Protein 100 mg/dl mg/dL (Negative) 07/08/21 23:22 Urine Glucose (UA) Neg mg/dL (Negative) 07/08/21 23:22 Urine Ketones Neg mg/dL (Negative) 07/08/21 23:22 Urine Blood Sm (Negative) 07/08/21 23:22 Urine Nitrite Neg (Negative) 07/08/21 23:22 Urine Bilirubin Neg (Negative) 07/08/21 23:22 Urine Urobilinogen < 2.0 mg/dL (<2.0) 07/08/21 23:22 Ur Leukocyte Esterase Neg (Negative) 07/08/21 23:22 Urine WBC (Auto) < 1.0 /HPF (0.0-6.0) 07/08/21 23:22 Urine RBC (Auto) < 1.0 /HPF (0.0-6.0) 07/08/21 23:22 Urine Mucus Few /HPF 07/08/21 23:22 Coronavirus (PCR) Negative (Negative) 07/09/21 08:10 Hepatitis A IgM Ab Non-reactive (NonReactive) 07/08/21 13:38 Hep Bs Antigen Non-reactive (Negative) 07/08/21 13:38 Hep B Core IgM Ab Non-reactive (NonReactive) 07/08/21 13:38 Hepatitis C Antibody Non-reactive (NonReactive) 07/08/21 13:38 Suazo/IV: Voiding Method Toilet Active Medications - Current Medications Current Medications: Generic Name Dose Route Start Last Admin Trade Name Freq PRN Reason Stop Dose Admin Acetaminophen 650 mg 07/08/21 16:33 07/10/21 05:00 Acetaminophen 325 Mg Tab PO 650 mg Q4H PRN Administration Pain MILD(1-3)/Fever >100.5/MERCER Aspirin 81 mg 07/08/21 17:00 07/16/21 09:39 Aspirin Ec 81 Mg Tab PO 81 mg QDAY ALEXIA Administration Bumetanide 4 mg 07/15/21 10:15 07/16/21 09:35 Bumetanide 2.5 Mg/10 Ml Vial IV 4 mg DAILY ALEXIA Administration Carvedilol 3.125 mg 07/11/21 22:00 07/16/21 22:24 Carvedilol 3.125 Mg Tab PO 3.125 mg BID ALEXIA Administration Epoetin Mika-epbx 10,000 unit 07/15/21 12:11 07/16/21 14:58 Epoetin Mika-Epbx 10,000 Unit/1 Ml Vial SUB-Q 10,000 unit AMILCAR PRN Administration hemodialysis Famotidine 10 mg 07/08/21 22:00 07/16/21 22:25 Famotidine 10 Mg Tab PO 10 mg BID ALEXIA Administration Fenofibrate 145 mg 07/08/21 17:00 07/16/21 09:35 Fenofibrate 145 Mg Tab PO 145 mg QDAY ALEXIA Administration Heparin Sodium (Porcine) 5,000 unit 07/08/21 22:00 07/16/21 22:25 Heparin 5,000 Unit/1 Ml Vial SUB-Q 5,000 unit Q12HR ALEXIA Administration Heparin Sodium (Porcine) 3,000 unit 07/15/21 12:11 Heparin 10,000 Units/10 Ml Vial IV AMILCAR PRN hemodialysis Hydralazine HCl 25 mg 07/13/21 14:00 07/17/21 05:37 Hydralazine 25 Mg Tab PO 25 mg Q8HR ALEXIA Administration Sodium Chloride 100 mls @ 999 mls/hr 07/15/21 12:11 Nacl 0.9% IV AMILCAR PRN Hypotension Insulin Glargine 40 units 07/14/21 22:00 07/16/21 22:24 Insulin Glargine 100 Units/Ml SUB-Q 40 units QHS [facility] Administration Insulin Human Lispro 0 unit 07/08/21 22:00 07/16/21 22:25 Insulin Lispro 100 Unit/Ml SUB-Q 6 unit ACHS [facility] Administration Protocol Insulin Human Regular 12 units 07/14/21 16:30 07/16/21 22:31 Insulin Regular, Human 100 Units/1 Ml SUB-Q Not Given [facility] Isosorbide Mononitrate 30 mg 07/09/21 12:00 07/16/21 09:35 Isosorbide Mononitrate Er 30 Mg Tab PO 30 mg QDAY [facility] Administration Methylprednisolone Sodium Succinate 60 mg 07/12/21 12:00 07/17/21 05:37 Methylprednisolone Sod Succinate 125 Mg/2 Ml Inj IV 60 mg Q6HR [facility] Administration Metolazone 2.5 mg 07/13/21 11:00 07/16/21 09:35 Metolazone 2.5 Mg Tab PO 2.5 mg QDAY [facility] Administration Morphine Sulfate 2 mg 07/08/21 16:40 Morphine 2 Mg/1 Ml Inj IV Q4H PRN Pain, Moderate (4-6) Ondansetron HCl 4 mg 07/08/21 16:33 Ondansetron 4 Mg/2 Ml Inj IV Q3H PRN Nausea And Vomiting Oxycodone/Acetaminophen 1 tab 07/08/21 16:40 07/11/21 18:27 Oxycodone /Acetaminophen 5-325mg Tab PO 1 tab Q6H PRN Administration Pain, Moderate (4-6) Potassium Chloride 40 meq 07/12/21 10:00 07/16/21 09:35 Potassium Chloride Er 20 Meq Tab PO 40 meq QDAY [facility] Administration Sodium Chloride 10 ml 07/08/21 22:00 07/16/21 22:22 Sodium Chloride 0.9% 10 Ml Flush Syringe IV 10 ml BID ALEXIA Administration Sodium Chloride 10 ml 07/08/21 16:33 Sodium Chloride 0.9% 10 Ml Flush Syringe IV PRN PRN LINE FLUSH Tramadol HCl 50 mg 07/08/21 16:31 Tramadol 50 Mg Tab PO Q8H PRN PAIN Nutrition/Malnutrition Assess - Dietary Evaluation Nutrition/Malnutrition Findings: Nutrition Notes Start: 07/15/21 17:08 Freq: Status: Active Protocol: Document 07/15/21 17:08 TEJ (Rec: 07/15/21 17:30 TEJ [email or web address]) Nutrition Notes Need for Assessment generated from: LOS Initial or Follow up Assessment Current Diagnosis CKD (stage V CKD),COPD, Hypertension,Heart Failure, Respiratory Failure, Hyperlipidemia Other Pertinent Diagnosis ESRD/No HD, HFrEF, Enphiosema, Pneumonia, Anemia. Current Diet Renal Diet (since D 07/15). Labs/Tests 07/15: Na 136, BUN 97, Crea 3. 7, Glu 126, Ca 8.3. Pertinent Medications 07/15: Insulin, KCl 40 mEq, others nutritionally unremarkable. 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 Weight Status Appropriate Subjective/Other Information RD consult for LOS assessment. Pt's PO intake of meals has been Good (100%), according to ADL notes. Procedure 07/15: US-guided access R-internal vein, placement of 23 cm GlidePath Permacath. Well tolerated, according to Operative Report. Pt was reluctant to agree with the need for HD until today, according to Consultation notes. Percent of energy/protein needs met: Prescribed Renal Diet provides for energy/protein needs (2, 072 Kcal/77 g) during LOS. Burn Absent Trauma Absent GI Symptoms None Food Allergy No Skin Integrity/Comment Assessment WNL. Current % PO Good (75-100%) Minimum of two criteria No #1 Nutrition Diagnosis No nutrition diagnosis at this time Is patient on ventilator? No Is Patient Ambulatory and/or Out of Bed Yes REE-([facility]. [facility]-ambulatory/OOB) [ [id number] [id number]] Calculation Used for Recommendations [facility] Additional Notes Protein: >1.2 g/Kg ABW; 85 g/ day. Fluids: 1 ml/Kcal, or as per MD. Nutrition Intervention Follow-Up By: 07/22/21 Additional Comments Continue monitoring food tolerance, %PO intake of meals , and BM.
[2021-07-17] MEDS: INSULIN LISPRO 100 UNIT/ML SUB-Q SCH ×4 (08:28→22:30)
[2021-07-17] MEDS: INSULIN REGULAR, HUMAN 100 UNITS/1 ML SUB-Q SCH ×5 (08:29→22:29)
--- NOTE | 2021-07-17 09:25 | Progress Note ---
Assessment and Plan 1. ESRD: Known h/o advanced CKD now ESRD. Admitted with volume overload and metabolic acidosis. Hemodialysis: 07/15, 07/16. 2. FEN: Anion-gap Metabolic acidosis, 2/2 CKD, monitor. Volume overload, UF with HD, IV Bumex and Metolazone. Monitor lytes and volume status. 3. Acute hypoxic resp failure, POA: 2/2 volume overload / pulmonary edema / PNA. On NC O2. Monitor. 4. PNA, POA: S/p Abx. Covid-19 test negative. 5. Suspected CHF: Echo 25-30%. 6. DM-2: 7. Normocytic Anemia, POA: Chronic. Epogen with HD. Monitor. 8. Hypertension: Volume control. Continue home BP meds. Monitor BP. Subjective: Patient was seen and examined at the bedside. Doing better. Examination: General appearance: well-developed, appears stated age, no distress, on NC O2 HEENT: atraumatic, JAE Neck: trachea midline Respiratory: ctab Heart: S1S2, regular, no murmur Abdomen: soft, bowel sounds heard, NT Integumentary: no obvious rash Neurologic: AO, able to move extremities Ext: no edema Subjective Date of service: 07/17/21 Principal diagnosis: ACUTE DECOMPENSATED HEART FAILURE Objective - Vital Signs Vital signs: Vital Signs - 12hr 07/16/21 07/16/21 07/16/21 22:00 22:24 22:25 Temperature Pulse Rate 72 72 Respiratory 19 Rate Blood Pressure 140/63 140/63 O2 Sat by Pulse 100 Oximetry 07/17/21 07/17/21 07/17/21 00:23 04:37 05:20 Temperature 98.1 F Pulse Rate 69 70 Respiratory 26 H 16 Rate Blood Pressure 173/79 O2 Sat by Pulse 100 99 98 Oximetry 07/17/21 05:37 Temperature Pulse Rate 70 Respiratory Rate Blood Pressure 173/79 O2 Sat by Pulse Oximetry - Lab 07/16/21 05:15 07/17/21 05:20 Most recent lab results Calcium 8.5 mg/dL (8.4-10.2) 07/17/21 05:20 Medications & Allergies - Medications Allergies/Adverse Reactions: Allergies No Known Allergies Allergy (Verified 07/08/21 09:37) per patient Home Medications: Home Medications Medication Instructions Recorded Confirmed Last Taken Type traMADoL [Ultram 50 MG tab] 50 mg PO Q8H PRN 03/11/15 07/09/21 Unknown History Insulin NPH, Human [NovoLIN N] 14 unit SUB-Q BIDDIAB #1 vial 02/05/20 07/09/21 Unknown Rx Insulin Regular, Human [HumuLIN R] 0 unit SUB-Q ACHS #1 vial 02/05/20 07/09/21 Unknown Rx Aspirin EC [Halfprin EC] 81 mg PO QDAY 30 Days #30 tablet.dr 07/18/21 Unknown Rx Bumetanide [Bumex 1 mg tab] 1 mg PO DAILY 30 Days #30 tab 07/18/21 Unknown Rx Fenofibrate [Tricor] 145 mg PO QDAY 30 Days #30 tab 07/18/21 Unknown Rx ISOSORBIDE MONOnitrate [Imdur ER] 30 mg PO QDAY 30 Days #30 tablet 07/18/21 Unknown Rx carvediloL [Coreg] 3.125 mg PO BID 30 Days #60 tablet 07/18/21 Unknown Rx hydrALAZINE [Apresoline TAB] 25 mg PO Q8HR 30 Days #90 tablet 07/18/21 Unknown Rx metOLazone [Zaroxolyn] 2.5 mg PO QDAY 30 Days #30 tablet 07/18/21 Unknown Rx predniSONE 10 mg PO .TAPER 12 Days #48 tab 07/18/21 Unknown Rx Active Medications: Generic Name Dose Route Start Last Admin Trade Name Freq PRN Reason Stop Dose Admin Acetaminophen 650 mg 07/08/21 16:33 07/10/21 05:00 Acetaminophen 325 Mg Tab PO 650 mg Q4H PRN Administration Pain MILD(1-3)/Fever >100.5/MERCER Aspirin 81 mg 07/08/21 17:00 07/16/21 09:39 Aspirin Ec 81 Mg Tab PO 81 mg QDAY ALEXIA Administration Bumetanide 4 mg 07/15/21 10:15 07/16/21 09:35 Bumetanide 2.5 Mg/10 Ml Vial IV 4 mg DAILY ALEXIA Administration Carvedilol 3.125 mg 07/11/21 22:00 07/16/21 22:24 Carvedilol 3.125 Mg Tab PO 3.125 mg BID ALEXIA Administration Epoetin Mika-epbx 10,000 unit 07/15/21 12:11 07/16/21 14:58 Epoetin Mika-Epbx 10,000 Unit/1 Ml Vial SUB-Q 10,000 unit AMILCAR PRN Administration hemodialysis Famotidine 10 mg 07/08/21 22:00 07/16/21 22:25 Famotidine 10 Mg Tab PO 10 mg BID ALEXIA Administration Fenofibrate 145 mg 07/08/21 17:00 07/16/21 09:35 Fenofibrate 145 Mg Tab PO 145 mg QDAY ALEXIA Administration Heparin Sodium (Porcine) 5,000 unit 07/08/21 22:00 07/16/21 22:25 Heparin 5,000 Unit/1 Ml Vial SUB-Q 5,000 unit Q12HR ALEXIA Administration Heparin Sodium (Porcine) 3,000 unit 07/15/21 12:11 Heparin 10,000 Units/10 Ml Vial IV AMILCAR PRN hemodialysis Hydralazine HCl 25 mg 07/13/21 14:00 07/17/21 05:37 Hydralazine 25 Mg Tab PO 25 mg Q8HR ALEXIA Administration Sodium Chloride 100 mls @ 999 mls/hr 07/15/21 12:11 Nacl 0.9% IV AMILCAR PRN Hypotension Insulin Glargine 40 units 07/14/21 22:00 07/16/21 22:24 Insulin Glargine 100 Units/Ml SUB-Q 40 units QHS ALEXIA Administration Insulin Human Lispro 0 unit 07/08/21 22:00 07/17/21 08:28 Insulin Lispro 100 Unit/Ml SUB-Q 3 unit ACHS ALEXIA Administration Protocol Insulin Human Regular 12 units 07/14/21 16:30 07/17/21 08:29 Insulin Regular, Human 100 Units/1 Ml SUB-Q 12 units ACHS ALEXIA Administration Isosorbide Mononitrate 30 mg 07/09/21 12:00 07/16/21 09:35 Isosorbide Mononitrate Er 30 Mg Tab PO 30 mg QDAY ALEXIA Administration Methylprednisolone Sodium Succinate 60 mg 07/12/21 12:00 07/17/21 05:37 Methylprednisolone Sod Succinate 125 Mg/2 Ml Inj IV 60 mg Q6HR ALEXIA Administration Metolazone 2.5 mg 07/13/21 11:00 07/16/21 09:35 Metolazone 2.5 Mg Tab PO 2.5 mg QDAY ALEXIA Administration Morphine Sulfate 2 mg 07/08/21 16:40 Morphine 2 Mg/1 Ml Inj IV Q4H PRN Pain, Moderate (4-6) Ondansetron HCl 4 mg 07/08/21 16:33 Ondansetron 4 Mg/2 Ml Inj IV Q3H PRN Nausea And Vomiting Oxycodone/Acetaminophen 1 tab 07/08/21 16:40 07/11/21 18:27 Oxycodone /Acetaminophen 5-325mg Tab PO 1 tab Q6H PRN Administration Pain, Moderate (4-6) Potassium Chloride 40 meq 07/12/21 10:00 07/16/21 09:35 Potassium Chloride Er 20 Meq Tab PO 40 meq QDAY ALEXIA Administration Sodium Chloride 10 ml 07/08/21 22:00 07/16/21 22:22 Sodium Chloride 0.9% 10 Ml Flush Syringe IV 10 ml BID ALEXIA Administration Sodium Chloride 10 ml 07/08/21 16:33 Sodium Chloride 0.9% 10 Ml Flush Syringe IV PRN PRN LINE FLUSH Tramadol HCl 50 mg 07/08/21 16:31 Tramadol 50 Mg Tab PO Q8H PRN PAIN
[2021-07-17] MEDS: BUMETANIDE 2.5 MG/10 ML VIAL IV SCH (09:40)
[2021-07-17] MEDS: carvediloL 3.125 MG TAB PO SCH ×2 (09:41→22:27)
[2021-07-17] MEDS: HEPARIN 5,000 UNIT/1 ML VIAL SUB-Q SCH ×2 (09:46→22:28)
[2021-07-17] MEDS: ASPIRIN EC 81 MG TAB PO SCH (09:46)
[2021-07-17] MEDS: POTASSIUM CHLORIDE ER 20 MEQ TAB PO SCH (09:48)
[2021-07-17] MEDS: FAMOTIDINE 10 MG TAB PO SCH ×2 (09:48→22:27)
[2021-07-17] MEDS: metOLazone 2.5 MG TAB PO SCH (09:50)
[2021-07-17] MEDS: FENOFIBRATE 145 MG TAB PO SCH (09:50)
[2021-07-17] MEDS: INSULIN GLARGINE 100 UNITS/ML SUB-Q SCH (22:28)
--- NOTE | 2021-07-17 22:41 | Progress Note ---
Assessment and Plan - Patient Problems (1) Cardiomyopathy Current Visit: Yes Status: Acute (2) CHF (congestive heart failure) Current Visit: Yes Status: Acute Subjective Date of service: 07/17/21 Principal diagnosis: ACUTE DECOMPENSATED HEART FAILURE Interval history: BREATHING BETTER,,,,diffuse aches Objective Vital Signs Temp Pulse Resp BP Pulse Ox 07/17/21 22:27 80 140/65 07/17/21 21:35 98.6 F 80 20 140/65 98 07/17/21 20:26 97 07/17/21 16:18 98.4 F 71 18 141/60 96 07/17/21 13:16 72 07/17/21 11:08 97.8 F 72 18 150/72 98 07/17/21 10:20 98 07/17/21 10:00 20 100 07/17/21 09:47 70 134/61 07/17/21 09:41 70 134/61 07/17/21 05:37 70 173/79 07/17/21 05:20 98 07/17/21 04:37 98.1 F 70 16 173/79 99 07/17/21 00:23 69 26 H 100 - Physical Examination General: No Apparent Distress Neck: Positive: JVD/HJR Cardiac: Positive: Reg Rate and Rhythm Lungs: Positive: Decreased Breath Sounds Neuro: Positive: Grossly Intact Abdomen: Positive: Unremarkable Extremities: Present: edema (no), Other (dim. pulses) - Labs and Meds Comprehensive Metabolic Panel 07/17/21 Range/Units 05:20 Sodium 136 L (137-145) mmol/L Potassium 4.7 (3.6-5.0) mmol/L Chloride 99.3 (98-107) mmol/L Carbon Dioxide 26 (22-30) mmol/L BUN 50 H (9-20) mg/dL Creatinine 2.8 H (0.8-1.3) mg/dL Glucose 182 H (75-100) mg/dL Calcium 8.5 (8.4-10.2) mg/dL - Imaging and Cardiology EKG: report reviewed Echo: report reviewed
[2021-07-17] MEDS: oxyCODONE /ACETAMINOPHEN 5-325MG TAB PO PRN (22:48)
[2021-07-18] MEDS: methylPREDNISolone Sod Succinate 125 MG/2 ML INJ IV SCH ×2 (00:11→06:05)
[2021-07-18] MEDS: hydrALAZINE 25 MG TAB PO SCH (06:06)
[2021-07-18] MEDS: INSULIN LISPRO 100 UNIT/ML SUB-Q SCH (07:58)
[2021-07-18] MEDS: INSULIN REGULAR, HUMAN 100 UNITS/1 ML SUB-Q SCH ×2 (08:04→13:56)
--- NOTE | 2021-07-18 08:24 | Progress Note ---
Assessment and Plan 1. Chronic combined systolic and diastolic heart failure 2. Dilated cardiomyopathy 3. Equivocal elevation of serum troponin level in the setting of renal failure 5. End-stage renal disease hemodialysis initiated 6. Type 2 diabetes mellitus 7. Anemia of chronic disease Plan. Hemodialysis and fluid management as per high heel builder. Cardiac ng patient remains asymptomatic. Left heart cath planned electively. Continue present medication Subjective Date of service: 07/18/21 Principal diagnosis: ACUTE DECOMPENSATED HEART FAILURE Interval history: No cardiac symptoms Objective Vital Signs Temp Pulse Resp BP Pulse Ox 07/18/21 07:06 100 07/18/21 06:06 73 152/62 07/18/21 04:26 98.2 F 73 16 152/62 97 07/17/21 23:48 18 07/17/21 22:48 17 07/17/21 22:27 80 140/65 07/17/21 22:00 19 98 07/17/21 21:35 98.6 F 80 20 140/65 98 07/17/21 20:26 97 07/17/21 16:18 98.4 F 71 18 141/60 96 07/17/21 13:16 72 07/17/21 11:08 97.8 F 72 18 150/72 98 07/17/21 10:20 98 07/17/21 10:00 20 100 07/17/21 09:47 70 134/61 07/17/21 09:41 70 134/61 - Physical Examination General: Appears Well, No Apparent Distress HEENT: Positive: PERRL, Normocephaly Neck: Positive: neck supple. Negative: JVD/HJR Cardiac: Positive: Regular Rate, S1/S2, S3, PMI, Dilated, Laterally Displaced Lungs: Positive: clear to auscultation, No Wheeze, Rales, Rhonchi Neuro: Positive: Grossly Intact Abdomen: Positive: Unremarkable Extremities: Present: Other (dim. pulses). Absent: edema (no) - Imaging and Cardiology EKG: report reviewed Echo: report reviewed
--- NOTE | 2021-07-18 08:31 | Discharge Summary ---
Providers - Providers Date of Admission: 07/08/21 16:33 Attending physician: LAURA SCHULER MD 07/08/21 11:56 Consult to Physician [CONS] Urgent Comment: Consulting Provider: AMADEO RYDER Physician Instructions: Reason For Exam: renal insufficiency 07/08/21 13:08 Consult to Physician [CONS] Urgent Comment: Consulting Provider: KAREN KINNEY Physician Instructions: Reason For Exam: elevated troponin, chf vs pneumonia 07/10/21 07:55 Consult to Physician [CONS] Routine Comment: Consulting Provider: EMILIANO BERRIOS Physician Instructions: Reason For Exam: resp failure on hfnc volume overload vs pneumonia 07/14/21 09:14 Physical Therapy Evaluation and Treat [CONS] Stat Comment: Reason For Exam: eval and treat 07/15/21 12:10 Consult to Interventional Radiology [CONS] Routine Consulting Provider: ADELA HARPER Reason For Exam: Tunnel hemodialysis catheter Place consult to:: dr. harper Notified:: office Phone number called:: [phone] Was contact made?: Yes If yes, spoke with:: Sarah Time called:: 12:24 Primary care physician: CLARA LLAMAS Hospitalization Condition: Stable Disposition: 30 STILL A PATIENT Exam - Constitutional Vitals: Temp Pulse Resp BP Pulse Ox 98.2 F 73 16 152/62 100 07/18/21 04:26 07/18/21 06:06 07/18/21 04:26 07/18/21 06:06 07/18/21 07:06 Plan Care Plan Goals: Please follow with your primary care doctor. Take a list of all your new medica tions with you. Please take all medications as prescribed. You begin outpatient dialysis at [facility] [place] located at [address] [place] [address]. You will go every Tuesday, , and Tuesday at 10:40 AM. For your first day on July 21 please report at 10 AM to fill out paperwork. Please follow-up with your Campus Supervisor. Also make sure to schedule appointment with the Music Engraver (Dr. Karen Kinney) to evaluate the cause of your heart failure. Follow up with: CLARA LLAMAS MD [Primary Care Provider] - 7 Days KAREN KINNEY MD [Staff Physician] - 14 Days Prescriptions: hydrALAZINE [Apresoline TAB] 25 mg PO Q8HR 30 Days #90 tablet Bumetanide [Bumex 1 mg tab] 1 mg PO DAILY 30 Days #30 tab carvediloL [Coreg] 3.125 mg PO BID 30 Days #60 tablet Aspirin EC [Halfprin EC] 81 mg PO QDAY 30 Days #30 tablet. ISOSORBIDE MONOnitrate [Imdur ER] 30 mg PO QDAY 30 Days #30 tablet predniSONE 10 mg PO .TAPER 12 Days #48 tab Fenofibrate [Tricor] 145 mg PO QDAY 30 Days #30 tab metOLazone [Zaroxolyn] 2.5 mg PO QDAY 30 Days #30 tablet
[2021-07-18] MEDS: metOLazone 2.5 MG TAB PO SCH (09:08)
[2021-07-18] MEDS: carvediloL 3.125 MG TAB PO SCH (09:08)
[2021-07-18] MEDS: FAMOTIDINE 10 MG TAB PO SCH (09:08)
[2021-07-18] MEDS: ASPIRIN EC 81 MG TAB PO SCH (09:08)
[2021-07-18] MEDS: POTASSIUM CHLORIDE ER 20 MEQ TAB PO SCH (09:09)
[2021-07-18] MEDS: FENOFIBRATE 145 MG TAB PO SCH (09:09)
[2021-07-18] MEDS: HEPARIN 5,000 UNIT/1 ML VIAL SUB-Q SCH (09:09)
[2021-07-18] MEDS: BUMETANIDE 2.5 MG/10 ML VIAL IV SCH (09:09)
--- NOTE | 2021-07-18 11:06 | Progress Note ---
Assessment and Plan 1. ESRD: Known h/o advanced CKD now ESRD. Admitted with volume overload and metabolic acidosis. Hemodialysis: 07/15, 07/16, 07/18. 2. FEN: Anion-gap Metabolic acidosis, 2/2 CKD, monitor. Volume overload, UF with HD, IV Bumex and Metolazone. Monitor lytes and volume status. 3. Acute hypoxic resp failure, POA: 2/2 volume overload / pulmonary edema / PNA. On [place] O2. No need for home O2. Monitor. 4. PNA, POA: S/p Abx. Covid-19 test negative. 5. Suspected CHF: Echo 25-30%. 6. DM-2: 7. Normocytic Anemia, POA: Chronic. Epogen with HD. Monitor. 8. Hypertension: Volume control. Continue home BP meds. Monitor BP. Outpatient HD chair at [facility]. Subjective: Patient was seen and examined at the bedside. Doing better. Examination: General appearance: well-developed, appears stated age, no distress, on [place] O2 HEENT: atraumatic, JAE Neck: trachea midline Respiratory: ctab Heart: S1S2, regular, no murmur Abdomen: soft, bowel sounds heard, NT Integumentary: no obvious rash Neurologic: AO, able to move extremities Ext: no edema Subjective Date of service: 07/18/21 Principal diagnosis: ACUTE DECOMPENSATED HEART FAILURE Objective - Vital Signs Vital signs: Vital Signs - 12hr 07/17/21 07/18/21 07/18/21 23:48 04:26 06:06 Temperature 98.2 F Pulse Rate 73 73 Respiratory 18 16 Rate Blood Pressure 152/62 152/62 O2 Sat by Pulse 97 Oximetry 07/18/21 07:06 Temperature Pulse Rate Respiratory Rate Blood Pressure O2 Sat by Pulse 100 Oximetry - Lab 07/16/21 05:15 07/17/21 05:20 Most recent lab results Calcium 8.5 mg/dL (8.4-10.2) 07/17/21 05:20 Medications & Allergies - Medications Allergies/Adverse Reactions: Allergies No Known Allergies Allergy (Verified 07/08/21 09:37) per patient Home Medications: Home Medications Medication Instructions Recorded Confirmed Last Taken Type traMADoL [Ultram 50 MG tab] 50 mg PO Q8H PRN 03/11/15 07/09/21 Unknown History Insulin NPH, Human [NovoLIN N] 14 unit SUB-Q BIDDIAB #1 vial 02/05/20 07/09/21 Unknown Rx Insulin Regular, Human [HumuLIN R] 0 unit SUB-Q ACHS #1 vial 02/05/20 07/09/21 Unknown Rx Aspirin EC [Halfprin EC] 81 mg PO QDAY 30 Days #30 tablet.dr 07/18/21 Unknown Rx Bumetanide [Bumex 1 mg tab] 1 mg PO DAILY 30 Days #30 tab 07/18/21 Unknown Rx Fenofibrate [Tricor] 145 mg PO QDAY 30 Days #30 tab 07/18/21 Unknown Rx ISOSORBIDE MONOnitrate [Imdur ER] 30 mg PO QDAY 30 Days #30 tablet 07/18/21 Unk nown Rx carvediloL [Coreg] 3.125 mg PO BID 30 Days #60 tablet 07/18/21 Unknown Rx hydrALAZINE [Apresoline TAB] 25 mg PO Q8HR 30 Days #90 tablet 07/18/21 Unknown Rx metOLazone [Zaroxolyn] 2.5 mg PO QDAY 30 Days #30 tablet 07/18/21 Unknown Rx predniSONE 10 mg PO .TAPER 12 Days #48 tab 07/18/21 Unknown Rx Active Medications: Generic Name Dose Route Start Last Admin Trade Name Freq PRN Reason Stop Dose Admin Acetaminophen 650 mg 07/08/21 16:33 07/10/21 05:00 Acetaminophen 325 Mg Tab PO 650 mg Q4H PRN Administration Pain MILD(1-3)/Fever >100.5/MERCER Aspirin 81 mg 07/08/21 17:00 07/18/21 09:08 Aspirin Ec 81 Mg Tab PO 81 mg QDAY ALEXIA Administration Bumetanide 4 mg 07/15/21 10:15 07/18/21 09:09 Bumetanide 2.5 Mg/10 Ml Vial IV 4 mg DAILY ALEXIA Administration Carvedilol 3.125 mg 07/11/21 22:00 07/18/21 09:08 Carvedilol 3.125 Mg Tab PO 3.125 mg BID ALEXIA Administration Epoetin Mika-epbx 10,000 unit 07/15/21 12:11 07/16/21 14:58 Epoetin Mika-Epbx 10,000 Unit/1 Ml Vial SUB-Q 10,000 unit AMILCAR PRN Administration hemodialysis Famotidine 10 mg 07/08/21 22:00 07/18/21 09:08 Famotidine 10 Mg Tab PO 10 mg BID ALEXIA Administration Fenofibrate 145 mg 07/08/21 17:00 07/18/21 09:09 Fenofibrate 145 Mg Tab PO 145 mg QDAY ALEXIA Administration Heparin Sodium (Porcine) 5,000 unit 07/08/21 22:00 07/18/21 09:09 Heparin 5,000 Unit/1 Ml Vial SUB-Q 5,000 unit Q12HR ALEXIA Administration Heparin Sodium (Porcine) 3,000 unit 07/15/21 12:11 Heparin 10,000 Units/10 Ml Vial IV AMILCAR PRN hemodialysis Hydralazine HCl 25 mg 07/13/21 14:00 07/18/21 06:06 Hydralazine 25 Mg Tab PO 25 mg Q8HR ALEXIA Administration Sodium Chloride 100 mls @ 999 mls/hr 07/15/21 12:11 Nacl 0.9% IV AMILCAR PRN Hypotension Insulin Glargine 40 units 07/14/21 22:00 07/17/21 22:28 Insulin Glargine 100 Units/Ml SUB-Q 40 units QHS ALEXIA Administration Insulin Human Lispro 0 unit 07/08/21 22:00 07/18/21 07:58 Insulin Lispro 100 Unit/Ml SUB-Q Not Given [facility] Protocol Insulin Human Regular 12 units 07/14/21 16:30 07/18/21 08:04 Insulin Regular, Human 100 Units/1 Ml SUB-Q 12 units ACHS [facility] Administration Isosorbide Mononitrate 30 mg 07/09/21 12:00 07/18/21 09:08 Isosorbide Mononitrate Er 30 Mg Tab PO 30 mg QDAY [facility] Administration Methylprednisolone Sodium Succinate 60 mg 07/12/21 12:00 07/18/21 06:05 Methylprednisolone Sod Succinate 125 Mg/2 Ml Inj IV 60 mg Q6HR ALEXIA Administration Metolazone 2.5 mg 07/13/21 11:00 07/18/21 09:08 Metolazone 2.5 Mg Tab PO 2.5 mg QDAY ALEXIA Administration Morphine Sulfate 2 mg 07/08/21 16:40 Morphine 2 Mg/1 Ml Inj IV Q4H PRN Pain, Moderate (4-6) Ondansetron HCl 4 mg 07/08/21 16:33 Ondansetron 4 Mg/2 Ml Inj IV Q3H PRN Nausea And Vomiting Oxycodone/Acetaminophen 1 tab 07/08/21 16:40 07/17/21 22:48 Oxycodone /Acetaminophen 5-325mg Tab PO 1 tab Q6H PRN Administration Pain, Moderate (4-6) Potassium Chloride 40 meq 07/12/21 10:00 07/18/21 09:09 Potassium Chloride Er 20 Meq Tab PO 40 meq QDAY ALEXIA Administration Sodium Chloride 10 ml 07/08/21 22:00 07/18/21 09:10 Sodium Chloride 0.9% 10 Ml Flush Syringe IV 10 ml BID ALEXIA Administration Sodium Chloride 10 ml 07/08/21 16:33 Sodium Chloride 0.9% 10 Ml Flush Syringe IV PRN PRN LINE FLUSH Tramadol HCl 50 mg 07/08/21 16:31 Tramadol 50 Mg Tab PO Q8H PRN PAIN
[2021-07-18 15:28] VITALS: BP 150/82
== END 2021-07-18 14:15 | disposition home or self-care (01) | DRG 193 ==
LOC: ED 09:33 → 3A 16:33
PROVIDERS: ADMIT Internal Medicine; ATTEND Student in an Organized Health Care Education/Training Program
PROC: 5A0945A Assistance with Respiratory Ventilation, 24-96 Consecutive Hours, High Flow/Velocity Cannula (ICD-10-PCS; 2021-07-09)
PROC: 5A09357 Assistance with Respiratory Ventilation, Less than 24 Consecutive Hours, Continuous Positive Airway Pressure (ICD-10-PCS; 2021-07-10)
PROC: 5A09457 Assistance with Respiratory Ventilation, 24-96 Consecutive Hours, Continuous Positive Airway Pressure (ICD-10-PCS; 2021-07-12)
PROC: 5A1D70Z Performance of Urinary Filtration, Intermittent, Less than 6 Hours Per Day (ICD-10-PCS; principal; 2021-07-15)
PROC: 0JH63XZ Insertion of Tunneled Vascular Access Device into Chest Subcutaneous Tissue and Fascia, Percutaneous Approach (ICD-10-PCS; 2021-07-15)
PROC: 02H633Z Insertion of Infusion Device into Right Atrium, Percutaneous Approach (ICD-10-PCS; 2021-07-15)
PROC: B5181ZA Fluoroscopy of Superior Vena Cava using Low Osmolar Contrast, Guidance (ICD-10-PCS; 2021-07-15)
PROC: B548ZZA Ultrasonography of Superior Vena Cava, Guidance (ICD-10-PCS; 2021-07-15)
PROC: 5A1D70Z Performance of Urinary Filtration, Intermittent, Less than 6 Hours Per Day (ICD-10-PCS; 2021-07-16)
PROC: 5A09357 Assistance with Respiratory Ventilation, Less than 24 Consecutive Hours, Continuous Positive Airway Pressure (ICD-10-PCS; 2021-07-17)
PROC: 5A1D70Z Performance of Urinary Filtration, Intermittent, Less than 6 Hours Per Day (ICD-10-PCS; 2021-07-18)
DX: J18.9 Pneumonia, unspecified organism (principal); J96.01 Acute respiratory failure with hypoxia; N18.6 End stage renal disease; I50.43 Acute on chronic combined systolic (congestive) and diastolic (congestive) heart failure; I13.2 Hypertensive heart and chronic kidney disease with heart failure and with stage 5 chronic kidney disease, or end stage renal disease; E87.2 Acidosis; I42.0 Dilated cardiomyopathy; E87.70 Fluid overload, unspecified; J43.9 Emphysema, unspecified; Z20.822 Contact with and (suspected) exposure to COVID-19; E11.51 Type 2 diabetes mellitus with diabetic peripheral angiopathy without gangrene; E11.22 Type 2 diabetes mellitus with diabetic chronic kidney disease; E87.6 Hypokalemia; Z99.2 Dependence on renal dialysis; M19.90 Unspecified osteoarthritis, unspecified site; E11.65 Type 2 diabetes mellitus with hyperglycemia; R77.8 Other specified abnormalities of plasma proteins; D63.1 Anemia in chronic kidney disease; E78.5 Hyperlipidemia, unspecified; Z79.82 Long term (current) use of aspirin; Z79.4 Long term (current) use of insulin
CPT/HCPCS: 36415; 36558; 71045; 71250; 74176; 77001; 80048; 80053; 80061; 80074; 81001; 82962; 83036; 83690; 83880; 84145; 84484; 85014; 85018; 85025; 87040; 93005; 93306; 94660; 94760; G0378; J2354; J3490; Q9967; C1750; C8929; J0456; J0690; J0696; J0885; J1644; J1815; J1940; J2250; J2930; J3010; J7050; U0003

== ENCOUNTER 2021-08-12 06:16 | Day surgery (SDC) | payer MEDICARE ==
[~2021-08-12 06:16] MED LIST: BUPIVACAINE/PF (0.5%) 5 MG/1 ML 30 ML VIAL INFILTRATI ONE; HEPARIN 10,000 UNITS/10 ML VIAL IV ONE; SODIUM CHLORIDE 0.9% 250 ML IVPB IV ONE; SODIUM CHLORIDE 0.9% 500 ML IVPB IRRIGATION ONE; SODIUM CHLORIDE 0.9% IRR 1,500 ML BOTTLE IR ONE; ceFAZolin/Water 2 GM/20 ML 2 GM/20 ML SYRINGE IV NR; rifAMPin 600 MG VIAL IV ONE
[2021-08-12] MEDS ORDERED: SODIUM CHLORIDE 0.9% 1000 ML 1,000 ML ONE (06:50)
[2021-08-12] MEDS ORDERED: SODIUM CHLORIDE 0.9% 1000 ML 1,000 ML IV SCH (07:00)
[2021-08-12] MEDS ORDERED: HEPARIN 10,000 UNITS/10 ML VIAL ONE (07:17)
[2021-08-12] MEDS ORDERED: SODIUM CHLORIDE P/F VIAL 10 ML 0 ML ONE (07:17)
[2021-08-12] MEDS ORDERED: LIDOCAINE (1%) 10 MG/1 ML VIAL 20 ML MDV ONE (07:17)
[2021-08-12] MEDS ORDERED: SODIUM CHLORIDE 0.9% 500 ML 500 ML ONE (07:18)
[2021-08-12] MEDS ORDERED: rifAMPin 600 MG VIAL ONE (07:18)
[2021-08-12] MEDS ORDERED: BUPIVACAINE/PF (0.5%) 5 MG/1 ML 30 ML VIAL INFILTRATI ONE ×2 (07:18→09:12)
[2021-08-12] MEDS ORDERED: SODIUM CHLORIDE 0.9% 250ML 250 ML ONE (07:18)
[2021-08-12] MEDS ORDERED: propofoL 200 MG/20 ML VIAL IV ONE ×2 (07:20)
[2021-08-12] MEDS ORDERED: fentaNYL 100 MCG/2 ML INJ ONE (07:20)
[2021-08-12] MEDS ORDERED: LIDOCAINE PF 100 MG/5 ML (CARDIAC SYRINGE) IV ONE (07:21)
[2021-08-12 07:31] LABS: Hematocrit 28.9 % (35.5-45.6); Hemoglobin 9.2 gm/dl (11.8-15.2); Mean Corpuscular HGB Conc 32 % (32-34); Mean Corpuscular Volume 87 fl (84-94); Platelet Count 389 K/mm3 (140-440); Red Blood Count 3.33 M/mm3 (3.65-5.03); Red Cell Distribution Width 15.9 % (13.2-15.2)
[2021-08-12 07:37] LABS: Calcium 8.5 mg/dL (8.4-10.2)
--- NOTE | 2021-08-12 07:38 | Anesthesia Day of Surgery ---
Anesthesia Day of Surgery - Day of Surgery Patient Examined: Yes Patient H&P Reviewed: Yes Patient is NPO: Yes Cardiac Clearance: Yes
--- NOTE | 2021-08-12 07:40 | Anesthesia Consultation ---
Anesthesia Consult and Med Hx Date of service: 08/12/21 - Airway Anesthetic Teeth Evaluation: Dentures, Edentulous ROM Head & Neck: Adequate Mental/Hyoid Distance: Adequate Mallampati Class: Class II Intubation Access Assessment: Good - Pre-Operative Health Status ASA Pre-Surgery Classification: ASA4 Proposed Anesthetic Plan: General - Pulmonary Hx Smoking: No Hx Asthma: No SOB: Yes (DYSPNEA ON EXERTION) COPD: No Hx Pneumonia: Yes - Cardiovascular System Hx Hypertension: Yes Hx Peripheral Vascular Disease: Yes (PERIPHERAL ARTERY DISEASE) - Central Nervous System Hx Back Pain: Yes Hx Psychiatric Problems: No - Gastrointestinal Hx Gastroesophageal Reflux Disease: No - Endocrine Hx Renal Disease: Yes Hx End Stage Renal Disease: Yes (Last HD yesterday) Hx Non-Insulin Dependent Diabetes: Yes (FBS 157) - Hematic Hx Anemia: Yes Hx Sickle Cell Disease: No - Other Systems Hx Alcohol Use: No Hx Substance Use: No Hx Cancer: No - Additional Comments Anesthesia Medical History Comments: Dilated cardiomyopathy [id number] ECHO 25-30% and was started on HD last month
[2021-08-12] MEDS ORDERED: PHENYLEPHRINE/NS 1,000 MCG/10 ML SYRINGE (OR USE) IV ONE (09:00)
[2021-08-12] MEDS ORDERED: ePHEDrine SULFATE 50 MG/1 ML INJ ONE (09:00)
[2021-08-12] MEDS ORDERED: SODIUM CHLORIDE 0.9% 500 ML IVPB IRRIGATION ONE (09:12)
[2021-08-12] MEDS ORDERED: SODIUM CHLORIDE 0.9% 250 ML IVPB IV ONE (09:12)
[2021-08-12] MEDS ORDERED: SODIUM CHLORIDE 0.9% IRR 1,500 ML BOTTLE IR ONE (09:12)
[2021-08-12] MEDS ORDERED: HEPARIN 10,000 UNITS/10 ML VIAL IV ONE (09:12)
[2021-08-12] MEDS ORDERED: rifAMPin 600 MG VIAL IV ONE (09:12)
--- NOTE | 2021-08-12 10:14 | Short Stay Summary ---
Short Stay Documentation Date of service: 08/12/21 Narrative H&P: See H&P - History H&P: obtained from office - Allergies and Medications Current Medications: Allergies No Known Allergies Allergy (Verified 08/05/21 14:05) per patient Home Medications Medication Instructions Recorded Confirmed Last Taken Type Bumetanide [Bumex 1 mg tab] 1 mg PO DAILY 30 Days #30 tab 07/18/21 08/12/21 08/11/21 09:00 Rx Fenofibrate [Tricor] 145 mg PO QDAY 30 Days #30 tab 07/18/21 08/12/21 08/11/21 09:00 Rx ISOSORBIDE MONOnitrate [Imdur ER] 30 mg PO QDAY 30 Days #30 tablet 07/18/21 08/12/21 08/12/21 05:00 Rx carvediloL [Coreg] 3.125 mg PO BID 30 Days #60 tablet 07/18/21 08/12/21 08/12/21 05:00 Rx hydrALAZINE [Apresoline TAB] 25 mg PO Q8HR 30 Days #90 tablet 07/18/21 08/12/21 08/12/21 05:00 Rx metOLazone [Zaroxolyn] 2.5 mg PO QDAY 30 Days #30 tablet 07/18/21 08/12/21 08/11/21 09:00 Rx Clopidogrel [Plavix] 75 mg PO QDAY 08/05/21 08/12/21 08/11/21 09:00 History Dulaglutide [Trulicity] 1.5 mg SQ 1XW 08/05/21 08/05/21 Unknown History Ergocalciferol (Vitamin D2) 50,000 unit PO 1XW 08/05/21 08/05/21 Unknown History [Vitamin D2] Rivaroxaban [Xarelto] 2.5 mg PO BID 08/05/21 08/12/21 08/11/21 17:00 History cilostazoL [Pletal] 50 mg PO BID 08/05/21 08/12/21 08/11/21 17:00 History cloNIDine [Catapres] 0.1 mg PO Q6HR PRN 08/05/21 08/05/21 Unknown History Insulin Regular, Human [HumuLIN R] 0 unit SQ AC #1 vial 08/11/21 Unknown Rx Active Medications Cefazolin Sodium (Ancef/Sterile Water 2 Gm/20 Ml) 2 gm in 20 mls @ 80 mls/hr IV PREOP NR; Protocol Stop: 08/12/21 21:00 Sodium Chloride (Nacl 0.9% 1000 Ml) 1,000 mls @ 42 mls/hr IV DIRECT ALEXIA Stop: 08/12/21 19:00 - Brief post op/procedure progress note Date of procedure: 08/12/21 Pre-op diagnosis: End-Stage Renal Disease Post-op diagnosis: same Procedure: Creation of Left Brachial Artery to Left Axillary Vein Arteriovenous Graft with 6 mm Bovine Artegraft Anesthesia: ABIDA Surgeon: NAILA THOMAS Estimated blood loss: minimal Pathology: none Condition: stable - Disposition Condition at discharge: Good Disposition: 01 HOME / SELF CARE / HOMELESS Short Stay Discharge Plan Activity: other (No heavy lifting with left arm for 2 weeks.) Wound: open to air, keep clean and dry, other (Okay to wash the left arm incisions with soap and water but do not soak in water for 2 weeks.) Follow up with: NAILA THOMAS MD [Staff Physician] - 14 Days Prescriptions: HYDROcodone/APAP 5-325 [[place] 5/325] 1 each PO Q4HR PRN #30 tablet PRN Reason: Pain
--- NOTE | 2021-08-12 10:15 | Operative Report ---
Operative Report Operative Report: Date of procedure: 08/12/2021 Pre-operative diagnosis: End-Stage Renal Disease Post-operative diagnosis: Same Procedure(s): 1. Creation of Left Brachial Artery to Axillary Vein AV Graft with 6 mm Bovine Graft Artergraft Surgeon: Gerard Ag MD Transportation Program Director: None Anesthesia: Regional/MAC EBL: Minimal Counts: Correct Complications: None Condition: Stable Findings: Successful Creation of Left Arm AV Graft with Palpable Thrill and Palpable Radial Pulse at the Completion of the Case. Specimen: None Indication: The patient is a 81-year-old male with a history of end-stage renal disease who is currently on hemodialysis through a right internal jugular permacath. He is in need of long-term dialysis access and was found to be a suitable candidate for creation of a left arm arteriovenous graft. He and his daughter were given the risk, benefits, and alternative procedures and consented to the procedure. Description of Procedure: Prior to being transported to the operating room the patient had a regional block of the left arm performed. After the block was performed the patient was transported to the operating room and adequately sedated. The patient's left arm was then prepped and draped in normal sterile fashion. A longitudinal incision was made on the medial aspect of the arm just proximal to the antecubital crease and carried down to the brachial artery using sharp dissection. The brachial artery was dissected out circumferentially both proximally and distally and controlled with vessel loops. A second incision was created in longitudinal fashion on the medial aspect of the arm just distal to the axillary crease and carried down to the axillary vein using sharp dis section. Axillary vein was dissected out circumferentially and controlled with a vessel loop. I then used a Carly-Wick tunneler to tunnel from the brachial artery incision to the axillary vein incision and then pulled an 6 mm bovine through the tunnel. I infused with heparinized saline to ensure that it was not twisted or kinked. I put the brachial artery vessel loops on tension controlling the flow and then created an arteriotomy using an 11 blade and Ramirez scissors. I beveled the graft and created an end-to-side anastomosis using 6-0 Prolene running fashion. I clamped the graft just proximal to the anastomosis and then released the vessel loops restoring flow in the brachial artery. I placed quick clot in incision to achieve hemostasis. I cut the proximal end of the graft to the appropriate length and beveled the graft in preparation for a venous anastomosis. I controlled the axillary vein a Satinsky clamp and created a venotomy using an 11 blade and Ramirez scissors. I created an end to side anastomosis using a 6-0 Prolene in running fashion. Prior to completing the anastomosis I flushed the graft to ensure there was no thrombus and then completed the anastamosis. I released all clamps allowing flow into the AV graft which had an excellent thrill. I packed the wound with quick clot to achieve hemostasis. I closed both wounds in 2 layers using 3-0 Vicryl in runnin g fashion in the deep dermal layer and 4-0 Monocryl in running fashion the subcuticular layer. I dressed both wounds with Dermabond. The patient tolerated the procedure well all sponge, needle, and instrument counts were correct. The patient was taken to recovery in stable condition.
[2021-08-12 11:54] VITALS: BP 105/60
--- NOTE | 2021-08-12 14:24 | Post Anesthesia Evaluation ---
- Post Anesthesia Evaluation Patient Participated: Yes Airway Patent: Yes Stable Respiratory Function: Yes Nausea/Vomiting: No Temp > 96.8F: Yes Pain Manageable: Yes Adequeate Hydration: Yes Anesthesia Complications: No Block Receding Appropriately: Not Applicable Patient on Ventilator: No
== END 2021-08-12 11:40 | disposition home or self-care (01) ==
LOC: OR 06:16
PROVIDERS: ATTEND Surgery Vascular Surgery
DX: I13.2 Hypertensive heart and chronic kidney disease with heart failure and with stage 5 chronic kidney disease, or end stage renal disease (principal); E11.22 Type 2 diabetes mellitus with diabetic chronic kidney disease; N18.6 End stage renal disease; E11.51 Type 2 diabetes mellitus with diabetic peripheral angiopathy without gangrene; I50.9 Heart failure, unspecified; M19.90 Unspecified osteoarthritis, unspecified site; E78.00 Pure hypercholesterolemia, unspecified; Z87.01 Personal history of pneumonia (recurrent); Z86.2 Personal history of diseases of the blood and blood-forming organs and certain disorders involving the immune mechanism; Z98.890 Other specified postprocedural states
CPT/HCPCS: 36415; 36830; 80048; 82962; 85027; C1768; J0690; J1644; J2001; J2370; J2704; J3010; J3490; J7030; J7040; J7050; J7120; Q0162